=== PATIENT | female | born 1945 | race Caucasian/White ===

== ENCOUNTER 2020-08-05 09:48 | Inpatient (IN) | payer MEDICARE, MEDICAID, SELFPAY ==
[2020-08-05] VITALS (15 sets, daily range): BP systolic 92–158; BP diastolic 53–77; PULSE 77–98; RESP 14–22; TEMP 36.6–36.8; O2SAT 1–100; BMI 13.7
--- NOTE | 2020-08-05 09:51 | XRR_ITS ---
PROCEDURE INFORMATION: Exam: XR Right Knee Exam date and time: 08/05/2020 10:00 AM Age: 75 years old Clinical indication: Injury or trauma; Fall; Blunt trauma; Knee; Right; Prior surgery; Surgery type: Lower leg TECHNIQUE: Imaging protocol: XR Right knee. Views: 3 views. COMPARISON: No relevant prior studies available. FINDINGS: Bones/joints: Postsurgical hardware is seen with metallic plate and screws in the lateral aspect of the proximal tibia. No acute bony abnormalities are present. Soft tissues: Unremarkable XR/XR knee RT 3V* [id number] IMPRESSION: No acute findings. ORIF lateral tibia.
--- NOTE | 2020-08-05 09:51 | XRR_ITS ---
PROCEDURE INFORMATION: Exam: XR Right Shoulder Exam date and time: 08/05/2020 10:00 AM Age: 75 years old Clinical indication: Injury or trauma; Fall; Blunt trauma (contusions or hematomas); Arm, upper; Right TECHNIQUE: Imaging protocol: XR Right shoulder. Views: 2 or more views. COMPARISON: No relevant prior studies available. FINDINGS: Bones/joints: There is a comminuted displaced fracture of the proximal shaft of the right humerus. The glenohumeral joint is intact. Soft tissues: Soft tissue effusion is seen adjacent to the fracture. Incidentally noted is a large calcified lymph node in the subcarinal mediastinum. XR/XR shoulder RT min 2V* [id number] IMPRESSION: Comminuted displaced fracture proximal shaft of the humerus.
--- NOTE | 2020-08-05 09:51 | XRR_ITS ---
PROCEDURE INFORMATION: Exam: XR Right Humerus Exam date and time: 08/05/2020 10:00 AM Age: 75 years old Clinical indication: Injury or trauma; Fall; Blunt trauma (contusions or hematomas); Arm, upper; Right TECHNIQUE: Imaging protocol: XR Right humerus. Views: 2 or more views. COMPARISON: CR (CHEST, ) 08/05/2020 10:07 AM FINDINGS: Bones/joints: Comminuted displaced fracture proximal shaft of the humerus. The remainder of the humerus is negative for acute abnormality. Soft tissues: Normal. XR/[place] [id number] IMPRESSION: Comminuted displaced fracture proximal shaft of the humerus
--- NOTE | 2020-08-05 09:52 | XRR_ITS ---
PROCEDURE INFORMATION: Exam: XR Chest Exam date and time: 08/05/2020 10:00 AM Age: 75 years old Clinical indication: Injury or trauma; Fall; Blunt trauma (contusions or hematomas); Additional info: Cough TECHNIQUE: Imaging protocol: XR of the chest. Views: 1 view. COMPARISON: CR Chest 1 [place] [id number] 08/20/2013 10:04 AM FINDINGS: Lungs: Unremarkable. No consolidation. Pleural spaces: Unremarkable. No pleural effusion. No pneumothorax. Heart/Mediastinum: Unremarkable. No cardiomegaly. Bones/joints: Comminuted displaced fracture proximal shaft of the humerus. XR/XR chest 1V portable [id number] IMPRESSION: 1. No acute cardiac or pulmonary abnormality. 2. Comminuted displaced fracture proximal shaft of the humerus.
--- NOTE | 2020-08-05 09:53 | ECG_ITS ---
[facility] Test Date: 2020-08-05 Pat Name: Mónica Rodas Department: Room: Gender: Female [employer]: : 1945 Requested By: Vi Davidson Order Number: [id number] Ruma MD: Gabriela Dangelo M.D. Measurements Intervals [place] Rate: 77 P: 63 [place]: 145 QRS: 77 QRSD: 95 T: 71 QT: 377 QTc: 427 Interpretive Statements SINUS RHYTHM ST ELEVATION, PROBABLY EARLY REPOLARIZATION [ST ELEVATION WITH NORMALLY INFLECTED T WAVE] No previous ECG available for comparison Electronically Signed On 08-07-2020 9:35:58 CDT by Gabriela Dangelo M.D. [id number]
--- NOTE | 2020-08-05 09:54 | W.ED.GENADLT ---
HPI - General Adult General: Chief complaint: Extremity Injury, Upper Stated complaint: RIGHT SHOULDER PAIN S/P FALL Time Seen by Provider: 08/05/20 09:51 Source: patient and EMS Mode of arrival: EMS Limitations: no limitations History of Present Illness: HPI narrative: Mrs. Rodas is a very nice 75-year-old female who comes in via EMS after she lost her balance trying to step over something in the yard causing her to fall. She landed on her right shoulder and has pain in the right shoulder and right knee. Shoulder pain is much worse on the right knee. She denies hitting her head or neck or losing consciousness. She has no headache, no visual symptoms denies any neck pain or stiffness. The patient also has a cough and wheezing. She has a history of COPD but does not wear oxygen. EMS noted the patient's pulse ox was below 90% so they placed her on 2 L of nasal cannula oxygen. The patient admits to a cough productive of yellow sputum. She is wheezing can be heard when entering the room. The patient does not appear to be in distress. Patient denies injuries anywhere else except for to the left shoulder she has an abrasion. She otherwise denies any other complaints or concerns. Associated symptoms: Deny chest pain, dyspnea, headache(s), nausea, rash, palpitations, syncope or vomiting Review of Systems Const: Denies: fever(s) Eyes: Denies: change in vision or blurry vision ENMT: Denies: throat pain, hoarseness or swelling of lips/tongue Card: Denies: chest pain, palpitations, syncope, pre-syncope or dyspnea on exertion Resp: Reports: productive cough, wheezing and change in phlegm color; Denies: dyspnea, non-productive cough or hemoptysis GI: Denies: abdominal pain, nausea, vomiting or diarrhea : Denies: flank pain, dysuria, urinary frequency or urinary urgency Musc: Reports: joint pain; Denies: neck pain, back pain or extremity pain Skin/Breast: Denies: rash or pruritus Neuro: Denies: headache(s), numbness in extremities, weakness in extremities or dizziness Michael/Lymph: Denies: easy bruising, easy bleeding, petechiae or purpura All/Imm: Denies: urticaria or throat swelling PFSH ED PFSH: Medical History (Updated 08/05/20 @ 13:27 by Vi Moss) Arrhythmia COPD (chronic obstructive pulmonary disease) GERD (gastroesophageal reflux disease) Hypertension Physical Exam Const: COMMON NORMALS: no acute distress, patient oriented x3, no limitations and alert GENERAL APPEARANCE: cooperative HENMT: COMMON NORMALS: normocephalic, atraumatic, external ears normal, EAC's normal and Normal external nose present HEAD & SCALP: normal to inspection, normocephalic and atraumatic FACE & SINUS: normal facial exam and face symmetric NOSE: Normal external nose present and Normal nares present EXTERNAL EAR: Yes external ears normal EXTERNAL AUDITORY CANAL: EAC's normal MOUTH: Normal oral and palatal mucosa present, lip normal and tongue normal Eye: COMMON NORMALS: Equal, round and reactive pupils present and conjunctivae normal GENERAL EYE: appearance normal, both eyes and all related structures ALIGNMENT: Yes alignment normal PERIORBITAL: periorbital findings normal EYELID: eyelids normal CONJUNCTIVA: Yes conjunctivae normal SCLERA: sclerae normal PUPIL: Yes Equal, round and reactive pupils present Neck/C-Spine: COMMON NORMALS: full ROM, no lymphadenopathy, supple, no meningeal signs and no JVD GENERAL: Yes normal visual inspection and Yes trachea midline Chest: COMMONS NORMALS: normal inspection of the chest and normal palpation of entire chest wall Resp: COMMON NORMALS: normal respiratory effort, No retractions, No use of accessory muscles and clear to auscultation bilaterally EFFORT & INSPECTION: Yes able to speak in complete sentences and Yes symmetric chest movement AUSCULTATION: clear to auscultation bilaterally, no crackles, no rales, no rhonchi and no wheezes Cardio: COMMON NORMALS: no JVD, regular rate, regular rhythm, S1 normal heart sound present and S2 normal heart sound present RATE: regular rate RHYTHM: regular rhythm HEART SOUNDS: S1 normal heart sound present, S2 normal heart sound present, no click, no gallops, no murmurs and no rubs GI: COMMON NORMALS: Soft to palpation and No hepatosplenomegaly present PALPATION: Yes Soft to palpation, No Tenderness to palpation present (GI), No Guarding due to palpation present (GI), No Rigid due to palpation, Yes No hepatosplenomegaly present, No Hernia present, No Palpable mass present and No Pulsatile mass present : COMMON NORMALS: Yes no CVA tenderness BLADDER/KIDNEY EXAM: Yes no CVA tenderness EXTERNAL FEMALE EXAM: No Hernia present Back/Pelvis: COMMON NORMALS: no CVA tenderness, thoracic and lumbar spine normal to inspection, no thoracic nor lumbar tenderness and thoraco-lumbar ROM normal Extremity: COMMON NORMALS: capillary refill normal, no clubbing, cyanosis or edema and no calf tenderness NARRATIVE EXTREMITY EXAM: Right shoulder with hematoma noted to the anterior aspect. Range of motion limited secondary to pain. Right knee without swelling or abrasion. Area without contusion noted. Both extremities are neurovascular intact distal to the injuries. Neuro: COMMON NORMALS: patient oriented x3, CN's II-XII intact bilaterally, moves all extremities, no focal motor deficits and no sensory deficits noted SENSORIUM/ORIENTATION: Yes alert MENINGEAL SIGNS: Yes no meningeal signs SPEECH: speech normal Psych: COMMON NORMALS: mental status grossly normal, Normal thought process present, cooperative, normal affect, speech normal and activity/motor behavior normal SPEECH: Yes normal speech THOUGHT PROCESS: Normal thought process present Skin: COMMON NORMALS: no rashes or lesions noted, turgor normal, no jaundice, no petechiae and no mottling GENERAL SKIN EXAM: no rashes or lesions noted and turgor normal Course Vital Signs: Vital signs: Vital Signs Temperature 98.3 F 08/05/20 09:49 Pulse Rate 77 08/05/20 13:08 Respiratory Rate 22 H 08/05/20 13:08 Blood Pressure 92/53 08/05/20 13:08 Pulse Oximetry 99 08/05/20 13:08 MDM - General Adult MDM Narrative: Medical decision making narrative: The case was reviewed with Drs. Judge and Dr. Cade, they will admit and consult respectively. Patient be admitted for COPD exacerbation that is mild not requiring BiPAP and will be managed by Dr. Cade for her orthopedic injuries. Lab Data: Attestation: I reviewed the patient's lab results. Labs: Lab Results 08/05/20 08/05/20 08/05/20 Range/Units 09:57 10:25 10:25 WBC 12.2 H (4.0-10.0) 10^3/ uL RBC 3.65 L (4.1-5.3) 10^6/u L Hgb 11.5 (11.5-15.3) g/dL Hct 36.6 L (37.0-47.0) % MCV 100.3 H (81-99) fL MCH 31.5 (28.0-34.0) pg MCHC 31.4 (30.0-36.0) g/dL RDW 14.2 (12.1-15.1) % Plt Count 336 (130-400) 10^3/c mm MPV 10.1 (7.4-10.4) fL Neut % (Auto) 64.5 % Lymph % (Auto) 28.8 % [place] % (Auto) 5.1 % Eos % (Auto) 0.7 % Baso % (Auto) 0.6 % Neut # (Auto) 7.90 H (1.8-7.7) 10^3/u L Lymph # (Auto) 3.5 (0.8-4.8) 10^3/u L [place] # (Auto) 0.6 (0.2-0.9) 10^3/u L Eos # (Auto) 0.1 (0.0-0.8) 10^3/u L Baso # (Auto) 0.1 (0.0-0.1) 10^3/u L Nucleated RBC % (a uto) 0 % Nucleated RBCs # 0.0 /100WBC Specimen Type Arterial Sample Site Brachial, left ABG pH 7.35 (7.35-7.45) ABG pCO2 54.1 H (35-45) mmHg ABG pO2 72.7 L (80.0-100.0) mmH g ABG HCO3 30.0 H (22-26) mmol/L ABG O2 Saturation 96.5 ABG Base Excess 3.3 H (-2.0-2.0) mmol/ L Leonel Test Pos A-a O2 Gradient 7.7 (5-10) mmHg Hematocrit 36.1 L (37-47) % Hgb O2 Saturation 91.9 L (95-100) % Carboxyhemoglobin 3.8 (0.4-20.1) %THgb Methemoglobin 1.0 (0.4-1.5) % Total Hemoglobin 11.8 L (12-16) g/dL Sodium 137.0 135 L (131-143) mmol/L Potassium 4.4 4.8 (3.5-5.0) mmol/L Glucose 128.0 H 121 H (70-115) mg/dL Ionized Calcium 1.3 (1.1-1.4) mmol/L O2 Delivery Device Nc O2 Liters/Min 2.0 % FiO2 28.0 % Sand Caster Apprentice ID Cak Chloride 98 (98-107) mmol/L Carbon Dioxide 30 H (22-29) mmol/L Anion Gap 11.8 (5-19) BUN 10 (8-23) mg/dL Creatinine 0.3 L (0.5-0.9) mg/dL GFR Calculation Not Reportable Calculated Osmolal ity 280 L (285-295) mOsm/k g Calcium 8.9 (8.5-10.5) mg/dL Magnesium 2.1 (1.7-2.3) mg/dL Total Bilirubin 0.2 (0.15-1.2) mg/dL AST 24 (0-32) U/L ALT 20 (0-33) U/L Alkaline Phosphata se 66 (35-105) IU/L Troponin T Baselin e (0-10) ng/L Troponin T 120 Min [place] (0-10) ng/L Delta Troponin T (0-10) ABS# Total Protein 6.6 (6.6-8.7) g/dL Albumin 4.2 (3.5-5.2) g/dL Globulin 2.4 (1.3-4.6) g/dL Urine Color (Yellow) Urine Appearance (CLEAR) Urine pH (5-7) Ur Specific Gravit y (1.005-1.030) Urine Protein (Negative) Urine Glucose (UA) (Normal) Urine Ketones (Negative) Urine Blood (Negative) Urine Nitrate (Negative) Urine Bilirubin (Negative) Urine Urobilinogen (Negative) mg/dL Ur Leukocyte Mckenzie ase (Negative) 08/05/20 08/05/20 08/05/20 Range/Units 10:25 11:41 12:16 WBC (4.0-10.0) 10^3/ uL RBC (4.1-5.3) 10^6/u L Hgb (11.5-15.3) g/dL Hct (37.0-47.0) % MCV (81-99) fL MCH (28.0-34.0) pg MCHC (30.0-36.0) g/dL RDW (12.1-15.1) % Plt Count (130-400) 10^3/c mm MPV (7.4-10.4) fL Neut % (Auto) % Lymph % (Auto) % [place] % (Auto) % Eos % (Auto) % Baso % (Auto) % Neut # (Auto) (1.8-7.7) 10^3/u L Lymph # (Auto) (0.8-4.8) 10^3/u L [place] # (Auto) (0.2-0.9) 10^3/u L Eos # (Auto) (0.0-0.8) 10^3/u L Baso # (Auto) (0.0-0.1) 10^3/u L Nucleated RBC % (a uto) % Nucleated RBCs # /100WBC Specimen Type Sample Site ABG pH (7.35-7.45) ABG pCO2 (35-45) mmHg ABG pO2 (80.0-100.0) mmH g ABG HCO3 (22-26) mmol/L ABG O2 Saturation ABG Base Excess (-2.0-2.0) mmol/ L Leonel Test A-a O2 Gradient (5-10) mmHg Hematocrit (37-47) % Hgb O2 Saturation (95-100) % Carboxyhemoglobin (0.4-20.1) %THgb Methemoglobin (0.4-1.5) % Total Hemoglobin (12-16) g/dL Sodium (131-143) mmol/L Potassium (3.5-5.0) mmol/L Glucose (70-115) mg/dL Ionized Calcium (1.1-1.4) mmol/L O2 Delivery Device O2 Liters/Min % FiO2 % Sand Caster Apprentice ID Chloride (98-107) mmol/L Carbon Dioxide (22-29) mmol/L Anion Gap (5-19) BUN (8-23) mg/dL Creatinine (0.5-0.9) mg/dL GFR Calculation Calculated Osmolal ity (285-295) mOsm/k g Calcium (8.5-10.5) mg/dL Magnesium (1.7-2.3) mg/dL Total Bilirubin (0.15-1.2) mg/dL AST (0-32) U/L ALT (0-33) U/L Alkaline Phosphata se (35-105) IU/L Troponin T Baselin e 12 H (0-10) ng/L Troponin T 120 Min [place] 11.76 H (0-10) ng/L Delta Troponin T -0.24 L (0-10) ABS# Total Protein (6.6-8.7) g/dL Albumin (3.5-5.2) g/dL Globulin (1.3-4.6) g/dL Urine Color Straw (Yellow) Urine Appearance Clear (CLEAR) Urine pH 5 (5-7) Ur Specific Gravit y 1.015 (1.005-1.030) Urine Protein Neg (Negative) Urine Glucose (UA) Norm (Normal) Urine Ketones Negative (Negative) Urine Blood Neg (Negative) Urine Nitrate Negative (Negative) Urine Bilirubin Neg (Negative) Urine Urobilinogen Norm (Negative) mg/dL Ur Leukocyte Mckenzie ase Negative (Negative) Imaging Data^: CXR: My impression: No acute cardiopulmonary findings. Findings consistent with COPD. XR Right Shoulder: My impression: Comminuted proximal humerus fracture XR Right Humerus: My impression: Comminuted proximal humerus fracture XR Right Femur: My impression: Probable nondisplaced distal femur fracture XR Right Knee: My impression: Probable nondisplaced distal femur fracture EKG Data^: EKG 1: Attestation: I personally reviewed and interpreted this EKG as follows: Interpretation: Normal sinus rhythm at 77 beats a minute, significant artifact present in the precordial leads, nonspecific ST-T wave changes, consistent with previous EKGs. Computer generated interpretation: Humerus X-Ray 08/05/20 09:51 IMPRESSION: Comminuted displaced fracture proximal shaft of the humerus Knee X-Ray 08/05/20 09:51 IMPRESSION: No acute findings. ORIF lateral tibia. Shoulder X-Ray 08/05/20 09:51 IMPRESSION: Comminuted displaced fracture proximal shaft of the humerus. Chest X-Ray 08/05/20 09:52 IMPRESSION: 1. No acute cardiac or pulmonary abnormality. 2. Comminuted displaced fracture proximal shaft of the humerus. Femur X-Ray 08/05/20 10:18 IMPRESSION: No acute findings. General osteopenia. Head CT 08/05/20 10:20 IMPRESSION: 1. No acute intracranial abnormality. 2. Generalized chronic atrophy. 3. 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 Radiation Dose CTDIVOL = (mGy): DLP = 734.38 (mGy-cm) Shoulder CT 08/05/20 10:40 IMPRESSION: 1. Severe centrilobular emphysema. 2. Comminuted impacted angulated displaced right humeral neck fracture. 3. Nondisplaced fracture in the region of the greater tuberosity. Radiation Dose CTDIVOL = (mGy): DLP = 517.21 (mGy-cm) Femur CT 08/05/20 11:30 IMPRESSION: 1. Spiral hairline nondisplaced fracture in femoral cortex beginning posteriorly in the mid femoral shaft and extending laterally and inferiorly with termination over anterolateral portion of the right femoral epicondyle. 2. Minimal joint effusion with no obvious lipohemarthrosis. 3. This does not appear to be intra-articular fracture since there is no obvious lipohemarthrosis. 4. Mild lateral patellar subluxation and patellar tilt. 5. Metallic artifact from metallic fixation over the lateral portion of the proximal tibia. Radiation Dose CTDIVOL = (mGy): DLP = 1036.24 (mGy-cm) Discharge Plan Discharge Patient Disposition: Admitted As Inpatient Clinical Impression: COPD (chronic obstructive pulmonary disease), Fracture of head of humerus, Femur fracture, right Condition: Stable Prescriptions: No Action Zyrtec 10 mg Tablet 10 mg PO BEDTIME RF: 0 simvastatin 10 mg tablet 10 mg PO QPM RF: 0 amlodipine 5 mg tablet 5 mg PO QAM RF: 0 montelukast 10 mg tablet 10 mg PO QAM RF: 0 Ventolin HFA 90 mcg/actuation HFA aerosol inhaler 2 puff INHALATION Q4H PRN (Reason: Shortness Of Breath) RF: 0 lisinopril 40 mg tablet 40 mg PO BID RF: 0 fluticasone propionate 50 mcg/actuation spray,suspension 2 spray INTRANASAL DAILY RF: 0 atenolol 50 mg tablet 50 mg PO BID RF: 0 Vitamin D3 50 mcg (2,000 unit) Capsule 50 mcg PO QPM RF: 0 Spiriva Respimat 2.5 mcg/actuation mist 2 puff INHALATION DAILY RF: 0 Referrals: Sugey Sosa DO [Primary Care Provider] - Coding Level of Care Code ED Inspecting Engineer for Chg Fwd Exam Comprehensive
[2020-08-05 10:08] LABS: ABG PCO2 54.1 mmHg (35-45); ABG PH Result 7.35 (7.35-7.45); Alveolar-Arterial Oxygen Gradi 7.7 mmHg (5-10); Arterial Blood Gas Hematocrit 36.1 % (37-47); Base Excess ABG 3.3 mmol/L (-2.0-2.0); Blood Gas Allen Test Pos; Blood Gas Operator Identificat CAK; Blood Gas Sample Site Brachial, left; Blood Gas Sample Type Arterial; Carboxyhemoglobin 3.8 %THgb (0.4-20.1); HGB O2 Sat 91.9 % (95-100); Ionized Calcium Level - ABG 1.3 mmol/L (1.1-1.4); Oxygen Device NC; Oxygen Saturation ABG 96.5; PO2 ABG 72.7 mmHg (80.0-100.0); Potassium Level - ABG 4.4 mmol/L (3.5-5.0); Total Hemoglobin 11.8 g/dL (12-16)
--- NOTE | 2020-08-05 10:18 | XRR_ITS ---
PROCEDURE INFORMATION: Exam: XR Right Femur Exam date and time: 08/05/2020 10:27 AM Age: 75 years old Clinical indication: Injury or trauma; Fall; Blunt trauma; Thigh or upper leg; Right; Additional info: Pain/injury TECHNIQUE: Imaging protocol: XR Right femur. Views: 2 views. COMPARISON: CR (LOW EXM, ) 08/05/2020 10:02 AM FINDINGS: Bones/joints: There is general osteopenia. No acute fracture. Soft tissues: Unremarkable. XR/XR femur RT min 2V* [id number] IMPRESSION: No acute findings. General osteopenia.
--- NOTE | 2020-08-05 10:20 | CTR_ITS ---
PROCEDURE INFORMATION: Exam: CT Head Without Contrast Exam date and time: 08/05/2020 10:53 AM Age: 75 years old Clinical indication: Injury or trauma; Fall; Blunt trauma (contusions or hematomas); Additional info: Fall/injury TECHNIQUE: Imaging protocol: Computed tomography of the head without contrast. Radiation optimization: All CT scans at this facility use at least one of these dose optimization techniques: automated exposure control; mA and/or kV adjustment per patient size (includes targeted exams where dose is matched to clinical indication); or iterative reconstruction. COMPARISON: No relevant prior studies available. RADIATION DOSE METRICS: Total DLP (mGy-cm): 734.38 FINDINGS: Brain: No intracranial hemorrhage, edema or other acute abnormalities are seen in the brain. There is generalized chronic atrophy with prominence of the ventricles and sulci. There is focal encephalomalacia in the left parietal lobe from old infarct. Cerebral ventricles: There is ventricular prominence from chronic atrophy. Bones/joints: Unremarkable. No acute fracture. Paranasal sinuses: Visualized sinuses are unremarkable. No fluid levels. Mastoid air cells: Visualized mastoid air cells are well aerated. Soft tissues: Unremarkable. CT/CT head wo con* [id number] IMPRESSION: 1. No acute intracranial abnormality. 2. Generalized chronic atrophy. 3. 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 Radiation Dose CTDIVOL = (mGy): DLP = 734.38 (mGy-cm)
[2020-08-05] MEDS: ondansetron 2 mg/ML SDV 2 mL 4 MG IVP ×2 (10:32→18:26)
[2020-08-05] MEDS: morphine 4 mg/mL SDV 1 mL IVP (10:33)
[2020-08-05] MEDS: acetaminophen 1,000 MG/100 ML PIGGYBACK 400 MG IV (10:36)
[2020-08-05] MEDS: sodium chloride 0.9% 1,000 ML 100 ML IV (10:37)
--- NOTE | 2020-08-05 10:40 | CTR_ITS ---
PROCEDURE INFORMATION: Exam: CT Right Upper Extremity Without Contrast, Shoulder Exam date and time: 08/05/2020 10:53 AM Age: 75 years old Clinical indication: Injury or trauma; Fall; Blunt trauma (contusions or hematomas); Shoulder; Right TECHNIQUE: Imaging protocol: CT of the Right upper extremity without contrast was performed. Exam focused on the shoulder. Radiation optimization: All CT scans at this facility use at least one of these dose optimization techniques: automated exposure control; mA and/or kV adjustment per patient size (includes targeted exams where dose is matched to clinical indication); or iterative reconstruction. COMPARISON: CR (CHEST, ) 08/05/2020 10:07 AM RADIATION DOSE METRICS: Total DLP (mGy-cm): 517.21 FINDINGS: Bones/joints: Comminuted impacted angulated displaced right humeral neck fracture. Nondisplaced fracture in the region of the greater tuberosity. Soft tissues: Normal. Lymph nodes: Calcified right hilar nodes and/or mediastinal nodes and/or lung granulomas consistent with old granulomatous disease. Lungs: Severe centrilobular emphysema. CT/CT shoulder RT wo con* [id number] IMPRESSION: 1. Severe centrilobular emphysema. 2. Comminuted impacted angulated displaced right humeral neck fracture. 3. Nondisplaced fracture in the region of the greater tuberosity. Radiation Dose CTDIVOL = (mGy): DLP = 517.21 (mGy-cm)
[2020-08-05 10:46] LABS: Basophils # 0.1 10^3/uL (0.0-0.1); Basophils % 0.6 %; Eosinophils # 0.1 10^3/uL (0.0-0.8); Eosinophils % 0.7 %; Hematocrit 36.6 % (37.0-47.0); Hemoglobin 11.5 g/dL (11.5-15.3); Lymphocytes # 3.5 10^3/uL (0.8-4.8); Lymphocytes % 28.8 %; Mean Corpuscular HGB Conc 31.4 g/dL (30.0-36.0); Mean Corpuscular Hemoglobin 31.5 pg (28.0-34.0); Mean Corpuscular Volume 100.3 fL (81-99); Mean Platelet Volume 10.1 fL (7.4-10.4); Monocytes # 0.6 10^3/uL (0.2-0.9); Monocytes % 5.1 %; Neutrophils % 64.5 %; Nucleated Red Blood Cells % 0 %; Platelet Count 336 10^3/cmm (130-400); Red Blood Count 3.65 10^6/uL (4.1-5.3); Red Cell Distribution Width 14.2 % (12.1-15.1); White Blood Count 12.2 10^3/uL (4.0-10.0)
[2020-08-05 11:05] LABS: Alanine Aminotransferase 20 U/L (0-33); Albumin Level 4.2 g/dL (3.5-5.2); Alkaline Phosphatase 66 IU/L (35-105); Blood Urea Nitrogen 10 mg/dL (8-23); Calcium 8.9 mg/dL (8.5-10.5); Carbon Dioxide 30 mmol/L (22-29); Chloride 98 mmol/L (98-107); Creatinine Clr Calc Pharmacy 32.6311; Globulin 2.4 g/dL (1.3-4.6); Glucose 121 mg/dL (65-115); Magnesium 2.1 mg/dL (1.7-2.3); Osmolality Calculated 280 mOsm/kg (285-295); Sodium 135 mmol/L (136-145); Total Bilirubin 0.2 mg/dL (0.15-1.2); Total Protein 6.6 g/dL (6.6-8.7)
[2020-08-05 11:06] LABS: Troponin(5th) Baseline 12 ng/L (0-10)
[2020-08-05 11:09] LABS: Anion Gap 11.8 (5-19)
[2020-08-05 11:10] LABS: Aspartate Amino Transferase 24 U/L (0-32); Potassium 4.8 mmol/L (3.5-5.1)
--- NOTE | 2020-08-05 11:30 | CTR_ITS ---
PROCEDURE INFORMATION: Exam: CT Right Lower Extremity Without Contrast; Thigh Exam date and time: 08/05/2020 12:12 PM Age: 75 years old Clinical indication: Injury or trauma; Fall; Blunt trauma; Thigh or upper leg; Right; Additional info: Injury/pain TECHNIQUE: Imaging protocol: CT of the Right lower extremity without contrast was performed. Exam focused on the thigh. Radiation optimization: All CT scans at this facility use at least one of these dose optimization techniques: automated exposure control; mA and/or kV adjustment per patient size (includes targeted exams where dose is matched to clinical indication); or iterative reconstruction. COMPARISON: CR (LOW EXM, ) 08/05/2020 10:14 AM RADIATION DOSE METRICS: Total DLP (mGy-cm): 1036.24 FINDINGS: Tubes, catheters and devices: Allen balloon catheter in the urinary bladder. Bones/joints: Spiral hairline nondisplaced fracture in femoral cortex beginning posteriorly in the mid femoral shaft and extending laterally and inferiorly with termination over anterolateral portion of the right femoral epicondyle. Minimal joint effusion with no obvious lipohemarthrosis. This does not appear to be intra-articular fracture since there is no obvious lipohemarthrosis. Mild lateral patellar subluxation and patellar tilt. Metallic artifact from metallic fixation over the lateral portion of the proximal tibia. Soft tissues: Normal. Vasculature: Moderate calcified peripheral vascular disease. CT/CT femur RT wo con* [id number] IMPRESSION: 1. Spiral hairline nondisplaced fracture in femoral cortex beginning posteriorly in the mid femoral shaft and extending laterally and inferiorly with termination over anterolateral portion of the right femoral epicondyle. 2. Minimal joint effusion with no obvious lipohemarthrosis. 3. This does not appear to be intra-articular fracture since there is no obvious lipohemarthrosis. 4. Mild lateral patellar subluxation and patellar tilt. 5. Metallic artifact from metallic fixation over the lateral portion of the proximal tibia. Radiation Dose CTDIVOL = (mGy): DLP = 1036.24 (mGy-cm)
[2020-08-05 11:46] LABS: Add Urine Microscopic? NO; Charge for UA Resulting for Rev
--- NOTE | 2020-08-05 11:53 | ECG_ITS ---
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 Measurements Intervals [place] Rate: 76 P: 65 NE: 128 QRS: 69 QRSD: 103 T: 66 QT: 395 QTc: 445 Interpretive Statements SINUS RHYTHM SEPTAL MYOCARDIAL INFARCTION [40+ ms Q WAVE IN V1/V2], PROBABLY OLD Compared to ECG 08/05/2020 10:58:41 Myocardial infarct finding now present ST (T wave) deviation no longer present Early repolarization no longer present Electronically Signed On 08-07-2020 17:43:06 CDT by Gabriela Dangelo M.D. [id number]
[2020-08-05 11:56] LABS: Bilirubin Urine Neg (Negative); Blood Urine Neg (Negative); Glucose Urine UA Norm (Normal); Ketones Urine Negative (Negative); Leukocyte Esterase Urine Negative (Negative); Nitrate Urine Negative (Negative); Protein Urine Neg (Negative); Specific Gravity, Urine 1.015 (1.005-1.030); Urine Appearance Clear (CLEAR); Urine Color Straw (Yellow); Urobilinogen Urine Norm (Negative); pH Urine 5 (5-7)
[2020-08-05 13:04] LABS: Troponin 5 2HR 11.76 ng/L (0-10)
[2020-08-05 13:12] LABS: Troponin 5 2HR Delta -0.24 ABS# (0-10)
[2020-08-05] MEDS: morphine 4 mg/mL SDV 1 mL 2 MG IVP (14:40)
--- NOTE | 2020-08-05 16:43 | P.HP_ITS ---
Providers/Chief Complaint Admitting Physician: Krys Judge MD Primary Care Provider: Sugey Sosa DO Chief Complaint: RIGHT SHOULDER PAIN S/P FALL History of Present Illness Mónica Rodas is a 75 year old female with PMH as outlined below who presented to the ER today after a mechanical fall and landed on her right shoulder and knee. Incidentally was noted to have pulse ox of 90% by EMS and noted hweezing on exam in the ER, for which she was placed on supplemental 02. X ray of the humerus showed Comminuted displaced fracture proximal shaft of the humerus, Spiral hairline nondisplaced fracture in femoral cortex on right side and patellar subluxation. Ct head without acute injuries. CXR showed centilobular emphysema. Review of Systems General: Reports: 10 or more systems reviewed and unremarkable except in HPI and below Const: Denies: fever(s), chills or body aches Eyes: Denies: change in vision, blurry vision or photophobia ENMT: Reports: hoarseness; Denies: throat pain, enlarged tonsils, odynophagia or nasal congestion Card: Denies: chest pain, palpitations, irregular heart rhythm, edema, swelling of feet/ankles, lightheadedness, pre-syncope, dyspnea on exertion or orthopnea Resp: Denies: dyspnea, productive cough, non-productive cough, wheezing, str idor, pain on inspiration, change in phlegm color, hemoptysis or chest congestion GI: Denies: abdominal pain, nausea, vomiting, hematemesis, coffee ground emesis, dysphagia, heartburn, diarrhea, constipation, GI cramping, change in stool character, hematochezia or melena : Denies: flank pain, difficulty voiding, dysuria, urinary frequency, urinary urgency, urinary hesitancy or hematuria Musc: Denies: neck pain, back pain, extremity pain, joint swelling, joint warmth or deformity Neuro: Denies: headache(s), numbness in extremities, weakness in extremities, sensory changes, difficulty walking, frequent falls, dizziness, vertigo, behavioral changes, Slurred speech present or seizure-like activity Psych: Denies: anxiety, depression, suicidal ideation or homicidal ideation Endo: Denies: polyuria, polydipsia, tired all the time, cold intolerance or hot flashes Michael/Lymph: Denies: easy bruising or easy bleeding Medications/Allergies Home Medications Medication Instructions Recorded Confirmed Last Taken Type albuterol sulfate [Ventolin HFA] 2 puff INHALATION Q4H PRN 08/05/20 08/05/20 Unknown History amlodipine 5 mg PO QAM 08/05/20 08/05/20 08/05/20 07:30 History atenolol 50 mg PO BID 08/05/20 08/05/20 08/05/20 07:30 History cetirizine [Zyrtec] 10 mg PO BEDTIME 08/05/20 08/05/20 08/04/20 History cholecalciferol (vitamin D3) 50 mcg PO QPM 08/05/20 08/05/20 08/04/20 History [Vitamin D3] fluticasone propionate 2 spray INTRANASAL DAILY 08/05/20 08/05/20 Unknown History lisinopril 40 mg PO BID 08/05/20 08/05/20 08/05/20 07:30 History montelukast 10 mg PO QAM 08/05/20 08/05/20 08/05/20 07:30 History simvastatin 10 mg PO QPM 08/05/20 08/05/20 08/04/20 History tiotropium bromide [Spiriva 2 puff INHALATION DAILY 08/05/20 08/05/20 Unknown History Respimat] Allergies Allergy/AdvReac Type Severity Reaction Status Date / Time aspirin Allergy ADR-Gastrointestinal Verified 08/05/20 10:41 Upset Penicillins Allergy ADR-Gastrointestinal Verified 08/05/20 10:41 Upset tetracycline Allergy ADR-Gastrointestinal Verified 08/05/20 10:41 Upset PFSH Acute PFSH: Medical History Arrhythmia COPD (chronic obstructive pulmonary disease) GERD (gastroesophageal reflux disease) Hypertension Vitals/I&O/Wt Last Vital Signs Temp 98.3 F 08/05/20 09:49 Pulse 79 08/05/20 15:35 Resp 14 08/05/20 15:35 BP 116/58 08/05/20 15:35 Pulse Ox 99 08/05/20 15:35 08/05/20 08/05/20 08/05/20 06:59 14:59 22:59 Intake Total 100 / 100 Balance 100 / 100 Weight last 48 hrs Weight 34.019 kg Physical Exam Narrative: EXAM NARRATIVE: General: No acute distress, AO x3 HEENT: PERRLA, pupils bilaterally equal and reactive, pallors not present Chest: scattered wheezing to auscultation B/L CVS: S1-S2 regular, no murmurs, no tachycardia, no gallops, no rubs Abdomen: Soft, nontender, no organomegaly, bowel sounds present Neuro: No focal deficits, no facial deformity, AO x3, power 5/5 in all limbs Urinary Catheter Management^: Allen: Cath Placed During This Visit: yes Urinary Catheter Date of Insertion: 08/05/20 Urinary Catheter Time of Insertion: 11:30 Data : 08/05/20 10:25 08/05/20 10:25 A&P Assessment and plan (1) Fracture of head of humerus: Status: Acute Qualifiers: Encounter type: initial encounter Fracture type: closed Laterality: right Qualified Code(s): S42.291A - Other displaced fracture of upper end of right humerus, initial encounter for closed fracture (2) Femur fracture, right: Status: Acute Qualifiers: Encounter type: initial encounter Femur location: distal, unspecified portion Fracture morphology: unspecified fracture morphology Fracture type: closed Qualified Code(s): S72.401A - Unspecified fracture of lower end of right femur, initial encounter for closed fracture (3) Hypertension: Status: Acute Qualifiers: Hypertension type: essential hypertension Qualified Code(s): I10 - E ssential (primary) hypertension (4) COPD (chronic obstructive pulmonary disease): Status: Acute Qualifiers: COPD type: COPD with acute exacerbation Qualified Code(s): J44.1 - Chronic obstructive pulmonary disease with (acute) exacerbation Additional A&P Information Mechanical fall with resulting fractures as above Fracture management per orthopedics pain control with morphine/toradol # HTN: continue home medications incl atenolol, lisinopril # COPD with mild exacerbation, currently saturating 99% on 2lpm NC CXR without consolidation Duoneb inhalation q4h , budesonide 0.5mg BID Prednisone 40mg daily full code Dvt ppx: lovenox Attestations Medical Necessity Statement*: anticipate >2midnight for management of fractures as above, orthopedic assessment, COPD exacerbation Coding Level of Care Code Acute Beverage Inspection Machine Tender for Patricia Saeed Diagnoses Fracture of head of humerus S42.291A Encounter type: initial encounter Fracture type: closed Laterality: right Femur fracture, right S72.401A Encounter type: initial encounter Femur location: distal, unspecified portion Fracture morphology: unspecified fracture morphology Fracture type: closed Hypertension I10 Hypertension type: essential hypertension COPD (chronic obstructive pulmonary disease) J44.1 COPD type: COPD with acute exacerbation
[2020-08-05] MEDS: enoxaparin 40 mg/0.4 mL Syringe SUBCUT (18:25)
[2020-08-05 18:32] LABS: Troponin 5 6HR 13.09 ng/L (0-10); Troponin 5 6HR Delta 1.09 ng/L (0-12)
[2020-08-05] MEDS: ipratropium-albuterol 3 mL Neb INHALATION (20:03)
[2020-08-05] MEDS: budesonide 0.5 mg/2 mL Neb INHALATION (20:03)
[2020-08-05] MEDS: HYDROcodone-acetaminophen 5-325 mg Tablet 1 TAB PO (21:38)
[2020-08-06] VITALS (33 sets, daily range): BP systolic 89–141; BP diastolic 53–87; PULSE 83–119; RESP 12–27; TEMP 36.6–37.3; O2SAT 60–100
--- NOTE | 2020-08-06 | XR_ITS ---
WS: [id number] C-ARM RADIOGRAPHS RIGHT FEMUR; 7 IMAGES HISTORY: femoral nail COMPARISON: 08/05/2020 Lung intramedullary femoral oscar placement through a nondisplaced femur fracture. XR/XR femur RT min 2V* [id number] IMPRESSION: Intraoperative placement of a long intramedullary oscar RIGHT femur.
--- NOTE | 2020-08-06 | SCC_ITS ---
Procedure Done: 1.Right IM nail femur 2. Closed treatment of right proximal humerus fracture 72.6 seconds of fluoroscopic guidance, for a cumulative dose of 3.07 mGy, was provided to Dr. Cade by the radiology department. C-arm images of the RIGHT femur were saved for the patient's permanent record. [facility]
[2020-08-06] MEDS: ipratropium-albuterol 3 mL Neb INHALATION ×3 (02:24→22:27)
[2020-08-06 05:05] LABS: Basophils % 0.4 %; Eosinophils % 0.1 %; Hematocrit 32.3 % (37.0-47.0); Hemoglobin 9.9 g/dL (11.5-15.3); Lymphocytes # 3.5 10^3/uL (0.8-4.8); Mean Corpuscular HGB Conc 30.7 g/dL (30.0-36.0); Mean Corpuscular Hemoglobin 31.3 pg (28.0-34.0); Mean Corpuscular Volume 102.2 fL (81-99); Mean Platelet Volume 10.4 fL (7.4-10.4); Monocytes # 1.1 10^3/uL (0.2-0.9); Monocytes % 10.4 %; Neutrophils # 6.25 10^3/uL (1.8-7.7); Neutrophils % 56.9 %; Nucleated Red Blood Cells % 0 %; Platelet Count 268 10^3/cmm (130-400); Red Blood Count 3.16 10^6/uL (4.1-5.3); Red Cell Distribution Width 14.2 % (12.1-15.1)
[2020-08-06 05:28] LABS: Anion Gap 12.7 (5-19); Blood Urea Nitrogen 15 mg/dL (8-23); Calcium 8.7 mg/dL (8.5-10.5); Carbon Dioxide 29 mmol/L (22-29); Chloride 94 mmol/L (98-107); Creatinine Clr Calc Pharmacy 32.6311; Glucose 115 mg/dL (65-115); Osmolality Calculated 274 mOsm/kg (285-295); Potassium 4.7 mmol/L (3.5-5.1); Sodium 131 mmol/L (136-145)
--- NOTE | 2020-08-06 07:06 | P.CONIM_ITS ---
Providers/Reason For Consult Consulting Physican/Specialty*: hospitalist Reason for Consult*: femur fracture and proximal humerus fracture Attending Physician: Krys Judge MD Primary Care Provider: Sugey Sosa DO History of Present Illness History of Present Illness Mónica Rodas is a 75 year old female presented to the ER today after a mechanical fall and landed on her right shoulder and knee. Incidentally was noted to have pulse ox of 90% by EMS and noted hweezing on exam in the ER, for which she was placed on supplemental 02. X ray of the humerus showed Comminuted displaced fracture proximal shaft of the humerus, Spiral hairline nondisplaced fracture in femoral cortex on right side and patellar subluxation. Ct head without acute injuries. CXR showed centilobular emphysema. Review of Systems General: Reports: 10 or more systems reviewed and unremarkable except in HPI and below Const: Denies: fever(s), chills or body aches Eyes: Denies: change in vision, blurry vision or photophobia ENMT: Reports: hoarseness; Denies: throat pain, enlarged tonsils, odynophagia, swelling of lips/tongue or nasal congestion Card: Denies: chest pain, palpitations, irregular heart rhythm, edema, swelling of feet/ankles, lightheadedness, syncope, pre-syncope, dyspnea on exertion or orthopnea Resp: Denies: dyspnea, productive cough, non-productive cough, wheezing, stridor, pain on inspiration, change in phlegm color, hemoptysis or chest congestion GI: Denies: abdominal pain, nausea, vomiting, hematemesis, coffee ground emesis, dysphagia, heartburn, diarrhea, constipation, GI cramping, change in stool character, hematochezia or melena : Denies: flank pain, difficulty voiding, dysuria, urinary frequency, urinary urgency, urinary hesitancy or hematuria Musc: Reports: joint pain; Denies: neck pain, back pain, extremity pain, joint swelling, joint warmth or deformity Skin/Breast: Denies: rash or pruritus Neuro: Denies: headache(s), numbness in extremities, weakness in extremities, sensory changes, difficulty walking, frequent falls, dizziness, vertigo, behavioral changes, Slurred speech present or seizure-like activity Psych: Denies: anxiety, depression, suicidal ideation or homicidal ideation Endo: Denies: polyuria, polydipsia, tired all the time, cold intolerance or hot flashes Michael/Lymph: Denies: easy bruising, easy bleeding, petechiae or purpura All/Imm: Denies: urticaria or throat swelling Meds/Allergies Home Medications and Allergies Home Medications Medication Instructions Recorded Confirmed Last Taken Type albuterol sulfate [Ventolin HFA] 2 puff INHALATION Q4H PRN 08/05/20 08/05/20 Unknown History amlodipine 5 mg PO QAM 08/05/20 08/05/20 08/05/20 07:30 History atenolol 50 mg PO BID 08/05/20 08/05/20 08/05/20 07:30 History cetirizine [Zyrtec] 10 mg PO BEDTIME 08/05/20 08/05/20 08/04/20 History cholecalciferol (vitamin D3) 50 mcg PO QPM 08/05/20 08/05/20 08/04/20 History [Vitamin D3] fluticasone propionate 2 spray INTRANASAL DAILY 08/05/20 08/05/20 Unknown History lisinopril 40 mg PO BID 08/05/20 08/05/20 08/05/20 07:30 History montelukast 10 mg PO QAM 08/05/20 08/05/20 08/05/20 07:30 History simvastatin 10 mg PO QPM 08/05/20 08/05/20 08/04/20 History tiotropium bromide [Spiriva 2 puff INHALATION DAILY 08/05/20 08/05/20 Unknown History Respimat] Allergies Allergy/AdvReac Type Severity Reaction Status Date / Time aspirin Allergy ADR-Gastrointestinal Verified 08/05/20 10:41 Upset Penicillins Allergy ADR-Gastrointestinal Verified 08/05/20 10:41 Upset tetracycline Allergy ADR-Gastrointestinal Verified 08/05/20 10:41 Upset Current Medications Current Medications Generic Name Dose Route Start Last Admin Trade Name Freq PRN Reason Stop Dose Admin Hydrocodone Bitart/Acetaminophen 1 tab 08/05/20 17:04 08/05/20 21:38 Hydrocodone-Acetaminophen 5-325 Mg Tablet PO 1 tab Q4H PRN Administration MODERATE TO SEVERE PAIN Albuterol Sulfate 2.5 mg 08/05/20 17:06 08/06/20 04:17 Albuterol 2.5 Mg/0.5 Ml Neb INHALATION 2.5 mg Q4H.RESPIRATORY PRN Administration SHORTNESS OF BREATH Albuterol/Ipratropium 3 ml 08/05/20 21:00 08/06/20 02:24 Ipratropium-Albuterol 3 Ml Neb INHALATION 3 ml Q6H.RESPIRATORY NABEEL Administration Budesonide 0.5 mg 08/05/20 20:00 08/05/20 20:03 Budesonide 0.5 Mg/2 Ml Neb INHALATION 0.5 mg BID.RESPIRATORY NABEEL Administration Enoxaparin Sodium 40 mg 08/05/20 17:15 08/05/20 18:25 Enoxaparin 40 Mg/0.4 Ml Syringe SUBCUT 40 mg Q24H NABEEL Administration Ondansetron HCl 4 mg 08/05/20 16:08 08/05/20 18:26 Ondansetron 2 Mg/Ml Sdv 2 Ml IVP 4 mg Q6H PRN Administration NAUSEA AND VOMITING PFSH Acute PFSH: Medical History Arrhythmia COPD (chronic obstructive pulmonary disease) GERD (gastroesophageal reflux disease) Hypertension Vitals/I&O/Wt Last Vital Signs Temp 98.9 F 08/06/20 04:00 Pulse 98 08/06/20 06:00 Resp 21 H 08/06/20 04:17 BP 137/80 08/06/20 04:00 Pulse Ox 92 08/06/20 04:17 08/05/20 08/06/20 08/06/20 22:59 06:59 14:59 Intake Total 1220 / 1320 200 / 1520 Output Total 550 / 550 Balance 1220 / 1320 -350 / 970 Weight last 48 hrs Weight 75 lb Physical Exam Narrative: EXAM NARRATIVE: CONSTITUTIONAL: The patient is a normal appearing [] in no apparent distress. GENERAL: Patient in no acute distress. CARDIAC: Regular rate and rhythm. CHEST: Normal inspiratory effort, normal respiratory rate. ABDOMEN: Soft and nontender. SKIN: Clear, warm and intact. NEURO?PSYCH: The patient is alert and oriented to person, place and time. Sensorv /SILT Motor StrengthShoulder abduction C5 5/5Wrist extension C6 5/5Elbow extension C7 5/5Hand Senior Environmental Technician C8 5/5Finger abduction T15/5 Radial/ Ulnar/ Median n intact LowerSensory (SILT)Motor StrengthHin flexion L2/3Ant/inner thigh 5/5Hip adduction L2/3 5/5Knee extension L4 Lat thigh, 5/5Toe dorsiflexion L5 5/5Ankle dorsiflexion L5/ L44Msemlwk flexion S1 5/5 DTRBleeps 2+Triceps 2+Brachioradialis 2+Patellar 2+Achilles 2+ MUSCULOSKELETAL: [] UPPEREXTREMITIES: The patient had full active ROM in fingers, wrist, elbow, and shoulder. The patient demonstrated ability to fully flex/exte nd/abduct/adduct fingers, make ok sign, cross 2nd/3rd digits, extend 1st digit fully.. Radial pulse 2+, CR<2 seconds. LOWER EXTREMITIES: Pt has full, active ROM of toes, ankle, knee, and hip. Dorsalis pedis/posterior tibialis pulses 2+, CR<2 seconds. SPINE: Skin warm, dry, intact. Urinary Catheter Management^: Allen: Cath Placed During This Visit: yes Reason for Continuing Indwelling Catheter: Other Urinary Catheter Date of Insertion: 08/05/20 Urinary Catheter Time of Insertion: 11:30 A&P Assessment and plan (1) Fracture of head of humerus: try to tx non op NWB Status: Acute Qualifiers: Encounter type: initial encounter Fracture type: closed Laterality: right Qualified Code(s): S42.291A - Other displaced fracture of upper end of right humerus, initial encounter for closed fracture (2) Femur fracture, right: Will do IM nail today so she can WBAT Status: Acute Qualifiers: Encounter type: initial encounter Femur location: distal, unspecified portion Fracture morphology: unspecified fracture morphology Fracture type: closed Qualified Code(s): S72.401A - Unspecified fracture of lower end of right femur, initial encounter for closed fracture Consult Attestations Medical Necessity Statement: need to fix femur Coding Level of Care Code Acute Home Health Travel Pt for [facility] Fwd Diagnoses Fracture of head of humerus S42.291A Encounter type: initial encounter Fracture type: closed Laterality: right Femur fracture, right S72.401A Encounter type: initial encounter Femur location: distal, unspecified portion Fracture morphology: unspecified fracture morphology Fracture type: closed
--- NOTE | 2020-08-06 08:45 | PC.NURSE ---
Patient to Surgery at this time.
--- NOTE | 2020-08-06 08:56 | P.ANESASSM_ITS ---
Pre-Anesthetic Assessment Pre-Anesthetic Assessment: Height/Weight: Height 1.57 m Weight 34.019 kg Temp Pulse Resp BP Pulse Ox 98.9 F 101 H 17 100/53 98 08/06/20 07:42 08/06/20 07:42 08/06/20 07:42 08/06/20 07:42 08/06/20 07:42 Preop Diagnosis: Femur Fracture Proposed Procedure: Operation Date: 08/06/20 13:50 Proposed Procedures p Retrograde IM Nail Femur(Not Applicable) - Timoteo Cade DO Familial anesthetic complications: I quit breathing during one surgery, but they got me back breathing. Did not go to ICU or require intermediate intubation postop Was Beta Nathalia taken within 24 hours: Yes Was Clonidine taken within 24 hours: Yes Last intake: nPO > 8 hrs, water >< 2 hrs ago Social: Social History: Tobacco and No alcohol Exam: Pre-Anes Outpt Exam: alert, oriented x 3 and regular rate & rhythm Additional Exam Findings (including area of procedure): coarse breath sounds diminished Airway: Cervical ROM: WNL MP: 2 Dentition: Other (few remaining teeth) Pulmonary: Pulmonary: COPD Comments: Does not wear O2 at home, requiring 3- 4 L NC, has chronic productive cough CV/HEM: CV/HEM: HTN Comments: negative stress test 2014 GI: GI: GERD Musc/skel: Comments: R shoulder fracture present - will be careful with introp positioning - may not be able to place in extension Anesthetic Plan: ASA status: 4 Anesthesia: General Other: patient educuated on increased risk of post op intubation/ventilator use due to COPD and increased O2 requirements Risk of > 500 ml blood loss (7ml/kg in children): No Meds/Allergies Current Medications: Current Medications Generic Name Dose Route Start Last Admin Trade Name Freq PRN Reason Stop Dose Admin Hydrocodone Bitart /Acetaminophen 1 tab 08/05/20 17:04 08/05/20 21:38 Hydrocodone-Acet aminophen 5-325 Mg Tablet PO 1 tab Q4H PRN Administration MODERATE TO SEVER E PAIN Albuterol Sulfate 2.5 mg 08/05/20 17:06 08/06/20 04:17 Albuterol 2.5 Mg /0.5 Ml Neb INHALATION 2.5 mg Q4H.RESPIRATORY P RN Administration SHORTNESS OF CANDIDO TH Albuterol/Ipratrop ium 3 ml 08/05/20 21:00 08/06/20 08:43 Ipratropium-Albu terol 3 Ml Neb INHALATION Not Given Q6H.RESPIRATORY S CH Budesonide 0.5 mg 08/05/20 20:00 08/06/20 08:42 Budesonide 0.5 M g/2 Ml Neb INHALATION Not Given BID.RESPIRATORY S CH Enoxaparin Sodium 40 mg 08/05/20 17:15 08/05/20 18:25 Enoxaparin 40 Mg /0.4 Ml Syringe SUBCUT 40 mg Q24H NABEEL Administration Ondansetron HCl 4 mg 08/05/20 16:08 08/05/20 18:26 Ondansetron 2 Mg /Ml Sdv 2 Ml IVP 4 mg Q6H PRN Administration NAUSEA AND VOMITI NG PFSH Anesthesia PFSH: Medical History Arrhythmia COPD (chronic obstructive pulmonary disease) GERD (gastroesophageal reflux disease) Hypertension Data Anesthesia CBC & Chem 7: 08/06/20 04:33 08/06/20 04:33 Other Labs: Laboratory Results - last 48 hr 08/05/20 08/05/20 08/05/20 09:57 10:25 10:25 WBC 12.2 H RBC 3.65 L Hgb 11.5 Hct 36.6 L MCV 100.3 H MCH 31.5 MCHC 31.4 RDW 14.2 Plt Count 336 MPV 10.1 Neut % (Auto) 64.5 Lymph % (Auto) 28.8 [place] % (Auto) 5.1 Eos % (Auto) 0.7 Baso % (Auto) 0.6 Neut # (Auto) 7.90 H Lymph # (Auto) 3.5 [place] # (Auto) 0.6 Eos # (Auto) 0.1 Baso # (Auto) 0.1 Nucleated RBC % (auto) 0 Nucleated RBCs # 0.0 Specimen Type Arterial Sample Site Brachial, left ABG pH 7.35 ABG pCO2 54.1 H ABG pO2 72.7 L ABG HCO3 30.0 H ABG O2 Saturation 96.5 ABG Base Excess 3.3 H Leonel Test Pos A-a O2 Gradient 7.7 Hematocrit 36.1 L Hgb O2 Saturation 91.9 L Carboxyhemoglobin 3.8 Methemoglobin 1.0 Total Hemoglobin 11.8 L Sodium 137.0 135 L Potassium 4.4 4.8 Glucose 128.0 H 121 H Ionized Calcium 1.3 O2 Delivery Device Nc O2 Liters/Min 2.0 FiO2 28.0 Sales Representative Supervisor ID Cak Chloride 98 Carbon Dioxide 30 H Anion Gap 11.8 BUN 10 Creatinine 0.3 L GFR Calculation Not Reportable Calculated Osmolality 280 L Calcium 8.9 Magnesium 2.1 Total Bilirubin 0.2 AST 24 ALT 20 Alkaline Phosphatase 66 Troponin T Baseline Troponin T 120 Minute Delta Troponin T Troponin T Hi Sens 6Hr Troponin T Hi Sens 6Hr Delta Total Protein 6.6 Albumin 4.2 Globulin 2.4 Urine Color Urine Appearance Urine pH Ur Specific [place] Urine Protein Urine Glucose (UA) Urine Ketones Urine Blood Urine Nitrate Urine Bilirubin Urine Urobilinogen Ur Leukocyte Esterase 08/05/20 08/05/20 08/05/20 10:25 11:41 12:16 WBC RBC Hgb Hct MCV MCH MCHC RDW Plt Count MPV Neut % (Auto) Lymph % (Auto) [place] % (Auto) Eos % (Auto) Baso % (Auto) Neut # (Auto) Lymph # (Auto) [place] # (Auto) Eos # (Auto) Baso # (Auto) Nucleated RBC % (auto) Nucleated RBCs # Specimen Type Sample Site ABG pH ABG pCO2 ABG pO2 ABG HCO3 ABG O2 Saturation ABG Base Excess Leonel Test A-a O2 Gradient Hematocrit Hgb O2 Saturation Carboxyhemoglobin Methemoglobin Total Hemoglobin Sodium Potassium Glucose Ionized Calcium O2 Delivery Device O2 Liters/Min FiO2 Sales Representative Supervisor ID Chloride Carbon Dioxide Anion Gap BUN Creatinine GFR Calculation Calculated Osmolality Calcium Magnesium Total Bilirubin AST ALT Alkaline Phosphatase Troponin T Baseline 12 H Troponin T 120 Minute 11.76 H Delta Troponin T -0.24 L Troponin T Hi Sens 6Hr Troponin T Hi Sens 6Hr Delta Total Protein Albumin Globulin Urine Color Straw Urine Appearance Clear Urine pH 5 Ur Specific [place] 1.015 Urine Protein Neg Urine Glucose (UA) Norm Urine Ketones Negative Urine Blood Neg Urine Nitrate Negative Urine Bilirubin Neg Urine Urobilinogen Norm Ur Leukocyte Esterase Negative 08/05/20 08/06/20 08/06/20 18:00 04:33 04:33 WBC 11.0 H RBC 3.16 L Hgb 9.9 L Hct 32.3 L MCV 102.2 H MCH 31.3 MCHC 30.7 RDW 14.2 Plt Count 268 MPV 10.4 Neut % (Auto) 56.9 Lymph % (Auto) 32.0 [place] % (Auto) 10.4 Eos % (Auto) 0.1 Baso % (Auto) 0.4 Neut # (Auto) 6.25 Lymph # (Auto) 3.5 [place] # (Auto) 1.1 H Eos # (Auto) 0.0 Baso # (Auto) 0.0 Nucleated RBC % (auto) 0 Nucleated RBCs # 0.0 Specimen Type Sample Site ABG pH ABG pCO2 ABG pO2 ABG HCO3 ABG O2 Saturation ABG Base Excess [place] Test A-a O2 Gradient Hematocrit Hgb O2 Saturation Carboxyhemoglobin Methemoglobin Total Hemoglobin Sodium 131 L Potassium 4.7 Glucose 115 Ionized Calcium O2 Delivery Device O2 Liters/Min FiO2 Sales Representative Supervisor ID Chloride 94 L Carbon Dioxide 29 Anion Gap 12.7 BUN 15 Creatinine 0.4 L GFR Calculation Not Reportable Calculated Osmolality 274 L Calcium 8.7 Magnesium Total Bilirubin AST ALT Alkaline Phosphatase Troponin T Baseline Troponin T 120 Minute Delta Troponin T Troponin T Hi Sens 6Hr 13.09 H Troponin T Hi Sens 6Hr Delta 1.09 Total Protein Albumin Globulin Urine Color Urine Appearance Urine pH Ur Specific [place] Urine Protein Urine Glucose (UA) Urine Ketones Urine Blood Urine Nitrate Urine Bilirubin Urine Urobilinogen Ur Leukocyte Esterase Cardiac Studies: No Data to Display
--- NOTE | 2020-08-06 09:10 | W.PM.OPSUD ---
Surgery/Procedure H&P Update DATE OF PROCEDURE: August 06, 2020 DATE H&P PERFORMED: 08/06/20 PREOP DIAGNOSIS: Femur Fracture PLANNED PROCEDURE: Operation Date: 08/06/20 13:50 Proposed Procedures p Retrograde IM Nail Femur(Not Applicable) - Timoteo Cade DO
[2020-08-06] MEDS: ceFAZolin 1,000 MG in sodium chloride 0.9% (plus) 50 ML 100 MG IV (09:36)
--- NOTE | 2020-08-06 10:00 | PC.RESP ---
PULMONARY REHAB INFORMATION SENT TO PATIENT.
--- NOTE | 2020-08-06 10:30 | PM.OP ---
Operative Report Date of procedure: August 06, 2020 Pre-op Diagnosis: 1. right Femur shaft Fracture 2. Right Proximal humerus fracture Post-op diagnosis: same Procedure Done: 1.Right IM nail femur 2. Closed treatment of right proximal humerus fracture Surgeon: Timoteo Cade Anesthesia: General Estimated blood loss (mL): 20 Condition: stable Disposition: PACU Procedure: 1.Right IM nail femur 2. Closed treatment of right proximal humerus fracture Patient was brought to the operative suite after undergoing anesthesia was placed in the supine position all areas impingement were well-padded. Patient was then prepped and draped in a sterile fashion. The right leg was placed under a triangle. Skin service made over the patella tendon. Patella tendon was split Gelpi was placed starting pin was inserted into the center center position of the femoral condyles. And then lateral view of the pin was placed at the level of the bone stats line. Opening reamer was used to open up the femur. Ball guidewire was passed in order to ensure the fracture was reduced and the reamers to go through the canal. Canal is reamed to 13. A size 13 nail was inserted 2 screws were placed proximally 3 screws were placed distally. Nail was locked in position AP lateral fluoroscopy showed that the nail and fracture improved positions. Wounds were irrigated and closed with Vicryl and joseph. Proximal humerus will be attempted to be treated nonoperatively. She will be treated in a sling.
[2020-08-06] MEDS: fentaNYL 50 mcg/mL INJ 2mL IVP ×2 (10:55→11:00)
--- NOTE | 2020-08-06 11:35 | PC.NURSE ---
Report received from Jeancarlos TAVAREZ at this time. Patient returned from surgery at this time.
--- NOTE | 2020-08-06 12:31 | P.PN_ITS ---
Subjective Subjective: Interval history: No acute event overnight. Vitals/I&O/Wt Last Vital Signs Temp 98.1 F 08/06/20 12:00 Pulse 96 08/06/20 12:00 Resp 18 08/06/20 12:00 BP 122/75 08/06/20 12:00 Pulse Ox 100 08/06/20 12:00 08/05/20 08/06/20 08/06/20 22:59 06:59 14:59 Intake Total 1220 / 1320 200 / 1520 50 / 50 Output Total 550 / 550 Balance 1220 / 1320 -350 / 970 40 / 40 Weight last 48 hrs Weight 34.019 kg Physical Exam Urinary Catheter Management^: Allen: Cath Placed During This Visit: yes Reason for Continuing Indwelling Catheter: Other Urinary Catheter Date of Insertion: 08/05/20 Urinary Catheter Time of Insertion: 11:30 Data : 08/06/20 04:33 08/06/20 04:33 A&P Assessment and plan (1) Fracture of head of humerus: S/P Closed treatment of right proximal humerus fracture Status: Acute Qualifiers: Encounter type: initial encounter Fracture type: closed Laterality: right Qualified Code(s): S42.291A - Other displaced fracture of upper end of right humerus, initial encounter for closed fracture (2) Femur fracture, right: S/P Right IM nail femur Status: Acute Qualifiers: Encounter type: initial encounter Femur location: distal, unspecified portion Fracture morphology: unspecified fracture morphology Fracture type: closed Qualified Code(s): S72.401A - Unspecified fracture of lower end of right femur, initial encounter for closed fracture (3) Hypertension: Status: Acute Qualifiers: Hypertension type: essential hypertension Qualified Code(s): I10 - Essential (primary) hypertension (4) COPD (chronic obstructive pulmonary disease): Status: Acute Qualifiers: COPD type: COPD with acute exacerbation Qualified Code(s): J44.1 - Chronic obstructive pulmonary disease with (acute) exacerbation Additional A&P Information Mechanical fall with resulting fractures as above Fracture management per orthopedics pain control with morphine/toradol # HTN: continue home medications incl atenolol, lisinopril # COPD with mild exacerbation, currently saturating 99% on 2lpm NC CXR without consolidation Duoneb inhalation q4h , budesonide 0.5mg BID Prednisone 40mg daily full code Dvt ppx: lovenox Attestations Medical Necessity Statement*: Patient needs to be in hospital for the management of fracture of femur and humerus. Coding Level of Care Code Acute Training Developer for [facility] Fwd Diagnoses Fracture of head of humerus S42.291A Encounter type: initial encounter Fracture type: closed Laterality: right Femur fracture, right S72.401A Encounter type: initial encounter Femur location: distal, unspecified portion Fracture morphology: unspecified fracture morphology Fracture type: closed Hypertension I10 Hypertension type: essential hypertension COPD (chronic obstructive pulmonary disease) J44.1 COPD type: COPD with acute exacerbation
[2020-08-06] MEDS: HYDROcodone-acetaminophen 5-325 mg Tablet 1 TAB PO ×2 (13:59→20:57)
--- NOTE | 2020-08-06 15:46 | ANE.PACU2 ---
Inpatient post-anesthesia follow up: Airway intact: Yes Vital signs: Temperature 98.1 F Pulse Rate [Monito r] 83 Pulse Rate 101 Respiratory Rate 18 Blood Pressure [Le ft Arm] 158/77 Blood Pressure 122/75 Pulse Oximetry 97 Oxygen Delivery Me thod Nasal Cannula Oxygen Flow Rate 4 Fraction of Inspir ed Oxygen Hydration adequate: Yes Nausea and vomiting: No Pain level: 3 Mental status: Baseline
[2020-08-06] MEDS: cholecalciferol (vitamin D3) 1,000 unit Tablet 2000 UNIT PO (18:24)
[2020-08-06] MEDS: atorvastatin 40 mg Tablet 20 MG PO (18:24)
--- NOTE | 2020-08-06 18:58 | XRR_ITS ---
PROCEDURE INFORMATION: Exam: XR Chest Exam date and time: 08/06/2020 7:18 PM Age: 75 years old Clinical indication: Shortness of breath; Additional info: SOB TECHNIQUE: Imaging protocol: XR of the chest. Views: 1 view. COMPARISON: CR (CHEST, ) 08/05/2020 10:05 AM FINDINGS: Lungs: The lungs are somewhat hyperinflated with increased interstitial markings, likely representing COPD. No evidence of focal consolidation to suggest pneumonia. Scattered tiny calcified granulomas are seen throughout both lungs. Pleural spaces: Unremarkable. No pleural effusion. No pneumothorax. Heart/Mediastinum: Stable cardiomediastinal silhouette. Calcified mediastinal lymph nodes noted. Bones/joints: Unchanged mildly displaced fracture of the right proximal humerus. Degenerative changes of the spine seen. XR/XR chest 1V portable [id number] IMPRESSION: 1. No evidence of focal consolidation. COPD changes. 2. Unchanged mildly displaced fracture of the right proximal humerus.
[2020-08-06] MEDS: FUROsemide 10 mg/mL SDV 2mL 20 MG IVP (19:24)
[2020-08-06] MEDS: guaiFENesin 600 mg Tablet PO (19:30)
--- NOTE | 2020-08-06 19:41 | PC.NURSE ---
Report to Doris Hanna LPN at this time.
--- NOTE | 2020-08-06 19:47 | ECG_ITS ---
[facility] ED Test Date: 2020-08-06 Pat Name: Mónica Rodas Department: Room: 271 Gender: Female Injection Specialist: : 1945 Requested By: Carlos Ashley Order Number: [id number] Hendrix MD: Gabriela Dangelo M.D. Measurements Intervals [place] Rate: 95 P: 77 [place]: 151 QRS: 80 QRSD: 98 T: 75 QT: 345 QTc: 434 Interpretive Statements SINUS RHYTHM MODERATE ST DEPRESSION [0.05+ mV ST DEPRESSION] Compared to ECG 08/05/2020 13:28:36 ST (T wave) deviation now present Myocardial infarct finding no longer present Electronically Signed On 08-08-2020 18:26:10 CDT by Gabriela Dangelo M.D. [id number]
[2020-08-06 20:35] LABS: ABG PCO2 58.3 mmHg (35-45); ABG PH Result 7.32 (7.35-7.45); Arterial Blood Gas Hematocrit 27.1 % (37-47); Base Excess ABG 3.5 mmol/L (-2.0-2.0); Blood Gas Sample Site Brachial, left; Blood Gas Sample Type Arterial; Carboxyhemoglobin 1.2 %THgb (0.4-20.1); HCO3 ABG 30.3 mmol/L (22-26); HGB O2 Sat 94.9 % (95-100); Ionized Calcium Level - ABG 1.3 mmol/L (1.1-1.4); Methemoglobin 1.1 % (0.4-1.5); Oxygen Device OXY MASK; Oxygen Saturation ABG 97.2; PO2 ABG 89.1 mmHg (80.0-100.0); Potassium Level - ABG 4.6 mmol/L (3.5-5.0); Total Hemoglobin 8.8 g/dL (12-16)
[2020-08-06] MEDS: cetirizine 10 mg Tablet PO (20:58)
[2020-08-06] MEDS: enoxaparin 40 mg/0.4 mL Syringe SUBCUT (21:50)
[2020-08-06] MEDS: budesonide 0.5 mg/2 mL Neb INHALATION (22:27)
[2020-08-07] VITALS (22 sets, daily range): BP systolic 92–134; BP diastolic 45–82; PULSE 72–112; RESP 16–20; TEMP 36.6–37.7; O2SAT 92–100
[2020-08-07] MEDS: ipratropium-albuterol 3 mL Neb INHALATION ×4 (02:04→20:49)
[2020-08-07] MEDS: montelukast sodium 10 mg Tablet PO (05:39)
[2020-08-07] MEDS: amlodipine 5 mg Tablet PO (05:39)
[2020-08-07 05:41] LABS: Basophils % 0.2 %; Hematocrit 25.8 % (37.0-47.0); Hemoglobin 8.2 g/dL (11.5-15.3); Lymphocytes # 2.3 10^3/uL (0.8-4.8); Mean Corpuscular HGB Conc 31.8 g/dL (30.0-36.0); Mean Corpuscular Volume 100.8 fL (81-99); Mean Platelet Volume 10.3 fL (7.4-10.4); Monocytes # 0.5 10^3/uL (0.2-0.9); Monocytes % 4.5 %; Neutrophils # 7.97 10^3/uL (1.8-7.7); Neutrophils % 73.9 %; Nucleated Red Blood Cells % 0 %; Platelet Count 210 10^3/cmm (130-400); Red Blood Count 2.56 10^6/uL (4.1-5.3); Red Cell Distribution Width 13.9 % (12.1-15.1); White Blood Count 10.8 10^3/uL (4.0-10.0)
[2020-08-07 06:03] LABS: Anion Gap 11.6 (5-19); Blood Urea Nitrogen 24 mg/dL (8-23); Calcium 8.8 mg/dL (8.5-10.5); Carbon Dioxide 30 mmol/L (22-29); Chloride 94 mmol/L (98-107); Creatinine Clr Calc Pharmacy 32.6311; Glucose 143 mg/dL (65-115); NT Pro B Type Natriuretic Pept 1341 pg/mL (0-450); Osmolality Calculated 279 mOsm/kg (285-295); Potassium 4.6 mmol/L (3.5-5.1); Sodium 131 mmol/L (136-145)
--- NOTE | 2020-08-07 06:10 | PC.NURSE ---
Doing neuovas checks on pt right foot after fx femur repair showed pt pulse diminished and to-touch foot was cool, color was pale/normal and cap refill wnl. No numbness/tingling per pt. Pt A/Ox4 stated that she has broke her ankle and knee in the past and from that point that foot has always been cool to touch. Neurovas checks done frequently with no worsening.
[2020-08-07 06:37] LABS: ABG PH Result 7.34 (7.35-7.45); Arterial Blood Gas Hematocrit 25.7 % (37-47); Base Excess ABG 3.8 mmol/L (-2.0-2.0); Blood Gas Sample Site Brachial, left; Blood Gas Sample Type Arterial; HCO3 ABG 30.3 mmol/L (22-26); Oxygen Device OXY MASK
--- NOTE | 2020-08-07 06:52 | P.PN_ITS ---
Subjective Subjective: Interval history: pain controlled Vitals/I&O/Wt Last Vital Signs Temp 97.8 F 08/07/20 02:17 Pulse 98 08/07/20 06:00 Resp 17 08/07/20 02:17 BP 117/67 08/07/20 02:17 Pulse Ox 95 08/07/20 02:17 08/06/20 08/06/20 08/07/20 14:59 22:59 06:59 Intake Total 150 / 150 200 / 350 200 / 550 Output Total 250 / 260 500 / 760 Balance 140 / 140 -50 / 90 -300 / -210 Weight last 48 hrs Weight 75 lb Physical Exam Narrative: EXAM NARRATIVE: in bed on Oxygen Urinary Catheter Management^: Allen: Cath Placed During This Visit: yes Reason for Continuing Indwelling Catheter: Other Urinary Catheter Date of Insertion: 08/05/20 Urinary Catheter Time of Insertion: 11:30 Data : 08/07/20 05:23 08/07/20 05:23 A&P Assessment and plan (1) Fracture of head of humerus: Status: Acute Qualifiers: Encounter type: initial encounter Fracture type: closed Laterality: right Qualified Code(s): S42.291A - Other displaced fracture of upper end of right humerus, initial encounter for closed fracture (2) Femur fracture, right: POD # 1 Right femur nail WBAT Right Proxima humerus fracture sling for comfort Status: Acute Qualifiers: Encounter type: initial encounter Femur location: distal, unspecified portion Fracture morphology: unspecified fracture morphology Fracture type: closed Qualified Code(s): S72.401A - Unspecified fracture of lower end of right femur, initial encounter for closed fracture Attestations Medical Necessity Statement*: O2 issues Coding Level of Care Code Acute 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
[2020-08-07] MEDS: budesonide 0.5 mg/2 mL Neb INHALATION ×2 (08:42→20:49)
[2020-08-07] MEDS: pantoprazole DR 40 mg Tablet PO (08:57)
[2020-08-07] MEDS: atenolol 50 mg Tablet PO ×2 (08:57→17:12)
[2020-08-07] MEDS: guaiFENesin 600 mg Tablet PO ×2 (08:57→17:12)
[2020-08-07] MEDS: lisinopril 20 mg Tablet 40 MG PO ×2 (08:58→17:12)
--- NOTE | 2020-08-07 09:24 | USCV_ITS ---
Mónica Rodas Age: 75 Gender: F : 1945 Exam Date: 08/07/2020 14:15 Ordering Phys: Carlos Ashley MD Technologist: Exam Location: [facility] [place] Indication: SOB BP: 101 / 68 HR: 100 Rhythm: Sinus Technical Quality: Good MEASUREMENTS (Male / Female) Normal Values 2D ECHO LV Diastolic Diameter PLAX 3.4 cm 4.2 - 5.9 / 3.9 - 5.3 cm LV Systolic Diameter PLAX 1.7 cm IVS Diastolic Thickness 0.8 cm 0.6 - 1.0 / 0.6 - 0.9 cm IVS Systolic Thickness 1.0 cm LVPW Diastolic Thickness 0.7 cm 0.6 - 1.0 / 0.6 - 0.9 cm LVPW Systolic Thickness 1.1 cm LVOT Diameter 2.0 cm LV Ejection Fraction 2D Teich 83.0 % LV Ejection Fraction MOD 2C 78.9 % LV Ejection Fraction 2C AL 77.7 % LA Diameter 2.9 cm LA Width 3.2 cm LA Height 4.1 cm RA Width 3.3 cm RA Height 3.9 cm M-MODE Aortic Annulus Diameter 3.0 cm LA Ao Ratio MM 1.0 DOPPLER AV Peak Velocity 210.0 cm/s LVOT Peak Velocity 224.0 cm/s AV Area Cont Eq vti 4.2 cm squared AV Area Cont Eq pk 3.4 cm squared MV Area PHT 5.0 cm squared Mitral E to A Ratio 0.8 MV E' Velocity 63.5 cm/s Mitral E to MV E' Ratio 12.6 Mitral E to LV E' Lateral Ratio 11.8 Mitral E to LV E' Septal Ratio 13.4 TR Peak Velocity 320.3 cm/s TR Peak Gradient 41.0 mmHg TV Peak E Velocity 62.0 cm/s Right Atrial Pressure 3.0 mmHg Pulmonary Artery Systolic Pressu 44.0 mmHg PV Peak Velocity 94.0 cm/s FINDINGS Left Ventricle Small left ventricular cavity size and normal wall thickness, with no regional wall motion abnormalities. Hyperdynamic left ventricular systolic function. Left ventricular ejection fraction is estimated at 75-80 %. Normal diastolic function. Right Ventricle Normal right ventricular size and systolic function, RVSP 47 mmHg. Right Atrium Normal right atrial size. Left Atrium Normal left atrial size. Mitral Valve Mildly thickened mitral valve. No mitral valve stenosis. No significant mitral valve regurgitation. Aortic Valve Structurally normal trileaflet aortic valve. No aortic valve stenosis. No aortic valve regurgitation. Tricuspid Valve Structurally normal tricuspid valve. No tricuspid valve stenosis. Mild to moderarte tricuspid valve regurgitation. Pulmonic Valve Structurally normal pulmonic valve. No pulmonary valve stenosis. Trace pulmonary valve regurgitation. Pericardium No pericardial effusion. Aorta Normal-sized aortic root. CONCLUSIONS 1. Small left ventricle cavity size, normal left ventricular wall thickness with no regional wall motion abnormalities. Hyperdynamic left ventricular systolic function. Left ventricular ejection fraction is estimated at 75-80 %. Normal diastolic function. 2. Mild to moderarte tricuspid valve regurgitation. 3. Moderate pulmonary hypertension with pulmonary artery pressure estimated at 47 mmHg. 4. No pericardial effusion. 5. No prior similar studies to compare. Gabriela Dangelo MD (Electronically Signed) Final Date: 07 Aug 2020 18:48 S
[2020-08-07] MEDS: FUROsemide 10 mg/mL SDV 4mL 40 MG IVP (09:30)
[2020-08-07] MEDS: HYDROcodone-acetaminophen 5-325 mg Tablet 1 TAB PO (09:30)
[2020-08-07 09:46] LABS: C Reactive Protein 108.6 mg/L (0.0-4.9)
[2020-08-07 10:21] LABS: Erythrocyte Sedimentation Rate 60 mm/hr (0-15)
--- NOTE | 2020-08-07 10:58 | PC.NURSE ---
AM NOTE THIS NURSE, RT AND PT AT SIDE - PT ASST PT TO CHAIR - SUSANA FAIR - RT AT SIDE TO GIVE NEB TREATMENT - 02 SAT AT 92% ON 8L OXYMASK - WILL MONITOR
--- NOTE | 2020-08-07 11:33 | PC.NURSE ---
RIGHT SHOULDER RIGHT SHOULDER IMMOBILZER PLACED PER OT - SUSANA FAIR
[2020-08-07 11:39] LABS: Glucose Point of Care 181 mg/dL (70-110)
--- NOTE | 2020-08-07 12:12 | P.PN_ITS ---
Subjective Subjective: Interval history: Patient has been complaining of worsening SOB her suplemental oxygen requirement has gone up. Vitals/I&O/Wt Last Vital Signs Temp 98.7 F 08/07/20 11:06 Pulse 82 08/07/20 11:06 Resp 18 08/07/20 11:06 BP 115/70 08/07/20 11:06 Pulse Ox 94 08/07/20 11:06 08/06/20 08/07/20 08/07/20 22:59 06:59 14:59 Intake Total 200 / 350 200 / 550 120 / 120 Output Total 250 / 260 500 / 760 Balance -50 / 90 -300 / -210 120 / 120 Physical Exam Narrative: EXAM NARRATIVE: General: No acute distress, AO x3 HEENT: PERRLA, pupils bilaterally equal and reactive, pallors not present Chest: scattered wheezing to auscultation B/L as well as b/l Basal fine crackles CVS: S1-S2 regular, no murmurs, no tachycardia, no gallops, no rubs Abdomen: Soft, nontender, no organomegaly, bowel sounds present Neuro: No focal deficits, no facial deformity, AO x3, power 5/5 in all limbs Urinary Catheter Management^: Allen: Cath Placed During This Visit: yes Reason for Continuing Indwelling Catheter: Other Urinary Catheter Date of Insertion: 08/05/20 Urinary Catheter Time of Insertion: 11:30 Data : 08/07/20 05:23 08/07/20 05:23 A&P Assessment and plan (1) Respiratory failure with hypoxia and hypercapnia: Acute on chronic hypoxic hypercapnic respiratory failure: Likely multifactorial: COPD exacerbation, decompensated heart failure, kyphoscoliosis Status: Acute (2) Decompensated heart failure: 2D echo: EKG: Has nonspecific ST-T wave changes: ESR:60, CRP: 119, Low suspicion for pericarditis,as she deny clinical presentation consistent with pericarditis. Lasix 40 mg I.V Daily I/O Charting Daily Weight Status: Acute (3) Fracture of head of humerus: S/P Closed treatment of right proximal humerus fracture Status: Acute Qualifiers: Encounter type: initial encounter Fracture type: closed Laterality: right Qualified Code(s): S42.291A - Other displaced fracture of upper end of right humerus, initial encounter for closed fracture (4) Femur fracture, right: S/P Right IM nail femur Status: Acute Qualifiers: Encounter type: initial encounter Femur location: distal, unspecified portion Fracture morphology: unspecified fracture morphology Fracture type: closed Qualified Code(s): S72.401A - Unspecified fracture of lower end of right femur, initial encounter for closed fracture (5) Hypertension: Status: Acute Qualifiers: Hypertension type: essential hypertension Qualified Code(s): I10 - Essential (primary) hypertension (6) COPD (chronic obstructive pulmonary disease): Status: Acute Qualifiers: COPD type: COPD with acute exacerbation Qualified Code(s): J44.1 - Chronic obstructive pulmonary disease with (acute) exacerbation (7) Anemia: Macrocytic Anemia Anemia Panel Status: Acute (8) Hyponatremia: Status: Acute Additional A&P Information Mechanical fall with resulting fractures as above Fracture management per orthopedics pain control with morphine/toradol # HTN: continue home medications incl atenolol, lisinopril # COPD with mild exacerbation CXR without consolidation Duoneb inhalation q4h , budesonide 0.5mg BID full code Dvt ppx: lovenox Attestations Medical Necessity Statement*: Patient needs to be in hospital for the management of R/F. 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 [facility] Fwd Diagnoses Respiratory failure with hypoxia and hypercapnia J96.91; J96.92 Decompensated heart failure I50.9 Fracture of head of humerus S42.291A Encounter type: initial encounter Fracture type: closed Laterality: right Femur fracture, right S72.401A Encounter type: initial encounter Femur location: distal, unspecified portion Fracture morphology: unspecified fracture morphology Fracture type: closed Hypertension I10 Hypertension type: essential hypertension COPD (chronic obstructive pulmonary disease) J44.1 COPD type: COPD with acute exacerbation Anemia D64.9 Hyponatremia E87.1
--- NOTE | 2020-08-07 12:40 | PC.NURSE ---
DR HI DO IN ROOM TO ASSESS PT - OT AT SIDE AND NOTED PT TO BE COMPLAINING OF CHOKING - DR AWARE AND ORDERS REC'D
--- NOTE | 2020-08-07 13:06 | PC.NURSE ---
RT ON FLOOR RT ON FLOOR TO CHANGE PT FROM OXYMASK TO HIGH FLOW NC AT 6L - SUSANA FAIR AT PRESENT TIME
--- NOTE | 2020-08-07 15:28 | PC.NURSE ---
OXYGEN 02 SAT AT 82% ON HIGH FLOW 6L NC - OUMOU, RT CALLED TO ROOM - INCREASED HIGH FLOW TO 8LNC -SATS UP TO 92% - CONTINUES PULSE OX ORDER OBTAINED PER RT FROM DR DO - WILL PLACE ON
[2020-08-07] MEDS: azithromycin 500 MG in sodium chloride 0.9% 250 ML 250 MG IV (17:11)
[2020-08-07] MEDS: cholecalciferol (vitamin D3) 1,000 unit Tablet 2000 UNIT PO (17:12)
[2020-08-07] MEDS: atorvastatin 40 mg Tablet 20 MG PO (17:12)
--- NOTE | 2020-08-07 18:14 | PC.NURSE ---
DR HI DO PREVIOUSLY IN ROOM TO ASSESS PT
[2020-08-07] MEDS: enoxaparin 40 mg/0.4 mL Syringe SUBCUT (21:36)
[2020-08-07] MEDS: cetirizine 10 mg Tablet PO (21:37)
[2020-08-07] MEDS: ketorolac 30 mg/mL INJ 15 MG IVP (21:53)
[2020-08-08] VITALS (16 sets, daily range): BP systolic 115–121; BP diastolic 60–67; PULSE 87–104; RESP 17–20; TEMP 36.4–36.8; O2SAT 96–100
[2020-08-08 02:48] LABS: Basophils % 0.1 %; Hematocrit 24.2 % (37.0-47.0); Hemoglobin 7.5 g/dL (11.5-15.3); Lymphocytes # 2.2 10^3/uL (0.8-4.8); Lymphocytes % 17.5 %; Mean Corpuscular Hemoglobin 31.6 pg (28.0-34.0); Mean Corpuscular Volume 102.1 fL (81-99); Mean Platelet Volume 10.4 fL (7.4-10.4); Monocytes # 0.6 10^3/uL (0.2-0.9); Monocytes % 4.7 %; Neutrophils # 9.82 10^3/uL (1.8-7.7); Neutrophils % 77.2 %; Nucleated Red Blood Cells % 0 %; Platelet Count 211 10^3/cmm (130-400); Red Blood Count 2.37 10^6/uL (4.1-5.3); Red Cell Distribution Width 13.9 % (12.1-15.1); White Blood Count 12.7 10^3/uL (4.0-10.0)
[2020-08-08 03:07] LABS: Anion Gap 9.7 (5-19); Blood Urea Nitrogen 28 mg/dL (8-23); Calcium 8.9 mg/dL (8.5-10.5); Carbon Dioxide 31 mmol/L (22-29); Chloride 96 mmol/L (98-107); Glucose 152 mg/dL (65-115); Osmolality Calculated 282 mOsm/kg (285-295); Potassium 4.7 mmol/L (3.5-5.1); Sodium 132 mmol/L (136-145)
[2020-08-08 03:09] LABS: Creatinine Clr Calc Pharmacy 32.6311; Ferritin 207 ng/mL (15-150); Iron 36 ug/dL (37-145); Percent Saturation 16.9 % (20-50); Total Iron Binding Capacity 213 mcg/dl; Unsaturated Iron Binding 177 ug/dL (112-347)
[2020-08-08 03:22] LABS: Vitamin B12 447 pg/mL (232-1245)
[2020-08-08 03:23] LABS: Folate Level 7.2 ng/mL (4.8-37.3)
[2020-08-08] MEDS: ipratropium-albuterol 3 mL Neb INHALATION ×4 (03:42→20:26)
--- NOTE | 2020-08-08 04:49 | XR_ITS ---
WS: [id number] Right arm and humerus, 2 views, 08/08/2020 Clinical Data: swelling and bruising Comparison: Right arm and humerus, 08/05/2020. Findings: There is a comminuted fracture at the junction of the right humeral head and right terminal neck unch anged. No displacement of the humeral head from the glenoid is seen. The distal shaft of the humerus is unremarkable. XR/[place] [id number] Impression: No change in fracture of the right humeral neck and head.
[2020-08-08] MEDS: montelukast sodium 10 mg Tablet PO (06:10)
[2020-08-08] MEDS: amlodipine 5 mg Tablet PO (06:10)
[2020-08-08] MEDS: lisinopril 20 mg Tablet 40 MG PO ×2 (09:04→17:11)
[2020-08-08] MEDS: guaiFENesin 600 mg Tablet PO ×2 (09:04→17:11)
[2020-08-08] MEDS: FUROsemide 10 mg/mL SDV 4mL 40 MG IVP (09:04)
[2020-08-08] MEDS: atenolol 50 mg Tablet PO ×2 (09:05→17:11)
[2020-08-08] MEDS: pantoprazole DR 40 mg Tablet PO (09:05)
[2020-08-08] MEDS: budesonide 0.5 mg/2 mL Neb INHALATION ×2 (09:51→20:25)
--- NOTE | 2020-08-08 10:11 | PC.SOCIAL ---
Pg 2 IMM Explained to pt Pg 2 IMM. No questions voiced. Provided pt a copy. Signed, dated, & timed a copy & placed in chart.
--- NOTE | 2020-08-08 13:17 | P.PN_ITS ---
Vitals/I&O/Wt Last Vital Signs Temp 97.5 F L 08/08/20 08:00 Pulse 95 08/08/20 10:06 Resp 20 H 08/08/20 09:58 BP 115/66 08/08/20 08:00 Pulse Ox 99 08/08/20 09:58 08/07/20 08/08/20 08/08/20 22:59 06:59 14:59 Intake Total 940 / 1300 360 / 360 Output Total 1175 / 1175 250 / 1425 Balance -235 / 125 -250 / -125 360 / 360 Physical Exam Narrative: EXAM NARRATIVE: General: No acute distress, AO x3 HEENT: PERRLA, pupils bilaterally equal and reactive, pallors not present Chest: scattered wheezing to auscultation B/L as well as b/l Basal fine crackles CVS: S1-S2 regular, no murmurs, no tachycardia, no gallops, no rubs Abdomen: Soft, nontender, no organomegaly, bowel sounds present Neuro: No focal deficits, no facial deformity, AO x3, power 5/5 in all limbs Urinary Catheter Management^: Allen: Cath Placed During This Visit: yes Reason for Continuing Indwelling Catheter: Required Immobilization for Trauma or Surgery or Anesthesia Urinary Catheter Date of Insertion: 08/05/20 Urinary Catheter Time of Insertion: 11:30 Data : 08/08/20 02:06 08/08/20 02:06 A&P Assessment and plan (1) Decompensated heart failure: Decompensated heart failure with preserved EF . 2D echo: Normal LVEF, no RWMA,Mild to moderarte tricuspid valve regurgitation,Moderate pulmonary hypertension with pulmonary artery, pressure estimated at 47 mmHg. EKG: Has nonspecific ST-T wave changes: ESR:60, CRP: 119, Low suspicion for pericarditis,as she deny clinical presentation consistent with pericarditis. Lasix 40 mg I.V Daily I/O Charting Daily Weight Status: Acute (2) Respiratory failure with hypoxia and hypercapnia: Acute on chronic hypoxic hypercapnic respiratory failure: Likely multifactorial: COPD exacerbation, decompensated heart failure, kyphoscoliosis. DuoNeb Budesonide 0.5 mg inhalation every 12 hours Singular 10 MG PO QAM Azithromycin 500 IV daily Solu-Medrol 60 IV TID Mucomyst inhalation BID Mucinex Chest PT Incentive spirometer Status: Acute (3) Fracture of head of humerus: S/P Closed treatment of right proximal humerus fracture Status: Acute Qualifiers: Encounter type: initial encounter Fracture type: closed Laterality: right Qualified Code(s): S42.291A - Other displaced fracture of upper end of right humerus, initial encounter for closed fracture (4) Femur fracture, right: S/P Right IM nail femur Status: Acute Qualifiers: Encounter type: initial encounter Femur location: distal, unspecified portion Fracture morphology: unspecified fracture morphology Fracture type: closed Qualified Code(s): S72.401A - Unspecified fracture of lower end of right femur, initial encounter for closed fracture (5) Hypertension: Status: Acute Qualifiers: Hypertension type: essential hypertension Qualified Code(s): I10 - Essential (primary) hypertension (6) COPD (chronic obstructive pulmonary disease): Status: Acute Qualifiers: COPD type: COPD with acute exacerbation Qualified Code(s): J44.1 - Chronic obstructive pulmonary disease with (acute) exacerbation (7) Anemia: Macrocytic Anemia Anemia Panel: Serum iron:36, TIBC: 213, percent saturation: 16.9, serum ferritin:207 Vitamin B12: 447, folate:7.2 Status: Acute (8) Hyponatremia: Improving Status: Acute Additional A&P Information Mechanical fall with resulting fractures as above Fracture management per orthopedics pain control with morphine/toradol # HTN: continue home medications incl atenolol, lisinopril # COPD with mild exacerbation CXR without consolidation Duoneb inhalation q4h , budesonide 0.5mg BID full code Dvt ppx: lovenox Attestations Medical Necessity Statement*: Patient needs to be in hospital for management of heart failure, COPD exacerbation. Coding Level of Care Code Acute Switchboard Operator Receptionist for g Fwd Diagnoses Decompensated heart failure I50.9 Respiratory failure with hypoxia and hypercapnia J96.91; J96.92 Fracture of head of humerus S42.291A Encounter type: initial encounter Fracture type: closed Laterality: right Femur fracture, right S72.401A Encounter type: initial encounter Femur location: distal, unspecified portion Fracture morphology: unspecified fracture morphology Fracture type: closed Hypertension I10 Hypertension type: essential hypertension COPD (chronic obstructive pulmonary disease) J44.1 COPD type: COPD with acute exacerbation Anemia D64.9 Hyponatremia E87.1
[2020-08-08] MEDS: azithromycin 500 MG in sodium chloride 0.9% 250 ML 250 MG IV (17:10)
[2020-08-08] MEDS: cholecalciferol (vitamin D3) 1,000 unit Tablet 2000 UNIT PO (17:11)
[2020-08-08] MEDS: atorvastatin 40 mg Tablet 20 MG PO (17:11)
[2020-08-08] MEDS: cetirizine 10 mg Tablet PO (21:02)
[2020-08-08] MEDS: HYDROcodone-acetaminophen 5-325 mg Tablet 1 TAB PO (21:08)
[2020-08-08] MEDS: enoxaparin 40 mg/0.4 mL Syringe SUBCUT (22:11)
[2020-08-09] VITALS (20 sets, daily range): BP systolic 107–1112; BP diastolic 60–69; PULSE 85–111; RESP 16–24; TEMP 36.4–37.7; O2SAT 92–100
[2020-08-09] MEDS: ipratropium-albuterol 3 mL Neb INHALATION ×3 (02:36→14:55)
[2020-08-09 02:40] LABS: Lymphocytes # 1.5 10^3/uL (0.8-4.8); Lymphocytes % 18.2 %; Mean Corpuscular HGB Conc 31.1 g/dL (30.0-36.0); Mean Corpuscular Hemoglobin 31.7 pg (28.0-34.0); Mean Platelet Volume 10.4 fL (7.4-10.4); Monocytes # 0.3 10^3/uL (0.2-0.9); Monocytes % 3.6 %; Neutrophils # 6.42 10^3/uL (1.8-7.7); Neutrophils % 77.7 %; Nucleated Red Blood Cells % 0 %; Platelet Count 195 10^3/cmm (130-400); Red Blood Count 2.02 10^6/uL (4.1-5.3); Red Cell Distribution Width 13.8 % (12.1-15.1); White Blood Count 8.3 10^3/uL (4.0-10.0)
[2020-08-09 02:46] LABS: Hematocrit 20.6 % (37.0-47.0); Hemoglobin 6.4 g/dL (11.5-15.3)
[2020-08-09 02:58] LABS: Anion Gap 7.5 (5-19); Blood Urea Nitrogen 27 mg/dL (8-23); Calcium 8.8 mg/dL (8.5-10.5); Carbon Dioxide 34 mmol/L (22-29); Chloride 99 mmol/L (98-107); Glucose 138 mg/dL (65-115); Magnesium 2.2 mg/dL (1.7-2.3); Osmolality Calculated 289 mOsm/kg (285-295); Potassium 4.5 mmol/L (3.5-5.1); Sodium 136 mmol/L (136-145)
[2020-08-09 03:07] LABS: Creatinine Clr Calc Pharmacy 32.6311
[2020-08-09] MEDS: amlodipine 5 mg Tablet PO (05:17)
[2020-08-09] MEDS: montelukast sodium 10 mg Tablet PO (05:17)
[2020-08-09] MEDS: HYDROcodone-acetaminophen 5-325 mg Tablet 1 TAB PO ×3 (05:23→17:00)
--- NOTE | 2020-08-09 05:34 | PC.NURSE ---
SHIFT SUMMARY Has done well tonight. Given po Hydrocodone X2 for pain in right leg. Dressings to knee and lat right hip thigh remain intact. Ice pack in place. Right arm in sling. Bruising & swelling to right shoulder. Has multiple bruises. Cont O2 monitor remains in place and sat has remained in upper 90's to 100% tonight with O2 at 3.5l. Occ moist sounding cough. Lungs sound better this morning and denies SOB. Has been repositioned. Allen intact and draining. Had critical H/H this am and was called with order to give 1 unit of PRBC's. Awaiting lab to get unit ready. Pt signed consent to receive
--- NOTE | 2020-08-09 08:15 | P.PN_ITS ---
Subjective Subjective: Interval history: Patient resting comfortably in bed. Pain is controlled at this point sitting in bed. Patient stated that she was out of bed yesterday to chair but not walking. Vitals/I&O/Wt Last Vital Signs Temp 98.1 F 08/09/20 07:54 Pulse 103 H 08/09/20 07:54 Resp 19 H 08/09/20 07:54 BP 129/60 08/09/20 07:54 Pulse Ox 99 08/09/20 07:54 08/08/20 08/09/20 08/09/20 22:59 06:59 14:59 Intake Total 250 / 610 240 / 850 Output Total 500 / 500 450 / 950 Balance -250 / 110 -210 / -100 Physical Exam Narrative: EXAM NARRATIVE: Resting comfortably in bed. Patient stated that she has no pain in the shoulder when she is sitting in bed. Urinary Catheter Management^: Allen: Cath Placed During This Visit: yes Reason for Continuing Indwelling Catheter: Required Immobilization for Trauma or Surgery or Anesthesia Urinary Catheter Date of Insertion: 08/05/20 Urinary Catheter Time of Insertion: 11:30 Data : 08/09/20 02:07 08/09/20 02:07 A&P Assessment and plan (1) Fracture of head of humerus: Status: Acute Qualifiers: Encounter type: initial encounter Fracture type: closed Laterality: right Qualified Code(s): S42.291A - Other displaced fracture of upper end of right humerus, initial encounter for closed fracture (2) Femur fracture, right: Status post IM nail of right femur. Nonop treatment of proximal humerus. Status: Acute Qualifiers: Encounter type: initial encounter Femur location: distal, unspecified portion Fracture morphology: unspecified fracture morphology Fracture type: closed Qualified Code(s): S72.401A - Unspecified fracture of lower end of right femur, initial encounter for closed fracture Attestations Medical Necessity Statement*: OK to d/c from orthopedic standpoint Coding Level of Care Code Acute Second Steward for [facility] Fwd Diagnoses Fracture of head of humerus S42.291A Encounter type: initial encounter Fracture type: closed Laterality: right Femur fracture, right S72.401A Encounter type: initial encounter Femur location: distal, unspecified portion Fracture morphology: unspecified fracture morphology Fracture type: closed
[2020-08-09] MEDS: pantoprazole DR 40 mg Tablet PO (08:31)
[2020-08-09] MEDS: atenolol 50 mg Tablet PO ×2 (08:31→17:01)
[2020-08-09] MEDS: predniSONE 20 mg Tablet 40 MG PO (08:31)
[2020-08-09] MEDS: guaiFENesin 600 mg Tablet PO ×2 (08:31→17:01)
[2020-08-09] MEDS: lisinopril 20 mg Tablet 40 MG PO ×2 (08:31→17:01)
[2020-08-09] MEDS: sodium chloride 0.9% (100 ml) 100 ML 125 ML (08:31)
[2020-08-09] MEDS: budesonide 0.5 mg/2 mL Neb INHALATION (08:56)
--- NOTE | 2020-08-09 11:17 | PC.OT ---
OT TREATMENT ATTEMPTED. PATIENT IS RECEIVING BATH BY CNAs. WILL ATTEMPT TREATMENT AGAIN AT A LATER TIME.
[2020-08-09] MEDS: FUROsemide 10 mg/mL SDV 4mL 40 MG IVP (11:49)
[2020-08-09 11:58] LABS: Glucose Point of Care 186 mg/dL (70-110)
[2020-08-09 13:20] LABS: Hematocrit 30.6 % (37.0-47.0); Hemoglobin 9.7 g/dL (11.5-15.3)
--- NOTE | 2020-08-09 13:49 | P.DS_ITS ---
Discharge Providers Date of Admission: 08/05/20 13:42 Date of Discharge: August 09, 2020 Attending Provider at Admission: Krys Judge MD Attending Provider at Discharge: Carlos Ashley MD Primary Care Provider: Sugey Sosa DO Diagnoses at Discharge Discharge Diagnosis (1) Fracture of head of humerus: Status: Acute Qualifiers: Encounter type: initial encounter Fracture type: closed Laterality: right Qualified Code(s): S42.291A - Other displaced fracture of upper end of right humerus, initial encounter for closed fracture (2) Femur fracture, right: Status: Acute Qualifiers: Encounter type: initial encounter Femur location: distal, unspecified portion Fracture morphology: unspecified fracture morphology Fracture type: closed Qualified Code(s): S72.401A - Unspecified fracture of lower end of right femur, initial encounter for closed fracture Reason for Visit Reason for Visit: RIGHT SHOULDER PAIN S/P FALL Hospital Course Hospital Course 75 year old female with PMH COPD Gold class D, not on home oxygen, hypertension , GERD , was admitted with chief complaint of mechanical fall at home she landed on her right shoulder and knee, upon arrival in the ER she was worked up for above-mentioned complaint , X ray of the humerus showed Comminuted displaced fracture proximal shaft of the humerus, Spiral hairline nondisplaced fracture in femoral cortex on right side and patellar subluxation. Ct head without acute injuries. CXR showed centilobular emphysema. S/p IM nail of right femur. Nonop treatment of proximal humerus, she was prescribed sling for the right humerus fracture.Hospital course was complicated by development of Acute on chronic hyp oxic hypercapnic respiratory failure: Likely multifactorial: COPD exacerbation, decompensated heart failure, kyphoscoliosis. She was kept on IV Lasix, DuoNeb, steriods, azithromycin, ABG x-ray chest were done.At one point she needed close to 8 L oxygen through nasal cannula, but at the time of discharge she required 3 Ls. 2D echo was done during the hospital stay:Normal LVEF, no RWMA,Mild to moderarte tricuspid valve regurgitation,Moderate pulmonary hypertension with pulmonary artery, pressure estimated at 47 mmHg. EKG: Has nonspecific ST-T wave changes: Troponins were normal. Hospital course was also complicated by development of macrocytic anemia, hemoglobin dropped to 6.5, required 1 unit PRBC transfusion, posttransfusion CBC was 9.7. Anemia panel revealed: Serum iron:36, TIBC: 213, percent saturation: 16.9, serum ferritin:207 Vitamin B12: 447, folate:7.2. Patient responded well to the above medical management and is currently being discharged to [facility] facility. SHe will follow Dr. Hunt as an outpatient for further work-up of severe COPD. Physical Exam Narrative: EXAM NARRATIVE: General: No acute distress, AO x3 HEENT: PERRLA, pupils bilaterally equal and reactive, pallors not present Chest: scattered wheezing to auscultation B/L as well as b/l Basal fine crackles CVS: S1-S2 regular, no murmurs, no tachycardia, no gallops, no rubs Abdomen: Soft, nontender, no organomegaly, bowel sounds present Neuro: No focal deficits, no facial deformity, AO x3, power 5/5 in all limbs Urinary Catheter Management^: Allen: Cath Placed During This Visit: yes Reason for Continuing Indwelling Catheter: Required Immobilization for Trauma or Surgery or Anesthesia Urinary Catheter Date of Insertion: 08/05/20 Urinary Catheter Time of Insertion: 11:30 Discharge Data Data Completed and Pending: Completed Studies During Hospitalization Category Date Time Status CT femur RT wo co n* [id number] Stat Cat Scan 08/05/20 11:[address] head wo con* 7 0450 Stat Cat Scan 08/05/20 10:[address] shoulder RT wo con* 24082 Stat Cat Scan 08/05/20 10:40 Completed XR chest 1V [place]ott ble [id number] Routine Exams 08/06/20 18:58 Completed XR chest 1V elliott ble 36024 Stat Exams 08/05/20 09:52 Completed XR femur RT min 2 V* [id number] Routine Exams 08/06/20 Completed XR femur RT min 2 V* [id number] Stat Exams 08/05/20 10:18 Completed XR humerus RT 730 60 Stat Exams 08/05/20 09:51 Completed XR humerus RT 730 60 Stat Exams 08/08/20 04:49 Completed XR knee RT 3V* 73 562 Stat Exams 08/05/20 09:51 Completed XR shoulder RT mi n 2V* 46450 Stat Exams 08/05/20 09:51 Completed CV echo complete* 54488 Routine Ultrasound 08/07/20 09:24 Completed Pending at discharge Category Date Time Status Immunochemical Fe melody OCB Routine Lab 08/09/20 08:36 Uncollected Labs from last 24 hours 08/09/20 08/09/20 08/09/20 13:00 11:20 04:42 WBC RBC Hgb 9.7 L D Hct 30.6 L D MCV MCH MCHC RDW Plt Count MPV Neut % (Auto) Lymph % (Auto) [place] % (Auto) Eos % (Auto) Baso % (Auto) Neut # (Auto) Lymph # (Auto) [place] # (Auto) Eos # (Auto) Baso # (Auto) Nucleated RBC % (a uto) Nucleated RBCs # Sodium Potassium Chloride Carbon Dioxide Anion Gap BUN Creatinine GFR Calculation Glucose POC Glucose 186 H Calculated Osmolal ity Calcium Magnesium Blood Type A Positive Rho(D) Type Positive / 4+ Antibody Screen Negative Crossmatch See Detail 08/09/20 08/09/20 02:07 02:07 WBC 8.3 RBC 2.02 L Hgb 6.4 L* Hct 20.6 L* MCV 102.0 H MCH 31.7 MCHC 31.1 RDW 13.8 Plt Count 195 MPV 10.4 Neut % (Auto) 77.7 Lymph % (Auto) 18.2 [place] % (Auto) 3.6 Eos % (Auto) 0.0 Baso % (Auto) 0.0 Neut # (Auto) 6.42 Lymph # (Auto) 1.5 [place] # (Auto) 0.3 Eos # (Auto) 0.0 Baso # (Auto) 0.0 Nucleated RBC % (a uto) 0 Nucleated RBCs # 0.0 Sodium 136 Potassium 4.5 Chloride 99 Carbon Dioxide 34 H Anion Gap 7.5 BUN 27 H Creatinine 0.3 L GFR Calculation Not Reportable Glucose 138 H POC Glucose Calculated Osmolal ity 289 Calcium 8.8 Magnesium 2.2 Blood Type Rho(D) Type Antibody Screen Crossmatch Vitals: Last Vital Signs Temp 98.3 F 08/09/20 12:00 Pulse 88 08/09/20 12:00 Resp 20 H 08/09/20 12:00 BP 119/69 08/09/20 12:00 Pulse Ox 100 08/09/20 12:00 Discharge Plan Discharge Patient Disposition: Xfer SNF Condition: Stable Prescriptions: New furosemide [Lasix] 40 mg tablet 40 mg PO DAILY Qty: 30 RF: 3 azithromycin 500 mg tablet 500 mg PO DAILY 5 Days RF: 0 pantoprazole [Protonix] 40 mg tablet,delayed release (DR/EC) 40 mg PO DAILY Qty: 30 RF: 0 prednisone 20 mg tablet 20 mg PO DAILY 5 Days Qty: 5 RF: 0 potassium chloride [Klor-Con 10] 10 mEq tablet extended release 20 meq PO DAILY Qty: 30 RF: 0 Continued Zyrtec 10 mg Tablet 10 mg PO BEDTIME RF: 0 simvastatin 10 mg tablet 10 mg PO QPM RF: 0 amlodipine 5 mg tablet 5 mg PO QAM RF: 0 montelukast 10 mg tablet 10 mg PO QAM RF: 0 Ventolin HFA 90 mcg/actuation HFA aerosol inhaler 2 puff INHALATION Q4H PRN (Reason: Shortness Of Breath) RF: 0 lisinopril 40 mg tablet 40 mg PO BID RF: 0 fluticasone propionate 50 mcg/actuation spray,suspension 2 spray INTRANASAL DAILY RF: 0 atenolol 50 mg tablet 50 mg PO BID RF: 0 Vitamin D3 50 mcg (2,000 unit) Capsule 50 mcg PO QPM RF: 0 Spiriva Respimat 2.5 mcg/actuation mist 2 puff INHALATION DAILY RF: 0 Discharge Orders: Discharge Order (Routine); Ordered 08/09/20 Ordered By: Carlos Ashley Referrals: Timoteo Cade DO [Physician] - 2 weeks ([facility] will be calling you with an appointment.) Walker Hunt MD [Physician] - 08/16/20 8:30 am Sugey Sosa DO [Primary Care Provider] - Discharge Diet: Low Salt Discharge Activity: Resume usual activity Activity Restrictions/Additional Instructions: You are being discharged from the hospital today during which time you have been under the care of Dr. Cade. You had a right proximal humerus and right hip fracture fracture. You were treated for this injury with right hip nail and nonoperative treatment of right hip. You may resume you normal diet (including any special diets as directed by your primary doctor) as well as your home medications. You should follow up with you primary doctor if you have any questions regarding medication you took prior to your stay in the hospital. You may take your pain medication as prescribed. After the first few days, take your pain medication as needed. Do not drive or drink alcohol while taking your pain medication. Your injury may increase your risk of developing a blood clot,or DVT, in your arm or leg. This could potentially dislodge and travel to your lungs and become a life threatening condition called apulmonary embolus,or PE. You have been prescribed Lovenox to be taken to prevent this. Frequent movement of the legs will also help prevent this from occurring. If you develop any new or worsening cough, chestpain, bloody sputum or shortness of breath, call 911 or go to the EmergencyRoom. Always keep your surgical incision/dressing clean and dry. If you experience increasing pain at your incision site, redness, swelling, increasing discharge, foul odors, or fevers (greater than 100.4), night sweats or chills you should call the office at the above number. If you feel this is an emergency you should be evaluated in the Emergency Department of a nearby hospital. Orthopedic Patient Instructions Summary: Weight Bearing: Weight-bear as tolerating right lower extremity. Nonweightbearing right upper extremity Activity: As tolerated. Diet: Regular. Splint Care: Keep splint clean and dry. Cover with a plastic bag for bathing. Wound Care: Keep dressing clean and dry. Anticoagulation: Lovenox Pain Medication: Take only as needed. Ice, rest and elevation will be of great benefit. Please plan to follow-up [facility] Dr Cade in 2 weeks. You will need to call the clinic [phone] to schedule this visit. Thank you far allowing me to participate in your care. Do not hesitate to call the office with any questions or concerns. Discharge Attestations Time Spent in Discharge Care*: less than 30 min Specific Discharge Activities: educating patient, educating and/or supporting family/caregiver, discussing with pcp/other providers, discussing with classification case manager/social workers/dc planners, documenting/other paperwork and evaluating patient/reviewing data Status at Discharge: Cognitive status at discharge: cognitively intact , Behavioral status at discharge: cooperative , Functional status at discharge: other assisted ambulation Overall status at discharge: patient is back to baseline Quality Metrics Clinical Quality Measures During this hospital stay, did patient experience: None Coding Level of Care Code Acute [facility] DC note Diagnoses Fracture of head of humerus S42.291A Encounter type: initial encounter Fracture type: closed Laterality: right Femur fracture, right S72.401A Encounter type: initial encounter Femur location: distal, unspecified portion Fracture morphology: unspecified fracture morphology Fracture type: closed
[2020-08-09] MEDS: atorvastatin 40 mg Tablet 20 MG PO (17:01)
[2020-08-09] MEDS: cholecalciferol (vitamin D3) 1,000 unit Tablet 2000 UNIT PO (17:01)
== END 2020-08-09 18:40 | disposition skilled nursing facility (03) | DRG 480 ==
LOC: ER 13:27 → MEDSURG 15:19
PROVIDERS: Internal Medicine; Orthopaedic Surgery; Admitting Provider Student in an Organized Health Care Education/Training Program; Emergency Provider Emergency Medicine; PCP Family Medicine; Visit Provider Internal Medicine
PROC: 0QH806Z Insertion of Intramedullary Internal Fixation Device into Right Femoral Shaft, Open Approach (ICD-10-PCS; principal; 2020-08-06 13:30)
DX: S72.344A Nondisplaced spiral fracture of shaft of right femur, initial encounter for closed fracture (principal); J96.22 Acute and chronic respiratory failure with hypercapnia; J96.21 Acute and chronic respiratory failure with hypoxia; I50.33 Acute on chronic diastolic (congestive) heart failure; S42.211A Unspecified displaced fracture of surgical neck of right humerus, initial encounter for closed fracture; E87.1 Hypo-osmolality and hyponatremia; W18.30XA Fall on same level, unspecified, initial encounter; J43.2 Centrilobular emphysema; K21.9 Gastro-esophageal reflux disease without esophagitis; I11.0 Hypertensive heart disease with heart failure; D53.9 Nutritional anemia, unspecified; I07.1 Rheumatic tricuspid insufficiency; I27.20 Pulmonary hypertension, unspecified; Z79.51 Long term (current) use of inhaled steroids
CPT/HCPCS: 36415; 36416; 36430; 36600; 51702; 70450; 71045; 73030; 73060; 73200; 73552; 73562; 73700; 76000; 80048; 80051; 80053; 81003; 82330; 82607; 82728; 82746; 82803; 82805; 82962; 83540; 83550; 83735; 83880; 84484; 85014; 85018; 85025; 85651; 86140; 86850; 86900; 86920; 93005; 93306; 94640; 94664; 94762; 96361; 96365; 96372; 96375; 96376; 97110; 97162; 97167; 97530; 99285; C1713; J0456; J0690; J1100; J1650; J1885; J1940; J2250; J2270; J2370; J2405; J2704; J2930; J3010; J7030; J7050; J7512; J7611; J7626; P9016

== ENCOUNTER 2020-09-11 13:15 | Outpatient (CLI) | payer MEDICARE, MEDICAID, SELFPAY | END 2020-09-11 13:16 | disposition home or self-care (01) | LOC: SLEEP 13:16 | PROVIDERS: PCP Family Medicine; Visit Provider Internal Medicine Critical Care Medicine | DX: J44.1 Chronic obstructive pulmonary disease with (acute) exacerbation (principal) | CPT/HCPCS: 94762 ==

== ENCOUNTER → 2020-09-18 08:18 | Outpatient (BNVA) | payer MEDICARE, SELFPAY | PROVIDERS: PCP Family Medicine; Visit Provider Orthopaedic Surgery | DX: Z48.89 Encounter for other specified surgical aftercare (principal); S42.291D Other displaced fracture of upper end of right humerus, subsequent encounter for fracture with routine healing; S79.101D Unspecified physeal fracture of lower end of right femur, subsequent encounter for fracture with routine healing; W19.XXXD Unspecified fall, subsequent encounter | CPT/HCPCS: 73030; 73552 ==

== ENCOUNTER 2020-10-16 12:08 | Outpatient (CLI) | payer MEDICARE, MEDICAID, SELFPAY ==
[2020-10-16 12:31] LABS: Basophils % 0.4 %; Eosinophils % 0.3 %; Hematocrit 38.5 % (37.0-47.0); Hemoglobin 11.4 g/dL (11.5-15.3); Lymphocytes # 2.3 10^3/uL (0.8-4.8); Lymphocytes % 33.1 %; Mean Corpuscular HGB Conc 29.6 g/dL (30.0-36.0); Mean Corpuscular Hemoglobin 29.5 pg (28.0-34.0); Mean Corpuscular Volume 99.5 fL (81-99); Mean Platelet Volume 10.8 fL (7.4-10.4); Monocytes # 0.5 10^3/uL (0.2-0.9); Monocytes % 6.7 %; Neutrophils # 4.05 10^3/uL (1.8-7.7); Neutrophils % 59.4 %; Nucleated Red Blood Cells % 0 %; Platelet Count 326 10^3/cmm (130-400); Red Blood Count 3.87 10^6/uL (4.1-5.3); Red Cell Distribution Width 13.6 % (12.1-15.1); White Blood Count 6.8 10^3/uL (4.0-10.0)
[2020-10-16 12:57] LABS: Alanine Aminotransferase 10 U/L (0-33); Albumin Level 3.8 g/dL (3.5-5.2); Alkaline Phosphatase 91 IU/L (35-105); Anion Gap 11.9 (5-19); Aspartate Amino Transferase 14 U/L (0-32); Blood Urea Nitrogen 9 mg/dL (8-23); Calcium 9.2 mg/dL (8.5-10.5); Carbon Dioxide 40 mmol/L (22-29); Chloride 95 mmol/L (98-107); Globulin 3.9 g/dL (1.3-4.6); Glucose 115 mg/dL (65-115); Osmolality Calculated 296 mOsm/kg (285-295); Potassium 3.9 mmol/L (3.5-5.1); Sodium 143 mmol/L (136-145); Thyroid Stimulating Hormone 1.71 uIU/mL (0.27-4.20); Total Bilirubin 0.2 mg/dL (0.15-1.2); Total Protein 7.7 g/dL (6.6-8.7)
== END 2020-10-16 12:09 | disposition home or self-care (01) ==
LOC: LAB 12:09
PROVIDERS: PCP Family Medicine; Visit Provider Family Medicine
DX: J44.1 Chronic obstructive pulmonary disease with (acute) exacerbation (principal)
CPT/HCPCS: 80053; 84443; 85025

== ENCOUNTER 2020-11-08 11:10 | Outpatient (CLI) | payer MEDICARE, MEDICAID, SELFPAY ==
--- NOTE | 2020-11-08 11:30 | CT_ITS ---
WS: [id number] LDCT LUNG CANCER SCREENING TECHNIQUE: Noncontrast CT of the chest with coronal and sagittal reformatted images. CLINICAL INFORMATION: History of Nicotine Dependence COMPARISON: None. DLP: 52.21 mGy.cm DIvol: 1.[address] scans at [facility] use at least one of these dose optimization techniques: automat ed exposure control; mA and/or kV adjustment per patient size (includes targeted exams where dose is matched to clinical indication); or iterative reconstruction. FINDINGS:Masslike spiculated opacity involving the right hilum measuring approximately 1.4 x 1.7 cm w ith narrowing of the right upper lobe bronchus. In addition, numerous masslike spiculated opacities i n the lung bases with the largest measuring approximately 1.5 to 2 cm. Approximately 5-6 masslike op acities in the left lower lobe and one in the right lower lobe measuring 1.7 x 0.9 CM. Smaller additi onal opacities in right lower lobe medially with pleural thickening measuring 10 mm. Small spiculate d nodule in the inferior segment left upper lobe along the fissure measuring 9 mm. Additional noncalc ified opacity right lower lobe along the diaphragm measuring 13 mm.Advanced chronic emphysematous jose g nges.Traction bronchiectasis in both lungs Aortic calcification. Calcified hilar nodes. Thoracic scoliosis. Thoracic kyphosis. Chronic anterior wedging in the mid and upper thoracic spine with chronic compression deformities. CT/CT lung screening 58776 IMPRESSION: FINDINGS SUSPICIOUS FOR MALIGNANCY. RECOMMEND FURTHER EVALUATION WI TH CONTRAST-ENHANCED CT AND BRONCHOSCOPY OF THE RIGHT HILAR LESION. LUNG-RADS: 4X-Suspicious FOLLOW UP: See Report Message left for Walker Hunt MD at 11/08/2020 1:25 PM.
== END 2020-11-08 11:11 | disposition home or self-care (01) ==
PROVIDERS: PCP Family Medicine; Visit Provider Internal Medicine Critical Care Medicine
DX: Z12.2 Encounter for screening for malignant neoplasm of respiratory organs (principal); Z87.891 Personal history of nicotine dependence; R91.1 Solitary pulmonary nodule
CPT/HCPCS: 71271

== ENCOUNTER → 2020-12-06 08:55 | Outpatient (BNVA) | payer MEDICARE, MEDICAID, SELFPAY | PROVIDERS: PCP Family Medicine; Visit Provider Internal Medicine Critical Care Medicine | DX: Z20.822 Contact with and (suspected) exposure to COVID-19 (principal); R91.1 Solitary pulmonary nodule | CPT/HCPCS: 87635 ==

== ENCOUNTER 2020-12-11 06:06 | Day surgery (SDC) | payer MEDICARE, MEDICAID, SELFPAY ==
[2020-12-07 06:16] VITALS: BMI 14.4
[2020-12-07 09:25] VITALS: BMI 14.4
[2020-12-11] VITALS (16 sets, daily range): BP systolic 139–192; BP diastolic 61–84; PULSE 82–124; RESP 18–25; TEMP 36.3–37.6; O2SAT 92–100
--- NOTE | 2020-12-11 06:32 | ECG_ITS ---
[facility] Test Date: 2020-12-11 Pat Name: Mónica Rodas Department: Room: Gender: Female Rn Nursery: : 1945 Requested By: Bernard Mcdaniels Order Number: [id number] Ruma MD: Shellie Yates M.D. Measurements Intervals [place] Rate: 77 P: 71 ND: 158 QRS: 68 QRSD: 97 T: 53 QT: 377 QTc: 428 Interpretive Statements SINUS RHYTHM EARLY REPOLARIZATION [ST ELEVATION WITH NORMALLY INFLECTED T-WAVE] Compared to ECG 08/06/2020 23:15:05 Early repolarization now present ST (T wave) deviation no longer present Electronically Signed On 12-11-2020 23:48:05 CDT by Shellie Yates M.D. [id number]
[2020-12-11] MEDS: sodium chloride 0.9% 1,000 ML 30 ML IV ×2 (06:42→07:31)
--- NOTE | 2020-12-11 06:55 | W.PM.OPSFHP ---
Same Day Surgery H&P Indication for Procedure/HPI DATE OF PROCEDURE: December 11, 2020 CHIEF COMPLAINT/INDICATIONFOR SURGICAL PROCEDURE: PET positive right hilar lung mass PREOP DIAGNOSIS: Suspected lung cancer PLANNED PROCEDRUE: Bronchoscopy with inspection of the airway, possible endobronchial biopsy, Cytobrush, bronchoalveolar lavage, endobronchial sound guided transbronchial aspiration of lymph nodes and control of bleeding Operation Date: 12/11/20 07:00 Proposed Procedures p Ebus 77413 10748 R91.1(Not Applicable) - Walker Hunt MD This is a 75-year-old lady coming in for bronchoscopic evaluation after low-dose CT scan for lung cancer screening identified lung nodules. The patient underwent a PET CT scan which revealed solitary right upper lobe nodule that was FDG positive. The patient has advanced emphysema and COPD. Medications/Allergies* Home Medications Medication Instructions Recorded Confirmed Type albuterol sulfate [Ventolin HFA] 2 puff INHALATION Q4H PRN 08/05/20 12/11/20 History amlodipine 5 mg PO QAM 08/05/20 12/11/20 History atenolol 50 mg PO BID 08/05/20 12/11/20 History cetirizine [Zyrtec] 10 mg PO BEDTIME 08/05/20 12/11/20 History cholecalciferol (vitamin D3) 50 mcg PO QPM 08/05/20 12/07/20 History [Vitamin D3] fluticasone propionate 2 spray INTRANASAL DAILY 08/05/20 12/11/20 History lisinopril 40 mg PO BID 08/05/20 12/11/20 History simvastatin 10 mg PO QPM 08/05/20 12/11/20 History albuterol sulfate 2.5 mg INHALATION Q4H PRN 08/20/20 12/11/20 History bisacodyl 10 mg rectal suppository 10 mg DE DAILY PRN 08/20/20 12/07/20 History morphine concentrate 20 mg/mL oral 5 mg SUBLINGUAL .qh PRN 08/20/20 12/11/20 History syringe (FOR ORAL USE ONLY) Allergies/Adverse Reactions Allergy/AdvReac Type Severity Reaction Status Date / Time hydrochlorothiazide Allergy Unknown Diarrhea Verified 12/11/20 06:20 tramadol Allergy Unknown nausea and Verified 12/11/20 06:20 vomiting aspirin Allergy ADR-Gastrointestinal Verified 12/11/20 06:20 Upset Penicillins Allergy ADR-Gastrointestinal Verified 12/11/20 06:20 Upset tetracycline Allergy ADR-Gastrointestinal Verified 12/11/20 06:20 Upset oxycodone-acetominophen Allergy Unknown nausea and Uncoded 12/11/20 06:20 vomiting Current Medications: Generic Name Dose Route Start Last Admin Trade Name Jose Antonioq PRN Reason Stop Dose Admin Sodium Chloride 1,000 mls @ 30 mls/hr 12/11/20 06:15 12/11/20 06:42 Sodium Chloride 0.9% IV 12/12/20 06:14 30 mls/hr .Q24H NABEEL Administration Pertinent History/Comorbid Conditions* Medical History (Updated 08/20/20 @ 15:20 by Walker Hunt MD) Anemia Arrhythmia COPD (chronic obstructive pulmonary disease) Decompensated heart failure Femur fracture, right Fracture of head of humerus GERD (gastroesophageal reflux disease) Hypertension Hyponatremia Respiratory failure with hypoxia and hypercapnia Family History (Updated 08/20/20 @ 14:50 by Lenka Arriola LPN) CAD (coronary artery disease) Cancer Family/Other Lung Hypertension Social History Smoking and tobacco status: former smoker Quit status (tobacco): has quit using tobacco Year quit tobacco: 2020 Former quit date comment: Hx of 1 PPD x 60 Years Second hand smoke exposure: Yes Smoking risk assessment/counseling performed?: No Alcohol intake: never Counseling given: No Counseling given: No Caregiver/support person: Yes Lives independently: No Household members: caregiver Housing: Care Home Marital status: Current occupational status: disabled History of recent travel: No Current gender identity: Female Pertinent Exam Findings alert and oriented x 3 Respiratory: Inspection: Barrel-shaped chest Palpation: Trachea is mildly deviated to the right, bilateral symmetric but reduced expansion Percussion: Bilateral tympanic percussion note both anterior and posteriorly Auscultation: Reduced breath sound bilaterally, no crackles or wheezing was diffuse rhonchi Recommendations Surgery/Procedure today Coding Level of Care Code Acute [employer] Architect for Patricia Saeed
--- NOTE | 2020-12-11 07:15 | P.ANESASSM_ITS ---
Pre-Anesthetic Assessment Pre-Anesthetic Assessment: Height/Weight: Height 1.57 m Weight 35.834 kg Temp Pulse Resp BP Pulse Ox 99.6 F 124 H 18 149/68 93 12/11/20 06:33 12/11/20 06:33 12/11/20 06:33 12/11/20 06:33 12/11/20 06:33 Preop Diagnosis: Suspected lung cancer Proposed Procedure: Operation Date: 12/11/20 07:00 Proposed Procedures p Ebus 28136 [id number] R91.1(Not Applicable) - Walker Hunt MD Was Beta Nathalia taken within 24 hours: Yes Was Clonidine taken within 24 hours: N/A Last intake: Intake Last Liquid Date 12/11/20 Last Liquid Time 00:00 Last Solid Date 12/10/20 Last Solid Time 21:00 Social: Social History: Tobacco and No alcohol Exam: Pre-Anes Outpt Exam: alert, oriented x 3 and regular rate & rhythm Additional Exam Findings (including area of procedure): rhonchi Airway: Submandibular: WNL Cervical ROM: WNL MP: 2 Dentition: Chipped Additional comments: Missing most Pulmonary: Pulmonary: COPD Comments: Home O2 CV/HEM: CV/HEM: Arrythmia and HTN Comments: Ekg NSR GI: GI: GERD Anesthetic Plan: ASA status: 3 Anesthesia: General Risk of > 500 ml blood loss (7ml/kg in children): No Meds/Allergies Current Medications: Current Medications Generic Name Dose Route Start Last Admin Trade Name Freq PRN Reason Stop Dose Admin Sodium Chloride 1,000 mls @ 30 ml s/hr 12/11/20 06:15 12/11/20 06:42 Sodium Chloride 0.9% IV 12/12/20 06:14 30 mls/hr .Q24H NABEEL Administration PFSH Anesthesia PFSH: Medical History Anemia Arrhythmia COPD (chronic obstructive pulmonary disease) Decompensated heart failure Femur fracture, right Fracture of head of humerus GERD (gastroesophageal reflux disease) Hypertension Hyponatremia Respiratory failure with hypoxia and hypercapnia Family History Family/Other Cancer Lung Other CAD (coronary artery disease) Hypertension Social History Smoking and tobacco status: former smoker Quit status (tobacco): has quit using tobacco Year quit tobacco: 2020 Former quit date comment: Hx of 1 PPD x 60 Years Second hand smoke exposure: Yes Smoking risk assessment/counseling performed?: No Alcohol intake: never Counseling given: No Counseling given: No Caregiver/support person: Yes Lives independently: No Household members: caregiver Housing: Shelter Marital status: Current occupational status: disabled History of recent travel: No Current gender identity: Female Data Anesthesia Cardiac Studies: No Data to Display
[2020-12-11] MEDS: lidocaine 1% INJ 20 mL XX (07:27)
--- NOTE | 2020-12-11 08:20 | PM.OP ---
Operative Report Date of procedure: December 11, 2020 Pre-op Diagnosis: Suspected lung cancer Post-op diagnosis: same Brief History: This is a 75-year-old lady coming in for bronchoscopic evaluation for PET positive lung nodule Procedure: Name of the procedure: Bronchoscopy with inspection of the airway, bronchoalveolar lavage, endobronchial ultrasound-guided transbronchial needle aspiration of lymph nodes and control of bleeding. Indication: Suspected lung cancer Anesthesia: General anesthesia. Local anesthesia: The vocal cords, brina in the right and left mainstem bronchi were anesthetized with 1% lidocaine, 6 mL. Description of the procedure: The procedure was explained to the patient and the consent was obtained. The patient was brought to the OR. The patient underwent laryngeal mask airway placement for general anesthesia. Following induction of general anesthesia, the bronchoscope was advanced through the LMA. Vocal cords are normal. The vocal cords are in stages 1% lidocaine, 3 mL of lidocaine was used. The bronchoscope was introduced through the vocal cords into the upper trachea. The upper and the lower trachea appeared to be mildly erythematous. Mucous was also noted. The brina was sharp. The brina, the right and left mainstem bronchi are anesthetized with 1% lidocaine. In a systematic manner bilateral bronchial tree was then examined. The bronchoscope was advanced into the left mainstem bronchus. The left upper lobe, lingula and left lower lobe bronchi were examined up to the third subsegmental level and no abnormalities were identified. The bronchoscope was then introduced into the right mainstem bronchus. The right upper lobe, right middle lobe and right lower lobe bronchi were examined up to the third subsegmental level and no abnormalities were identified. All 3 segments of the right upper lobe was examined extensively but no endobronchial lesions were identified. Bronchoalveolar lavage was performed from the anterior segment of right upper lobe. 60 cc of fluid was instilled, fluid return was 20 cc. The endobronchial ultrasound was introduced through the LMA. No mediastinal lymphadenopathy was identified. Mild lymphadenopathy in the right hilar lymph node was identified. Transbronchial needle aspiration was performed from 11 R lymph node station. Samples: 1. Bronchoalveolar lavage specimen was sent for cytology. 2. The transbronchial needle aspiration of the aforementioned lymph node groups were sent for cytology and histopathology. Complications: There was no immediate complications.
[2020-12-11] MEDS: ipratropium 0.5 mg/2.5 mL Neb INHALATION (08:38)
--- NOTE | 2020-12-11 09:03 | PC.NURSE ---
pt put into phase 1 at 08 pt was placed on bipap by respiratory and breathing treatment given pt bipap at 3L oxygen 904 pt coughed up small amount of bloody mucus
[2020-12-11] MEDS: ondansetron 2 mg/ML SDV 2 mL 4 MG IVP ×2 (10:06→10:21)
--- NOTE | 2020-12-11 11:55 | ANE.PACU2 ---
Inpatient post-anesthesia follow up: Airway intact: Yes Vital signs: Temperature 97.9 F Pulse Rate 84 Respiratory Rate 18 Blood Pressure 145/66 Pulse Oximetry 99 Oxygen Delivery Me thod Nasal Cannula Oxygen Flow Rate 3 Fraction of Inspir ed Oxygen 32 Hydration adequate: Yes Nausea and vomiting: No Pain level: 1 Mental status: Baseline
== END 2020-12-11 10:52 | disposition home or self-care (01) ==
PROVIDERS: PCP Family Medicine; Visit Provider Internal Medicine Critical Care Medicine
PROC: BB4BZZZ Ultrasonography of Pleura (ICD-10-PCS; principal; 2020-12-11 07:00)
PROC: 0BJ08ZZ Inspection of Tracheobronchial Tree, Via Natural or Artificial Opening Endoscopic (ICD-10-PCS; CPT 31622; 2020-12-11 07:00)
DX: C34.90 Malignant neoplasm of unspecified part of unspecified bronchus or lung (principal); J44.9 Chronic obstructive pulmonary disease, unspecified; K21.9 Gastro-esophageal reflux disease without esophagitis; I10 Essential (primary) hypertension; Z87.891 Personal history of nicotine dependence; Z99.81 Dependence on supplemental oxygen
CPT/HCPCS: 31622; 31624; 31652; 80500; 87070; 87205; 88305; 93005; 94640; 94660; 96374; 96375; J1100; J2405; J2704; J3010; J7030; J7611; J7644

== ENCOUNTER 2021-01-14 12:26 | Outpatient (CLI) | payer MEDICARE, MEDICAID, SELFPAY ==
--- NOTE | 2021-01-14 14:08 | N.ONRAD NP_ITS ---
Radiation Oncology Consultation Patient Name: Mónica Rodas Date of : 1945 Date of Service: 01/14/2021 Attending Physician: Warren Shabazz M.D. Mónica Rodas was seen in consultation this afternoon at the request of J Luis Hunt M.D. for consideration of stereotactic ablative body radiotherapy in the management of recently diagnosed non-small cell lung cancer. A low-dose CT lung cancer screening was ordered on November 08, 2020. Imaging identified a 1.4 cm x 1.7 cm right hilar mass and multiple bilateral pulmonary nodules. A PET CT obtained on November 17, 2020 demonstrated a hypermetabolic right upper lobe nodule (SUV 7.2) without FDG activity in remaining pulmonary nodules. A bronchoscopy with endobronchial ultrasound guided transbronchial needle aspiration was performed on December 11, 2020. Biopsies did not diagnose a malignancy. CT-guided biopsy was not recommended on account of the patient's pulmonary function. The patient was evaluated for SABR. I discussed with Ms. Rodas the AJCC clinical stage IA2 (T1bN0) lung cancer corresponding to her disease. She is aware that the National Comprehensive Cancer Network Guidelines recommend surgical resection in operable patients. However, for patients deemed medically inoperable without lymphadenopathy, stereotactic radiotherapy is preferable. I reviewed the RTOG 0813 phase II trial that enrolled non-small cell lung cancer patients with centrally-located T1 and T2 tumors with medical conditions precluding surgical treatment to SABR. I also discussed the SPACE trial that randomized stage I non-small cell lung cancer patients to SABR or conventional fractionated radiotherapy. Progression free survival was improved and a significant decrement in adverse events were documented in the SABR treatment arm. I would endorse an ultra-hypofractionated course of stereotactic radiotherapy. I will order pulmonary function testing prior to treatment. A 4-dimensional computed tomographic with contrast will be acquired for radiotherapy planning to delineate the gross tumor volume. The potential toxicities of stereotactic body radiotherapy to the lung were reviewed. The patient has verbalized understanding and would like to proceed as recommended. The patient's medical treatment plan was discussed with J Luis Hunt M.D. Signed by: Dr. Warren Shabazz 01/14/2021 2:07:42 PM
[2021-01-14 15:38] LABS: Basophils % 0.3 %; Eosinophils # 0.2 10^3/uL (0.0-0.8); Eosinophils % 1.5 %; Hematocrit 37.6 % (37.0-47.0); Hemoglobin 11.4 g/dL (11.5-15.3); Lymphocytes # 3.1 10^3/uL (0.8-4.8); Lymphocytes % 28.6 %; Mean Corpuscular HGB Conc 30.3 g/dL (30.0-36.0); Mean Corpuscular Hemoglobin 30.6 pg (28.0-34.0); Mean Corpuscular Volume 100.8 fl (81-99); Mean Platelet Volume 10.4 fL (7.4-10.4); Monocytes # 0.8 10^3/uL (0.2-0.9); Monocytes % 7.3 %; Neutrophils % 61.9 %; Nucleated Red Blood Cells % 0 %; Platelet Count 301 10^3/cmm (130-400); Red Blood Count 3.73 10^6/uL (4.1-5.3)
[2021-01-14 16:18] LABS: Alanine Aminotransferase 11 U/L (0-33); Albumin Level 3.8 g/dL (3.5-5.2); Alkaline Phosphatase 75 IU/L (35-105); Anion Gap 10.8 (5-19); Aspartate Amino Transferase 14 U/L (0-32); Blood Urea Nitrogen 10 mg/dL (8-23); Calcium 9.2 mg/dL (8.5-10.5); Carbon Dioxide 35 mmol/L (22-29); Chloride 96 mmol/L (98-107); Globulin 3.2 g/dL (1.3-4.6); Glucose 92 mg/dL (65-115); Osmolality Calculated 285 mOsm/kg (285-295); Potassium 3.8 mmol/L (3.5-5.1); Sodium 138 mmol/L (136-145); Total Bilirubin 0.3 mg/dL (0.15-1.2)
== END 2021-01-14 12:27 | disposition home or self-care (01) ==
LOC: ONCMED 12:31
PROVIDERS: PCP Family Medicine; Visit Provider Radiology Radiation Oncology
DX: C34.01 Malignant neoplasm of right main bronchus (principal); C78.02 Secondary malignant neoplasm of left lung; R59.0 Localized enlarged lymph nodes; Z79.899 Other long term (current) drug therapy
CPT/HCPCS: 36415; 80053; 85025; 99205

== ENCOUNTER → 2021-01-23 13:32 | Outpatient (BNVA) | payer MEDICARE, MEDICAID, SELFPAY | PROVIDERS: PCP Family Medicine; Visit Provider Specialist | DX: Z20.822 Contact with and (suspected) exposure to COVID-19 (principal); J44.1 Chronic obstructive pulmonary disease with (acute) exacerbation | CPT/HCPCS: 87635 ==

== ENCOUNTER 2021-01-29 07:17 | Outpatient (CLI) | payer MEDICARE, MEDICAID, SELFPAY ==
--- NOTE | 2021-01-29 12:58 | PFTS_ITS ---
Date of Study:01/29/21 Date of Dictation: MECHANICS: Forced vital capacity (FVC) is reduced. Forced expiratory volume in one second (FEV1) is reduced. FEV1/FVC is reduced. FLOW VOLUME LOOP: Reduced flow at all lung volumes with significant scooping. LUNG VOLUMES: Not measured DIFFUSING CAPACITY FOR CARBON MONOXIDE: Severely reduced. INTERPRETATION: The postbronchodilator spirometry is consistent with very severe airflow obstruction. A component of restriction cannot be ruled out in the absence of lung volume measurement. There is no significant postbronchodilator response. Lung volumes were not measured. Gas exchange (DLCO) is severely reduced. MTDD
== END 2021-01-29 07:18 | disposition home or self-care (01) ==
PROVIDERS: PCP Family Medicine; Visit Provider Internal Medicine Critical Care Medicine
DX: J44.1 Chronic obstructive pulmonary disease with (acute) exacerbation (principal)
CPT/HCPCS: 94060; 94729; J7611

== ENCOUNTER 2021-02-06 12:47 | Outpatient (RCR) | payer MEDICARE, MEDICAID, SELFPAY ==
--- NOTE | 2021-02-06 13:43 | ONCRAD EPV_ITS ---
Radiation Oncology Follow-Up Note Patient Name: Mónica Rodas Date of : 1945 Date of Service: 02/06/2021 Attending Physician: Warren Shabazz M.D. Mónica Rodas returned to discuss the management of a diagnosed non-small cell lung cancer. Briefly, a low-dose CT lung cancer screening was ordered on November 08, 2020. Imaging identified a 1.4 cm x 1.7 cm right hilar mass and multiple bilateral pulmonary nodules. A PET CT obtained on November 17, 2020 demonstrated a hypermetabolic right upper lobe nodule (SUV 7.2) without FDG activity in remaining pulmonary nodules. A bronchoscopy with endobronchial ultrasound guided transbronchial needle aspiration was performed on December 11, 2020. Biopsies did not diagnose a malignancy. CT-guided biopsy was not recommended on account of the patient's pulmonary function. She reported a three week history of nausea with vomiting. I will order labs and have prescribed Zofran ODT during her office appointment. She will also need an anxiolytic for the PET scan and I will prescribe an anti-emetic. I also discussed with Ms. Rodas the need for repeat staging (PET-CT). Signed by: Dr. Warren Shabazz 02/06/2021 1:41:29 PM
[2021-02-06] MEDS: ondansetron 4 MG Tablet PO (13:45)
[2021-02-06 14:45] LABS: Basophils # 0.1 10^3/uL (0.0-0.1); Basophils % 0.4 %; Eosinophils # 0.2 10^3/uL (0.0-0.8); Eosinophils % 1.4 %; Hematocrit 39.1 % (37.0-47.0); Lymphocytes # 2.9 10^3/uL (0.8-4.8); Lymphocytes % 25.2 %; Mean Corpuscular HGB Conc 30.7 g/dL (30.0-36.0); Mean Corpuscular Hemoglobin 30.8 pg (28.0-34.0); Mean Corpuscular Volume 100.5 fl (81-99); Monocytes # 1.2 10^3/uL (0.2-0.9); Monocytes % 10.1 %; Neutrophils % 62.3 %; Nucleated Red Blood Cells % 0 %; Platelet Count 346 10^3/cmm (130-400); Red Blood Count 3.89 10^6/uL (4.1-5.3); Red Cell Distribution Width 13.8 % (12.1-15.1); White Blood Count 11.4 10^3/uL (4.0-10.0)
[2021-02-06 15:08] LABS: Alanine Aminotransferase 13 U/L (0-33); Alkaline Phosphatase 70 IU/L (35-105); Anion Gap 9.3 (5-19); Aspartate Amino Transferase 13 U/L (0-32); Blood Urea Nitrogen 11 mg/dL (8-23); Calcium 9.4 mg/dL (8.5-10.5); Carbon Dioxide 38 mmol/L (22-29); Chloride 93 mmol/L (98-107); Globulin 3.4 g/dL (1.3-4.6); Glucose 109 mg/dL (65-115); Magnesium 2.1 mg/dL (1.7-2.3); Osmolality Calculated 282 mOsm/kg (285-295); Potassium 4.3 mmol/L (3.5-5.1); Sodium 136 mmol/L (136-145); Total Bilirubin 0.3 mg/dL (0.15-1.2); Total Protein 7.4 g/dL (6.6-8.7)
== END 2021-02-11 10:00 | disposition home or self-care (01) ==
LOC: ONCMED 12:47
PROVIDERS: PCP Family Medicine; Visit Provider Radiology Radiation Oncology
DX: C34.11 Malignant neoplasm of upper lobe, right bronchus or lung (principal); Z79.899 Other long term (current) drug therapy
CPT/HCPCS: 36415; 80053; 83735; 85025; Q0162

== ENCOUNTER 2021-02-11 10:08 | Outpatient (CLI) | payer MEDICARE, MEDICAID, SELFPAY ==
--- NOTE | 2021-02-11 11:54 | CT_ITS ---
WS: [id number] Exam: CT chest abdomen w con* Date/Time of Exam: 02/11/2021 11:56 AM Reason For Exam: LUNG CANCER DLP: 824.[address] scans at [facility] use at least one of these dose optimization techniques: automated e xposure control; mA and/or kV adjustment per patient size (includes targeted exams where dose is matc hed to clinical indication); or iterative reconstruction. The chest and abdomen are evaluated in the axial plane with sagittal and coronal reformatted images. Intravenous contrast was administered. CT scan of the chest. A 1.5 x 1.7 cm spiculated anterior right hilar mass is noted and is suspicious for malignancy. No other pulmonary masses or nodules are identified. The lungs are hyperinflated with emphysematous changes. The thoracic aorta is normal in caliber. The airway is patent. No hilar or me diastinal lymphadenopathy. Normal thyroid tissue. Coronary artery calcifications noted. No pleural or pericardial effusion. No destructive bone lesions seen. Several mild insufficiency compression defor mities of the thoracic spine noted. Markedly exaggerated thoracic kyphosis. The chest wall is intact. CT/CT chest abdomen w con* IMPRESSION: 1. 1.5 x 1.7 cm spiculated mass along the anterior aspect of the right pulmonar y hilum suspicious for malignancy. No other pulmonary lesions were noted. No si gnificant lymphadenopathy in the chest. 2. Pulmonary hyperinflation with moderately advanced emphysematous changes. Oth er nonemergent findings as above. CT scan of the abdomen. CT scan of the abdomen with IV and oral contrast. The liver, gallbladder, pancreas and stomach are unremarkable. The spleen is no t enlarged. The abdominal aorta is normal in caliber. The portal vein and IVC a re patent. The kidneys function and drain normally. 14 mm cyst in the left kidn ey. 1.2 cm nodule in the left adrenal gland that may represent an adrenal adeno ma. Normal right adrenal gland. Small bowel loops are not dilated. No obvious l arge bowel abnormality noted. No lymphadenopathy or ascites. No destructive bon e lesions are seen. Mild compression deformities of the L2 and L5 which appear to be old. These are nondisplaced. IMPRESSION: 1. No sign of mass, lymphadenopathy or ascites. No acute process noted. 2. 1.2 cm nodule in the left adrenal gland probably an adrenal adenoma. Small l eft renal cyst.
[2021-02-11] MEDS: iohexol 300 mg/mL 50 mL Btl PO (12:27)
[2021-02-11] MEDS: iohexol 300 mg/mL 100 mL Btl IV (12:27)
== END 2021-02-11 10:09 | disposition home or self-care (01) ==
PROVIDERS: PCP Family Medicine; Visit Provider Radiology Radiation Oncology
DX: C34.11 Malignant neoplasm of upper lobe, right bronchus or lung (principal); N28.1 Cyst of kidney, acquired
CPT/HCPCS: 71260; 74160; Q9967

== ENCOUNTER 2021-02-13 10:27 | Observation (INO) | payer MEDICARE, MEDICAID, SELFPAY ==
[2021-02-13] VITALS (15 sets, daily range): BP systolic 96–155; BP diastolic 61–97; PULSE 76–126; RESP 12–26; TEMP 36.6; O2SAT 89–100; BMI 17.6
--- NOTE | 2021-02-13 10:30 | XR_ITS ---
WS: [id number] Exam: XR chest 1V portable [id number] Date/Time of Exam: 02/13/2021 10:30 AM Reason For Exam: dyspnea/cough Comparison 08/06/2020. The lungs are clear and hyperinflated. Heart size is normal for technique. The mediastinum is not wid ened. There are chronic interstitial changes noted and scattered calcified granulomas in both lungs. No pleural effusions. Healing fracture of the proximal right humerus. Several old left rib fractures noted. XR/XR chest 1V portable [id number] IMPRESSION: 1. Pulmonary hyperinflation suggesting COPD. No acute cardiopulmonary process i dentified.
--- NOTE | 2021-02-13 10:31 | ECG_ITS ---
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 Measurements Intervals [place] Rate: 79 P: 45 ME: 120 QRS: 64 QRSD: 98 T: 68 QT: 380 QTc: 437 Interpretive Statements SINUS RHYTHM WITH OCCASIONAL SUPRAVENTRICULAR PREMATURE COMPLEXES EARLY REPOLARIZATION [ST ELEVATION WITH NORMALLY INFLECTED T-WAVE] Compared to ECG 12/11/2020 06:55:59 No significant changes Electronically Signed On 02-13-2021 22:43:16 ALCOHOLISM WORKER by Shellie Yates M.D. [email or web address] [email or web address]/store/[id number]
[2021-02-13 10:49] LABS: Basophils % 0.3 %; Eosinophils # 0.1 10^3/uL (0.0-0.8); Eosinophils % 0.6 %; Hematocrit 36.7 % (37.0-47.0); Hemoglobin 11.3 g/dL (11.5-15.3); Lymphocytes # 3.3 10^3/uL (0.8-4.8); Lymphocytes % 33.3 %; Mean Corpuscular HGB Conc 30.8 g/dL (30.0-36.0); Mean Corpuscular Hemoglobin 30.6 pg (28.0-34.0); Mean Corpuscular Volume 99.5 fl (81-99); Mean Platelet Volume 10.3 fL (7.4-10.4); Monocytes # 0.7 10^3/uL (0.2-0.9); Monocytes % 6.6 %; Neutrophils # 5.82 10^3/uL (1.8-7.7); Neutrophils % 58.8 %; Nucleated Red Blood Cells % 0 %; Platelet Count 260 10^3/cmm (130-400); Red Blood Count 3.69 10^6/uL (4.1-5.3); Red Cell Distribution Width 12.5 % (12.1-15.1); White Blood Count 9.9 10^3/uL (4.0-10.0)
--- NOTE | 2021-02-13 10:57 | PC.PHAR ---
pt states she takes care of her own medications
[2021-02-13 11:11] LABS: Alanine Aminotransferase 12 U/L (0-33); Albumin Level 3.8 g/dL (3.5-5.2); Alkaline Phosphatase 63 IU/L (35-105); Anion Gap 15.2 (5-19); Aspartate Amino Transferase 16 U/L (0-32); Blood Urea Nitrogen 19 mg/dL (8-23); Calcium 8.4 mg/dL (8.5-10.5); Carbon Dioxide 32 mmol/L (22-29); Chloride 93 mmol/L (98-107); Creatine Phosphokinase 36 U/L (26-192); Globulin 2.9 g/dL (1.3-4.6); Glucose 96 mg/dL (65-115); Osmolality Calculated 284 mOsm/kg (285-295); Potassium 4.2 mmol/L (3.5-5.1); Sodium 136 mmol/L (136-145); Total Bilirubin 0.4 mg/dL (0.15-1.2); Total Protein 6.7 g/dL (6.6-8.7); Troponin(5th) Baseline 19 ng/L (0-10)
[2021-02-13] MEDS: nitroglycerin 1 gm/inch oint Pkt 1 INCH TOPICAL (11:15)
--- NOTE | 2021-02-13 12:14 | ED_ITS ---
HPI - SOB/Dyspnea General: Chief Complaint: Shortness of Breath/Dyspnea Stated Complaint: STEMI Time Seen by Provider: 02/13/21 10:30 History of Present Illness: HPI Narrative: 76-year-old female brought in by by EMS as a STEMI alert. She had increasing shortness of breath last couple of days. She is having some difficulty breathing she was given nebulizer and steroids in route. EKG showed some ST elevation in 2 3 and aVF on arrival here STEMI alert had been called cardiology was at the bedside seen and evaluated the patient is not having any chest pain old EKG showed similar changes from several months ago. She continues to be pain-free. She is not had a productive cough but has had increasing difficulty breathing shortness of breath she is normally on oxygen and she has a history of COPD. MD elicited complaint: shortness of breath and cough Pertinent past history: COPD Onset (ago): hour(s) Timing: constant Severity: moderate Exacerbating factors: exertion and coughing Relieving factors: oxygen, rest and bronchodilators Known history of: COPD Associated symptoms: Reports chest congestion, cough and orthopnea; Deny abdominal pain, chest pain, diaphoresis, dizziness, extremity pain, fever(s), hemoptysis, lightheadedness, myalgias, nausea, palpitations, paresthesias, polydipsia, polyuria, rash, sense of impending doom, syncope or vomiting Treatment prior to arrival: oxygen Review of Systems Const: Denies: fever(s) or diaphoresis ENMT: Denies: throat pain, ear or mastoid pain, nasal discharge or nasal congestion Card: Reports: orthopnea; Denies: chest pain, palpitations, lightheadedness or syncope Resp: Reports: chest congestion; Denies: hemoptysis GI: Denies: abdominal pain, nausea or vomiting : Denies: flank pain, difficulty voiding, dysuria, urinary frequency or urinary urgency Musc: Denies: extremity pain Skin/Breast: Denies: rash or pruritus Neuro: Denies: dizziness Endo: Denies: polyuria or polydipsia PFSH ED PFSH: Medical History (Updated 02/18/21 @ 07:01 by Porfirio Keith DO) Anemia Arrhythmia COPD (chronic obstructive pulmonary disease) Decompensated heart failure Femur fracture, right Fracture of head of humerus GERD (gastroesophageal reflux disease) Hypertension Hyponatremia Respiratory failure with hypoxia and hypercapnia Surgical History (Updated 02/13/21 @ 16:37 by Kasey Tran MD) S/P bronchoscopy Family History Family/Other Cancer Lung Other CAD (coronary artery disease) Hypertension Social History Smoking and tobacco status: current some day smoker cigarettes Second hand smoke exposure: Yes Smoking risk assessment/counseling performed?: No Alcohol intake: never Counseling given: No Counseling given: No Caregiver/support person: Yes Lives independently: No Household members: caregiver Housing: Skilled Nursing Marital status: Current occupational status: disabled History of recent travel: No Current gender identity: Female Physical Exam Const: COMMON NORMALS: no acute distress GENERAL APPEARANCE: cooperative and comfortable ORIENTATION/CONSCIOUSNESS: Yes awake, Yes oriented to person, Yes oriented to place and Yes oriented to time HENMT: COMMON NORMALS: normocephalic, atraumatic and hearing grossly normal bilaterally HEAD & SCALP: normocephalic and atraumatic Neck/C-Spine: COMMON NORMALS: no JVD Resp: AUSCULTATION: rhonchi and wheezes Cardio: COMMON NORMALS: no JVD, regular rate, regular rhythm and No murmurs present (Cardio) RATE: regular rate RHYTHM: regular rhythm GI: COMMON NORMALS: Soft to palpation and No hepatosplenomegaly present AUSCULTATION: Yes normoactive bowel sounds PALPATION: Yes Soft to palpation, No Tenderness to palpation present (GI), No Guarding due to palpation present (GI) and Yes No hepatosplenomegaly present Extremity: COMMON NORMALS: normal to inspection, capillary refill normal, no clubbing, cyanosis or edema, no calf tenderness and no pedal edema Neuro: SENSORIUM/ORIENTATION: Yes oriented to person, Yes oriented to place and Yes oriented to time Skin: COMMON NORMALS: no rashes or lesions noted GENERAL SKIN EXAM: no rashes or lesions noted Course Vital Signs: Vital signs: Vital Signs Temperature 98.6 F 02/14/21 13:25 Pulse Rate 74 02/14/21 13:25 Respiratory Rate 20 H 02/14/21 13:25 Blood Pressure 109/65 02/14/21 13:25 Pulse Oximetry 98 02/14/21 13:25 MDM - SOB/Dyspnea MDM Narrative: Medical decision making narrative: Initially a STEMI was called in the field. On arrival here was noted a significant difference from previous EKG. Cardiology both Dr. Cai and Cholo at the bedside and do not feel that represents a STEMI at this point. Recommend admission for further rule out. Patient did develop some chest discomfort later during the course of the stay she was given topical nitro labs imaging and EKG reviewed discussed with Dr. Tran will admit see his notes. Lab Data: Labs: Lab Results 02/13/21 02/13/21 02/13/21 10:40 10:40 10:40 WBC 9.9 10^3/uL 10^3/ uL (4.0-10.0) RBC 3.69 10^6/uL L 10 ^6/uL (4.1-5.3) Hgb 11.3 g/dL L g/dL (11.5-15.3) Hct 36.7 % L % (37.0-47.0) MCV 99.5 fl H fl (81-99) MCH 30.6 pg pg (28.0-34.0) MCHC 30.8 g/dL g/dL (30.0-36.0) RDW 12.5 % % (12.1-15.1) Plt Count 260 10^3/cmm 10^3 /cmm (130-400) MPV 10.3 fL fL (7.4-10.4) Neut % (Auto) 58.8 % % Lymph % (Auto) 33.3 % % [place] % (Auto) 6.6 % % Eos % (Auto) 0.6 % % Baso % (Auto) 0.3 % % Neut # (Auto) 5.82 10^3/uL 10^3 /uL (1.8-7.7) Lymph # (Auto) 3.3 10^3/uL 10^3/ uL (0.8-4.8) [place] # (Auto) 0.7 10^3/uL 10^3/ uL (0.2-0.9) Eos # (Auto) 0.1 10^3/uL 10^3/ uL (0.0-0.8) Baso # (Auto) 0.0 10^3/uL 10^3/ uL (0.0-0.1) Nucleated RBC % (a uto) 0 % % Nucleated RBCs # 0.0 /100WBC /100W BC Sodium 136 mmol/L mmol/L (136-145) Potassium 4.2 mmol/L mmol/L (3.5-5.1) Chloride 93 mmol/L L mmol/ L (98-107) Carbon Dioxide 32 mmol/L H mmol/ L (22-29) Anion Gap 15.2 (5-19) BUN 19 mg/dL mg/dL (8-23) Creatinine 0.4 mg/dL L mg/dL (0.5-0.9) GFR Calculation Not Reportable Glucose 96 mg/dL mg/dL (65-115) Calculated Osmolal ity 284 mOsm/kg L mOs m/kg (285-295) Calcium 8.4 mg/dL L mg/dL (8.5-10.5) Total Bilirubin 0.4 mg/dL mg/dL (0.15-1.2) AST 16 U/L U/L (0-32) ALT 12 U/L U/L (0-33) Alkaline Phosphata se 63 IU/L IU/L (35-105) Creatine Kinase 36 U/L U/L (26-192) Troponin T Baselin e 19 ng/L H ng/L (0-10) Troponin T 120 Min [place] Delta Troponin T Total Protein 6.7 g/dL g/dL (6.6-8.7) Albumin 3.8 g/dL g/dL (3.5-5.2) Globulin 2.9 g/dL g/dL (1.3-4.6) Procalcitonin Urine Color Urine Appearance Urine pH Ur Specific Gravit y Urine Protein Urine Glucose (UA) Urine Ketones Urine Blood Urine Nitrate Urine Bilirubin Urine Urobilinogen Ur Leukocyte Mckenzie ase Urine RBC Urine WBC Ur Squamous Epith Cells Amorphous Sediment Urine Bacteria Urine Mucus 02/13/21 02/13/21 02/13/21 10:40 12:56 14:30 WBC RBC Hgb Hct MCV MCH MCHC RDW Plt Count MPV Neut % (Auto) Lymph % (Auto) [place] % (Auto) Eos % (Auto) Baso % (Auto) Neut # (Auto) Lymph # (Auto) [place] # (Auto) Eos # (Auto) Baso # (Auto) Nucleated RBC % (a uto) Nucleated RBCs # Sodium Potassium Chloride Carbon Dioxide Anion Gap BUN Creatinine GFR Calculation Glucose Calculated Osmolal ity Calcium Total Bilirubin AST ALT Alkaline Phosphata se Creatine Kinase Troponin T Baselin e Troponin T 120 Min [place] 16.76 ng/L H ng/L (0-10) Delta Troponin T -2.24 ABS# L ABS# (0-10) Total Protein Albumin Globulin Procalcitonin 0.07 ng/mL ng/mL (0-0.5) Urine Color Yellow (Yellow) Urine Appearance Hazy A (CLEAR) Urine pH 5 (5-7) Ur Specific Gravit y 1.020 (1.005-1.030) Urine Protein Neg (Negative) Urine Glucose (UA) Norm (Normal) Urine Ketones 2+ H (Negative) Urine Blood Neg (Negative) Urine Nitrate Negative (Negative) Urine Bilirubin 1+ H (Negative) Urine Urobilinogen 1 mg/dL H mg/dL (Negative) Ur Leukocyte Mckenzie ase Trace H (Negative) Urine RBC 0-4 /hpf H /hpf (0-2) Urine WBC 5-10 /hpf H /hpf (0-5) Ur Squamous Epith Cells 5-10 /hpf H /hpf (0-5) Amorphous Sediment Not Reportable Urine Bacteria 1+ /hpf H /hpf (NONE) Urine Mucus 1+ /hpf /hpf Discharge Plan Discharge Patient Disposition: Admitted As Inpatient Admit Provider: Kasey Tran Clinical Impression: COPD (chronic obstructive pulmonary disease), Chronic respiratory failure with hypoxia and hypercapnia, GERD (gastroesophageal reflux disease), Acute exacerbation of chronic obstructive airways disease, Atypical chest pain Condition: Fair Discharge Orders: Discharge Order (Routine); Ordered 02/14/21 Ordered By: Kasey Tran Discharge Diet: Cardiac Discharge Activity: Increase activity as tolerated Coding Level of Care Code ED [place] Trap for Britg Darlin
--- NOTE | 2021-02-13 12:31 | ECG_ITS ---
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 Measurements Intervals [place] Rate: 84 P: 63 FL: 121 QRS: 62 QRSD: 92 T: 69 QT: 364 QTc: 431 Interpretive Statements SINUS RHYTHM Diffuse ST changes, suggestive of early repolarization compared to ECG 02/13/2021 11:16:11 Early repolarization is still present Electronically Signed On 02-13-2021 22:51:39 GENERAL DENTIST by Shellie Yates M.D. [id number]
[2021-02-13 13:48] LABS: Troponin 5 2HR 16.76 ng/L (0-10)
[2021-02-13 14:00] LABS: Troponin 5 2HR Delta -2.24 ABS# (0-10)
--- NOTE | 2021-02-13 14:47 | P.HP_ITS ---
Providers/Chief Complaint Primary Care Provider: Sugey Sosa DO Chief Complaint: STEMI History of Present Illness Mónica Rodas is a 76 year old female who carries history of severe COPD, uses 4 L of oxygen at baseline, has had PET scan for suspicion of lung nodules in the past, however biopsy did not show any cancerous lesions, patient is stating that she was discharged from the alf to home in September, presented today with chief complaint of worsening shortness of breath and hypertension. Patient is stating that for last few weeks she has been noticing more shortness of breath, at baseline she is not leading a very active lifestyle, she gets easily short of breath, she does smoke on and off, her last cigarette was on Thursday, recently she has not noticed any fever but endorsing night sweats and weight loss. Today she woke up around 6:30 AM, when she took her blood pressure it was 169/90 mmHg, throughout the day she was getting more short of breath, she called EMS with worsening of her symptoms. EMS called for STEMI alert after reviewing her EKG, on arrival both cardiologists evaluated her and compared her previous EKG with the current 1, she does have hyperacute T wave changes especially in inferior leads with T wave inversions in precordial leads, her second troponin trended down patient did not endorse any chest pain, patient is stating that she is vaccinated for COVID-19, in the ER she was complaining of shortness of breath however she was saturating 90 to 92% on 4-5 L, she does have conversational dyspnea. For her hypertension, Nitropaste was put on her chest No leukocytosis she is afebrile blood pressure 155/86 mmHg I requested ER physician to start using BiPAP to decrease work of breathing, she already had a fan running in the room Medications/Allergies Home Medications Medication Instructions Recorded Confirmed Last Taken Type albuterol sulfate [Ventolin HFA] 2 puff INHALATION Q4H PRN 08/05/20 02/13/21 12/11/20 History amlodipine 5 mg PO QAM 08/05/20 02/13/21 02/13/21 06:30 History atenolol 50 mg PO BID 08/05/20 02/13/21 02/13/21 06:30 History cetirizine [Zyrtec] 10 mg PO QAM 05/12/1802/13/21 12/10/20 History cholecalciferol (vitamin D3) 50 mcg PO QPM 08/05/20 02/13/21 08/04/20 History [Vitamin D3] fluticasone propionate 2 spray INTRANASAL DAILY 08/05/20 02/13/21 12/10/20 History lisinopril 40 mg PO BID 08/05/20 02/13/21 02/13/21 06:30 History simvastatin 10 mg PO QPM 08/05/20 02/13/21 02/11/21 History albuterol sulfate 2.5 mg INHALATION Q4H PRN 08/20/20 02/13/21 12/10/20 History budesonide 160 mcg-glycopyr 9 2 inh INHALATION BID #10.7 g 01/18/21 02/13/21 Unknown Rx mcg-formot 4.8 mcg/actuation HFA inhaler vitamin B complex 1 tab PO DAILY 01/21/21 02/13/21 Unknown History Protonix 40 mg PO DAILY 02/13/21 02/13/21 Unknown History alprazolam 0.25 mg PO BID PRN 02/13/21 02/13/21 Unknown History cyanocobalamin (vitamin B-12) 1,000 mcg PO DAILY 02/13/21 02/13/21 Unknown History [Vitamin B-12] mirtazapine 15 mg PO BEDTIME PRN 02/13/21 02/13/21 Unknown History morphine concentrate See Rx Instructions .ROUTE .COMPLEX 02/13/21 02/13/21 Unknown History ondansetron 4 mg PO TID PRN 02/13/21 02/13/21 Unknown History prednisone 10 mg PO DAILY 02/13/21 02/13/21 02/12/21 History Allergies Allergy/AdvReac Type Severity Reaction Status Date / Time hydrochlorothiazide Allergy Unknown Diarrhea Verified 02/13/21 10:56 tramadol Allergy Unknown nausea and Verified 02/13/21 10:56 vomiting aspirin Allergy ADR-Gastrointestinal Verified 02/13/21 10:56 Upset Penicillins Allergy ADR-Gastrointestinal Verified 02/13/21 10:56 Upset tetracycline Allergy ADR-Gastrointestinal Verified 02/13/21 10:56 Upset oxycodone-acetominophen Allergy Unknown nausea and Uncoded 12/11/20 06:20 vomiting PFSH Acute PFSH: Medical History (Updated 02/13/21 @ 16:36 by Kasey Tran MD) Anemia Arrhythmia COPD (chronic obstructive pulmonary disease) Decompensated heart failure Femur fracture, right Fracture of head of humerus GERD (gastroesophageal reflux disease) Hypertension Hyponatremia Respiratory failure with hypoxia and hypercapnia Surgical History (Updated 02/13/21 @ 16:37 by Kasey Tran MD) S/P bronchoscopy Family History Family/Other Cancer Lung Other CAD (coronary artery disease) Hypertension Social History Smoking and tobacco status: current some day smoker cigarettes Second hand smoke exposure: Yes Smoking risk assessment/counseling performed?: No Alcohol intake: never Counseling given: No Counseling given: No Caregiver/support person: Yes Lives independently: No Household members: caregiver Housing: [facility] Marital status: Current occupational status: disabled History of recent travel: No Current gender identity: Female Vitals/I&O/Wt Last Vital Signs Pulse 91 02/13/21 13:15 Resp 16 02/13/21 13:15 BP 133/71 02/13/21 13:15 Pulse Ox 96 02/13/21 13:15 Weight last 48 hrs Weight 45.359 kg Data : 02/13/21 10:40 02/13/21 10:40 Micro: Microbiology 02/13/21 12:56 Blood Culture - Preliminary Blood SPECIMEN COLLECTED 02/13/21 10:40 Blood Culture - Preliminary Blood SPECIMEN COLLECTED Other data: CT scan of her chest in October 2020 revealed several lung lesions one of them in the right upper lobe measuring 1.4 x 1.7 cm. A PET scan obtained in October 2020 revealed FDG avidity in the right upper lobe lung nodule with an SUV of 7.2. From the CT scan the lesion appeared to be endobronchial. However on bronchoscopic evaluation no endobronchial lesion was found. The patient is now following up with radiation oncology for radiation therapy. Laboratory data: The patient has evidence of chronic hypercapnic respiratory failure. She is using BiPAP intermittently. A&P Assessment and plan (1) Lung nodule seen on imaging study: Status: Acute (2) Chronic respiratory failure with hypoxia and hypercapnia: Status: Acute (3) COPD (chronic obstructive pulmonary disease): Status: Acute Qualifiers: COPD type: COPD with acute exacerbation Qualified Code(s): J44.1 - Chronic obstructive pulmonary disease with (acute) exacerbation (4) GERD (gastroesophageal reflux disease): Status: Acute (5) Weight loss: Status: Acute (6) Hypertensive urgency: Status: Acute Additional A&P Information Acute exacerbation of COPD This seems gradual worsening of underlying severe COPD due to smoking Patient does use 3 to 4 L of oxygen She still smoking cigarettes Occasionally Endorsing weight loss, night sweats No chest pain No fever, endorsing productive cough She is afebrile no leukocytosis I will keep the azithromycin for anti-inflammatory effect Counseled on smoking cessation Would use BiPAP overnight STEMI alert was called by the EMS however exploration manager evaluated her in the ER compared previous EKG, she does have hyperacute T wave changes on inferior leads this changes are not new and she is chest pain-free negative delta troponin, no plan for coronary angiogram patient is hemodynamically stable Multiple lung nodules status post bronchoscopy and PET scan, biopsy did not show any signs of malignancy, she has been evaluated by radiation oncologist GERD: Continue Protonix Hypertensive urgency: Resume her home medications, I have decreased the dose of lisinopril 40 mg twice a day to once a day she does have room to optimize her other antihypertensive regimen Full code Cardiac diet DVT prophylaxis: Lovenox Patient is vaccinated for COVID-19. Attestations Medical Necessity Statement*: Anticipating discharge within 48 hours Time Spent in Patient Care: Greater than 35 minutes Coding Level of Care Code Acute [employer] Lead for [facility] Fwd Diagnoses Lung nodule seen on imaging study R91.1 Chronic respiratory failure with hypoxia and hypercapnia J96.11; J96.12 COPD (chronic obstructive pulmonary disease) J44.1 COPD type: COPD with acute exacerbation GERD (gastroesophageal reflux disease) K21.9 Weight loss R63.4 Hypertensive urgency I16.0
[2021-02-13 15:25] LABS: Procalcitonin 0.07 ng/mL (0-0.5)
[2021-02-13 15:56] LABS: Bilirubin Urine 1+ (Negative); Blood Urine Neg (Negative); Glucose Urine UA Norm (Normal); Ketones Urine 2+ (Negative); Nitrate Urine Negative (Negative); Protein Urine Neg (Negative); Urine Appearance Hazy (CLEAR); Urine Color Yellow (Yellow); Urobilinogen Urine 1 mg/dL (Negative); pH Urine 5 (5-7)
[2021-02-13 15:57] LABS: Add Urine Culture? Yes; Add Urine Microscopic? YES; Bacteria Urine 1+ /hpf; Leukocyte Esterase Urine Trace (Negative); Mucus Urine 1+ /hpf; RBC Urine 0-4 /hpf (0-2)
[2021-02-13 17:46] LABS: Troponin 5 6HR 14.17 ng/L (0-10); Troponin 5 6HR Delta -4.83 ng/L (0-12)
[2021-02-13] MEDS: atenolol 50 mg Tablet 100 MG PO (20:18)
[2021-02-14 00:41] VITALS: BP 100/68; PULSE 81; RESP 16; TEMP 36.6; O2SAT 90
[2021-02-14 04:41] VITALS: BP 102/70; PULSE 83; RESP 16; TEMP 36.7; O2SAT 92
[2021-02-14] MEDS: amlodipine 10 mg Tablet PO (06:04)
[2021-02-14] MEDS: cetirizine 10 mg Tablet PO (06:04)
[2021-02-14 06:23] LABS: Hematocrit 34.8 % (37.0-47.0); Hemoglobin 10.8 g/dL (11.5-15.3); Lymphocytes # 1.6 10^3/uL (0.8-4.8); Lymphocytes % 26.7 %; Mean Corpuscular Hemoglobin 30.9 pg (28.0-34.0); Mean Corpuscular Volume 99.7 fl (81-99); Mean Platelet Volume 10.4 fL (7.4-10.4); Monocytes # 0.1 10^3/uL (0.2-0.9); Monocytes % 1.5 %; Neutrophils # 4.19 10^3/uL (1.8-7.7); Neutrophils % 71.5 %; Nucleated Red Blood Cells % 0 %; Platelet Count 242 10^3/cmm (130-400); Red Blood Count 3.49 10^6/uL (4.1-5.3); Red Cell Distribution Width 12.6 % (12.1-15.1); White Blood Count 5.9 10^3/uL (4.0-10.0)
[2021-02-14 06:49] LABS: Alanine Aminotransferase 11 U/L (0-33); Albumin Level 3.6 g/dL (3.5-5.2); Alkaline Phosphatase 54 IU/L (35-105); Anion Gap 12.4 (5-19); Aspartate Amino Transferase 13 U/L (0-32); Blood Urea Nitrogen 19 mg/dL (8-23); Calcium 8.7 mg/dL (8.5-10.5); Carbon Dioxide 34 mmol/L (22-29); Chloride 97 mmol/L (98-107); Globulin 3.5 g/dL (1.3-4.6); Glucose 133 mg/dL (65-115); Osmolality Calculated 292 mOsm/kg (285-295); Potassium 4.4 mmol/L (3.5-5.1); Sodium 139 mmol/L (136-145); Total Bilirubin 0.2 mg/dL (0.15-1.2); Total Protein 7.1 g/dL (6.6-8.7)
[2021-02-14 06:53] VITALS: PULSE 75
[2021-02-14 08:00] VITALS: BP 131/77; PULSE 95; RESP 18; TEMP 36.7; O2SAT 93
[2021-02-14] MEDS: lisinopril 20 mg Tablet 40 MG PO (08:39)
[2021-02-14] MEDS: atenolol 50 mg Tablet 100 MG PO (08:39)
[2021-02-14] MEDS: pantoprazole DR 40 mg Tablet PO (08:39)
[2021-02-14] MEDS: predniSONE 10 mg Tablet PO (08:39)
[2021-02-14] MEDS: azithromycin 250 mg Tablet 500 MG PO (08:46)
--- NOTE | 2021-02-14 11:32 | P.DS_ITS ---
Discharge Providers Date of Admission: 02/13/21 14:53 Date of Discharge: February 14, 2021 Attending Provider at Admission: Kasey Tran MD Attending Provider at Discharge: Kasey Tran MD Primary Care Provider: Sugey Sosa DO Diagnoses at Discharge Discharge Diagnosis (1) Lung nodule seen on imaging study: Status: Acute (2) Chronic respiratory failure with hypoxia and hypercapnia: Status: Acute (3) COPD (chronic obstructive pulmonary disease): Status: Acute Qualifiers: COPD type: COPD with acute exacerbation Qualified Code(s): J44.1 - Chronic obstructive pulmonary disease with (acute) exacerbation (4) GERD (gastroesophageal reflux disease): Status: Acute (5) Weight loss: Status: Acute (6) Hypertensive urgency: Status: Acute Reason for Visit Reason for Visit: STEMI Hospital Course Hospital Course History of Present Illness Mónica Rodas is a 76 year old female who carries history of severe COPD, uses 4 L of oxygen at baseline, has had PET scan for suspicion of lung nodules in the past, however EBUS biopsy did not show any cancerous lesions, patient is stating that she was discharged from the intermediate to home in September, presented today with chief complaint of worsening shortness of breath and hypertension. Patient is stating that for last few weeks she has been noticing more shortness of breath, at baseline she is not leading a very active lifestyle, she gets easily short of breath, she does smoke on and off, her last cigarette was on Thursday, recently she has not noticed any fever but endorsing night sweats and weight loss. Today she woke up around 6:30 AM, when she took her blood pressure it was 169/90 mmHg, throughout the day she was getting more short of breath, she called EMS with worsening of her symptoms. EMS called for STEMI alert after reviewing her EKG, on arrival both cardiologists evaluated her and compared her previous EKG with the current 1, she does have hyperacute T wave changes especially in inferior leads with T wave inversions in precordial leads, her second troponin trended down patient did not endorse any chest pain, patient is stating that she is vaccinated for COVID-19, in the ER she was complaining of shortness of breath however she was saturating 90 to 92% on 4-5 L, she does have conversational dyspnea. For her hypertension, Nitropaste was put on her chest No leukocytosis she is afebrile blood pressure 155/86 mmHg I requested ER physician to start using BiPAP to decrease work of breathing, she already had a fan running in the room Hospital course Patient was admitted for evaluation of worsening shortness of breath. Patient did well overnight with the use of BiPAP, next morning patient was saturating well on 4 to 5 L of nasal cannula, no source of infection identified, recent CT scan done on 02/11 showed 1.5 x 1.7 cm spiculated mass along the anterior aspect of right pulmonary hilum suspicion for malignancy, Previously histopathological diagnosis was unremarkable. Patient wants to go home today, she was counseled to quit smoking, stay compliant with her BiPAP I will discharge her on Medrol pack and few days of antibiotic for anti-inflammatory effect. Patient wants to follow-up with Dr. Shabazz. Daughter was at the bedside who is in agreement. I have we discussed goals of care in front of her daughter, this time patient is stating that she does not want any chest compressions, shocks or intubation in case of respiratory or cardiac arrest. She will be considered DNR/DNI. She is high risk for readmission.Frail cachectic female Physical Exam Narrative: EXAM NARRATIVE: Frail cachectic female Saturating well on 4 to 5 L nasal cannula Her conversational dyspnea has slightly improved however she does have chronic obstructive pulmonary disease compensatory of pursed lip breathing Bilateral diminished breath sounds, no active wheezing or crackles noted Muscle mass loss S1, S2 Abdomen flat and soft Nonfocal neuro exam EOMI, PERRLA GCS 15 Discharge Data Data Completed and Pending: Completed Studies During Hospitalization Category Date Time Status XR chest 1V [place] ble [id number] Stat Exams 02/13/21 10:30 Completed Pending at discharge Category Date Time Status Blood Culture Sta t Lab 02/13/21 12:56 Results Sputum Culture an d Gram Stain Stat Lab 02/13/21 16:45 Results Labs from last 24 hours 02/14/21 02/14/21 02/13/21 05:57 05:57 16:43 WBC 5.9 RBC 3.49 L Hgb 10.8 L Hct 34.8 L MCV 99.7 H MCH 30.9 MCHC 31.0 RDW 12.6 Plt Count 242 MPV 10.4 Neut % (Auto) 71.5 Lymph % (Auto) 26.7 Mcdonald % (Auto) 1.5 Eos % (Auto) 0.0 Baso % (Auto) 0.0 Neut # (Auto) 4.19 Lymph # (Auto) 1.6 Mcdonald # (Auto) 0.1 L Eos # (Auto) 0.0 Baso # (Auto) 0.0 Nucleated RBC % (a uto) 0 Nucleated RBCs # 0.0 Sodium 139 Potassium 4.4 Chloride 97 L Carbon Dioxide 34 H Anion Gap 12.4 BUN 19 Creatinine 0.3 L GFR Calculation Not Reportable Glucose 133 H Calculated Osmolal ity 292 Calcium 8.7 Magnesium 2.0 Total Bilirubin 0.2 AST 13 ALT 11 Alkaline Phosphata se 54 Troponin T 120 Min [place] Troponin T Troponin T Hi Sens 6Hr 14.17 H Troponin T Hi Sens 6Hr Delta -4.83 L Total Protein 7.1 Albumin 3.6 Globulin 3.5 Procalcitonin Urine Color Urine Appearance Urine pH Ur Specific Gravit y Urine Protein Urine Glucose (UA) Urine Ketones Urine Blood Urine Nitrate Urine Bilirubin Urine Urobilinogen Ur Leukocyte Mckenzie ase Urine RBC Urine WBC Ur Squamous Epith Cells Amorphous Sediment Urine Bacteria Urine Mucus 02/13/21 02/13/21 02/13/21 14:30 12:56 10:40 WBC RBC Hgb Hct MCV MCH MCHC RDW Plt Count MPV Neut % (Auto) Lymph % (Auto) Mcdonald % (Auto) Eos % (Auto) Baso % (Auto) Neut # (Auto) Lymph # (Auto) Mcdonald # (Auto) Eos # (Auto) Baso # (Auto) Nucleated RBC % (a uto) Nucleated RBCs # Sodium Potassium Chloride Carbon Dioxide Anion Gap BUN Creatinine GFR Calculation Glucose Calculated Osmolal ity Calcium Magnesium Total Bilirubin AST ALT Alkaline Phosphata se Troponin T 120 Min [place] 16.76 H Delta Troponin T -2.24 L Troponin T Hi Sens 6Hr Troponin T Hi Sens 6Hr Delta Total Protein Albumin Globulin Procalcitonin 0.07 Urine Color Yellow Urine Appearance Hazy A Urine pH 5 Ur Specific Gravit y 1.020 Urine Protein Neg Urine Glucose (UA) Norm Urine Ketones 2+ H Urine Blood Neg Urine Nitrate Negative Urine Bilirubin 1+ H Urine Urobilinogen 1 H Ur Leukocyte Mckenzie ase Trace H Urine RBC 0-4 H Urine WBC 5-10 H Ur Squamous Epith Cells 5-10 H Amorphous Sediment Not Reportable Urine Bacteria 1+ H Urine Mucus 1+ Vitals: Last Vital Signs Temp 98.1 F 02/14/21 08:00 Pulse 95 02/14/21 08:00 Resp 18 02/14/21 08:00 BP 131/77 02/14/21 08:00 Pulse Ox 93 02/14/21 08:00 Discharge Plan Discharge Patient Disposition: Home Condition: Fair Prescriptions: New Medrol (Rios) 4 mg tablets,dose pack See Rx Instructions .ROUTE .COMPLEX Qty: 21 RF: 0 azithromycin 500 mg tablet 500 mg PO DAILY 7 Days Qty: 7 RF: 0 Zofran 4 mg tablet 4 mg PO DAILY PRN (Reason: nausea and vomiting) Qty: 30 RF: 0 Continued albuterol sulfate 2.5 mg /3 mL (0.083 %) solution for nebulization 2.5 mg inhalation Q4H PRN (Reason: Shortness Of Breath) RF: 0 vitamin B complex [B Complex-Vitamin B12] Tablet 1 tab PO DAILY RF: 0 Breztri Aerosphere 160-9-4.8 mcg/actuation HFA aerosol inhaler 2 inh inhalation BID Qty: 10.7 RF: 3 prednisone 10 mg tablet 10 mg PO DAILY RF: 0 morphine concentrate 100 mg/5 mL (20 mg/mL) solution See Rx Instructions .ROUTE .COMPLEX RF: 0 Vitamin B-12 1,000 mcg Tablet 1,000 mcg PO DAILY RF: 0 alprazolam 0.25 mg tablet 0.25 mg PO BID PRN (Reason: Anxiety) RF: 0 mirtazapine 15 mg tablet 15 mg PO BEDTIME PRN (Reason: Sleep) RF: 0 ondansetron 4 mg tablet,disintegrating 4 mg PO TID PRN (Reason: Nausea And Vomiting) RF: 0 Protonix 40 mg tablet,delayed release (DR/EC) 40 mg PO DAILY RF: 0 cetirizine [Zyrtec] 10 mg Tablet 10 mg PO QAM RF: 0 simvastatin 10 mg tablet 10 mg PO QPM RF: 0 amlodipine 5 mg tablet 5 mg PO QAM RF: 0 albuterol sulfate [Ventolin HFA] 90 mcg/actuation HFA aerosol inhaler 2 puff INHALATION Q4H PRN (Reason: Shortness Of Breath) RF: 0 lisinopril 40 mg tablet 40 mg PO BID RF: 0 fluticasone propionate 50 mcg/actuation spray,suspension 2 spray INTRANASAL DAILY RF: 0 atenolol 50 mg tablet 50 mg PO BID RF: 0 cholecalciferol (vitamin D3) [Vitamin D3] 50 mcg (2,000 unit) Capsule 50 mcg PO QPM RF: 0 Discharge Orders: Discharge Order (Routine); Ordered 02/14/21 Ordered By: Kasey Tran Referrals: Sugey Sosa DO [Primary Care Provider] - 03/01/21 10:40 am Discharge Diet: Cardiac Discharge Activity: Increase activity as tolerated Patient Instructions: Azithromycin (By mouth) (Zithromax, Zithromax Tri-Rios, Zithromax..., Methylprednisolone (By mouth) (Medrol, Medrol Dosepak), COPD (Chronic Obstructive Pulmonary Disease) (DC), COPD Stoplight, Opioid Safety Discharge Attestations Time Spent in Discharge Care*: less than 30 min Status at Discharge: Cognitive status at discharge: cognitively intact , Behavioral status at discharge: cooperative , Quality Metrics Clinical Quality Measures During this hospital stay, did patient experience: None Coding Level of Care Code Acute Chg FW DC note Diagnoses Lung nodule seen on imaging study R91.1 Chronic respiratory failure with hypoxia and hypercapnia J96.11; J96.12 COPD (chronic obstructive pulmonary disease) J44.1 COPD type: COPD with acute exacerbation GERD (gastroesophageal reflux disease) K21.9 Weight loss R63.4 Hypertensive urgency I16.0
[2021-02-14 12:00] VITALS: BP 109/65; PULSE 74; RESP 20; TEMP 37; O2SAT 98
[2021-02-14] MEDS: ondansetron 2 mg/ML SDV 2 mL 4 MG IVP (12:53)
[2021-02-14 13:25] VITALS: BP 109/65; PULSE 74; RESP 20; TEMP 37; O2SAT 98
--- NOTE | 2021-02-14 14:21 | PC.CHAP ---
Pastoral Care Encounter/Spiritual Assessment Type of Contact [] Declined independent film maker visit [] Patient/Family/Request visit [] Outpatient visit [] Follow-up visit [] Physician referral [] Code/Alert [x] Routine visit [] Staff referral [] Actively dying [] Patient sleeping [] Family support [] [] Out of room [] Palliative care [] [x] Receiving care in room [] Pre-surgical visit [] Trauma [] Long length of stay [] ICU visit [x] Other: under staff care Relational/Emotional Strength [] Patient feels connected with others/family/visitors/staff [] Distress [] Loneliness/isolation [] Abandonment Spirituality of Patient [] Person of Shani [] Attends Evangelical of their Shani [] Believes in Prayer [] Reads Bible or Confucianist materials [] There are Spiritual issues to be addressed Occupational Health Nurse Manager Interventions [] Prayer [] Active listening [] Non-anxious presence [] Spiritual/emotional support [] Crisis/trauma care [] Spiritual counseling [] Bereavement support [] Provided bereavement packet [] Provided Bible/devotional materials [] Provided toy/stuffed animal, coloring book to patient or family member [] Provided Communion [] Anointing/[place] [] Salvation [] Completed spiritual assessment [] Other: Impact on Illness or Injury [] Angry [] Fearful [] Anxious [] Often cries [] Exhaustion [] Unable to work [] Unable to attend congregation [] Unable to walk/stand [] Unable to read [] Unable to drive [] Unable to eat/drink [] Unable to sleep [] Unable to be with family [] Patient intubated [] Other: Summary Other: under staff care Time spent with patient 5 mins
== END 2021-02-14 13:25 | disposition home or self-care (01) ==
LOC: ER 11:25 → MEDSURG 17:30
PROVIDERS: Admitting Provider Internal Medicine; Emergency Provider Family Medicine; PCP Family Medicine; Visit Provider Internal Medicine
DX: J96.11 Chronic respiratory failure with hypoxia (principal); J96.12 Chronic respiratory failure with hypercapnia; J44.1 Chronic obstructive pulmonary disease with (acute) exacerbation; K21.9 Gastro-esophageal reflux disease without esophagitis; R91.1 Solitary pulmonary nodule; R63.4 Abnormal weight loss; I16.0 Hypertensive urgency; F17.210 Nicotine dependence, cigarettes, uncomplicated; Z79.891 Long term (current) use of opiate analgesic; Z79.899 Other long term (current) drug therapy; Z99.81 Dependence on supplemental oxygen
CPT/HCPCS: 36415; 71045; 80053; 81001; 82550; 83735; 84145; 84484; 85025; 86403; 87040; 87070; 87086; 87205; 87449; 93005; 94660; 96374; 99285; 99291; G0378; J2405; J2920; J7512; Q0144

== ENCOUNTER 2021-02-25 07:08 | Outpatient (RCR) | payer MEDICARE, MEDICAID, SELFPAY ==
--- NOTE | 2021-02-25 | CT_ITS ---
Radiation Therapy Planning CT images; total exam DLP: 1280.48 mGy-cm MTDD
== END 2021-02-26 23:59 | disposition home or self-care (01) ==
LOC: ONCMED 07:08
PROVIDERS: PCP Family Medicine; Visit Provider Radiology Radiation Oncology
DX: Z51.0 Encounter for antineoplastic radiation therapy (principal); C34.11 Malignant neoplasm of upper lobe, right bronchus or lung
CPT/HCPCS: 77334; 77470; Q9967

== ENCOUNTER 2021-03-18 06:24 | Outpatient (RCR) | payer MEDICARE, MEDICAID, SELFPAY ==
--- NOTE | 2021-03-18 10:35 | N.ONRD TS_ITS ---
Stereotactic Radiotherapy Treatment Summary Patient Name: Mónica Rodas Date of : 1945 Date of Service: 03/18/2021 Attending Physician: Warren Shabazz M.D. Mónica Rodas has completed stereotactic ablative body radiotherapy for the management of a clinical stage IA2 (T1bN0) right upper-lobe lung cancer. A low-dose CT lung cancer screening was ordered on November 08, 2020. Imaging identified a 1.4 cm x 1.7 cm right hilar mass and multiple bilateral pulmonary nodules. A PET CT obtained on November 17, 2020 demonstrated a hypermetabolic right upper lobe nodule (SUV 7.2) without FDG activity in remaining pulmonary nodules. A bronchoscopy with endobronchial ultrasound guided transbronchial needle aspiration was performed on December 11, 2020. Biopsies did not diagnose a malignancy. CT-guided biopsy was not recommended on account of the patient's pulmonary function. SABR was delivered between the dates of March 04, 2021 through March 18, 2021. A prescribed dose of 50 Gy was delivered in five fractions encompassing 15 elapsed days. The right upper lobe lesion was treated utilizing an intensity modulated radiotherapy plan with a step and shoot treatment technique. The plan required five co-planar mcclendon and two non-coplanar ports. The coplanar mcclendon were designed using gantry angles of 10???, 30???, 220???, 310???, and 340??? and were associated with a collimator rotation of 0???. The minimum field size was 5.8 cm x 6 cm to a maximum of 7 cm x 4.5 cm. The planned SSD measured between a minimum of 87.1 cm to a maximum of 92.1 cm. The delivered monitor units for the referenced gantry angles were 576 MU, 574 MU, 618 MU, 706 MU, and 700 MU. An additional two non-coplanar ports were arranged with gantry angles of 25??? and 335??? and a collimator rotation of 0???. The couch angle was 85???. The non-coplanar portal mcclendon measured 7 cm x 4.5 cm and 6.8 cm x 4.5 cm with SSD measurements of 91 cm and 92.1 cm. The non-coplanar ports administered 632 MU and 636 MU. Low energy photons were prescribed. All treatments were performed with the [employer] linear accelerator and an isocentric technique. The dose was calculated by Anisotropic Analytic Algorithm with the plan normalized to deliver 100% of the prescription dose to 95% of the planning target volume. Signed by: Dr. Warren Shabazz 03/18/2021 10:33:19 AM
--- NOTE | 2021-03-18 10:46 | ONCRAD TMN_ITS ---
Stereotactic Ablative Radiotherapy Treatment Management Note Patient Name: Mónica Rodas Date of : 1945 Date of Service: 03/18/2021 Attending Physician: Warren Shabazz M.D. Mónica Rodas is a 76 year old white female diagnosed with a clinical stage IA2 (T1bN0) lung cancer. A low-dose CT lung cancer screening was ordered on November 08, 2020. Imaging identified a 1.4 cm x 1.7 cm right hilar mass and multiple bilateral pulmonary nodules. A PET CT obtained on November 17, 2020 demonstrated a hypermetabolic right upper lobe nodule (SUV 7.2) without FDG activity in remaining pulmonary nodules. A bronchoscopy with endobronchial ultrasound guided transbronchial needle aspiration was performed on December 11, 2020. Biopsies did not diagnose a malignancy. CT-guided biopsy was not recommended on account of the patient's pulmonary function. The patient has received 50 Gy of a prescribed 50 Palmer (SABR) delivered with an intensity modulated radiotherapy plan utilizing a step and shoot treatment technique. Upon review of systems, she denied any new pulmonary symptoms. On physical examination, the patient weighed 102 lbs. Her temperature was 97.7 ???F and the blood pressure was 166/79 mmHg. The pulse was 99 bpm and her respiratory rate was 20. Oxygen saturation while breathing 4L via nasal cannula was 100%. Stereotactic ablative body radiotherapy was completed today. She will return as scheduled. Signed by: Dr. Warren Shabazz 03/18/2021 10:45:12 AM
== END 2021-03-29 23:59 | disposition home or self-care (01) ==
LOC: ONCMED 06:24
PROVIDERS: PCP Family Medicine; Visit Provider Radiology Radiation Oncology
DX: Z51.0 Encounter for antineoplastic radiation therapy (principal); C34.11 Malignant neoplasm of upper lobe, right bronchus or lung; R91.1 Solitary pulmonary nodule
CPT/HCPCS: 77293; 77300; 77301; 77336; 77338; 77373

== ENCOUNTER 2021-04-19 09:55 | Outpatient (RCR) | payer MEDICARE, MEDICAID, SELFPAY ==
--- NOTE | 2021-04-19 10:25 | ONCRAD EPV_ITS ---
Radiation Oncology Follow-Up Note Patient Name: Mónica Rodas Date of : 1945 Date of Service: 04/19/2021 Attending Physician: Warren Shabazz M.D. Mónica Rodas returned to my office this morning for a routinely scheduled follow-up appointment. 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 A low-dose CT lung cancer screening was ordered on November 08, 2020. Imaging identified a 1.4 cm x 1.7 cm right hilar mass and multiple bilateral pulmonary nodules. A PET CT obtained on November 17, 2020 demonstrated a hypermetabolic right upper lobe nodule (SUV 7.2) without FDG activity in remaining pulmonary nodules. A bronchoscopy with endobronchial ultrasound guided transbronchial needle aspiration was performed on December 11, 2020. Biopsies did not diagnose a malignancy. CT-guided biopsy was not recommended on account of the patient's pulmonary function. SABR was delivered between the dates of March 04, 2021 through March 18, 2021. A prescribed dose of 50 Gy was delivered in five fractions encompassing 15 elapsed days. On review of systems, the patient denied new pulmonary complaints. On physical examination, she weighed 101 lbs. Her temperature was 98.4 ???F and the blood pressure was 149/74 mmHg. Her pulse was 100 bpm and the respiratory rate was 20. Oxygen saturation while breathing 4L via nasal cannula was 99%. In summary, Ms. Rodas returned for a routine post-radiotherapy follow-up. She will be scheduled for CT imaging for treatment response in 2 months. Signed by: Dr. Warren Shabazz 04/19/2021 10:23:59 AM
== END 2021-04-29 23:59 | disposition home or self-care (01) ==
LOC: ONCMED 09:55
PROVIDERS: PCP Family Medicine; Visit Provider Radiology Radiation Oncology
DX: C34.11 Malignant neoplasm of upper lobe, right bronchus or lung (principal); Z92.3 Personal history of irradiation
CPT/HCPCS: 99024

== ENCOUNTER 2021-04-30 18:42 | Inpatient (IN) | payer MEDICARE, MEDICAID, SELFPAY ==
[2021-04-30] VITALS (10 sets, daily range): BP systolic 90–130; BP diastolic 51–74; PULSE 60–85; RESP 18–24; TEMP 36.8; O2SAT 96–100; BMI 19.5
[2021-04-30] MEDS: ipratropium-albuterol 3 mL Neb INHALATION (19:00)
--- NOTE | 2021-04-30 19:00 | XRR_ITS ---
PROCEDURE INFORMATION: Exam: XR Chest Exam date and time: 04/30/2021 7:00 PM Age: 76 years old Clinical indication: Shortness of breath; Additional info: SOB TECHNIQUE: Imaging protocol: XR of the chest. Views: 1 view. COMPARISON: CR XR chest 1V portable [id number] 02/13/2021 10:41 AM FINDINGS: Lungs: Emphysematous, hyperinflated lungs with extensive coarsening of the lung parenchyma and biapical scarring. No consolidation. Pleural spaces: Unremarkable. No pleural effusion. No pneumothorax. Heart/Mediastinum: Unremarkable. No cardiomegaly. Bones/joints: Visualized osseous structures are intact. XR/XR chest 1V portable [id number] IMPRESSION: Sequela of COPD. No acute findings.
[2021-04-30 19:09] LABS: Arterial Blood Gas Hematocrit 33.1 % (37-47); Base Excess ABG 6.5 mmol/L (-2.0-2.0); Blood Gas Allen Test Pos; Blood Gas Sample Type Arterial; Carboxyhemoglobin 0.9 %THgb (0.4-20.1); HCO3 ABG 38.5 mmol/L (22-26); HGB O2 Sat 98.1 % (95-100); Methemoglobin 0.3 % (0.4-1.5); Total Hemoglobin 10.8 g/dL (12-16)
[2021-04-30 19:11] LABS: ABG PH Result 7.14 (7.35-7.45); Blood Gas Operator Identificat ED; Blood Gas Sample Site Radial, right; Oxygen Device BIPAP
--- NOTE | 2021-04-30 19:17 | W.ED.AMS ---
HPI - Altered Mental Status General: Chief Complaint: Altered Mental Status Stated Complaint: AMS, DYSPNEA Time Seen by Provider: 04/30/21 18:53 Source: patient and EMS Mode of arrival: EMS Limitations: altered mental status History of Present Illness: 76-year-old female history of lung cancer was previously on chemotherapy also a longtime smoker with history of COPD patient was found altered at home here is unresponsive likely hypercapnic she has tachypnea with extreme respiratory distress not moving much air at all. I did speak to the daughter will do everything but intubate or chest compressions but they would like further treatment but not to be intubated or CPR. She has had no sick contacts no cough no fever per family. Review of Systems General: Reports: ROS unobtainable due to mental status PFSH ED PFSH: Medical History Anemia Arrhythmia COPD (chronic obstructive pulmonary disease) Decompensated heart failure Femur fracture, right Fracture of head of humerus GERD (gastroesophageal reflux disease) Hypertension Hyponatremia Respiratory failure with hypoxia and hypercapnia Surgical History S/P bronchoscopy Family History Family/Other Cancer Lung Other CAD (coronary artery disease) Hypertension Social History Smoking and tobacco status: current some day smoker cigarettes Second hand smoke exposure: Yes Smoking risk assessment/counseling performed?: No Alcohol intake: never Counseling given: No Counseling given: No Caregiver/support person: Yes Lives independently: No Household members: caregiver Housing: Halfway Marital status: Current occupational status: disabled History of recent travel: No Current gender identity: Female Physical Exam Const: COMMON NORMALS: negative for patient oriented x3 EXAM LIMITATIONS: altered mental status GENERAL APPEARANCE: in distress, ill appearing and frail appearing HENMT: COMMON NORMALS: normocephalic HEAD & SCALP: normocephalic THROAT: posterior oropharynx normal Eye: COMMON NORMALS: Equal, round and reactive pupils present and EOMs intact bilaterally PUPIL: Yes Equal, round and reactive pupils present Neck/C-Spine: COMMON NORMALS: full ROM and supple Lymph: LYMPHATIC: no lymphadenopathy noted Chest: COMMONS NORMALS: normal inspection of the chest and normal palpation of entire chest wall Resp: EFFORT & INSPECTION: Yes tachypneic, Yes respiratory distress, Yes pursed lip breathing, Yes labored and Yes grunting AUSCULTATION: diminished lung sounds Cardio: RATE: tachycardic GI: COMMON NORMALS: Normal to inspection, nondistended, normoactive bowel sounds present Extremity: COMMON NORMALS: normal to inspection Neuro: COMMON NORMALS: negative for patient oriented x3 Psych: COMMON NORMALS: negative for mental status grossly normal and negative for Normal thought process present THOUGHT PROCESS: abnormal Course Vital Signs: Vital signs: Vital Signs Temperature 98.2 F 04/30/21 18:56 Pulse Rate 61 04/30/21 22:00 Respiratory Rate 23 H 04/30/21 22:00 Blood Pressure 101/53 04/30/21 22:00 Pulse Oximetry 98 04/30/21 22:00 MDM - Altered Mental Status Medical Decision Making Patient presents with hypercapnia respiratory failure from COPD her CO2 is improving slightly on BiPAP I spoke at length with her family and she is a DNR/DNI we will continue BiPAP I spoke to hospitalist will admit at this time no signs of pneumonia. Lab Data : 04/30/21 19:10 04/30/21 19:10 Radiology Impressions Chest X-Ray 04/30/21 19:00 IMPRESSION: Sequela of COPD. No acute findings. Laboratory Results WBC 12.9 10^3/uL (4.0-10.0) H 04/30/21 19:10 RBC 3.49 10^6/uL (4.1-5.3) L 04/30/21 19:10 Hgb 10.5 g/dL (11.5-15.3) L 04/30/21 19:10 Hct 35.0 % (37.0-47.0) L 04/30/21 19:10 MCV 100.3 fl (81-99) H 04/30/21 19:10 MCH 30.1 pg (28.0-34.0) 04/30/21 19:10 MCHC 30.0 g/dL (30.0-36.0) 04/30/21 19:10 RDW 13.1 % (12.1-15.1) 04/30/21 19:10 Plt Count 412 10^3/cmm (130-400) H 04/30/21 19:10 MPV 9.5 fL (7.4-10.4) 04/30/21 19:10 Neut % (Auto) 88.8 % 04/30/21 19:10 Lymph % (Auto) 6.5 % 04/30/21 19:10 Alexander % (Auto) 3.7 % 04/30/21 19:10 Eos % (Auto) 0.0 % 04/30/21 19:10 Baso % (Auto) 0.2 % 04/30/21 19:10 Neut # (Auto) 11.43 10^3/uL (1.8-7.7) H 04/30/21 19:10 Lymph # (Auto) 0.8 10^3/uL (0.8-4.8) 04/30/21 19:10 Alexander # (Auto) 0.5 10^3/uL (0.2-0.9) 04/30/21 19:10 Eos # (Auto) 0.0 10^3/uL (0.0-0.8) 04/30/21 19:10 Baso # (Auto) 0.0 10^3/uL (0.0-0.1) 04/30/21 19:10 Nucleated RBC % (auto) 0 % 04/30/21 19:10 Nucleated RBCs # 0.0 /100WBC 04/30/21 19:10 PT 12.70 SECONDS (12.1-14.9) 04/30/21 19:10 INR 0.92 (0.8-1.2) 04/30/21 19:10 Specimen Type Arterial 04/30/21 20:22 Sample Site Radial, right 04/30/21 20:22 ABG pH 7.15 (7.35-7.45) L* 04/30/21 20: ABG pCO2 102.0 mmHg (35-45) H* 04/30/21 20: ABG pO2 143.0 mmHg (80.0-100.0) H 04/30/21 20:22 ABG HCO3 35.2 mmol/L (22-26) H 04/30/21 20:22 ABG Base Excess 4.4 mmol/L (-2.0-2.0) H 04/30/21 20:22 Leonel Test Pos 04/30/21 20:22 Hematocrit 28.5 % (37-47) L 04/30/21 20:22 Hgb O2 Saturation 98.1 % (95-100) 04/30/21 19:00 Carboxyhemoglobin 0.9 %THgb (0.4-20.1) 04/30/21 19:00 Methemoglobin 0.3 % (0.4-1.5) L 04/30/21 19:00 Total Hemoglobin 10.8 g/dL (12-16) L 04/30/21 19:00 O2 Delivery Device Bipap 04/30/21 20:22 FiO2 50.0 % 04/30/21 20:22 Tidal Volume 0.40 04/30/21 20:22 PEEP 8.0 cmH20 04/30/21 20:22 CPAP 8.0 cmH20 04/30/21 19:00 Organizational Development Specialist ID Buttr 04/30/21 20:22 Sodium 131 mmol/L (136-145) L 04/30/21 19:10 Potassium 5.3 mmol/L (3.5-5.1) H 04/30/21 19:10 Chloride 89 mmol/L (98-107) L 04/30/21 19:10 Carbon Dioxide 33 mmol/L (22-29) H 04/30/21 19:10 Anion Gap 14.3 (5-19) 04/30/21 19:10 BUN 16 mg/dL (8-23) 04/30/21 19:10 Creatinine 0.4 mg/dL (0.5-0.9) L 04/30/21 19:10 GFR Calculation Not Reportable 04/30/21 19:10 Glucose 164 mg/dL (65-115) H 04/30/21 19:10 POC Glucose 155 mg/dL (70-110) H 04/30/21 19:34 Calculated Osmolality 277 mOsm/kg (285-295) L 04/30/21 19:10 Lactic Acid 0.6 mmol/L (0.5-2.2) 04/30/21 19:10 Calcium 10.6 mg/dL (8.5-10.5) H 04/30/21 19:10 Total Bilirubin 0.3 mg/dL (0.15-1.2) 04/30/21 19:10 AST 28 U/L (0-32) 04/30/21 19:10 ALT 16 U/L (0-33) 04/30/21 19:10 Alkaline Phosphatase 140 IU/L (35-105) H 04/30/21 19:10 NT-Pro-B Natriuret Pep 1284 pg/mL (0-450) H 04/30/21 19:10 Total Protein 8.1 g/dL (6.6-8.7) 04/30/21 19:10 Albumin 3.6 g/dL (3.5-5.2) 04/30/21 19:10 Globulin 4.5 g/dL (1.3-4.6) 04/30/21 19:10 Coronavirus 229E (PCR) Not detected (NOT DETECT) 04/30/21 19:20 SARS-CoV-2 (PCR) Not detected (NOT DETECT) 04/30/21 19:20 Critical Care Time Critical Care Time: Critical Care Time: Yes Total Critical Care Time: 35 Attestation: The high probability of a clinically significant, sudden or life threatening deterioration of the patient's Resp system(s) required my full and direct attention, intervention and personal management. The critical care time is as shown. 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
[2021-04-30 19:20] LABS: Basophils % 0.2 %; Hemoglobin 10.5 g/dL (11.5-15.3); Lymphocytes # 0.8 10^3/uL (0.8-4.8); Lymphocytes % 6.5 %; Mean Corpuscular Hemoglobin 30.1 pg (28.0-34.0); Mean Corpuscular Volume 100.3 fl (81-99); Mean Platelet Volume 9.5 fL (7.4-10.4); Monocytes # 0.5 10^3/uL (0.2-0.9); Monocytes % 3.7 %; Neutrophils # 11.43 10^3/uL (1.8-7.7); Neutrophils % 88.8 %; Nucleated Red Blood Cells % 0 %; Platelet Count 412 10^3/cmm (130-400); Red Blood Count 3.49 10^6/uL (4.1-5.3); Red Cell Distribution Width 13.1 % (12.1-15.1); White Blood Count 12.9 10^3/uL (4.0-10.0)
[2021-04-30] MEDS: sodium chloride 0.9% 1,000 ML 999 ML IV (19:21)
[2021-04-30 19:33] LABS: INR 0.92 (0.8-1.2)
[2021-04-30 19:36] LABS: Glucose Point of Care 155 mg/dL (70-110)
[2021-04-30 19:42] LABS: Lactic Sepsis W/Reflex 0.6 mmol/L (0.5-2.2)
[2021-04-30 19:52] LABS: Alanine Aminotransferase 16 U/L (0-33); Albumin Level 3.6 g/dL (3.5-5.2); Alkaline Phosphatase 140 IU/L (35-105); Anion Gap 14.3 (5-19); Aspartate Amino Transferase 28 U/L (0-32); Blood Urea Nitrogen 16 mg/dL (8-23); Calcium 10.6 mg/dL (8.5-10.5); Carbon Dioxide 33 mmol/L (22-29); Chloride 89 mmol/L (98-107); Globulin 4.5 g/dL (1.3-4.6); Glucose 164 mg/dL (65-115); NT Pro B Type Natriuretic Pept 1284 pg/mL (0-450); Osmolality Calculated 277 mOsm/kg (285-295); Potassium 5.3 mmol/L (3.5-5.1); Sodium 131 mmol/L (136-145); Total Bilirubin 0.3 mg/dL (0.15-1.2); Total Protein 8.1 g/dL (6.6-8.7)
[2021-04-30 20:36] LABS: Arterial Blood Gas Hematocrit 28.5 % (37-47); Base Excess ABG 4.4 mmol/L (-2.0-2.0); Blood Gas Allen Test Pos; Blood Gas Sample Site Radial, right; Blood Gas Sample Type Arterial; HCO3 ABG 35.2 mmol/L (22-26); Oxygen Device BIPAP
[2021-04-30 20:37] LABS: ABG PH Result 7.15 (7.35-7.45)
[2021-04-30 21:49] LABS: Adenovirus Not Detected (NOT DETECT); Chlamydia Pneumoniae Not Detected (NOT DETECT); Coronavirus 229E,HKU1,NL63,OC4 Not Detected (NOT DETECT); Human Metapneumovirus Not Detected (NOT DETECT); Human Rhinovirus/Enterovirus Not Detected (NOT DETECT); Influenza A Not Detected (NOT DETECT); Influenza A H1 Not Detected (NOT DETECT); Influenza A H1-2009 Not Detected (NOT DETECT); Influenza A H3 Not Detected (NOT DETECT); Influenza B Not Detected (NOT DETECT); Mycoplasma Pneumoniae Not Detected (NOT DETECT); Parainfluenza Virus Type 1 Not Detected (NOT DETECT); Parainfluenza Virus Type 2 Not Detected (NOT DETECT); Parainfluenza Virus Type 3 Not Detected (NOT DETECT); Parainfluenza Virus Type 4 Not Detected (NOT DETECT); Respiratory Syncytial Virus A Not Detected (NOT DETECT); Respiratory Syncytial Virus B Not Detected (NOT DETECT); SARS-COV-2 Not Detected (NOT DETECT)
--- NOTE | 2021-04-30 23:45 | P.HP_ITS ---
Providers/Chief Complaint Primary Care Provider: Sugey Sosa DO Chief Complaint: AMS, DYSPNEA History of Present Illness Mónica Rodas is a 76 year old female with past medical history of COPD on 4 L home oxygen, hypertension, CA rt lung status post radiation therapy completed last fifth cycle in February of 2021, was brought in from home after she was found to be SPO2 saturation was in 80s at home, she was also somnolent and less responsive, at baseline she is AO*3. History taking was done from daughter, as the patient was on BiPAP and extremely drowsy. According to her daughter for the last couple of days she has not been frequently using her BiPAP at home because she was complaining of back pain and difficulty using BiPAP because of that. Upon arrival in the ER she was found to be in hypercapnic respiratory failure, and altered mental status secondary to hypercapnia. She was placed on BiPAP (on AVAPS settings ) she was worked up for above-mentioned complaint: Pertinent imaging studies: X-ray chest: No infiltrates, Emphysematous, hyperinflated lungs with extensive coarsening of the lung parenchyma and biapical scarring. No consolidation. Pleural spaces: Unremarkable. No pleural effusion. No pneumothorax. Pertinent labs: WBC 12.9 H&H 10.5/ 35 , PLT : 412 , serum sodium 131 serum potassium 5.3, BUN / serum creatinine: 16/0.4 , proBNP 1284. Covid PCR negative ABG: pH 7.14 PCO2 113, PO2 155, on FiO2 of 30% Review of Systems General: Reports: ROS unobtainable due to mental status Medications/Allergies Home Medications Medication Instructions Recorded Confirmed Last Taken Type albuterol sulfate 90 mcg/actuation 2 puff INHALATION Q4H PRN 08/05/20 02/13/21 12/11/20 History aerosol inhaler (Ventolin HFA) amlodipine 5 mg tablet 5 mg PO QAM 08/05/20 02/13/21 02/13/21 06:30 History atenolol 50 mg tablet 50 mg PO BID 08/05/20 02/13/21 02/13/21 06:30 History cetirizine 10 mg tablet (Zyrtec) 10 mg PO QAM 08/05/20 02/13/21 12/10/20 History cholecalciferol (vitamin D3) 50 50 mcg PO QPM 08/05/20 02/13/21 08/04/20 History mcg (2,000 unit) capsule (Vitamin D3) fluticasone propionate 50 2 spray INTRANASAL DAILY 08/05/20 02/13/21 12/10/20 History mcg/actuation nasal spray,suspension lisinopril 40 mg tablet 40 mg PO BID 08/05/20 02/13/21 02/13/21 06:30 History simvastatin 10 mg tablet 10 mg PO QPM 08/05/20 02/13/21 02/11/21 History albuterol sulfate 2.5 mg INHALATION Q4H PRN 08/20/20 02/13/21 12/10/20 History budesonide 160 mcg-glycopyr 9 2 inh INHALATION BID #10.7 g 01/18/21 02/13/21 Unknown Rx mcg-formot 4.8 mcg/actuation HFA inhaler (Breztri Aerosphere) vitamin B complex (B 1 tab PO DAILY 01/21/21 02/13/21 Unknown History Complex-Vitamin B12) alprazolam 0.25 mg tablet 0.25 mg PO BID PRN 02/13/21 02/13/21 Unknown History cyanocobalamin (vitamin B-12) 1,000 mcg PO DAILY 02/13/21 02/13/21 Unknown History 1,000 mcg tablet (Vitamin B-12) mirtazapine 15 mg tablet 15 mg PO BEDTIME PRN 02/13/21 02/13/21 Unknown History morphine concentrate 100 mg/5 mL See Rx Instructions .ROUTE .COMPLEX 02/13/21 02/13/21 Unknown History (20 mg/mL) oral solution ondansetron 4 mg disintegrating 4 mg PO TID PRN 02/13/21 02/13/21 Unknown History tablet pantoprazole 40 mg tablet,delayed 40 mg PO DAILY 02/13/21 02/13/21 Unknown History release (Protonix) prednisone 10 mg tablet 10 mg PO DAILY 02/13/21 02/13/21 02/12/21 History methylprednisolone 4 mg tablets in See Rx Instructions .ROUTE 02/14/21 Unknown Rx a dose pack (Medrol (Rios)) .COMPLEX #21 ea ondansetron HCl 4 mg tablet 4 mg PO DAILY PRN #30 tab 02/14/21 Unknown Rx (Zofran) Allergies Allergy/AdvReac Type Severity Reaction Status Date / Time hydrochlorothiazide Allergy Unknown Diarrhea Verified 02/13/21 10:56 tramadol Allergy Unknown nausea and Verified 02/13/21 10:56 vomiting aspirin Allergy ADR-Gastrointestinal Verified 02/13/21 10:56 Upset Penicillins Allergy ADR-Gastrointestinal Verified 02/13/21 10:56 Upset tetracycline Allergy ADR-Gastrointestinal Verified 02/13/21 10:56 Upset oxycodone-acetominophen Allergy Unknown nausea and Uncoded 12/11/20 06:20 vomiting PFSH Acute PFSH: Medical History (Updated 04/30/21 @ 23:53 by Carlos Ashley MD) Anemia Arrhythmia COPD (chronic obstructive pulmonary disease) Decompensated heart failure Femur fracture, right Fracture of head of humerus GERD (gastroesophageal reflux disease) Hypertension Hyponatremia Respiratory failure with hypoxia and hypercapnia Surgical History S/P bronchoscopy Family History Family/Other Cancer Lung Other CAD (coronary artery disease) Hypertension Social History Smoking and tobacco status: current some day smoker cigarettes Second hand smoke exposure: Yes Smoking risk assessment/counseling performed?: No Alcohol intake: never Counseling given: No Counseling given: No Caregiver/support person: Yes Lives independently: No Household members: caregiver Housing: Shelter Marital status: Current occupational status: disabled History of recent travel: No Current gender identity: Female Vitals/I&O/Wt Last Vital Signs Temp 98.2 F 04/30/21 18:56 Pulse 65 04/30/21 23:23 Resp 19 H 04/30/21 23:01 BP 122/61 04/30/21 23:01 Pulse Ox 99 04/30/21 23:23 Weight last 48 hrs Weight 49.895 kg Physical Exam HENMT: COMMON NORMALS: normocephalic and atraumatic HEAD & SCALP: normocephalic and atraumatic EXTERNAL EAR: Yes external ears normal Eye: GENERAL EYE: appearance normal, both eyes and all related structures Chest: CHEST: Yes Symmetrical chest wall rise Resp: EFFORT & INSPECTION: Yes symmetric chest movement AUSCULTATION: clear to auscultation bilaterally OTHER: Diminished Air entry bilaterally, tachypneic, use of accessory respiratory muscles. Cardio: COMMON NORMALS: regular rate, regular rhythm, S1 normal heart sound present, S2 normal heart sound present, No gallops present (Cardio), No murmurs present (Cardio), No rub (Cardio) and Peripheral pulses 2+ throughout RATE: regular rate RHYTHM: regular rhythm HEART SOUNDS: S1 normal heart sound present and S2 normal heart sound present PERIPHERAL PULSES: Peripheral pulses 2+ throughout GI: COMMON NORMALS: Normal to inspection, nondistended, normoactive bowel sounds present, Soft to palpation, non-tender, No hepatosplenomegaly present and no masses AUSCULTATION: Yes normoactive bowel sounds PALPATION: Yes Soft to palpation and Yes No hepatosplenomegaly present RECTAL EXAM: deferred Extremity: COMMON NORMALS: no clubbing, cyanosis or edema and no pedal edema Data : 04/30/21 19:10 04/30/21 19:10 A&P Assessment and plan (1) Acute exacerbation of chronic obstructive airways disease: Status: Acute (2) Hypertension: Status: Acute Qualifiers: Hypertension type: essential hypertension Qualified Code(s): I10 - Essential (primary) hypertension (3) Cancer of right lung: Status: Acute (4) Acute encephalopathy: Status: Acute (5) Respiratory failure with hypoxia and hypercapnia: Status: Acute (6) Hyperkalemia: Status: Acute (7) Hyponatremia: Status: Acute Plan Assessment: Acute on chronic hypoxic hypercapnic respiratory failure likely secondary to noncompliance with BiPAP. Acute encephalopathy secondary to hypercapnia Hypovolemic hyponatremia COPD Hyperkalemia Anemia CA right lung status post 5 cycles of radiation therapy Plan: Continue patient on BiPAP Solu-Medrol 60 IV every 6 daily DuoNebs Azithromycin 500 mg IV daily Gentle IV hydration with normal saline 50 cc an hour Monitor BMP Monitor ABG On Lovenox for DVT prophylaxis CODE STATUS: AND Attestations Medical Necessity Statement*: Patient needs to be in hospital for management of hypercapnic respiratory failure.Anticipated length of stay greater than 2 midnights. Time Spent in Patient Care: Greater than 35 minutes Critical Care Time: The high probability of a clinically significant, sudden or life threatening deterioration of the patient's [] system(s) required my full and direct attention, intervention and personal management. The critical care time is as shown. This time is in addition to time spent performing any reported procedures but includes the following: [x] Data and vital sign review and interpretation [x] Patient assessment, examination and intervention [x] Documentation [x] Medication orders and management Critical Care Time (min): 45 Coding Level of Care Code Acute Environmental Research Project Manager for [facility] Fwd Exam Detailed Diagnoses Acute exacerbation of chronic obstructive airways disease J44.1 Hypertension I10 Hypertension type: essential hypertension Cancer of right lung C34.91 Acute encephalopathy G93.40 Respiratory failure with hypoxia and hypercapnia J96.91; J96.92 Hyperkalemia E87.5 Hyponatremia E87.1
[2021-05-01] VITALS (21 sets, daily range): BP systolic 118–152; BP diastolic 62–95; PULSE 64–106; RESP 15–24; TEMP 36.6–36.8; O2SAT 90–99
[2021-05-01] MEDS: azithromycin 500 MG in sodium chloride 0.9% 250 ML 250 MG IV (00:29)
[2021-05-01] MEDS: sodium chloride 0.9% 1,000 ML 50 ML IV (00:30)
[2021-05-01] MEDS: enoxaparin 40 mg/0.4 mL Syringe SUBCUT (00:33)
[2021-05-01] MEDS: ipratropium-albuterol 3 mL Neb INHALATION ×3 (02:31→14:25)
[2021-05-01 04:21] LABS: ABG PH Result 7.29 (7.35-7.45); Alveolar-Arterial Oxygen Gradi 9.3 mmHg (5-10); Arterial Blood Gas Hematocrit 30.3 % (37-47); Base Excess ABG 6.5 mmol/L (-2.0-2.0); Blood Gas Allen Test Pos; Blood Gas Sample Site Radial, right; Blood Gas Sample Type Arterial; Carboxyhemoglobin 1.3 %THgb (0.4-20.1); HCO3 ABG 34.6 mmol/L (22-26); HGB O2 Sat 87.6 % (95-100); Ionized Calcium Level - ABG 1.3 mmol/L (1.1-1.4); Methemoglobin 0.1 % (0.4-1.5); Oxygen Device BIPAP; Oxygen Saturation ABG 88.8; PO2 ABG 55.8 mmHg (80.0-100.0); Potassium Level - ABG 4.7 mmol/L (3.5-5.0); Total Hemoglobin 9.9 g/dL (12-16)
[2021-05-01 04:22] LABS: ABG PCO2 71.6 mmHg (35-45)
[2021-05-01 05:22] LABS: Anion Gap 14.9 (5-19); Blood Urea Nitrogen 19 mg/dL (8-23); Calcium 9.2 mg/dL (8.5-10.5); Carbon Dioxide 31 mmol/L (22-29); Chloride 95 mmol/L (98-107); Glucose 111 mg/dL (65-115); Osmolality Calculated 285 mOsm/kg (285-295); Potassium 4.9 mmol/L (3.5-5.1); Sodium 136 mmol/L (136-145)
[2021-05-01] MEDS: amlodipine 5 mg Tablet PO (06:27)
[2021-05-01 06:50] LABS: Basophils % 0.2 %; Hematocrit 33.9 % (37.0-47.0); Hemoglobin 9.8 g/dL (11.5-15.3); Lymphocytes # 0.5 10^3/uL (0.8-4.8); Lymphocytes % 8.9 %; Mean Corpuscular HGB Conc 28.9 g/dL (30.0-36.0); Mean Corpuscular Hemoglobin 29.8 pg (28.0-34.0); Monocytes # 0.2 10^3/uL (0.2-0.9); Monocytes % 2.6 %; Neutrophils # 5.31 10^3/uL (1.8-7.7); Nucleated Red Blood Cells % 0 %; Platelet Count 260 10^3/cmm (130-400); Red Blood Count 3.29 10^6/uL (4.1-5.3); Red Cell Distribution Width 12.9 % (12.1-15.1)
[2021-05-01] MEDS: pantoprazole DR 40 mg Tablet PO (08:55)
[2021-05-01] MEDS: FUROsemide 10 mg/mL SDV 4mL 40 MG IVP (08:55)
[2021-05-01] MEDS: cefTRIAXone 1,000 MG in sodium chloride 0.9% (plus) 50 ML 100 MG IV (08:55)
[2021-05-01 09:18] LABS: D Dimer 2.07 ug/mIFEU (0-0.59)
[2021-05-01 09:27] LABS: Troponin(5th) Baseline 22 ng/L (0-10)
--- NOTE | 2021-05-01 10:30 | ECG_ITS ---
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 Measurements Intervals [place] Rate: 98 P: 74 TN: 134 QRS: 60 QRSD: 94 T: 61 QT: 356 QTc: 456 Interpretive Statements SINUS RHYTHM POSSIBLE INFERIOR MYOCARDIAL INFARCTION , OF INDETERMINATE AGE [30 ms Q WAVE IN II/aVF] Compared to ECG 02/13/2021 13:09:38 Myocardial infarct finding now present ST (T wave) deviation no longer present Early repolarization no longer present Electronically Signed On 05-01-2021 18:34:49 ASSEMBLY OPERATOR by Vasile Cortes M.D. [email or web address]
--- NOTE | 2021-05-01 10:39 | PC.PHAR ---
pt is unable to verify due to bipap mask. pt fills at [facility] pharmacy. verified medications by pharmacy. Recently filled Lasix 20mg every other day. pt unable to verify if she is taking
[2021-05-01 11:16] LABS: Troponin 5 2HR 21.29 ng/L (0-10)
[2021-05-01 11:22] LABS: Troponin 5 2HR Delta -0.71 ABS# (0-10)
--- NOTE | 2021-05-01 13:22 | PC.NURSE ---
Patient arrived from ER via stretcher. Patient is alert to self and place, not situation, date, or time. Patient VS are stable. Pt has been oriented to room and call smith use. Nurse will continue to monitor.
[2021-05-01] MEDS: acetaminophen 325 mg Tablet 650 MG PO (15:53)
[2021-05-01] MEDS: ALPRAZolam 0.5 mg Tablet 0.25 MG PO (15:53)
--- NOTE | 2021-05-01 17:12 | P.PN_ITS ---
Subjective Subjective: Interval history: Patient was seen this morning, she is alert to person, to place, not to time, she follows all commands, she tells me that she has at times not use her home CPAP, no fevers, no cough, does report increasing shortness of breath Vitals/I&O/Wt Last Vital Signs Temp 98.2 F 05/01/21 13:22 Pulse 105 H 05/01/21 14:46 Resp 16 05/01/21 14:46 BP 139/79 05/01/21 13:22 Pulse Ox 90 05/01/21 15:50 05/01/21 05/01/21 05/01/21 06:59 14:59 22:59 Intake Total 250 / 1250 50 / 50 Balance 250 / 1250 50 / 50 Weight last 48 hrs Weight 49.895 kg Physical Exam Const: COMMON NORMALS: no acute distress Resp: COMMON NORMALS: normal respiratory effort, No retractions, No use of accessory muscles and clear to auscultation bilaterally AUSCULTATION: clear to auscultation bilaterally Cardio: COMMON NORMALS: regular rate, regular rhythm, S1 normal heart sound present and S2 normal heart sound present RATE: regular rate RHYTHM: regular rhythm HEART SOUNDS: S1 normal heart sound present and S2 normal heart sound present GI: COMMON NORMALS: Normal to inspection, nondistended, normoactive bowel deanne nds present, Soft to palpation and non-tender PALPATION: Yes Soft to palp ation Extremity: COMMON NORMALS: capillary refill normal, no clubbing, cyanosis or edema and no pedal edema Neuro: OTHER: Alert to person, to place, not to time Data : 05/01/21 06:35 05/01/21 04:35 Micro: Microbiology 05/01/21 08:44 Blood Culture - Preliminary Blood SPECIMEN COLLECTED 05/01/21 08:44 Blood Culture - Preliminary Blood SPECIMEN COLLECTED A&P Assessment and plan (1) Acute exacerbation of chronic obstructive airways disease: Status: Acute (2) Hypertension: Status: Acute Qualifiers: Hypertension type: essential hypertension Qualified Code(s): I10 - Essential (primary) hypertension (3) Cancer of right lung: Status: Acute (4) Acute encephalopathy: Status: Acute (5) Respiratory failure with hypoxia and hypercapnia: Status: Acute (6) Hyperkalemia: Status: Acute (7) Hyponatremia: Status: Acute Plan Assessment: Acute on chronic hypoxic hypercapnic respiratory failure likely secondary to noncompliance with BiPAP. Acute encephalopathy secondary to hypercapnia Hypovolemic hyponatremia COPD Hyperkalemia Anemia CA right lung status post 5 cycles of radiation therapy NSTEMI, likely supply demand ischemia from acute respiratory failure Plan: Continue patient on BiPAP Solu-Medrol 60 IV every 6 hours DuoNebs, budesonide Azithromycin 500 mg IV daily, Rocephin 1 g every 24 hours Will stop IV hydration Monitor mentation Monitor ABG D-dimer elevated 2, will do CT angiogram to evaluate for pulmonary emboli given history of malignancy Will give 1 dose of Lasix given elevated BNP Renew home Xanax Once mentation is more improved, PCO2 decreases, resume home morphine On Lovenox for DVT prophylaxis CODE STATUS: AND Attestations Medical Necessity Statement*: Patient requires hospitalization for hypercarbic respiratory failure Coding Level of Care Code Acute Surgical Brace Maker for [facility] Fwd Diagnoses Acute exacerbation of chronic obstructive airways disease J44.1 Hypertension I10 Hypertension type: essential hypertension Cancer of right lung C34.91 Acute encephalopathy G93.40 Respiratory failure with hypoxia and hypercapnia J96.91; J96.92 Hyperkalemia E87.5 Hyponatremia E87.1
--- NOTE | 2021-05-01 17:16 | CTR_ITS ---
PROCEDURE INFORMATION: Exam: CTA Chest With Contrast Exam date and time: 05/01/2021 5:16 PM Age: 76 years old Clinical indication: Abnormal findings; Abnormal diagnostic tests; Elevated d-dimer; Shortness of breath; Prior surgery; Surgery type: Bronchoscopy; Patient HX: SOB with elevated d dimer. History of lung cancer. Best positioning due to kyphosis. TECHNIQUE: Imaging protocol: Computed tomographic angiography of the chest with contrast. 3D rendering (Not supervised by radiologist): MIP and/or 3D reconstructed images were created by the technologist. Radiation optimization: All CT scans at this facility use at least one of these dose optimization techniques: automated exposure control; mA and/or kV adjustment per patient size (includes targeted exams where dose is matched to clinical indication); or iterative reconstruction. Contrast material: OMNI 350; Contrast volume: 59 ml; Contrast route: INTRAVENOUS (IV); COMPARISON: CT chest abdomen w con* 02/11/2021 12:16 PM RADIATION DOSE METRICS: Total DLP (mGy-cm): 496.17 FINDINGS: Pulmonary arteries: Normal. No pulmonary emboli. Aorta: Unremarkable. No aortic aneurysm. No aortic dissection. Lungs: Patchy largely right lung field airspace opacities suggestive of bronchopneumonia, metastatic disease is also consideration.. Emphysematous changes. Pleural spaces: Unremarkable. No pneumothorax. No pleural effusion. Heart: Unremarkable. No cardiomegaly. No pericardial effusion. Lymph nodes: Unremarkable. No enlarged lymph nodes. Bones/joints: T11 vertebral body compression fracture with a possible underlying sclerotic bony lesion concerning for metastatic disease, negative for retropulsion of bony fragments or spinal canal narrowing. Right humeral head sclerotic bony lesion partially visualized may reflect metastatic disease. Soft tissues: Unremarkable. CT/CT angio chest PE protcl [id number] IMPRESSION: 1. Patchy largely right lung field airspace opacities suggestive of bronchopneumonia, metastatic disease is also consideration.. 2. T11 vertebral body compression fracture with a possible underlying sclerotic bony lesion concerning for metastatic disease, negative for retropulsion of bony fragments or spinal canal narrowing. 3. Emphysematous changes. 4. Right humeral head sclerotic bony lesion partially visualized may reflect metastatic disease.
[2021-05-01 21:19] LABS: Glucose Point of Care 239 mg/dL (70-110)
[2021-05-01] MEDS: iohexol 350 mg/mL 100 mL Btl IV (22:20)
[2021-05-02] VITALS (15 sets, daily range): BP systolic 140–195; BP diastolic 78–96; PULSE 79–122; RESP 16–27; TEMP 36.6–36.9; O2SAT 91–100
[2021-05-02] MEDS: azithromycin 500 MG in sodium chloride 0.9% 250 ML 250 MG IV (00:10)
[2021-05-02] MEDS: enoxaparin 40 mg/0.4 mL Syringe SUBCUT (00:11)
[2021-05-02] MEDS: ipratropium-albuterol 3 mL Neb INHALATION ×4 (03:02→20:00)
[2021-05-02 03:43] LABS: Basophils % 0.1 %; Hematocrit 28.2 % (37.0-47.0); Hemoglobin 8.8 g/dL (11.5-15.3); Lymphocytes # 0.7 10^3/uL (0.8-4.8); Lymphocytes % 6.7 %; Mean Corpuscular HGB Conc 31.2 g/dL (30.0-36.0); Mean Corpuscular Hemoglobin 30.3 pg (28.0-34.0); Mean Corpuscular Volume 97.2 fl (81-99); Mean Platelet Volume 9.9 fL (7.4-10.4); Monocytes # 0.4 10^3/uL (0.2-0.9); Monocytes % 3.7 %; Neutrophils # 8.93 10^3/uL (1.8-7.7); Nucleated Red Blood Cells % 0 %; Platelet Count 357 10^3/cmm (130-400); Red Cell Distribution Width 13.1 % (12.1-15.1)
[2021-05-02 04:01] LABS: ABG PH Result 7.38 (7.35-7.45); Arterial Blood Gas Hematocrit 31.2 % (37-47); Base Excess ABG 12.1 mmol/L (-2.0-2.0); Blood Gas Allen Test Pos; Blood Gas Sample Type Arterial; Carboxyhemoglobin 0.9 %THgb (0.4-20.1); HCO3 ABG 39.3 mmol/L (22-26); HGB O2 Sat 92.1 % (95-100); Ionized Calcium Level - ABG 1.3 mmol/L (1.1-1.4); Methemoglobin 0.8 % (0.4-1.5); Oxygen Saturation ABG 93.7; PO2 ABG 69.3 mmHg (80.0-100.0); Potassium Level - ABG 3.7 mmol/L (3.5-5.0); Total Hemoglobin 10.2 g/dL (12-16)
[2021-05-02] MEDS: amlodipine 5 mg Tablet PO (04:01)
[2021-05-02 04:02] LABS: Blood Gas Sample Site Radial, left; Oxygen Device NC
[2021-05-02 04:03] LABS: Alveolar-Arterial Oxygen Gradi 14.2 mmHg (5-10)
[2021-05-02 04:29] LABS: Anion Gap 10.9 (5-19); Blood Urea Nitrogen 21 mg/dL (8-23); Carbon Dioxide 34 mmol/L (22-29); Chloride 98 mmol/L (98-107); Glucose 143 mg/dL (65-115); Osmolality Calculated 293 mOsm/kg (285-295); Potassium 3.9 mmol/L (3.5-5.1); Sodium 139 mmol/L (136-145)
[2021-05-02 05:20] LABS: ABG PCO2 66.3 mmHg (35-45)
[2021-05-02 06:36] LABS: Glucose Point of Care 137 mg/dL (70-110)
[2021-05-02] MEDS: budesonide 0.5 mg/2 mL Neb INHALATION ×2 (08:41→19:44)
--- NOTE | 2021-05-02 09:36 | PC.CHAP ---
Pastoral Care Encounter/Spiritual Assessment Type of Contact [] Declined manager of application development visit [] Patient/Family/Request visit [] Outpatient visit [] Follow-up visit [] Physician referral [] Code/Alert [x] Routine visit [] Staff referral [] Actively dying [] Patient sleeping [] Family support [] [] Out of room [] Palliative care [] [] Receiving care in room [] Pre-surgical visit [] Trauma [] Long length of stay [] ICU visit [] Other: Relational/Emotional Strength [] Patient feels connected with others/family/visitors/staff [] Distress [] Loneliness/isolation [] Abandonment Spirituality of Patient [] Person of Shani [] Attends Temple of their Shani [] Believes in Prayer [] Reads Bible or Sabianist materials [] There are Spiritual issues to be addressed Environmental Advisor Interventions [x] Prayer [x] Active listening [x] Non-anxious presence [x] Spiritual/emotional support [] Crisis/trauma care [] Spiritual counseling [] Bereavement support [] Provided bereavement packet [] Provided Bible/devotional materials [] Provided toy/stuffed animal, coloring book to patient or family member [] Provided Communion [] Anointing/[place] [] Salvation [x] Completed spiritual assessment [] Other: Impact on Illness or Injury [] Angry [] Fearful [] Anxious [] Often cries [] Exhaustion [] Unable to work [] Unable to attend orthodoxy [] Unable to walk/stand [] Unable to read [] Unable to drive [] Unable to eat/drink [] Unable to sleep [] Unable to be with family [] Patient intubated [] Other: Summary Time spent with patient 5 min
[2021-05-02] MEDS: atenolol 50 mg Tablet PO ×2 (10:03→17:48)
[2021-05-02] MEDS: lisinopril 20 mg Tablet 40 MG PO (10:03)
[2021-05-02] MEDS: pantoprazole DR 40 mg Tablet PO (10:03)
[2021-05-02] MEDS: FUROsemide 20 mg Tablet PO (10:03)
[2021-05-02] MEDS: cefTRIAXone 1,000 MG in sodium chloride 0.9% (plus) 50 ML 100 MG IV (10:04)
--- NOTE | 2021-05-02 13:54 | PM.PN ---
Subjective Subjective: Interval history: Patient was seen this morning, she is alert to person, to place, to time, she follows all commands, denies chest pain, no lightheadedness, use BiPAP throughout the night, currently on nasal cannula Vitals/I&O/Wt Last Vital Signs Temp 98.4 F 05/02/21 07:49 Pulse 94 05/02/21 11:43 Resp 17 05/02/21 11:43 BP 179/96 05/02/21 11:43 Pulse Ox 96 05/02/21 11:43 05/01/21 05/02/21 05/02/21 22:59 06:59 14:59 Intake Total 250 / 300 125 / 125 Balance 250 / 300 125 / 125 Weight last 48 hrs Weight 49.895 kg Physical Exam Const: COMMON NORMALS: no acute distress and patient oriented x3 Resp: COMMON NORMALS: normal respiratory effort, No retractions, No use of accessory muscles and clear to auscultation bilaterally AUSCULTATION: clear to auscultation bilaterally Cardio: COMMON NORMALS: regular rate, regular rhythm, S1 normal heart sound present and S2 normal heart sound present RATE: regular rate RHYTHM: regular rhythm HEART SOUNDS: S1 normal heart sound present and S2 normal heart sound present GI: COMMON NORMALS: Normal to inspection, nondistended, normoactive bowel sounds present, Soft to palpation, non-tender and No hepatosplenomegaly present PALPATION: Yes Soft to palpation and Yes No hepatosplenomegaly present Extremity: COMMON NORMALS: no pedal edema Neuro: COMMON NORMALS: patient oriented x3 Urinary Catheter Management: Allen Latex: Cath Placed During This Visit: yes Reason for Continuing Indwelling Catheter: Accurate Measurement of Urinary Output in Critically Ill Patients Urinary Catheter Date of Insertion: 05/01/21 Urinary Catheter Time of Insertion: 23:19 Data : 05/02/21 03:29 05/02/21 03:29 Micro: Microbiology 05/01/21 23:20 Bacterial Antigens - Final Urine,Clean Catch 05/01/21 08:44 Blood Culture - Preliminary Blood NEGATIVE TO DATE 05/01/21 08:44 Blood Culture - Preliminary Blood NEGATIVE TO DATE A&P Assessment and plan (1) Acute exacerbation of chronic obstructive airways disease: Status: Acute (2) Hypertension: Status: Acute Qualifiers: Hypertension type: essential hypertension Qualified Code(s): I10 - Essential (primary) hypertension (3) Cancer of right lung: Status: Acute (4) Acute encephalopathy: Status: Acute (5) Respiratory failure with hypoxia and hypercapnia: Status: Acute (6) Hyperkalemia: Status: Acute (7) Hyponatremia: Status: Acute (8) Pneumonia: Status: Acute Plan Assessment: Acute on chronic hypoxic hypercapnic respiratory failure likely secondary to noncompliance with BiPAP. Acute encephalopathy secondary to hypercapnia Hypovolemic hyponatremia COPD Hyperkalemia Anemia CA right lung status post 5 cycles of radiation therapy NSTEMI, likely supply demand ischemia from acute respiratory failure CT angiogram shows 1. Patchy largely right lung field airspace opacities suggestive of bronchopneumonia, metastatic disease is also consideration.. 2. T11 vertebral body compression fracture with a possible underlying sclerotic bony lesion concerning for metastatic disease, negative for retropulsion of bony fragments or spinal canal narrowing. 3. Emphysematous changes. 4. Right humeral head sclerotic bony lesion partially visualized may reflect metastatic disease.? Plan: Mentation significantly improved, still having some wheezing on exam Continue patient on BiPAP schedule during the night, as needed during the day Solu-Medrol 60 IV every 6 hours DuoNebs, budesonide Azithromycin 500 mg IV daily, Rocephin 1 g every 24 hours Monitor mentation Monitor ABG D-dimer elevated 2, will do CT angiogram to evaluate for pulmonary emboli given history of malignancy Will give 1 dose of Lasix given elevated BNP Renew home Xanax Once mentation is more improved, PCO2 decreases, resume home morphine On Lovenox for DVT prophylaxis T11 vertebral compression fracture, needs to follow-up with oncology Right humeral head sclerotic bony lesion, needs to follow-up with oncology CODE STATUS: AND Attestations Medical Necessity Statement*: Patient requires hospitalization for acute respiratory failure Coding Level of Care Code Acute [employer] Travel Counselor for [facility] Fwd Diagnoses Acute exacerbation of chronic obstructive airways disease J44.1 Hypertension I10 Hypertension type: essential hypertension Cancer of right lung C34.91 Acute encephalopathy G93.40 Respiratory failure with hypoxia and hypercapnia J96.91; J96.92 Hyperkalemia E87.5 Hyponatremia E87.1 Pneumonia J18.9
[2021-05-02] MEDS: atorvastatin 40 mg Tablet 20 MG PO (17:48)
[2021-05-02] MEDS: ALPRAZolam 0.5 mg Tablet 0.25 MG PO (20:36)
[2021-05-02] MEDS: mirtazapine 15 mg Tablet PO (20:36)
[2021-05-02] MEDS: acetaminophen 325 mg Tablet 650 MG PO (20:38)
[2021-05-03] VITALS (16 sets, daily range): BP systolic 128–183; BP diastolic 66–91; PULSE 68–95; RESP 16–23; TEMP 36.7–37; O2SAT 90–100
[2021-05-03] MEDS: enoxaparin 40 mg/0.4 mL Syringe SUBCUT ×2 (00:06→21:57)
[2021-05-03] MEDS: azithromycin 500 MG in sodium chloride 0.9% 250 ML 250 MG IV ×2 (00:06→21:57)
[2021-05-03 03:38] LABS: Hematocrit 30.2 % (37.0-47.0); Hemoglobin 9.3 g/dL (11.5-15.3); Lymphocytes # 0.6 10^3/uL (0.8-4.8); Lymphocytes % 10.6 %; Mean Corpuscular HGB Conc 30.8 g/dL (30.0-36.0); Mean Corpuscular Volume 97.4 fl (81-99); Monocytes # 0.2 10^3/uL (0.2-0.9); Neutrophils # 4.56 10^3/uL (1.8-7.7); Neutrophils % 86.2 %; Nucleated Red Blood Cells % 0 %; Platelet Count 379 10^3/cmm (130-400); White Blood Count 5.3 10^3/uL (4.0-10.0)
[2021-05-03 04:03] LABS: Anion Gap 16.9 (5-19); Blood Urea Nitrogen 19 mg/dL (8-23); Calcium 10.3 mg/dL (8.5-10.5); Carbon Dioxide 35 mmol/L (22-29); Chloride 94 mmol/L (98-107); Glucose 133 mg/dL (65-115); Osmolality Calculated 298 mOsm/kg (285-295); Potassium 3.9 mmol/L (3.5-5.1); Sodium 142 mmol/L (136-145)
[2021-05-03] MEDS: amlodipine 5 mg Tablet PO (04:06)
[2021-05-03] MEDS: ipratropium-albuterol 3 mL Neb INHALATION ×3 (08:28→21:57)
[2021-05-03] MEDS: budesonide 0.5 mg/2 mL Neb INHALATION ×2 (08:28→21:57)
[2021-05-03] MEDS: cefTRIAXone 1,000 MG in sodium chloride 0.9% (plus) 50 ML 100 MG IV (09:12)
[2021-05-03] MEDS: pantoprazole DR 40 mg Tablet PO (09:19)
[2021-05-03] MEDS: atenolol 50 mg Tablet PO ×2 (09:19→18:15)
[2021-05-03] MEDS: lisinopril 20 mg Tablet 40 MG PO (09:19)
--- NOTE | 2021-05-03 12:17 | P.DS_ITS ---
Discharge Providers Date of Admission: 05/01/21 02:56 Date of Discharge: May 03, 2021 Attending Provider at Admission: Carlos Ashley MD Attending Provider at Discharge: Devan Choi MD Primary Care Provider: Sugey Sosa DO Diagnoses at Discharge Discharge Diagnosis (1) Acute exacerbation of chronic obstructive airways disease: Status: Acute (2) Hypertension: Status: Acute Qualifiers: Hypertension type: essential hypertension Qualified Code(s): I10 - Essential (primary) hypertension (3) Cancer of right lung: Status: Acute (4) Acute encephalopathy: Status: Acute (5) Respiratory failure with hypoxia and hypercapnia: Status: Acute (6) Hyperkalemia: Status: Acute (7) Hyponatremia: Status: Acute (8) Pneumonia: Status: Acute Reason for Visit Reason for Visit: AMS, DYSPNEA Hospital Course Hospital Course This is a 76-year-old female with a past medical history of COPD on 4 L, on home trilogy, hypertension, history of lung carcinoma right upper lung, status post radiation therapy February 2021, who was brought to [facility] due to somnolence according to patient's family, she is not frequently using her BiPAP, complaining of back pain Patient was admitted to [facility] for acute on chronic hypercapnic respiratory failure secondary to noncompliance with home avaps, was placed on BiPAP, treated for possible right upper lobe pneumonia seen on CT scan but likely radiation related changes, clinically improved, to 3 L. Discharged home on Levaquin, prednisone taper, with 3 L, and compliance with home AVAPS Patient was found to have T11 vertebral body compression fracture with a possible underlying sclerotic bony lesion concerning for metastatic disease, negative for retropulsion of bony fragments or spinal canal narrowing. Likely explaining her back pain, will be discharged with a TL CO brace, follow-up with Dr. Cade as outpatient for consideration of kyphoplasty continue home morphine for pain. He was also found to have a right humeral head sclerotic bony lesion concerning for possible metastatic disease, she has no complaints in the right shoulder, follow-up with Dr. Tam as outpatient follow-up with Dr. Shabazz as outpatient I have gone over these findings with patient she voiced understanding, all questions answered Physical Exam Const: COMMON NORMALS: no acute distress and patient oriented x3 Resp: COMMON NORMALS: normal respiratory effort, No retractions, No use of accessory muscles and clear to auscultation bilaterally AUSCULTATION: clear to auscultation bilaterally Cardio: COMMON NORMALS: regular rate, regular rhythm, S1 normal heart sound present and S2 normal heart sound present RATE: regular rate RHYTHM: regular rhythm HEART SOUNDS: S1 normal heart sound present and S2 normal heart sound present GI: COMMON NORMALS: Normal to inspection, nondistended, normoactive bowel sounds present, Soft to palpation, non-tender and No hepatosplenomegaly present PALPATION: Yes Soft to palpation and Yes No hepatosplenomegaly present Extremity: COMMON NORMALS: no pedal edema Neuro: COMMON NORMALS: patient oriented x3 Psych: COMMON NORMALS: mental status grossly normal Urinary Catheter Management: Allen Latex: Cath Placed During This Visit: yes Reason for Continuing Indwelling Catheter: Accurate Measurement of Urinary Output in Critically Ill Patients Urinary Catheter Date of Insertion: 05/01/21 Urinary Catheter Time of Insertion: 23:19 Discharge Data Studies Completed and Pending Completed Studies During Hospitalization Category Date Time Status CT angio chest PE protcl [id number] Routine Cat Scan 05/01/21 17:16 Completed XR chest 1V portable [id number] Urgent Exams 04/30/21 19:00 Completed Pending at discharge Category Date Time Status ABG ONLY [Arterial Blood Gas W/O Coox] Stat Lab 04/30/21 22:03 Ordered Blood Culture Stat Lab 05/01/21 08:44 Results Sputum Culture and Gram Stain Stat Lab 05/01/21 08:30 Uncollected Radiology Impressions Chest X-Ray 04/30/21 19:00 IMPRESSION: Sequela of COPD. No acute findings. Chest CTA 05/01/21 17:16 IMPRESSION: 1. Patchy largely right lung field airspace opacities suggestive of bronchopneumonia, metastatic disease is also consideration.. 2. T11 vertebral body compression fracture with a possible underlying sclerotic bony lesion concerning for metastatic disease, negative for retropulsion of bony fragments or spinal canal narrowing. 3. Emphysematous changes. 4. Right humeral head sclerotic bony lesion partially visualized may reflect metastatic disease. Laboratory Results WBC 5.3 10^3/uL (4.0-10.0) 05/03/21 02:52 Corrected WBC Cancelled 05/01/21 04:35 RBC 3.10 10^6/uL (4.1-5.3) L 05/03/21 02:52 Hgb 9.3 g/dL (11.5-15.3) L 05/03/21 02:52 Hct 30.2 % (37.0-47.0) L 05/03/21 02:52 MCV 97.4 fl (81-99) 05/03/21 02:52 MCH 30.0 pg (28.0-34.0) 05/03/21 02:52 MCHC 30.8 g/dL (30.0-36.0) 05/03/21 02:52 RDW 13.0 % (12.1-15.1) 05/03/21 02:52 Plt Count 379 10^3/cmm (130-400) 05/03/21 02:52 MPV 10.0 fL (7.4-10.4) 05/03/21 02:52 Gran % Cancelled 05/01/21 04:35 Neut % (Auto) 86.2 % 05/03/21 02:52 Lymph % (Auto) 10.6 % 05/03/21 02:52 [place] % (Auto) 3.0 % 05/03/21 02:52 Eos % (Auto) 0.0 % 05/03/21 02:52 Baso % (Auto) 0.0 % 05/03/21 02:52 Neut # (Auto) 4.56 10^3/uL (1.8-7.7) 05/03/21 02:52 Lymph # (Auto) 0.6 10^3/uL (0.8-4.8) L 05/03/21 02:52 [place] # (Auto) 0.2 10^3/uL (0.2-0.9) 05/03/21 02:52 Eos # (Auto) 0.0 10^3/uL (0.0-0.8) 05/03/21 02:52 Baso # (Auto) 0.0 10^3/uL (0.0-0.1) 05/03/21 02:52 Absolute Gran (auto) Cancelled 05/01/21 04:35 Nucleated RBC % (auto) 0 % 05/03/21 02:52 Nucleated RBCs # 0.0 /100WBC 05/03/21 02:52 PT 12.70 SECONDS (12.1-14.9) 04/30/21 19:10 INR 0.92 (0.8-1.2) 04/30/21 19:10 D-Dimer 2.07 ug/mIFEU (0-0.59) H 05/01/21 08:44 Specimen Type Arterial 05/02/21 03:50 Sample Site Radial, left 05/02/21 03:50 ABG pH 7.38 (7.35-7.45) 05/02/21 03:50 ABG pCO2 66.3 mmHg (35-45) H* 05/02/21 03:50 ABG pO2 69.3 mmHg (80.0-100.0) L 05/02/21 03:50 ABG HCO3 39.3 mmol/L (22-26) H 05/02/21 03:50 ABG O2 Saturation 93.7 05/02/21 03:50 ABG Base Excess 12.1 mmol/L (-2.0-2.0) H 05/02/21 03:50 Leonel Test Pos 05/02/21 03:50 A-a O2 Gradient 14.2 mmHg (5-10) H 05/02/21 03:50 Hematocrit 31.2 % (37-47) L 05/02/21 03:50 Hgb O2 Saturation 92.1 % (95-100) L 05/02/21 03:50 Carboxyhemoglobin 0.9 %THgb (0.4-20.1) 05/02/21 03:50 Methemoglobin 0.8 % (0.4-1.5) 05/02/21 03:50 Total Hemoglobin 10.2 g/dL (12-16) L 05/02/21 03:50 Sodium 141.0 mmol/L (131-143) 05/02/21 03:50 Potassium 3.7 mmol/L (3.5-5.0) 05/02/21 03:50 Glucose 146.0 mg/dL (70-115) H 05/02/21 03:50 Ionized Calcium 1.3 mmol/L (1.1-1.4) 05/02/21 03:50 O2 Delivery Device Nc 05/02/21 03:50 O2 Liters/Min 4.0 % 05/02/21 03:50 FiO2 36.0 % 05/02/21 03:50 Tidal Volume 0.40 05/01/21 04:08 PEEP 8.0 cmH20 05/01/21 04:08 CPAP 8.0 cmH20 04/30/21 19:00 Musical Instrument Supervisor ID Kaci 05/02/21 03:50 Sodium 142 mmol/L (136-145) 05/03/21 02:52 Potassium 3.9 mmol/L (3.5-5.1) 05/03/21 02:52 Chloride 94 mmol/L (98-107) L 05/03/21 02:52 Carbon Dioxide 35 mmol/L (22-29) H 05/03/21 02:52 Anion Gap 16.9 (5-19) 05/03/21 02:52 BUN 19 mg/dL (8-23) 05/03/21 02:52 Creatinine 0.3 mg/dL (0.5-0.9) L 05/03/21 02:52 GFR Calculation Not Reportable 05/03/21 02:52 Glucose 133 mg/dL (65-115) H 05/03/21 02:52 POC Glucose 137 mg/dL (70-110) H 05/02/21 06:30 Calculated Osmolality 298 mOsm/kg (285-295) H 05/03/21 02:52 Lactic Acid 0.6 mmol/L (0.5-2.2) 04/30/21 19:10 Calcium 10.3 mg/dL (8.5-10.5) 05/03/21 02:52 Total Bilirubin 0.3 mg/dL (0.15-1.2) 04/30/21 19:10 AST 28 U/L (0-32) 04/30/21 19:10 ALT 16 U/L (0-33) 04/30/21 19:10 Alkaline Phosphatase 140 IU/L (35-105) H 04/30/21 19:10 Troponin T Baseline 22 ng/L (0-10) H 05/01/21 08:44 Troponin T 120 Minute 21.29 ng/L (0-10) H 05/01/21 10:43 Delta Troponin T -0.71 ABS# (0-10) L 05/01/21 10:43 Troponin T Hi Sens 6Hr 23.70 ng/L (0-10) H 05/01/21 14:52 Troponin T Hi Sens 6Hr Delta 1.70 ng/L (0-12) 05/01/21 14:52 NT-Pro-B Natriuret Pep 1284 pg/mL (0-450) H 04/30/21 19:10 Total Protein 8.1 g/dL (6.6-8.7) 04/30/21 19:10 Albumin 3.6 g/dL (3.5-5.2) 04/30/21 19:10 Globulin 4.5 g/dL (1.3-4.6) 04/30/21 19:10 Coronavirus 229E (PCR) Not detected (NOT DETECT) 04/30/21 19:20 SARS-CoV-2 (PCR) Not detected (NOT DETECT) 04/30/21 19:20 Vitals Last Vital Signs Temp 98.0 F 05/03/21 04:00 Pulse 95 05/03/21 08:35 Resp 18 05/03/21 08:30 BP 163/79 05/03/21 04:00 Pulse Ox 98 05/03/21 08:30 Discharge Plan Discharge Patient Disposition: Home Condition: Stable Prescriptions: New levofloxacin 750 mg tablet 750 mg PO DAILY 5 Days Qty: 5 0RF prednisone 10 mg tablet See Rx Instructions .ROUTE .COMPLEX Qty: 53 0RF Rx Instructions: 4 tabs a day for 5 days, 3 tabs for 5, 2 tabs for 5, 1 tab for 5, 1/2 tab a day for 5 days Continued albuterol sulfate 2.5 mg /3 mL (0.083 %) solution for nebulization 2.5 mg inhalation Q4H PRN (Reason: Shortness Of Breath) 0RF vitamin B complex [B Complex-Vitamin B12] Tablet 1 tab PO DAILY 0RF Breztri Aerosphere 160-9-4.8 mcg/actuation HFA aerosol inhaler 2 inh inhalation BID Qty: 10.7 3RF morphine concentrate 100 mg/5 mL (20 mg/mL) solution See Rx Instructions .ROUTE .COMPLEX 0RF Rx Instructions: 0.25 ml to 0.5 ml po every 2 hours prn pain *max of 120mg per day* cyanocobalamin (vitamin B-12) [Vitamin B-12] 1,000 mcg Tablet 1,000 mcg PO DAILY 0RF alprazolam 0.25 mg tablet 0.25 mg PO BID PRN (Reason: Anxiety) 0RF mirtazapine 15 mg tablet 15 mg PO BEDTIME PRN (Reason: Sleep) 0RF ondansetron 4 mg tablet,disintegrating 4 mg PO TID PRN (Reason: Nausea And Vomiting) 0RF pantoprazole [Protonix] 40 mg tablet,delayed release (DR/EC) 40 mg PO DAILY 0RF Lasix 20 mg Tablet 20 mg PO EVERY OTHER DAY 0RF cetirizine [Zyrtec] 10 mg Tablet 10 mg PO QAM 0RF simvastatin 10 mg tablet 10 mg PO QPM 0RF amlodipine 5 mg tablet 5 mg PO QAM 0RF albuterol sulfate [Ventolin HFA] 90 mcg/actuation HFA aerosol inhaler 2 puff INHALATION Q4H PRN (Reason: Shortness Of Breath) 0RF fluticasone propionate 50 mcg/actuation spray,suspension 2 spray INTRANASAL DAILY 0RF atenolol 50 mg tablet 50 mg PO BID 0RF cholecalciferol (vitamin D3) [Vitamin D3] 50 mcg (2,000 unit) Capsule 50 mcg PO QPM 0RF prednisone 10 mg tablet 10 mg PO DAILY Qty: 0 0RF Rx Instructions: Hold until prednisone taper completes Changed lisinopril 40 mg tablet 40 mg PO DAILY Qty: 0 0RF Discharge Orders: Discharge Order (Routine); Ordered 05/03/21 Ordered By: Devan Choi Referrals: Veto Tam MD [Hospitalist] - 2 weeks Sugey Sosa DO [Primary Care Provider] - Discharge Diet: Cardiac Discharge Activity: Resume usual activity Patient Instructions: Opioid Safety Activity Restrictions/Additional Instructions: -Take prednisone and antibiotics as prescribed -Hold daily prednisone until prednisone taper completed -Follow-up with primary care provider in 1 week -Follow-up with Dr. Tam in 1 to 2 weeks Discharge Attestations Time Spent in Discharge Care*: less than 30 min Status at Discharge: Cognitive status at discharge: cognitively intact , Behavioral status at discharge: cooperative , Quality Metrics Clinical Quality Measures [ No reported AMI, CVA or VTE this stay] Coding Level of Care Code Acute Chg FW DC note Diagnoses Acute exacerbation of chronic obstructive airways disease J44.1 Hypertension I10 Hypertension type: essential hypertension Cancer of right lung C34.91 Acute encephalopathy G93.40 Respiratory failure with hypoxia and hypercapnia J96.91; J96.92 Hyperkalemia E87.5 Hyponatremia E87.1 Pneumonia J18.9
[2021-05-03] MEDS: acetaminophen 325 mg Tablet 650 MG PO ×2 (14:58→21:23)
[2021-05-03] MEDS: atorvastatin 40 mg Tablet 20 MG PO (18:14)
[2021-05-03] MEDS: mirtazapine 15 mg Tablet PO (21:22)
[2021-05-03] MEDS: ALPRAZolam 0.5 mg Tablet 0.25 MG PO (21:23)
[2021-05-04] VITALS (9 sets, daily range): BP systolic 145–171; BP diastolic 70–83; PULSE 68–86; RESP 16–20; TEMP 36.6; O2SAT 92–99
[2021-05-04] MEDS: ipratropium-albuterol 3 mL Neb INHALATION ×2 (03:40→08:41)
[2021-05-04] MEDS: lisinopril 20 mg Tablet 40 MG PO (08:06)
[2021-05-04] MEDS: atenolol 50 mg Tablet PO (08:06)
[2021-05-04] MEDS: amlodipine 5 mg Tablet PO (08:07)
[2021-05-04] MEDS: pantoprazole DR 40 mg Tablet PO (08:07)
[2021-05-04] MEDS: FUROsemide 20 mg Tablet PO (08:07)
[2021-05-04] MEDS: cefTRIAXone 1,000 MG in sodium chloride 0.9% (plus) 50 ML 100 MG IV (08:07)
[2021-05-04] MEDS: budesonide 0.5 mg/2 mL Neb INHALATION (08:41)
--- NOTE | 2021-05-04 10:07 | PC.SOCIAL ---
Pg 2 IMM Explained to pt Pg 2 IMM. No questions voiced. Provided pt a copy. Initialed, dated, & timed a copy & placed in chart.
--- NOTE | 2021-05-04 11:10 | PC.NURSE ---
Discharge Note Patient discharged to Home via private vehicle accompanied by daughter. Discharge instructions reviewed with patient and/or patient service representative. Mobile pharmacy medications and/or prescriptions provided. Belongings/home medications returned.
== END 2021-05-04 11:19 | disposition home or self-care (01) | DRG 189 ==
LOC: ER 05-01 00:18 → ER IP 05-01 03:11 → CSU 05-01 12:13
PROVIDERS: Admitting Provider Internal Medicine; Emergency Provider Emergency Medicine; PCP Family Medicine; Visit Provider Family Medicine
DX: J96.22 Acute and chronic respiratory failure with hypercapnia (principal); J18.9 Pneumonia, unspecified organism; J44.1 Chronic obstructive pulmonary disease with (acute) exacerbation; S22.088A Other fracture of T11-T12 vertebra, initial encounter for closed fracture; G93.40 Encephalopathy, unspecified; E87.1 Hypo-osmolality and hyponatremia; C34.91 Malignant neoplasm of unspecified part of right bronchus or lung; E87.5 Hyperkalemia; J96.21 Acute and chronic respiratory failure with hypoxia; Z99.81 Dependence on supplemental oxygen; Z92.3 Personal history of irradiation; M89.9 Disorder of bone, unspecified; X58.XXXA Exposure to other specified factors, initial encounter; I10 Essential (primary) hypertension; F17.210 Nicotine dependence, cigarettes, uncomplicated; Z66 Do not resuscitate; Z91.19 Patient's noncompliance with other medical treatment and regimen; Z79.52 Long term (current) use of systemic steroids; D64.9 Anemia, unspecified
CPT/HCPCS: 36415; 36416; 36600; 51702; 71045; 71275; 80048; 80051; 80053; 82330; 82803; 82805; 82962; 83605; 83880; 84484; 85025; 85378; 85610; 86403; 87040; 87635; 93005; 94640; 94660; 96365; 96367; 96372; 96375; 97162; 97760; 99291; J0456; J0696; J1650; J1940; J2930; J7030; J7050; J7626; L0456; Q9967

== ENCOUNTER → 2021-05-09 13:17 | Outpatient (BNVA) | payer MEDICARE, MEDICAID, SELFPAY | PROVIDERS: PCP Family Medicine; Referring Provider Family Medicine; Visit Provider Orthopaedic Surgery | DX: M54.6 Pain in thoracic spine (principal); S22.000A Wedge compression fracture of unspecified thoracic vertebra, initial encounter for closed fracture; X58.XXXA Exposure to other specified factors, initial encounter | CPT/HCPCS: 72070 ==

== ENCOUNTER 2021-05-10 09:43 | Outpatient (RCR) | payer MEDICARE, MEDICAID, SELFPAY ==
--- NOTE | 2021-05-10 10:25 | ONCRAD EPV_ITS ---
Radiation Oncology Follow-Up Note Patient Name: Mónica Rodas Date of : 1945 Date of Service: 05/10/2021 Attending Physician: Warren Shabazz M.D. Mónica Rodas returned to my office this morning for a follow-up appointment. 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 A low-dose CT lung cancer screening was ordered on November 08, 2020. Imaging identified a 1.4 cm x 1.7 cm right hilar mass and multiple bilateral pulmonary nodules. A PET CT obtained on November 17, 2020 demonstrated a hypermetabolic right upper lobe nodule (SUV 7.2) without FDG activity in remaining pulmonary nodules. A bronchoscopy with endobronchial ultrasound guided transbronchial needle aspiration was performed on December 11, 2020. Biopsies did not diagnose a malignancy. CT-guided biopsy was not recommended on account of the patient's pulmonary function. SABR was delivered between the dates of March 04, 2021 through March 18, 2021. A prescribed dose of 50 Gy was delivered in five fractions encompassing 15 elapsed days. She was admitted to the [facility] on April 30, 2021 for management of an acute COPD exacerbation. A CT angiogram ordered on account of an elevated D-dimer did not identify a pulmonary embolism, however, sclerotic lesions were described in the T11 vertebral body and right humeral head concerning for metastatic disease. A compression fracture was also noted within the T11 vertebral body. The patient was evaluated for management of the recent imaging findings. On review of systems, she denied new pulmonary complaints. She has chronic right shoulder pain which was associated with a previous injury. In summary, Ms. Rodas returned for evaluation of a recent CTA that demonstrated potential skeletal metastatic disease. Considering the patient???s traumatic history and early stage lung cancer, I will defer a metastatic work-up. She has been scheduled for surveillance CT imaging next month. Signed by: Dr. Warern Shabazz 05/10/2021 10:22:43 AM
== END 2021-05-27 23:59 | disposition home or self-care (01) ==
LOC: ONCMED 09:43
PROVIDERS: PCP Family Medicine; Visit Provider Radiology Radiation Oncology
DX: Z08 Encounter for follow-up examination after completed treatment for malignant neoplasm (principal); Z85.118 Personal history of other malignant neoplasm of bronchus and lung; R91.1 Solitary pulmonary nodule; J44.1 Chronic obstructive pulmonary disease with (acute) exacerbation; M25.511 Pain in right shoulder; Z92.3 Personal history of irradiation
CPT/HCPCS: 99024

== ENCOUNTER 2021-05-22 14:41 | Inpatient (IN) | payer MEDICARE, MEDICAID, SELFPAY ==
[2021-05-22] VITALS (12 sets, daily range): BP systolic 104–143; BP diastolic 65–75; PULSE 71–84; RESP 18–32; TEMP 36.5–36.7; O2SAT 74–99; BMI 20.4
--- NOTE | 2021-05-22 14:54 | XR_ITS ---
WS: [id number] Exam: XR chest 1V portable [id number] Date/Time of Exam: 05/22/2021 3:05 PM Reason For Exam: dyspnea Comparison 04/30/2021. Right perihilar infiltrate noted suspicious for pneumonia. Superimposed chronic interstitial changes in both lungs. The heart is not enlarged. The mediastinum does not appear to be widened. There is ang ular dextroscoliosis of the T-spine. No pneumothorax. Probable small left pleural effusion. Scattered calcified granulomas in the bilateral lungs and mediastinum. Bony structures are intact. There may b e at least one old rib fracture on the left. XR/XR chest 1V portable [id number] IMPRESSION: 1. Right perihilar infiltrate suspicious for pneumonia. 2. Probable small left pleural effusion. 3. Superimposed chronic pulmonary parenchymal changes and healed granulomatous disease.
--- NOTE | 2021-05-22 14:55 | ECG_ITS ---
[facility] Test Date: 2021-05-22 Pat Name: Mónica Rodas Department: Room: Gender: Female Linotyper: : 1945 Requested By: Porfirio Bell Order Number: [id number] Ruma MD: Shellie Yates M.D. Measurements Intervals [place] Rate: 65 P: 64 IA: 125 QRS: 49 QRSD: 88 T: 70 QT: 420 QTc: 437 Interpretive Statements SINUS RHYTHM EARLY REPOLARIZATION [ST ELEVATION WITH NORMALLY INFLECTED T-WAVE] TALL T-WAVES, SUGGESTS HYPERKALEMIA Compared to ECG 05/22/2021 15:06:54 No significant changes Electronically Signed On 05-22-2021 20:06:00 VORTEX OPERATOR by Shellie Yates M.D. [id number]
[2021-05-22 15:05] LABS: Basophils % 0.1 %; Hematocrit 30.2 % (37.0-47.0); Hemoglobin 9.3 g/dL (11.5-15.3); Lymphocytes # 0.8 10^3/uL (0.8-4.8); Lymphocytes % 6.2 %; Mean Corpuscular HGB Conc 30.8 g/dL (30.0-36.0); Mean Corpuscular Hemoglobin 30.2 pg (28.0-34.0); Mean Corpuscular Volume 98.1 fl (81-99); Mean Platelet Volume 10.1 fL (7.4-10.4); Monocytes # 0.2 10^3/uL (0.2-0.9); Monocytes % 1.8 %; Neutrophils # 11.77 10^3/uL (1.8-7.7); Neutrophils % 91.7 %; Nucleated Red Blood Cells % 0 %; Platelet Count 312 10^3/cmm (130-400); Red Blood Count 3.08 10^6/uL (4.1-5.3); Red Cell Distribution Width 14.6 % (12.1-15.1); White Blood Count 12.8 10^3/uL (4.0-10.0)
--- NOTE | 2021-05-22 15:14 | ED_ITS ---
HPI - SOB/Dyspnea General: Chief Complaint: Shortness of Breath/Dyspnea Stated Complaint: SOB Time Seen by Provider: 05/22/21 14:43 Source: patient and EMS Mode of arrival: EMS History of Present Illness: HPI Narrative: Mónica Rodas is a 76 year old female who presents to the ER with chief complaint of shortness of breath. PMH is significant for lung cancer, COPD, and HTN. Patient arrived to ER via EMS on 5L of oxygen. EMS had given her albuterol, duoneb, and 125 solumedrol on route. Patient denies chest pain, abdominal pain, blood in stool, or dysuria. She states she has been coughing some. Per patient, she normally uses 4-5L at home. MD elicited complaint: shortness of breath Pertinent past history: COPD Known history of: COPD Associated symptoms: Reports cough; Deny abdominal pain, chest pain, diaphoresis, dizziness, extremity pain, fever(s), hemoptysis, myalgias, nausea, palpitations, paresthesias, polyuria, rash, sense of impending doom or vomiting Treatment prior to arrival: oxygen and bronchodilator Related Data: Home oxygen amount: 4 liters Review of Systems Const: Denies: fever(s) or diaphoresis Eyes: Denies: change in vision ENMT: Denies: throat pain Card: Denies: chest pain or palpitations Resp: Denies: hemoptysis GI: Denies: abdominal pain, nausea or vomiting : Denies: dysuria Musc: Denies: extremity pain Neuro: Denies: dizziness Psych: Denies: anxiety Endo: Denies: polyuria Michael/Lymph: Denies: easy bruising All/Imm: Denies: urticaria PFSH ED PFSH: Medical History Anemia Arrhythmia Chronic respiratory failure with hypoxia and hypercapnia COPD (chronic obstructive pulmonary disease) Decompensated heart failure Femur fracture, right Fracture of head of humerus GERD (gastroesophageal reflux disease) Hyperkalemia Hypertension Hyponatremia Lung nodule seen on imaging study Respiratory failure with hypoxia and hypercapnia Weight loss Surgical History S/P bronchoscopy Family History Family/Other Cancer Lung Other CAD (coronary artery disease) Hypertension Social History Smoking and tobacco status: current some day smoker cigarettes Second hand smoke exposure: Yes Smoking risk assessment/counseling performed?: No Alcohol intake: never Counseling given: No Counseling given: No Caregiver/support person: Yes Lives independently: No Household members: caregiver Housing: Snf Marital status: Current occupational status: disabled History of recent travel: No Current gender identity: Female Physical Exam Const: GENERAL APPEARANCE: frail appearing ORIENTATION/CONSCIOUSNESS: Yes awake HENMT: COMMON NORMALS: normocephalic and atraumatic HEAD & SCALP: normocephalic and atraumatic Eye: COMMON NORMALS: Equal, round and reactive pupils present and EOMs intact bilaterally PUPIL: Yes Equal, round and reactive pupils present Resp: COMMON NORMALS: clear to auscultation bilaterally AUSCULTATION: clear to auscultation bilaterally, rhonchi, wheezes and diminished lung sounds Cardio: COMMON NORMALS: regular rate and regular rhythm RATE: regular rate RHYTHM: regular rhythm HEART SOUNDS: no murmurs GI: COMMON NORMALS: Normal to inspection, nondistended, normoactive bowel sounds present, Soft to palpation and No hepatosplenomegaly present PAL PATION: Yes Soft to palpation and Yes No hepatosplenomegaly present Extremity: COMMON NORMALS: no clubbing, cyanosis or edema and no calf tenderness NARRATIVE EXTREMITY EXAM: 2+ pitting edema on right LE, 3+ pitting edema on left LE Course 2 Vital Signs: Vital signs: Vital Signs Temperature 97.8 F 05/24/21 04:00 Pulse Rate 70 05/24/21 04:00 Respiratory Rate 16 05/24/21 04:00 Blood Pressure 130/64 05/24/21 04:00 Pulse Oximetry 97 05/24/21 04:00 MDM - SOB/Dyspnea Medical Decision Making Respiratory failure with encephalopathy. Patient has known history of lung CA with mets. Chelle with hospitalist orders written Medical Records I reviewed the patient's medical records. Lab Data I reviewed the patient's lab results. : 05/24/21 02:04 05/24/21 02:04 Labs/Radiology: Radiology Impressions Chest X-Ray 05/22/21 14:54 IMPRESSION: 1. Right perihilar infiltrate suspicious for pneumonia. 2. Probable small left pleural effusion. 3. Superimposed chronic pulmonary parenchymal changes and healed granulomatous disease. Chest CT 05/22/21 16:18 IMPRESSION: 1. The spiculated mass in the perihilar right upper lobe has increased significantly in size measuring at least 6.4 cm and has a new cavitation in the anterior right upper lobe. This is consistent with patient's history of primary lung cancer. 2. Patchy airspace opacities in the right upper lobe surrounding the mass could represent lymphangitic spread of cancer and/or postobstructive pneumonia. 3. Consolidation and collapse of the left lower lobe most likely represents atelectasis with bronchial collapse. Superimposed pneumonia cannot be excluded. 4. Severe emphysema and old granulomatous disease Laboratory Results WBC 12.8 10^3/uL (4.0-10.0) H 05/22/21 15:00 RBC 3.08 10^6/uL (4.1-5.3) L 05/22/21 15:00 Hgb 9.3 g/dL (11.5-15.3) L 05/22/21 15:00 Hct 30.2 % (37.0-47.0) L 05/22/21 15:00 MCV 98.1 fl (81-99) 05/22/21 15:00 MCH 30.2 pg (28.0-34.0) 05/22/21 15:00 MCHC 30.8 g/dL (30.0-36.0) 05/22/21 15:00 RDW 14.6 % (12.1-15.1) 05/22/21 15:00 Plt Count 312 10^3/cmm (130-400) 05/22/21 15:00 MPV 10.1 fL (7.4-10.4) 05/22/21 15:00 Neut % (Auto) 91.7 % 05/22/21 15:00 Lymph % (Auto) 6.2 % 05/22/21 15:00 Dent % (Auto) 1.8 % 05/22/21 15:00 Eos % (Auto) 0.0 % 05/22/21 15:00 Baso % (Auto) 0.1 % 05/22/21 15:00 Neut # (Auto) 11.77 10^3/uL (1.8-7.7) H 05/22/21 15:00 Lymph # (Auto) 0.8 10^3/uL (0.8-4.8) 05/22/21 15:00 Dent # (Auto) 0.2 10^3/uL (0.2-0.9) 05/22/21 15:00 Eos # (Auto) 0.0 10^3/uL (0.0-0.8) 05/22/21 15:00 Baso # (Auto) 0.0 10^3/uL (0.0-0.1) 05/22/21 15:00 Nucleated RBC % (auto) 0 % 05/22/21 15:00 Nucleated RBCs # 0.0 /100WBC 05/22/21 15:00 Specimen Type Arterial 05/22/21: Sample Site Radial, right 05/22/21: ABG pH 7.30 (7.35-7.45) L 05/22/21: ABG pCO2 81.3 mmHg (35-45) H* 05/22/21: ABG pO2 96.5 mmHg (80.0-100.0) 05/22/21: ABG HCO3 39.9 mmol/L (22-26) H 05/22/21: ABG O2 Saturation 97.0 05/22/21: ABG Base Excess 10.1 mmol/L (-2.0-2.0) H 05/22/21: Leonel Test Pos 05/22/21: A-a O2 Gradient 8.6 mmHg (5-10) 05/22/21: Hematocrit 40.9 % (37-47) 05/22/21: Hgb O2 Saturation 95.3 % (95-100) 05/22/21: Carboxyhemoglobin 1.0 %THgb (0.4-20.1) 05/22/21: Methemoglobin 0.8 % (0.4-1.5) 05/22/21: Total Hemoglobin 13.3 g/dL (12-16) 05/22/21 15: Sodium 140.0 mmol/L (131-143) 05/22/21: Potassium 4.1 mmol/L (3.5-5.0) 05/22/21 15: Glucose 117.0 mg/dL (70-115) H 05/22/21 15:23 Ionized Calcium 1.2 mmol/L (1.1-1.4) 05/22/21 15: O2 Delivery Device Nc 05/22/21: O2 Liters/Min 4.0 % 05/22/21: FiO2 36.0 % 05/22/21: Gas Station Service Attendant ID glc 05/22/21 15: Sodium 139 mmol/L (136-145) 05/22/21 15:00 Potassium 4.7 mmol/L (3.5-5.1) 05/22/21 15:00 Chloride 94 mmol/L (98-107) L 05/22/21 15:00 Carbon Dioxide 36 mmol/L (22-29) H 05/22/21 15:00 Anion Gap 13.7 (5-19) 05/22/21 15:00 BUN 25 mg/dL (8-23) H 05/22/21 15:00 Creatinine 0.3 mg/dL (0.5-0.9) L 05/22/21 15:00 GFR Calculation Not Reportable 05/22/21 15:00 Glucose 117 mg/dL (65-115) H 05/22/21 15:00 Calculated Osmolality 293 mOsm/kg (285-295) 05/22/21 15:00 Calcium 9.1 mg/dL (8.5-10.5) 05/22/21 15:00 Iron 29 ug/dL (37-145) L 05/22/21 15:00 TIBC 199 mcg/dl 05/22/21 15:00 % Saturation 14.5 % (20-50) L 05/22/21 15:00 Unsat Iron Binding 170 ug/dL (112-347) 05/22/21 15:00 Total Bilirubin 0.2 mg/dL (0.15-1.2) 05/22/21 15:00 AST 38 U/L (0-32) H 05/22/21 15:00 ALT 91 U/L (0-33) H 05/22/21 15:00 Alkaline Phosphatase 360 IU/L (35-105) H 05/22/21 15:00 Troponin T Baseline 22 ng/L (0-10) H 05/22/21 15:00 NT-Pro-B Natriuret Pep 828 pg/mL (0-450) H 05/22/21 15:00 Total Protein 6.2 g/dL (6.6-8.7) L 05/22/21 15:00 Albumin 3.5 g/dL (3.5-5.2) 05/22/21 15:00 Globulin 2.7 g/dL (1.3-4.6) 05/22/21 15:00 Vitamin B12 > 2000 pg/mL (232-1245) H 05/22/21 15:00 Procalcitonin 0.37 ng/mL (0-0.5) 05/22/21 15:00 TSH 0.36 uIU/mL (0.27-4.20) 05/22/21 15:00 Discharge Plan Discharge Patient Disposition: Admitted As Inpatient Admit Provider: Cesar Roach Clinical Impression: Acute and chronic respiratory failure with hypercapnia, Acute exacerbation of chronic obstructive airways disease, Cancer of right lung, Compression fracture of body of thoracic vertebra, Hypertension Condition: Stable Coding Level of Care Code ED Product Development Worker for Chg Fwd Exam Detailed
[2021-05-22 15:23] LABS: Alanine Aminotransferase 91 U/L (0-33); Albumin Level 3.5 g/dL (3.5-5.2); Alkaline Phosphatase 360 IU/L (35-105); Blood Urea Nitrogen 25 mg/dL (8-23); Calcium 9.1 mg/dL (8.5-10.5); Carbon Dioxide 36 mmol/L (22-29); Chloride 94 mmol/L (98-107); Globulin 2.7 g/dL (1.3-4.6); Glucose 117 mg/dL (65-115); Osmolality Calculated 293 mOsm/kg (285-295); Sodium 139 mmol/L (136-145); Total Bilirubin 0.2 mg/dL (0.15-1.2); Total Protein 6.2 g/dL (6.6-8.7)
[2021-05-22 15:24] LABS: Anion Gap 13.7 (5-19); Aspartate Amino Transferase 38 U/L (0-32); Potassium 4.7 mmol/L (3.5-5.1)
[2021-05-22 15:31] LABS: Troponin(5th) Baseline 22 ng/L (0-10)
[2021-05-22 15:35] LABS: Alveolar-Arterial Oxygen Gradi 8.6 mmHg (5-10); Arterial Blood Gas Hematocrit 40.9 % (37-47); Base Excess ABG 10.1 mmol/L (-2.0-2.0); Blood Gas Allen Test Pos; Blood Gas Operator Identificat glc; Blood Gas Sample Site Radial, right; Blood Gas Sample Type Arterial; HCO3 ABG 39.9 mmol/L (22-26); HGB O2 Sat 95.3 % (95-100); Ionized Calcium Level - ABG 1.2 mmol/L (1.1-1.4); Methemoglobin 0.8 % (0.4-1.5); Oxygen Device NC; PO2 ABG 96.5 mmHg (80.0-100.0); Potassium Level - ABG 4.1 mmol/L (3.5-5.0); Total Hemoglobin 13.3 g/dL (12-16)
[2021-05-22 15:37] LABS: ABG PCO2 81.3 mmHg (35-45)
[2021-05-22 16:08] LABS: NT Pro B Type Natriuretic Pept 828 pg/mL (0-450)
--- NOTE | 2021-05-22 16:10 | P.HP_ITS ---
Providers/Chief Complaint Primary Care Provider: Sugey Sosa DO Chief Complaint: SOB History of Present Illness Mónica Rodas is a 76 year old female with a past medical history of COPD on 4 L, on home trilogy, home AVAPS to which she has not compliant to, hypertension, history of lung carcinoma right upper lung, status post radiation therapy February 2021,?metastatic disease to right humeral head, T11 vertebral compression fracture currently on surveillance treatment for cancer with plan for CT imaging next month who was recently in hospital and discharged on 05/03 when she was treated for acute on chronic hypercapnic respiratory failure secondary to COPD exacerbation and possible pneumonia and was discharged on steroid taper and oral Levaquin. She presents today via EMS with complaint of shortness of breath increasing for last few days. In the ER she was found to be hypercapnic so placed on BiPAP. She was given 125 of Solu-Medrol, DuoNebs and albuterol. Blood work in the ER showed a white count 12.8, hemoglobin of 9.3, chemistry showing a sodium 139, creatinine of 0.3, chloride of 94, AST/ALT 38/91, proBNP of 828, ABG showing a pH of 7.3, PCO2 of 81, PO2 of 96 on 4 L nasal cannula after which she was placed on BiPAP. Review of Systems General: Reports: ROS unobtainable due to mental status Medications/Allergies Home Medications Medication Instructions Recorded Confirmed Last Taken Type albuterol sulfate 90 mcg/actuation 2 puff INHALATION Q4H PRN 08/05/20 05/09/21 12/11/20 History aerosol inhaler (Ventolin HFA) amlodipine 5 mg tablet 5 mg PO QAM 08/05/20 05/09/21 02/13/21 06:30 History atenolol 50 mg tablet 50 mg PO BID 08/05/20 05/09/21 02/13/21 06:30 History cetirizine 10 mg tablet (Zyrtec) 10 mg PO QAM 08/05/20 05/09/21 12/10/20 History cholecalciferol (vitamin D3) 50 50 mcg PO QPM 08/05/20 05/09/21 08/04/20 History mcg (2,000 unit) capsule (Vitamin D3) fluticasone propionate 50 2 spray INTRANASAL DAILY 08/05/20 05/09/21 12/10/20 History mcg/actuation nasal spray,suspension simvastatin 10 mg tablet 10 mg PO QPM 08/05/20 05/09/21 02/11/21 History albuterol sulfate 2.5 mg INHALATION Q4H PRN 08/20/20 05/09/21 12/10/20 History budesonide 160 mcg-glycopyr 9 2 inh INHALATION BID #10.7 g 01/18/21 05/09/21 Unknown Rx mcg-formot 4.8 mcg/actuation HFA inhaler (Breztri Aerosphere) vitamin B complex (B 1 tab PO DAILY 01/21/21 05/09/21 Unknown History Complex-Vitamin B12) alprazolam 0.25 mg tablet 0.25 mg PO BID PRN 02/13/21 05/09/21 Unknown History cyanocobalamin (vitamin B-12) 1,000 mcg PO DAILY 02/13/21 05/09/21 Unknown History 1,000 mcg tablet (Vitamin B-12) mirtazapine 15 mg tablet 15 mg PO BEDTIME PRN 02/13/21 05/09/21 Unknown History morphine concentrate 100 mg/5 mL See Rx Instructions .ROUTE .COMPLEX 02/13/21 05/09/21 Unknown History (20 mg/mL) oral solution ondansetron 4 mg disintegrating 4 mg PO TID PRN 02/13/21 05/09/21 Unknown History tablet pantoprazole 40 mg tablet,delayed 40 mg PO DAILY 02/13/21 05/09/21 Unknown History release (Protonix) furosemide 20 mg tablet (Lasix) 20 mg PO EVERY OTHER DAY 05/01/21 05/09/21 U nknown History lisinopril 40 mg tablet 40 mg PO DAILY #0 tab 05/03/21 05/09/21 02/13/21 06:30 Rx prednisone 10 mg tablet 10 mg PO DAILY #0 tab 05/03/21 05/09/21 02/12/21 Rx prednisone 10 mg tablet See Rx Instructions .ROUTE 05/03/21 05/09/21 Unknown Rx .COMPLEX #53 tab Allergies Allergy/AdvReac Type Severity Reaction Status Date / Time hydrochlorothiazide Allergy Unknown Diarrhea Verified 05/09/21 13:16 tramadol Allergy Unknown nausea and Verified 05/09/21 13:16 vomiting aspirin Allergy ADR-Gastrointestinal Verified 05/09/21 13:16 Upset Penicillins Allergy ADR-Gastrointestinal Verified 05/09/21 13:16 Upset tetracycline Allergy ADR-Gastrointestinal Verified 05/09/21 13:16 Upset oxycodone-acetominophen Allergy Unknown nausea and Uncoded 05/09/21 13:16 vomiting PFSH Acute PFSH: Medical History (Updated 05/22/21 @ 16:22 by Cesar Roach MD) Anemia Arrhythmia Chronic respiratory failure with hypoxia and hypercapnia COPD (chronic obstructive pulmonary disease) Decompensated heart failure Femur fracture, right Fracture of head of humerus GERD (gastroesophageal reflux disease) Hyperkalemia Hypertension Hyponatremia Lung nodule seen on imaging study Respiratory failure with hypoxia and hypercapnia Weight loss Surgical History S/P bronchoscopy Family History Family/Other Cancer Lung Other CAD (coronary artery disease) Hypertension Social History Smoking and tobacco status: current some day smoker cigarettes Second hand smoke exposure: Yes Smoking risk assessment/counseling performed?: No Alcohol intake: never Counseling given: No Counseling given: No Caregiver/support person: Yes Lives independently: No Household members: caregiver Housing: Halfway Marital status: Current occupational status: disabled History of recent travel: No Current gender identity: Female Vitals/I&O/Wt Last Vital Signs Temp 98.0 F 05/22/21 14:44 Pulse 77 05/22/21 15:45 Resp 19 H 05/22/21 15:27 BP 133/71 05/22/21 15:27 Pulse Ox 93 05/22/21 15:45 Physical Exam Narrative: General: No acute distress, on BiPAP, arousable to physical acute moving limbs not following commands currently, cachectic HEENT: PERRLA, pupils bilaterally equal and reactive Chest: Normal vesicular breath sounds, no added sounds, equal good air entry bilaterally CVS: S1-S2 regular, no murmurs, no tachycardia, no gallops, no rubs Abdomen: Soft, nontender, no organomegaly, bowel sounds present Neuro: Moving limbs by herself, no focal deficit seen though could not do complete examination because of mental status and on BiPAP. Data : 05/22/21 15:00 05/22/21 15:00 A&P Assessment and plan (1) Acute and chronic respiratory failure with hypercapnia: Status: Acute (2) Cancer of right lung: Status: Acute (3) Acute exacerbation of chronic obstructive airways disease: Status: Acute (4) Hypertension: Status: Acute Qualifiers: Hypertension type: essential hypertension Qualified Code(s): I10 - Essential (primary) hypertension (5) Compression fracture of body of thoracic vertebra: Status: Acute Plan 76-year-old with past medical history of COPD, lung cancer, recent admissions for pneumonia, noncompliant with AVAPS presents with shortness of breath found to be in hypercapnia. Acute on chronic hypercapnic respiratory failure: Most likely secondary to COPD exacerbation. Pneumonia unlikely. But given history of recent hospitalization 2 weeks ago with history of lung cancer post radiation therapy cannot rule out. DuoNebs every 6 hours on budesonide twice daily. Solu-Medrol 40 every 8 hourly. Oxygen supplementation keeping saturation over 88%. BiPAP ventilation. Repeat ABG in 1 hour. Once able we will switch over to nasal cannula. Check procalcitonin, MRSA swab, sputum culture, blood culture, urine Legionella, bacterial antigen. Check Covid swab. Aspiration precaution. Negative. For now start patient on vancomycin, imipenem, Levaquin. Will de-escalate antibiotics as per culture results. CT chest without contrast will be appropriate for patient. Patient did have D-dimer positive of admission but CTA was negative. Check lower limb Dopplers. proBNP mildly elevated. Last echocardiogram from July 2020 shows normal EF with moderate pulmonary hypertension. Repeat echocardiogram. IV Lasix 40 mg daily for now. Hypertension: Goal blood pressure less than 140/90 mmHg. Continue with home dose of atenolol. Hold off on lisinopril for now. Check iron panel, A1c, lipid panel, vitamin B12, folate level. Continue other chronic medications. CODE STATUS: DNR/DNI. N.p.o. for now. Protonix for PUD prophylaxis. Lovenox for DVT prophylaxis. Attestations Medical Necessity Statement*: Admission for more than 2 midnights for management of acute on chronic hypercapnic respiratory failure secondary to COPD exacerbation in a patient with lung cancer post radiation therapy with recent admission for pneumonia Time Spent in Patient Care: Greater than 35 minutes Coding Level of Care Code Acute Direct Support Professional Caregiver for Chg Fwd Diagnoses Acute and chronic respiratory failure with hypercapnia J96.22 Cancer of right lung C34.91 Acute exacerbation of chronic obstructive airways disease J44.1 Hypertension I10 Hypertension type: essential hypertension Compression fracture of body of thoracic vertebra S22.000A
--- NOTE | 2021-05-22 16:18 | CTR_ITS ---
PROCEDURE INFORMATION: Exam: CT Chest Without Contrast; Diagnostic Exam date and time: 05/22/2021 4:18 PM Age: 76 years old Clinical indication: Shortness of breath; Additional info: Lung cancer, pneumonia, congestive heart failure TECHNIQUE: Imaging protocol: Diagnostic computed tomography of the chest without contrast. Radiation optimization: All CT scans at this facility use at least one of these dose optimization techniques: automated exposure control; mA and/or kV adjustment per patient size (includes targeted exams where dose is matched to clinical indication); or iterative reconstruction. COMPARISON: CT chest abdomen w con* 02/11/2021 12:16 PM RADIATION DOSE METRICS: Total DLP (mGy-cm): 352.21 FINDINGS: Lungs: Numerous calcified granulomas in both lungs. Severe centrilobular emphysema. Consolidation and volume loss in the left lower lobe with narrowing or obstruction of some bronchograms. The spiculated nodule in the anterior perihilar right upper lobe has increased significantly in size measuring up to 6.4 cm. This mass extends to a 4.2 cm cavitation in the anterior right upper lobe with an irregular wall. Patchy airspace opacities surround the right upper lobe mass. Pleural spaces: Small left and trace right pleural effusions. Heart: Coronary artery calcifications. The heart size is normal. Aorta: 4.1 cm aneurysmal dilatation of the ascending thoracic aorta. Lymph nodes: Large calcified mediastinal and hilar lymph nodes. Spleen: Calcified granulomas in the spleen. Bones/joints: Severe kyphosis. Multiple chronic upper, mid, and lower thoracic compression fractures. No new fracture identified. Soft tissues: Unremarkable. CT/CT chest con [id number] IMPRESSION: 1. The spiculated mass in the perihilar right upper lobe has increased significantly in size measuring at least 6.4 cm and has a new cavitation in the anterior right upper lobe. This is consistent with patient's history of primary lung cancer. 2. Patchy airspace opacities in the right upper lobe surrounding the mass could represent lymphangitic spread of cancer and/or postobstructive pneumonia. 3. Consolidation and collapse of the left lower lobe most likely represents atelectasis with bronchial collapse. Superimposed pneumonia cannot be excluded. 4. Severe emphysema and old granulomatous disease
[2021-05-22] MEDS: vancomycin 1,000 MG in sodium chloride 0.9% 250 ML 250 MG IV (16:29)
[2021-05-22] MEDS: levofloxacin-dextrose 5 % 500 MG/100 ML PREMIX 100 MG IV (16:29)
--- NOTE | 2021-05-22 16:29 | USCV_ITS ---
Mónica Rodas Age: 76 Gender: F : 1945 Exam Date: 05/22/2021 19:47 Ordering Phys: Cesar Roach MD Technologist: DOMINGA Exam Location: [facility] [place] Indication: PULM HTN, POST RADIATION POSS CHF BP: 125 / 75 HR: 73 Rhythm: Sinus Technical Quality: Adequate MEASUREMENTS (Male / Female) Normal Values 2D ECHO LVOT Diameter 2.0 cm LV Ejection Fraction MOD 2C 70.7 % LV Ejection Fraction 2C AL 70.8 % LA Diameter 3.2 cm LA Width 3.6 cm LA Height 3.7 cm RA Width 2.9 cm RA Height 3.5 cm Aorta at Sinotubular Diameter 2.3 cm DOPPLER AV Peak Velocity 255.7 cm/s LVOT Peak Velocity 217.0 cm/s AV Area Cont Eq vti 2.8 cm squared AV Area Cont Eq pk 2.7 cm squared MV Peak Velocity 147.0 cm/s MV Area PHT 4.3 cm squared Mitral E to A Ratio 0.6 MV E' Velocity 52.5 cm/s Mitral E to MV E' Ratio 15.2 Mitral E to LV E' Lateral Ratio 12.4 Mitral E to LV E' Septal Ratio 19.8 TR Peak Velocity 158.1 cm/s TR Peak Gradient 10.0 mmHg TR Mean Velocity 156.4 cm/s TR Mean Gradient 11.0 mmHg TR Velocity Time Integral 47.6 cm Right Atrial Pressure 3.0 mmHg Pulmonary Artery Systolic Pressu 13.0 mmHg PV Peak Velocity 103.0 cm/s RV Acceleration Time 0.1 s RV Ejection Time 0.3 s RV AcT/ET 0.2 FINDINGS Left Ventricle Normal left ventricular size and systolic function, EF 71 %. No regional wall motion abnormalities.Grade I/IV diastolic dysfunction (abnormal relaxation filling pattern), normal to mildly elevated filling pressures. Right Ventricle The right ventricle is normal in size and function. Right Atrium The right atrium is normal in size. Left Atrium Mildly increased left atrial size. Mitral Valve Thickened mitral valve. Moderate mitral annular calcification. Aortic Valve Aortic valve sclerosis. Tricuspid Valve Trace tricuspid valve regurgitation. Pulmonic Valve Pulmonic valve not well visualized. Pericardium Normal pericardium without effusion. Aorta Normal ascending aorta dimension. CONCLUSIONS Normal left ventricular size and systolic function, EF 71 %. No regional wall motion abnormalities.Grade I/IV diastolic dysfunction (abnormal relaxation filling pattern), normal to mildly elevated filling pressures. Thickened mitral valve. Moderate mitral annular calcification. Mild biatrial enlargement. Features of aortic valve sclerosis. Trace tricuspid valve regurgitation. There is no pericardial effusion. There are no intracardiac masses. Compared to the study from of 08/07/2020, there may not be a significant change in the 2D findings. Because of the poor Doppler signals, difficult to compare the Doppler findings Dr Shellie Yates MD [facility] (Electronically Signed) Final Date: 23 May 2021 12:35 S
--- NOTE | 2021-05-22 16:29 | USCV_ITS ---
Mónica Rodas Age: 76 Gender: F : 1945 Exam Date: 05/22/2021 19:36 Ordering Phys: Cesar Roach MD Technologist: DOMINGA [place] [facility] [place]: SWELLING HISTORY: Lower extremity swelling. PROCEDURES: Venous duplex imaging was performed in bilateral lower extremities. The following venous structures were evaluated: common femoral vein, profunda vein, proximal portion of the greater saphenous vein, superficial femoral vein, and the popliteal vein. In addition, the posterior tibial and peroneal trunk were evaluated. Serial compression, augmentation maneuvers, and spectral Doppler flow evaluation were performed. FINDINGS: Normal 2-D Doppler and augmentation and compressibility throughout the lower extremity venous structures. Additional imaging through the proximal calf veins also reveals no thrombus. Limited evaluation of the greater saphenous vein is patent with no thrombus. CONCLUSIONS No DVT bilateral lower extremities. Dr. Mady Stoddard DO (Electronically Signed) Final Date: 23 May 2021 07:48 S
[2021-05-22] MEDS: SODIUM CHLORIDE 0.9% IV (16:38)
[2021-05-22] MEDS: FUROsemide 10 mg/mL SDV 4mL 40 MG IVP (16:38)
[2021-05-22] MEDS: AZTREONAM IV (16:38)
[2021-05-22 16:54] LABS: Iron 29 ug/dL (37-145); Percent Saturation 14.5 % (20-50); Total Iron Binding Capacity 199 mcg/dl; Unsaturated Iron Binding 170 ug/dL (112-347)
[2021-05-22 16:59] LABS: Thyroid Stimulating Hormone 0.36 uIU/mL (0.27-4.20)
[2021-05-22 17:09] LABS: Procalcitonin 0.37 ng/mL (0-0.5)
[2021-05-22 17:18] LABS: Add Urine Microscopic? NO; Charge for UA Resulting for Rev
[2021-05-22 17:24] LABS: Bilirubin Urine Neg (Negative); Blood Urine Neg (Negative); Glucose Urine UA Norm (Normal); Ketones Urine 1+ (Negative); Leukocyte Esterase Urine Negative (Negative); Nitrate Urine Negative (Negative); Protein Urine Neg (Negative); Urine Appearance Clear (CLEAR); Urine Color Yellow (Yellow); Urobilinogen Urine Norm (Negative); pH Urine 5 (5-7)
[2021-05-22 17:33] LABS: Vitamin B12 > 2000 pg/mL (232-1245)
[2021-05-22 17:43] LABS: Troponin 5 2HR 18.69 ng/L (0-10)
[2021-05-22 17:45] LABS: Troponin 5 2HR Delta -3.31 ABS# (0-10)
[2021-05-22 18:06] LABS: Folate Level 19.9 ng/mL (4.8-37.3)
[2021-05-22] MEDS: enoxaparin 40 mg/0.4 mL Syringe SUBCUT (18:44)
[2021-05-22] MEDS: ferrous gluconate 324 mg Tablet PO (18:44)
[2021-05-22] MEDS: ALPRAZolam 0.5 mg Tablet 0.25 MG PO (18:44)
[2021-05-22] MEDS: atenolol 50 mg Tablet PO (18:44)
[2021-05-22 19:25] LABS: Adenovirus Not Detected (NOT DETECT); Chlamydia Pneumoniae Not Detected (NOT DETECT); Coronavirus 229E,HKU1,NL63,OC4 Not Detected (NOT DETECT); Human Metapneumovirus Not Detected (NOT DETECT); Human Rhinovirus/Enterovirus Not Detected (NOT DETECT); Influenza A Not Detected (NOT DETECT); Influenza A H1 Not Detected (NOT DETECT); Influenza A H1-2009 Not Detected (NOT DETECT); Influenza A H3 Not Detected (NOT DETECT); Influenza B Not Detected (NOT DETECT); Mycoplasma Pneumoniae Not Detected (NOT DETECT); Parainfluenza Virus Type 1 Not Detected (NOT DETECT); Parainfluenza Virus Type 2 Not Detected (NOT DETECT); Parainfluenza Virus Type 3 Not Detected (NOT DETECT); Parainfluenza Virus Type 4 Not Detected (NOT DETECT); Respiratory Syncytial Virus A Not Detected (NOT DETECT); Respiratory Syncytial Virus B Not Detected (NOT DETECT); SARS-COV-2 Not Detected (NOT DETECT)
[2021-05-22 20:22] LABS: ABG PH Result 7.33 (7.35-7.45); Arterial Blood Gas Hematocrit 28.1 % (37-47); Base Excess ABG 13.9 mmol/L (-2.0-2.0); Blood Gas Allen Test Pos; Blood Gas Sample Site Radial, left; Blood Gas Sample Type Arterial; Carboxyhemoglobin 1.2 %THgb (0.4-20.1); HCO3 ABG 42.2 mmol/L (22-26); HGB O2 Sat 96.8 % (95-100); Ionized Calcium Level - ABG 1.2 mmol/L (1.1-1.4); Methemoglobin 0.8 % (0.4-1.5); Oxygen Device NC; Oxygen Saturation ABG 98.7; Potassium Level - ABG 3.4 mmol/L (3.5-5.0); Total Hemoglobin 9.2 g/dL (12-16)
[2021-05-22 20:23] LABS: ABG PCO2 80.1 mmHg (35-45)
[2021-05-22] MEDS: benzonatate 100 mg Capsule PO (20:30)
[2021-05-22] MEDS: atorvastatin 40 mg Tablet 20 MG PO (20:30)
[2021-05-22] MEDS: budesonide 0.5 mg/2 mL Neb INHALATION (20:52)
[2021-05-22] MEDS: ipratropium-albuterol 3 mL Neb INHALATION (20:52)
--- NOTE | 2021-05-22 20:55 | ECG_ITS ---
[facility] Test Date: 2021-05-22 Pat Name: Mónica Rodas Department: Room: Gender: Female Nurse Ldr: : 1945 Requested By: Porfirio Bell Order Number: [id number] Ruma MD: Shellie Yates M.D. Measurements Intervals [place] Rate: 71 P: 59 [place]: 127 QRS: 46 QRSD: 92 T: 67 QT: 407 QTc: 443 Interpretive Statements SINUS RHYTHM EARLY REPOLARIZATION [ST ELEVATION WITH NORMALLY INFLECTED T-WAVE] Compared to ECG 05/01/2021 11:02:33 Early repolarization now present Myocardial infarct finding no longer present Electronically Signed On 05-22-2021 20:12:59 PATTERN ILLUSTRATOR by Shellie Yates M.D. [id number]
[2021-05-23] VITALS (12 sets, daily range): BP systolic 117–166; BP diastolic 65–74; PULSE 57–102; RESP 16–24; TEMP 36.4–36.8; O2SAT 84–100; BMI 20.4
[2021-05-23 05:17] LABS: Basophils % 0.2 %; Hemoglobin 8.9 g/dL (11.5-15.3); Lymphocytes # 0.6 10^3/uL (0.8-4.8); Lymphocytes % 8.6 %; Mean Corpuscular HGB Conc 30.7 g/dL (30.0-36.0); Mean Corpuscular Hemoglobin 30.7 pg (28.0-34.0); Mean Platelet Volume 9.9 fL (7.4-10.4); Monocytes # 0.1 10^3/uL (0.2-0.9); Monocytes % 1.1 %; Neutrophils # 5.72 10^3/uL (1.8-7.7); Neutrophils % 89.6 %; Nucleated Red Blood Cells % 0 %; Platelet Count 321 10^3/cmm (130-400); Red Cell Distribution Width 14.6 % (12.1-15.1); White Blood Count 6.4 10^3/uL (4.0-10.0)
[2021-05-23 05:27] LABS: Estmated Average Glucose 91; Hemoglobin A1C 4.8 % (4.0-6.0)
[2021-05-23 05:34] LABS: Magnesium 2.3 mg/dL (1.7-2.3)
[2021-05-23 05:35] LABS: Alanine Aminotransferase 70 U/L (0-33); Albumin Level 3.4 g/dL (3.5-5.2); Alkaline Phosphatase 289 IU/L (35-105); Anion Gap 13.1 (5-19); Aspartate Amino Transferase 23 U/L (0-32); Blood Urea Nitrogen 26 mg/dL (8-23); Calcium 9.3 mg/dL (8.5-10.5); Carbon Dioxide 37 mmol/L (22-29); Chloride 91 mmol/L (98-107); Chol HDL Ratio 2.38 mg/dL (0.0-4.40); Cholesterol 188 mg/dL (0-200); Globulin 3.7 g/dL (1.3-4.6); Glucose 109 mg/dL (65-115); HDL Cholesterol 79 mg/dL (60-100); LDL Cholesterol Calculated 84 mg/dL (50-129); Osmolality Calculated 289 mOsm/kg (285-295); Potassium 4.1 mmol/L (3.5-5.1); Sodium 137 mmol/L (136-145); Total Bilirubin 0.2 mg/dL (0.15-1.2); Total Protein 7.1 g/dL (6.6-8.7); Triglycerides 123 mg/dL (0-150); VLDL Cholestrol Calculation 25 mg/dL (0-30)
[2021-05-23] MEDS: levoFLOXacin 500 mg Tablet PO (06:08)
[2021-05-23] MEDS: amlodipine 5 mg Tablet PO (06:08)
[2021-05-23] MEDS: budesonide 0.5 mg/2 mL Neb INHALATION ×2 (08:02→19:51)
[2021-05-23] MEDS: ipratropium-albuterol 3 mL Neb INHALATION ×3 (08:02→19:51)
[2021-05-23] MEDS: ferrous gluconate 324 mg Tablet PO ×2 (08:30→17:00)
[2021-05-23] MEDS: ALPRAZolam 0.5 mg Tablet 0.25 MG PO (08:30)
[2021-05-23] MEDS: atenolol 50 mg Tablet PO ×2 (08:31→17:00)
[2021-05-23] MEDS: benzonatate 100 mg Capsule PO ×3 (08:31→20:45)
[2021-05-23] MEDS: pantoprazole DR 40 mg Tablet PO (08:31)
[2021-05-23 08:50] LABS: ABG PH Result 7.41 (7.35-7.45); Arterial Blood Gas Hematocrit 26.3 % (37-47); Base Excess ABG 15.2 mmol/L (-2.0-2.0); Blood Gas Allen Test Pos; Blood Gas Sample Site Brachial, right; Blood Gas Sample Type Arterial; HGB O2 Sat 95.1 % (95-100); Ionized Calcium Level - ABG 1.2 mmol/L (1.1-1.4); Oxygen Device OXY MASK; Oxygen Saturation ABG 96.9; PO2 ABG 80.5 mmHg (80.0-100.0); Potassium Level - ABG 3.8 mmol/L (3.5-5.0); Total Hemoglobin 8.6 g/dL (12-16)
--- NOTE | 2021-05-23 10:02 | PC.PHAR ---
PT UNABLE TO VERIFY. MEDICATIONS VERIFIED WITH DAUGHTER KITA OVER THE PHONE ON 05/23/21.
--- NOTE | 2021-05-23 13:04 | PM.PN ---
Subjective Subjective: Overnight patient remained on BiPAP. Today morning patient was transitioned over to nasal cannula on which she was desaturating so she was placed on 6 of oxygen mask. On examination patient is lying comfortably in bed. Complaining of mild back pain. States she uses BiPAP on and off at home as well. Denies any nausea, vomiting, headache. Moving all 4 limbs. Vitals/I&O/Wt Last Vital Signs Temp 98.2 F 05/23/21 07:50 Pulse 85 05/23/21 07:54 Resp 18 05/23/21 07:54 BP 129/73 05/23/21 07:50 Pulse Ox 90 05/23/21 07:54 05/22/21 05/23/21 05/23/21 22:59 06:59 14:59 Intake Total 500 / 500 100 / 600 100 / 100 Output Total 850 / 850 Balance 500 / 500 -750 / -250 100 / 100 Weight last 48 hrs Weight 45.813 kg Weight 45.813 kg Physical Exam Narrative: General: No acute distress, AOx3, cachectic on 6 L oxygen mask able to have complete conversation HEENT: PERRLA, pupils bilaterally equal and reactive Chest: Bilateral bronchial breath sounds, decreased air entry right upper lobe, coarse crackles present left lower lobe equal good air entry bilaterally CVS: S1-S2 regular, no murmurs, no tachycardia, no gallops, no rubs Abdomen: Soft, nontender, no organomegaly, bowel sounds present Neuro: Moving all limbs, following commands, power 4 x 5 all over Urinary Catheter Management: Allen: Cath Placed During This Visit: yes Reason for Continuing Indwelling Catheter: Acute Urinary Retention or Obstruction Urinary Catheter Date of Insertion: 05/22/21 Urinary Catheter Time of Insertion: 17:00 Data : 05/23/21 04:55 05/23/21 04:55 Micro: Microbiology 05/22/21 16:50 Legionella Urinary Antigen - Final Urine,Voided 05/22/21 17:09 Blood Culture - Preliminary Blood SPECIMEN COLLECTED 05/22/21 17:09 Blood Culture - Preliminary Blood SPECIMEN COLLECTED 05/22/21 10:50 Bacterial Antigens - Final Urine Kidney A&P Assessment and plan (1) Acute and chronic respiratory failure with hypercapnia: Status: Acute (2) Cancer of right lung: Status: Acute (3) Acute exacerbation of chronic obstructive airways disease: Status: Acute (4) Hypertension: Status: Acute Qualifiers: Hypertension type: essential hypertension Qualified Code(s): I10 - Essential (primary) hypertension (5) Compression fracture of body of thoracic vertebra: Status: Acute Plan 76-year-old with past medical history of COPD, lung cancer, recent admissions for pneumonia, noncompliant with AVAPS presents with shortness of breath found to be in hypercapnia. Acute on chronic hypercapnic respiratory failure: Most likely secondary to COPD exacerbation. Pneumonia unlikely. But given history of recent hospitalization 2 weeks ago with history of lung cancer post radiation therapy cannot rule out. DuoNebs every 6 hours on budesonide twice daily. Solu-Medrol 40 every 6 hourly. Oxygen supplementation keeping saturation over 88%. BiPAP ventilation nightly. Pro-Kale negative, MRSA swab pending. Urine Legionella, bacterial antigen negative. COVID-19 swab negative. For now continue with vancomycin, imipenem, Levaquin. Will de-escalate antibiotics as per culture results. If MRSA negative can stop vancomycin. D-dimer elevated. Lower limb Doppler negative for DVT. CT chest appreciated. proBNP mildly elevated. Echocardiogram shows an EF of 71%, grade 1 diastolic dysfunction, mild biatrial enlargement. No significant change to last echocardiogram IV Lasix 40 mg daily for now. Hypertension: Goal blood pressure less than 140/90 mmHg. Continue with home dose of atenolol. Hold off on lisinopril for now. Continue other chronic medications. Continue with home oral pain meds. CODE STATUS: DNR/DNI. Mechanical soft. Speech evaluation. Protonix for PUD prophylaxis. Lovenox for DVT prophylaxis. Attestations Medical Necessity Statement*: Requires further hospitalization management of acute on chronic hypoxic and hypercapnic respiratory failure secondary COPD exacerbation viral pneumonia was ruled out. Time Spent in Patient Care: Greater than 35 minutes Coding Level of Care Code Acute Assistant Center Manager for [facility] Diagnoses Acute and chronic respiratory failure with hypercapnia J96.22 Cancer of right lung C34.91 Acute exacerbation of chronic obstructive airways disease J44.1 Hypertension I10 Hypertension type: essential hypertension Compression fracture of body of thoracic vertebra S22.000A
[2021-05-23] MEDS: morphine 10 mg/0.5 mL oral liq UD PO (14:01)
[2021-05-23] MEDS: vancomycin 750 MG in sodium chloride 0.9% 250 ML 250 MG IV (16:47)
[2021-05-23] MEDS: FUROsemide 10 mg/mL SDV 4mL 40 MG IVP (16:47)
--- NOTE | 2021-05-23 16:55 | PC.NURSE ---
Patient is at 6 L of oxygen on a simple face mask with saturations in the 90s. Patient had mild pain that was treated with PRN medications. Vital stable. Patient did not have bowel movement. Allen is intact and clean with adequate output. IV abx given as ordered. Diet advanced and is tolerating well. Will continue to monitor and give report to night nurse.
[2021-05-23] MEDS: enoxaparin 40 mg/0.4 mL Syringe SUBCUT (17:00)
[2021-05-23] MEDS: atorvastatin 40 mg Tablet 20 MG PO (20:45)
[2021-05-24] VITALS (15 sets, daily range): BP systolic 118–151; BP diastolic 64–75; PULSE 70–91; RESP 16–22; TEMP 35.8–36.8; O2SAT 88–99; BMI 20.4
[2021-05-24] MEDS: ipratropium-albuterol 3 mL Neb INHALATION ×4 (02:28→20:34)
[2021-05-24 03:07] LABS: Hematocrit 27.7 % (37.0-47.0); Hemoglobin 8.4 g/dL (11.5-15.3); Lymphocytes # 0.7 10^3/uL (0.8-4.8); Mean Corpuscular HGB Conc 30.3 g/dL (30.0-36.0); Mean Corpuscular Hemoglobin 30.3 pg (28.0-34.0); Mean Platelet Volume 10.1 fL (7.4-10.4); Monocytes # 0.3 10^3/uL (0.2-0.9); Monocytes % 3.4 %; Neutrophils # 6.58 10^3/uL (1.8-7.7); Neutrophils % 86.8 %; Nucleated Red Blood Cells % 0 %; Platelet Count 326 10^3/cmm (130-400); Red Blood Count 2.77 10^6/uL (4.1-5.3); Red Cell Distribution Width 14.2 % (12.1-15.1); White Blood Count 7.6 10^3/uL (4.0-10.0)
[2021-05-24 03:29] LABS: Alanine Aminotransferase 50 U/L (0-33); Albumin Level 3.1 g/dL (3.5-5.2); Alkaline Phosphatase 243 IU/L (35-105); Anion Gap 7.8 (5-19); Aspartate Amino Transferase 13 U/L (0-32); Blood Urea Nitrogen 24 mg/dL (8-23); Calcium 9.4 mg/dL (8.5-10.5); Chloride 90 mmol/L (98-107); Globulin 3.5 g/dL (1.3-4.6); Glucose 127 mg/dL (65-115); Osmolality Calculated 288 mOsm/kg (285-295); Potassium 3.8 mmol/L (3.5-5.1); Sodium 136 mmol/L (136-145); Total Bilirubin 0.2 mg/dL (0.15-1.2); Total Protein 6.6 g/dL (6.6-8.7)
[2021-05-24 03:31] LABS: Procalcitonin 0.25 ng/mL (0-0.5)
[2021-05-24 03:58] LABS: Carbon Dioxide 42 mmol/L (22-29)
[2021-05-24] MEDS: amlodipine 5 mg Tablet PO (05:38)
[2021-05-24] MEDS: levoFLOXacin 500 mg Tablet PO (05:38)
[2021-05-24] MEDS: budesonide 0.5 mg/2 mL Neb INHALATION ×2 (08:53→20:34)
[2021-05-24] MEDS: benzonatate 100 mg Capsule PO ×3 (09:07→20:58)
[2021-05-24] MEDS: ferrous gluconate 324 mg Tablet PO ×2 (09:07→17:02)
[2021-05-24] MEDS: pantoprazole DR 40 mg Tablet PO (09:08)
[2021-05-24] MEDS: atenolol 50 mg Tablet PO ×2 (09:08→17:02)
[2021-05-24] MEDS: ALPRAZolam 0.5 mg Tablet 0.25 MG PO ×2 (09:14→20:57)
[2021-05-24] MEDS: morphine 10 mg/0.5 mL oral liq UD PO ×2 (11:36→20:57)
[2021-05-24] MEDS: acetaZOLAMIDE 250 mg Tablet 500 MG PO (11:36)
--- NOTE | 2021-05-24 13:00 | PM.PN ---
Subjective Subjective: Patient was seen and examined this morning, currently she is saturating well on 6 to 10 L oxygen through oxy mask, says she feels okay. Serum bicarb this morning was 42, Lasix has been discontinued, Currently on acetazolamide 500 mg p.o. daily. Her other vitals and labs have been reviewed. Medications: Medication Review Details: Generic Name Dose Route Start Last Admin Trade Name Jose Antonioq PRN Reason Stop Dose Admin Acetazolamide 500 mg 05/24/21 10:30 05/24/21 11:36 Acetazolamide 25 0 Mg Tablet PO 500 mg DAILY NABEEL Administration Albuterol/Ipratrop ium 3 ml 05/22/21 21:00 05/24/21 14:19 Ipratropium-Albu terol 3 Ml Neb INHALATION 3 ml Q6H.RESPIRATORY S CH Administration Alprazolam 0.25 mg 05/22/21 17:01 05/24/21 09:14 Alprazolam 0.5 M g Tablet PO 0.25 mg BID PRN Administration Anxiety Amlodipine Besylat e 5 mg 05/23/21 06:00 05/24/21 05:38 Amlodipine 5 Mg Tablet PO 5 mg QAM NABEEL Administration Atenolol 50 mg 05/22/21 18:00 05/24/21 09:08 Atenolol 50 Mg T ablet PO 50 mg BID NABEEL Administration Atorvastatin Calci um 20 mg 05/22/21 21:00 05/23/21 20:45 Atorvastatin 40 Mg Tablet PO 20 mg BEDTIME NABEEL Administration Benzonatate 100 mg 05/22/21 21:00 05/24/21 14:43 Benzonatate 100 Mg Capsule PO 100 mg TID NABEEL Administration Budesonide 0.5 mg 05/22/21 20:00 05/24/21 08:53 Budesonide 0.5 M g/2 Ml Neb INHALATION 0.5 mg BID.RESPIRATORY S CH Administration Enoxaparin Sodium 40 mg 05/22/21 18:00 05/23/21 17:00 Enoxaparin 40 Mg /0.4 Ml Syringe SUBCUT 40 mg Q24H NABEEL Administration Ferrous Gluconate 324 mg 05/22/21 18:00 05/24/21 09:07 Ferrous Gluconat e 324 Mg Tablet PO 324 mg BIDWM NABEEL Administration Vancomycin HCl 750 mg/ Sodium 250 mls @ 250 mls /hr 05/23/21 16:00 05/24/21 15:30 Chloride IV 250 mls/hr Q24H NABEEL Administration Protocol Imipenem/Cilastati n Sodium 250 100 mls @ 200 mls /hr 05/22/21 20:00 05/24/21 15:22 mg/ Sodium Chlor albaro IV Infused Q6H NABEEL Infusion Protocol Levofloxacin 500 mg 05/23/21 06:00 05/24/21 05:38 Levofloxacin 500 Mg Tablet PO 05/27/21 05:59 500 mg DAILY@0600 NABEEL Administration Protocol Methylprednisolone Sodium Succinate 40 mg 05/22/21 16:30 05/24/21 15:30 Methylprednisolo ne Sod Succ 40 Mg/ Ml Inj IVP 40 mg Q8H NABEEL Administration Morphine Sulfate 0 mg 05/23/21 13:15 05/24/21 11:36 Morphine 10 Mg/0 .5 Ml Oral Liq Ud PO 10 mg Q2H PRN Administration PAIN Pantoprazole Sodiu m 40 mg 05/23/21 09:00 05/24/21 09:[address] 40 Mg Tablet PO 40 mg DAILY NABEEL Administration Vitals/I&O/Wt Last Vital Signs Temp 97.5 F L 05/24/21 11:56 Pulse 73 05/24/21 11:56 Resp 22 H 05/24/21 11:56 BP 135/75 05/24/21 11:56 Pulse Ox 93 05/24/21 11:56 05/23/21 05/24/21 05/24/21 22:59 06:59 14:59 Intake Total 550 / 750 200 / 950 460 / 460 Output Total 400 / 400 Balance 150 / 350 200 / 550 460 / 460 Weight last 48 hrs Weight 45.813 kg Weight 45.813 kg Weight 45.813 kg Physical Exam Const: COMMON NORMALS: patient oriented x3 HENMT: COMMON NORMALS: normocephalic, atraumatic, hearing grossly normal bilaterally and external ears normal HEAD & SCALP: normocephalic and atraumatic EXTERNAL EAR: Yes external ears normal Eye: COMMON NORMALS: no scleral icterus GENERAL EYE: appearance normal, both eyes and all related structures Chest: COMMONS NORMALS: normal inspection of the chest and normal palpation of entire chest wall CHEST: Yes Symmetrical chest wall rise OTHER: Diminished air entry B/L Resp: EFFORT & INSPECTION: Yes symmetric chest movement OTHER: Patient is tachypneic, tripod position, use of accessory muscles of respiration. Cardio: COMMON NORMALS: regular rate, regular rhythm, S1 normal heart sound present, S2 normal heart sound present, No gallops present (Cardio), No murmurs present (Cardio), No rub (Cardio) and Peripheral pulses 2+ throughout RATE: regular rate RHYTHM: regular rhythm HEART SOUNDS: S1 normal heart sound present and S2 normal heart sound present PERIPHERAL PULSES: Peripheral pulses 2+ throughout GI: COMMON NORMALS: Normal to inspection, nondistended, normoactive bowel sounds present, Soft to palpation, non-tender, No hepatosplenomegaly present and no masses AUSCULTATION: Yes normoactive bowel sounds PALPATION: Yes Soft to palpation and Yes No hepatosplenomegaly present RECTAL EXAM: deferred Extremity: COMMON NORMALS: no clubbing, cyanosis or edema and no pedal edema Neuro: COMMON NORMALS: patient oriented x3 Urinary Catheter Management: Allen: Cath Placed During This Visit: yes Reason for Continuing Indwelling Catheter: Acute Urinary Retention or Obstruction Urinary Catheter Date of Insertion: 05/22/21 Urinary Catheter Time of Insertion: 17:00 Data : 05/24/21 02:04 05/24/21 02:04 Micro: Microbiology 05/22/21 17:09 Blood Culture - Preliminary Blood NEGATIVE TO DATE 05/22/21 17:09 Blood Culture - Preliminary Blood NEGATIVE TO DATE 05/22/21 18:45 MRSA Culture - Final Nose 05/22/21 16:50 Legionella Urinary Antigen - Final Urine,Voided A&P Assessment and plan (1) Acute and chronic respiratory failure with hypercapnia: Status: Acute (2) Cancer of right lung: Status: Acute (3) Acute exacerbation of chronic obstructive airways disease: Status: Acute (4) Hypertension: Status: Acute (5) Compression fracture of body of thoracic vertebra: Status: Acute Plan 76-year-old with past medical history of COPD, lung cancer, recent admissions for pneumonia, noncompliant with AVAPS presents with shortness of breath found to be in hypercapnia. Acute on chronic hypercapnic hypoxic respiratory failure: Likely secondary to COPD exacerbation cannot conclusively rule out possible underlying healthcare associated pneumonia. Possible underlying postradiation pneumonitis. CT chest without contrast: ? Patchy airspace opacities in the right upper lobe surrounding the mass could represent lymphangitic spread of cancer and/or postobstructive pneumonia. Consolidation and collapse of the left lower lobe most likely represents atelectasis with bronchial collapse.? Superimposed pneumonia cannot be excluded. Severe emphysema and old granulomatous disease. Lower limb Doppler negative for DVT. Procalcitonin 0.25 MRSA culture negative Urine Legionella antigen negative Bacterial antigen panel negative Blood culture:NTD Sputum Gram stain and culture Continue imipenem and levofloxacin for now Discontinue vancomycin DuoNebs every 6 hours on budesonide twice daily. Solu-Medrol 60 I.V BID Oxygen supplementation keeping saturation over 88%. Continue BiPAP #HFpEF : Currently compensated Echocardiogram shows an EF of 71%, grade 1 diastolic dysfunction, mild biatrial enlargement. No significant change to last echocardiogram. Continue intake output monitoring Monitor Daily weight K>4, MG >2 Was on Lasix 40 mg IV daily, has been stopped. #Contraction alkalosis: Likely secondary to overdiuresis: Lasix has been stopped. Continue acetazolamide Hypertension: Continue amlodipine and atenolol Currently lisinopril on hold Continue other chronic medications. Continue with home oral pain meds. CODE STATUS: DNR/DNI. Mechanical soft. Speech evaluation. Protonix for PUD prophylaxis. Lovenox for DVT prophylaxis. Attestations Medical Necessity Statement*: Patient is to be in hospital for management of acute on chronic respiratory failure. Time Spent in Patient Care: Greater than 35 minutes (>than 50% of time spent in counselling and/or direct pt care on unit). Coding Level of Care Code Acute Inside Sales Account Executive for [facility] Fwd Exam Comprehensive Diagnoses Acute and chronic respiratory failure with hypercapnia J96.22 Cancer of right lung C34.91 Acute exacerbation of chronic obstructive airways disease J44.1 Hypertension I10 Compression fracture of body of thoracic vertebra S22.000A
[2021-05-24] MEDS: vancomycin 750 MG in sodium chloride 0.9% 250 ML 250 MG IV (15:30)
--- NOTE | 2021-05-24 15:37 | PC.PT ---
Patient sitting up in bed with daughter present, remembers me from attempted evaluation yesterday, states she does not wish to do that today, patient's daughter states 1 year history of assisting her mother with transfers to bedside commode, and into electric wheelchair, and using manual wheelchair for out of home, states they have a great neighbor who assists with patient care, such as bathing etc., patient daughter requesting new bedside commode stating they are one they have been using is about 30 years old and rusting through, and she is worried that it may break with patient on it due to so much rust, discussed gentle lower extremity exercises, patient demonstrate understanding of same, patient daughter will be had no other needs than bedside commode, so this will be ordered for them. No further attempts at PT evaluation to be made, per patient's wishes.
--- NOTE | 2021-05-24 16:30 | PC.NURSE ---
Patient vitals stable. Oxygen has been in the high 90s. Abx given as ordered. Patient has been refusing to work with PT. Allen intact and clean, having adequate output. Will continue to monitor and give report to night nurse.
[2021-05-24] MEDS: enoxaparin 40 mg/0.4 mL Syringe SUBCUT (17:01)
[2021-05-24] MEDS: atorvastatin 40 mg Tablet 20 MG PO (20:58)
[2021-05-25] VITALS (12 sets, daily range): BP systolic 109–128; BP diastolic 64–74; PULSE 65–88; RESP 16–21; TEMP 36.3–36.9; O2SAT 92–98
[2021-05-25] MEDS: ipratropium-albuterol 3 mL Neb INHALATION ×4 (03:18→20:15)
[2021-05-25 04:40] LABS: Basophils % 0.1 %; Hemoglobin 9.7 g/dL (11.5-15.3); Lymphocytes # 0.7 10^3/uL (0.8-4.8); Lymphocytes % 9.5 %; Mean Corpuscular HGB Conc 31.3 g/dL (30.0-36.0); Mean Corpuscular Hemoglobin 30.5 pg (28.0-34.0); Mean Corpuscular Volume 97.5 fl (81-99); Mean Platelet Volume 10.6 fL (7.4-10.4); Monocytes # 0.3 10^3/uL (0.2-0.9); Monocytes % 3.4 %; Neutrophils # 6.31 10^3/uL (1.8-7.7); Neutrophils % 86.5 %; Nucleated Red Blood Cells % 0 %; Platelet Count 257 10^3/cmm (130-400); Red Blood Count 3.18 10^6/uL (4.1-5.3); Red Cell Distribution Width 14.1 % (12.1-15.1); White Blood Count 7.3 10^3/uL (4.0-10.0)
[2021-05-25 04:59] LABS: Blood Urea Nitrogen 20 mg/dL (8-23); Calcium 9.4 mg/dL (8.5-10.5); Carbon Dioxide 35 mmol/L (22-29); Chloride 96 mmol/L (98-107); Glucose 127 mg/dL (65-115); Osmolality Calculated 288 mOsm/kg (285-295); Sodium 137 mmol/L (136-145)
[2021-05-25 05:22] LABS: Anion Gap 9.6 (5-19); Potassium 3.6 mmol/L (3.5-5.1)
[2021-05-25] MEDS: levoFLOXacin 500 mg Tablet PO (06:17)
[2021-05-25] MEDS: amlodipine 5 mg Tablet PO (06:17)
[2021-05-25] MEDS: acetaZOLAMIDE 250 mg Tablet 500 MG PO (08:30)
[2021-05-25] MEDS: pantoprazole DR 40 mg Tablet PO (08:31)
[2021-05-25] MEDS: benzonatate 100 mg Capsule PO ×3 (08:31→21:25)
[2021-05-25] MEDS: atenolol 50 mg Tablet PO ×2 (08:31→17:05)
[2021-05-25] MEDS: ferrous gluconate 324 mg Tablet PO ×2 (08:31→17:05)
[2021-05-25] MEDS: budesonide 0.5 mg/2 mL Neb INHALATION ×2 (08:47→19:34)
--- NOTE | 2021-05-25 09:57 | PC.SOCIAL ---
IMM Update Pg. 2 of IMM updated and reviewed with patient, who verbalized understanding. Copy provided.
--- NOTE | 2021-05-25 12:05 | P.PN_ITS ---
Subjective Subjective: Patient was seen and examined this morning, denies any worsening of shortness of breath, will transition her to. Nasal cannula, currently on OXYi mask. Medications: Medication Review Details: Generic Name Dose Route Start Last Admin Trade Name Freq PRN Reason Stop Dose Admin Acetazolamide 500 mg 05/24/21 10:30 05/24/21 11:36 Acetazolamide 25 0 Mg Tablet PO 500 mg DAILY NABEEL Administration Albuterol/Ipratrop ium 3 ml 05/22/21 21:00 05/24/21 14:19 Ipratropium-Albu terol 3 Ml Neb INHALATION 3 ml Q6H.RESPIRATORY S CH Administration Alprazolam 0.25 mg 05/22/21 17:01 05/24/21 09:14 Alprazolam 0.5 M g Tablet PO 0.25 mg BID PRN Administration Anxiety Amlodipine Besylat e 5 mg 05/23/21 06:00 05/24/21 05:38 Amlodipine 5 Mg Tablet PO 5 mg QAM NABEEL Administration Atenolol 50 mg 05/22/21 18:00 05/24/21 09:08 Atenolol 50 Mg T ablet PO 50 mg BID NABEEL Administration Atorvastatin Calci um 20 mg 05/22/21 21:00 05/23/21 20:45 Atorvastatin 40 Mg Tablet PO 20 mg BEDTIME NABEEL Administration Benzonatate 100 mg 05/22/21 21:00 05/24/21 14:43 Benzonatate 100 Mg Capsule PO 100 mg TID NABEEL Administration Budesonide 0.5 mg 05/22/21 20:00 05/24/21 08:53 Budesonide 0.5 M g/2 Ml Neb INHALATION 0.5 mg BID.RESPIRATORY S CH Administration Enoxaparin Sodium 40 mg 05/22/21 18:00 05/23/21 17:00 Enoxaparin 40 Mg /0.4 Ml Syringe SUBCUT 40 mg Q24H NABEEL Administration Ferrous Gluconate 324 mg 05/22/21 18:00 05/24/21 09:07 Ferrous Gluconat e 324 Mg Tablet PO 324 mg BIDWM NABEEL Administration Vancomycin HCl 750 mg/ Sodium 250 mls @ 250 mls /hr 05/23/21 16:00 05/24/21 15:30 Chloride IV 250 mls/hr Q24H NABEEL Administration Protocol Imipenem/Cilastati n Sodium 250 100 mls @ 200 mls /hr 05/22/21 20:00 05/24/21 15:22 mg/ Sodium Chlor albaro IV Infused Q6H NABEEL Infusion Protocol Levofloxacin 500 mg 05/23/21 06:00 05/24/21 05:38 Levofloxacin 500 Mg Tablet PO 05/27/21 05:59 500 mg DAILY@0600 NABEEL Administration Protocol Methylprednisolone Sodium Succinate 40 mg 05/22/21 16:30 05/24/21 15:30 Methylprednisolo ne Sod Succ 40 Mg/ Ml Inj IVP 40 mg Q8H NABEEL Administration Morphine Sulfate 0 mg 05/23/21 13:15 05/24/21 11:36 Morphine 10 Mg/0 .5 Ml Oral Liq Ud PO 10 mg Q2H PRN Administration PAIN Pantoprazole Sodiu m 40 mg 05/23/21 09:00 05/24/21 09:[address] 40 Mg Tablet PO 40 mg DAILY NABEEL Administration Vitals/I&O/Wt Last Vital Signs Temp 98.0 F 05/25/21 11:48 Pulse 79 05/25/21 11:48 Resp 19 H 05/25/21 11:48 BP 109/74 05/25/21 11:48 Pulse Ox 93 05/25/21 11:48 05/24/21 05/25/21 05/25/21 22:59 06:59 14:59 Intake Total 410 / 870 200 / 1070 340 / 340 Output Total 950 / 950 800 / 1750 Balance -540 / -80 -600 / -680 340 / 340 Weight last 48 hrs Weight 45.926 kg Weight 45.813 kg Physical Exam Const: COMMON NORMALS: patient oriented x3 HENMT: COMMON NORMALS: normocephalic, atraumatic, hearing grossly normal bilaterally and external ears normal HEAD & SCALP: normocephalic and atraumatic EXTERNAL EAR: Yes external ears normal Eye: COMMON NORMALS: no scleral icterus GENERAL EYE: appearance normal, both eyes and all related structures Chest: COMMONS NORMALS: normal inspection of the chest and normal palpation of entire chest wall CHEST: Yes Symmetrical chest wall rise Resp: COMMON NORMALS: normal respiratory effort, No retractions, No use of accessory muscles and clear to auscultation bilaterally EFFORT & INSPECTION: Yes symmetric chest movement AUSCULTATION: clear to auscultation bilaterally OTHER: Patient is tachypneic, tripod position, use of accessory muscles of respiration. Diminished air entry bilaterally Cardio: COMMON NORMALS: regular rate, regular rhythm, S1 normal heart sound present, S2 normal heart sound present, No gallops present (Cardio), No murmurs present (Cardio), No rub (Cardio) and Peripheral pulses 2+ throughout RATE: regular rate RHYTHM: regular rhythm HEART SOUNDS: S1 normal heart sound present and S2 normal heart sound present PERIPHERAL PULSES: Peripheral pulses 2+ throughout GI: COMMON NORMALS: Normal to inspection, nondistended, normoactive bowel soun ds present, Soft to palpation, non-tender, No hepatosplenomegaly present and no masses AUSCULTATION: Yes normoactive bowel sounds PALPATION: Yes Soft to palpation and Yes No hepatosplenomegaly present RECTAL EXAM: deferred Extremity: COMMON NORMALS: no clubbing, cyanosis or edema and no pedal edema Neuro: COMMON NORMALS: patient oriented x3 Urinary Catheter Management: Allen: Cath Placed During This Visit: yes Reason for Continuing Indwelling Catheter: Acute Urinary Retention or Obstruction Urinary Catheter Date of Insertion: 05/22/21 Urinary Catheter Time of Insertion: 17:00 Data : 05/25/21 03:57 05/25/21 03:57 A&P Assessment and plan (1) Acute and chronic respiratory failure with hypercapnia: Status: Acute (2) Cancer of right lung: Status: Acute (3) Acute exacerbation of chronic obstructive airways disease: Status: Acute (4) Hypertension: Status: Acute (5) Compression fracture of body of thoracic vertebra: Status: Acute Plan 76-year-old with past medical history of COPD, lung cancer, recent admissions for pneumonia, noncompliant with AVAPS presents with shortness of breath found to be in hypercapnia. Acute on chronic hypercapnic hypoxic respiratory failure: Likely secondary to COPD exacerbation cannot conclusively rule out possible underlying healthcare associated pneumonia. Possible underlying postradiation pneumonitis. CT chest without contrast: ? Patchy airspace opacities in the right upper lobe surrounding the mass could represent lymphangitic spread of cancer and/or postobstructive pneumonia. Consolidation and collapse of the left lower lobe most likely represents atelectasis with bronchial collapse.? Superimposed pneumonia cannot be excluded. Severe emphysema and old granulomatous disease. Lower limb Doppler negative for DVT. Procalcitonin 0.25 MRSA culture negative Urine Legionella antigen negative Bacterial antigen panel negative Blood culture:NTD Sputum Gram stain and culture: Continue imipenem and levofloxacin for now Discontinue vancomycin DuoNebs every 6 hours on budesonide twice daily. Solu-Medrol 60 I.V BID Oxygen supplementation keeping saturation over 88%. Continue BiPAP #HFpEF : Currently compensated Echocardiogram shows an EF of 71%, grade 1 diastolic dysfunction, mild biatrial enlargement. No significant change to last echocardiogram. Continue intake output monitoring Monitor Daily weight K>4, MG >2 Lasix 40 mg po daily Hypertension: Continue amlodipine and atenolol Currently lisinopril on hold Continue other chronic medications. Continue with home oral pain meds. CODE STATUS: DNR/DNI. Mechanical soft. Speech evaluation. Protonix for PUD prophylaxis. Lovenox for DVT prophylaxis. Attestations Medical Necessity Statement*: Patient is still in hospital for management of respiratory failure. Time Spent in Patient Care: Greater than 35 minutes (>than 50% of time spent in counselling and/or direct pt care on unit) . Coding Level of Care Code Acute Marketing Intern for [facility] Fwd Exam Comprehensive Diagnoses Acute and chronic respiratory failure with hypercapnia J96.22 Cancer of right lung C34.91 Acute exacerbation of chronic obstructive airways disease J44.1 Hypertension I10 Compression fracture of body of thoracic vertebra S22.000A
--- NOTE | 2021-05-25 12:10 | PC.CHAP ---
Pastoral Care Encounter/Spiritual Assessment Type of Contact [] Declined senior account clerk visit [] Patient/Family/Request visit [] Outpatient visit [] Follow-up visit [] Physician referral [] Code/Alert [X] Routine visit [] Staff referral [] Actively dying [] Patient sleeping [] Family support [] [] Out of room [] Palliative care [] [] Receiving care in room [] Pre-surgical visit [] Trauma [] Long length of stay [] ICU visit [X] Other: daughter present Relational/Emotional Strength [X] Patient feels connected with others/family/visitors/staff [] Distress [] Loneliness/isolation [] Abandonment Spirituality of Patient [] Person of Shani [] Attends Hoahaoism of their Shani [] Believes in Prayer [X] Reads Bible or Muslim materials [] There are Spiritual issues to be addressed Route Carrier Interventions [] Prayer [X] Active listening [X] Non-anxious presence [X] Spiritual/emotional support [] Crisis/trauma care [] Spiritual counseling [] Bereavement support [] Provided bereavement packet [X] Provided Bible/devotional materials [] Provided toy/stuffed animal, coloring book to patient or family member [] Provided Communion [] Anointing/Union [] Salvation [X] Completed spiritual assessment [] Other: Impact on Illness or Injury [] Angry [] Fearful [] Anxious [] Often cries [] Exhaustion [] Unable to work [] Unable to attend mandaen [] Unable to walk/stand [] Unable to read [] Unable to drive [] Unable to eat/drink [] Unable to sleep [] Unable to be with family [] Patient intubated [] Other: Summary: Visit was primarily with pt's daughter. Pt was on oxygen and it was difficult for her to talk, however she was alert, present, and participated in the conversation when she could do so. 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 Route Carrier and pt's daughter discussed self-care strategies and healthier coping strategies. Daily Bread provided. Prayer declined. Time spent with patient: 20 mins
[2021-05-25] MEDS: morphine 10 mg/0.5 mL oral liq UD PO ×2 (14:17→17:12)
[2021-05-25] MEDS: enoxaparin 40 mg/0.4 mL Syringe SUBCUT (17:05)
[2021-05-25] MEDS: FUROsemide 40 mg Tablet PO (17:05)
[2021-05-25] MEDS: atorvastatin 40 mg Tablet 20 MG PO (21:25)
[2021-05-26] VITALS (16 sets, daily range): BP systolic 97–140; BP diastolic 53–65; PULSE 69–89; RESP 16–24; TEMP 36.4–36.8; O2SAT 88–95
[2021-05-26] MEDS: ipratropium-albuterol 3 mL Neb INHALATION ×5 (02:30→23:26)
[2021-05-26 03:35] LABS: Hematocrit 29.8 % (37.0-47.0); Hemoglobin 9.1 g/dL (11.5-15.3); Lymphocytes # 0.8 10^3/uL (0.8-4.8); Lymphocytes % 10.2 %; Mean Corpuscular HGB Conc 30.5 g/dL (30.0-36.0); Mean Corpuscular Hemoglobin 29.9 pg (28.0-34.0); Monocytes # 0.2 10^3/uL (0.2-0.9); Monocytes % 2.6 %; Neutrophils # 6.39 10^3/uL (1.8-7.7); Neutrophils % 86.8 %; Nucleated Red Blood Cells % 0 %; Platelet Count 372 10^3/cmm (130-400); Red Blood Count 3.04 10^6/uL (4.1-5.3); Red Cell Distribution Width 13.9 % (12.1-15.1); White Blood Count 7.4 10^3/uL (4.0-10.0)
[2021-05-26 04:01] LABS: Anion Gap 11.8 (5-19); Blood Urea Nitrogen 18 mg/dL (8-23); Calcium 9.2 mg/dL (8.5-10.5); Carbon Dioxide 37 mmol/L (22-29); Chloride 96 mmol/L (98-107); Glucose 125 mg/dL (65-115); Osmolality Calculated 297 mOsm/kg (285-295); Sodium 142 mmol/L (136-145)
[2021-05-26 04:19] LABS: Potassium 2.8 mmol/L (3.5-5.1)
[2021-05-26] MEDS: lidocaine 1% 5 ML in potassium chloride premix 100 ML 25 ML IV ×2 (05:43→11:13)
[2021-05-26] MEDS: levoFLOXacin 500 mg Tablet PO (05:44)
[2021-05-26] MEDS: amlodipine 5 mg Tablet PO (05:44)
[2021-05-26] MEDS: morphine 10 mg/0.5 mL oral liq UD PO ×3 (06:11→20:41)
[2021-05-26] MEDS: acetaZOLAMIDE 250 mg Tablet 500 MG PO (08:22)
[2021-05-26] MEDS: ferrous gluconate 324 mg Tablet PO ×2 (08:22→17:13)
[2021-05-26] MEDS: pantoprazole DR 40 mg Tablet PO (08:22)
[2021-05-26] MEDS: FUROsemide 40 mg Tablet PO (08:22)
[2021-05-26] MEDS: benzonatate 100 mg Capsule PO (08:22)
[2021-05-26] MEDS: atenolol 50 mg Tablet PO ×2 (08:22→17:12)
[2021-05-26] MEDS: budesonide 0.5 mg/2 mL Neb INHALATION ×2 (09:00→20:10)
--- NOTE | 2021-05-26 10:43 | P.PN_ITS ---
Subjective Subjective: Patient was seen and examined this morning, continues to require close to 7 to 8 L of oxygen through nasal cannula, at home she usually uses around 3-4ls, still has significant shortness of breath. Continue to have good urine output. Medications: Medication Review Details: Generic Name Dose Route Start Last Admin Trade Name Freq PRN Reason Stop Dose Admin Acetazolamide 500 mg 05/24/21 10:30 05/24/21 11:36 Acetazolamide 25 0 Mg Tablet PO 500 mg DAILY NABEEL Administration Albuterol/Ipratrop ium 3 ml 05/22/21 21:00 05/24/21 14:19 Ipratropium-Albu terol 3 Ml Neb INHALATION 3 ml Q6H.RESPIRATORY S CH Administration Alprazolam 0.25 mg 05/22/21 17:01 05/24/21 09:14 Alprazolam 0.5 M g Tablet PO 0.25 mg BID PRN Administration Anxiety Amlodipine Besylat e 5 mg 05/23/21 06:00 05/24/21 05:38 Amlodipine 5 Mg Tablet PO 5 mg QAM NABEEL Administration Atenolol 50 mg 05/22/21 18:00 05/24/21 09:08 Atenolol 50 Mg T ablet PO 50 mg BID NABEEL Administration Atorvastatin Calci um 20 mg 05/22/21 21:00 05/23/21 20:45 Atorvastatin 40 Mg Tablet PO 20 mg BEDTIME NABEEL Administration Benzonatate 100 mg 05/22/21 21:00 05/24/21 14:43 Benzonatate 100 Mg Capsule PO 100 mg TID NABEEL Administration Budesonide 0.5 mg 05/22/21 20:00 05/24/21 08:53 Budesonide 0.5 M g/2 Ml Neb INHALATION 0.5 mg BID.RESPIRATORY S CH Administration Enoxaparin Sodium 40 mg 05/22/21 18:00 05/23/21 17:00 Enoxaparin 40 Mg /0.4 Ml Syringe SUBCUT 40 mg Q24H NABEEL Administration Ferrous Gluconate 324 mg 05/22/21 18:00 05/24/21 09:07 Ferrous Gluconat e 324 Mg Tablet PO 324 mg BIDWM NABEEL Administration Vancomycin HCl 750 mg/ Sodium 250 mls @ 250 mls /hr 05/23/21 16:00 05/24/21 15:30 Chloride IV 250 mls/hr Q24H NABEEL Administration Protocol Imipenem/Cilastati n Sodium 250 100 mls @ 200 mls /hr 05/22/21 20:00 05/24/21 15:22 mg/ Sodium Chlor albaro IV Infused Q6H NABEEL Infusion Protocol Levofloxacin 500 mg 05/23/21 06:00 05/24/21 05:38 Levofloxacin 500 Mg Tablet PO 05/27/21 05:59 500 mg DAILY@0600 NABEEL Administration Protocol Methylprednisolone Sodium Succinate 40 mg 05/22/21 16:30 05/24/21 15:30 Methylprednisolo ne Sod Succ 40 Mg/ Ml Inj IVP 40 mg Q8H NABEEL Administration Morphine Sulfate 0 mg 05/23/21 13:15 05/24/21 11:36 Morphine 10 Mg/0 .5 Ml Oral Liq Ud PO 10 mg Q2H PRN Administration PAIN Pantoprazole Sodiu m 40 mg 05/23/21 09:00 05/24/21 09:[address] 40 Mg Tablet PO 40 mg DAILY NABEEL Administration Vitals/I&O/Wt Last Vital Signs Temp 97.6 F 05/26/21 08:00 Pulse 82 05/26/21 09:08 Resp 19 H 05/26/21 09:08 BP 125/63 05/26/21 08:00 Pulse Ox 90 05/26/21 09:08 05/25/21 05/26/21 05/26/21 22:59 06:59 14:59 Intake Total 340 / 1020 545 / 545 Output Total 1300 / 1300 1650 / 2950 Balance -960 / -280 -1650 / -1930 545 / 545 Weight last 48 hrs Weight 43.953 kg Weight 45.926 kg Physical Exam Const: COMMON NORMALS: patient oriented x3 HENMT: COMMON NORMALS: normocephalic, atraumatic, hearing grossly normal bi laterally and external ears normal HEAD & SCALP: normocephalic and atraumatic EXTERNAL EAR: Yes external ears normal Eye: COMMON NORMALS: no scleral icterus GENERAL EYE: appearance normal, both eyes and all related structures Chest: COMMONS NORMALS: normal inspection of the chest and normal palpation of entire chest wall CHEST: Yes Symmetrical chest wall rise OTHER: Diminished air entry B/L Resp: COMMON NORMALS: normal respiratory effort, No retractions, No use of accessory muscles and clear to auscultation bilaterally EFFORT & INSPECTION: Yes symmetric chest movement AUSCULTATION: clear to auscultation bilaterally OTHER: Patient is tachypneic, tripod position, use of accessory muscles of respiration. Diminished air entry bilaterally Cardio: COMMON NORMALS: regular rate, regular rhythm, S1 normal heart sound present, S2 normal heart sound present, No gallops present (Cardio), No murmurs present (Cardio), No rub (Cardio) and Peripheral pulses 2+ throughout RATE: regular rate RHYTHM: regular rhythm HEART SOUNDS: S1 normal heart sound present and S2 normal heart sound present PERIPHERAL PULSES: Peripheral pulses 2+ throughout GI: COMMON NORMALS: Normal to inspection, nondistended, normoactive bowel sounds present, Soft to palpation, non-tender, No hepatosplenomegaly present and no masses AUSCULTATION: Yes normoactive bowel sounds PALPATION: Yes Soft to palpation and Yes No hepatosplenomegaly present RECTAL EXAM: deferred Extremity: COMMON NORMALS: no clubbing, cyanosis or edema and no pedal edema Neuro: COMMON NORMALS: patient oriented x3 Urinary Catheter Management: Allen: Cath Placed During This Visit: yes Reason for Continuing Indwelling Catheter: Other Urinary Catheter Date of Insertion: 05/22/21 Urinary Catheter Time of Insertion: 17:00 Data : 05/26/21 02:51 05/26/21 02:51 A&P Assessment and plan (1) Acute and chronic respiratory failure with hypercapnia: Status: Acute (2) Cancer of right lung: Status: Acute (3) Acute exacerbation of chronic obstructive airways disease: Status: Acute (4) Hypertension: Status: Acute (5) Compression fracture of body of thoracic vertebra: Status: Acute Plan 76-year-old with past medical history of COPD, lung cancer, recent admissions for pneumonia, noncompliant with AVAPS presents with shortness of breath found to be in hypercapnia. Acute on chronic hypercapnic hypoxic respiratory failure: Likely secondary to COPD exacerbation cannot conclusively rule out possible underlying healthcare associated pneumonia. Possible underlying postradiation pneumonitis. CT chest without contrast: ? Patchy airspace opacities in the right upper lobe surrounding the mass could represent lymphangitic spread of cancer and/or postobstructive pneumonia. Consolidation and collapse of the left lower lobe most likely represents atelectasis with bronchial collapse.? Superimposed pneumonia cannot be excluded. Severe emphysema and old granulomatous disease. Lower limb Doppler negative for DVT. Procalcitonin 0.25 MRSA culture negative Urine Legionella antigen negative Bacterial antigen panel negative Blood culture:NTD Sputum Gram stain and culture: Continue imipenem and levofloxacin for now Discontinue vancomycin DuoNebs every 6 hours on budesonide twice daily. Solu-Medrol 60 I.V BID Oxygen supplementation keeping saturation over 88%. Continue BiPAP #HFpEF : Currently compensated Echocardiogram shows an EF of 71%, grade 1 diastolic dysfunction, mild biatrial enlargement. No significant change to last echocardiogram. Continue intake output monitoring Monitor Daily weight K>4, MG >2 Lasix 20 mg po daily Hypertension: Continue amlodipine and atenolol Currently lisinopril on hold Continue other chronic medications. Continue with home oral pain meds. CODE STATUS: DNR/DNI. Mechanical soft. Speech evaluation. Protonix for PUD prophylaxis. Lovenox for DVT prophylaxis. Attestations Medical Necessity Statement*: Patient is still in hospital for management of respiratory failure. Coding Level of Care Code Acute Boiler Inspector for [facility] Fwd Exam Comprehensive Diagnoses Acute and chronic respiratory failure with hypercapnia J96.22 Cancer of right lung C34.91 Acute exacerbation of chronic obstructive airways disease J44.1 Hypertension I10 Compression fracture of body of thoracic vertebra S22.000A
[2021-05-26] MEDS: guaiFENesin 600 mg Tablet 1200 MG PO ×2 (11:14→17:12)
[2021-05-26] MEDS: acetylcysteine 200 mg/mL SDV 4 mL 100 MG INHALATION ×4 (11:41→23:26)
[2021-05-26] MEDS: enoxaparin 40 mg/0.4 mL Syringe SUBCUT (17:12)
[2021-05-26] MEDS: atorvastatin 40 mg Tablet 20 MG PO (20:29)
[2021-05-26] MEDS: acetaminophen 325 mg Tablet 650 MG PO (22:37)
[2021-05-27] VITALS (10 sets, daily range): BP systolic 153–170; BP diastolic 54–81; PULSE 74–88; RESP 16–20; TEMP 36.8–37.1; O2SAT 90–94
[2021-05-27] MEDS: ipratropium-albuterol 3 mL Neb INHALATION ×3 (03:36→11:00)
[2021-05-27 04:35] LABS: Basophils % 0.1 %; Hematocrit 30.1 % (37.0-47.0); Hemoglobin 9.3 g/dL (11.5-15.3); Lymphocytes # 0.8 10^3/uL (0.8-4.8); Lymphocytes % 8.2 %; Mean Corpuscular HGB Conc 30.9 g/dL (30.0-36.0); Mean Corpuscular Volume 97.1 fl (81-99); Mean Platelet Volume 10.1 fL (7.4-10.4); Monocytes # 0.5 10^3/uL (0.2-0.9); Monocytes % 5.1 %; Neutrophils # 8.28 10^3/uL (1.8-7.7); Neutrophils % 86.4 %; Nucleated Red Blood Cells % 0 %; Platelet Count 361 10^3/cmm (130-400); Red Cell Distribution Width 14.2 % (12.1-15.1); White Blood Count 9.6 10^3/uL (4.0-10.0)
[2021-05-27 05:05] LABS: Chloride 94 mmol/L (98-107); Glucose 159 mg/dL (65-115); Sodium 138 mmol/L (136-145)
[2021-05-27] MEDS: amlodipine 5 mg Tablet PO (05:21)
[2021-05-27 05:58] LABS: Anion Gap 14.9 (5-19); Blood Urea Nitrogen 17 mg/dL (8-23); Calcium 9.4 mg/dL (8.5-10.5); Carbon Dioxide 32 mmol/L (22-29); Osmolality Calculated 291 mOsm/kg (285-295)
[2021-05-27 06:02] LABS: Potassium 2.9 mmol/L (3.5-5.1)
[2021-05-27] MEDS: morphine 10 mg/0.5 mL oral liq UD PO (06:20)
[2021-05-27] MEDS: potassium chloride premix 100 ML 25 MEQ IV (06:23)
[2021-05-27] MEDS: acetylcysteine 200 mg/mL SDV 4 mL 100 MG INHALATION ×2 (07:54→11:00)
[2021-05-27] MEDS: budesonide 0.5 mg/2 mL Neb INHALATION (07:55)
--- NOTE | 2021-05-27 08:41 | XRR_ITS ---
PROCEDURE INFORMATION: Exam: XR Chest Exam date and time: 05/27/2021 8:41 AM Age: 76 years old Clinical indication: Condition or disease; Lung condition and disease; Pneumonia; Shortness of breath; Patient HX: SOB coghing follow up, HX of lung cancer; Additional info: SOB pneumonia TECHNIQUE: Imaging protocol: XR of the chest. Views: 1 view. COMPARISON: CT chest con [id number] 05/22/2021 5:24 PM FINDINGS: Lungs: COPD, interstitial disease, chronic granulomatous disease. Pleural spaces: Worsening left basilar airspace disease and pleural effusion. Heart/Mediastinum: No cardiomegaly. Calcified lymph nodes Vasculature: Calcification of the thoracic aorta. Bones/joints: Osteopenia, compression fractures, and degenerative change. Old right humeral neck fracture. Soft tissues: Leftward rotation of the chest. XR/XR chest 1V portable [id number] IMPRESSION: 1. COPD, interstitial disease, chronic granulomatous disease. 2. Worsening left basilar airspace disease and pleural effusion. 3. Additional findings as described above.
[2021-05-27] MEDS: FUROsemide 20 mg Tablet PO (09:16)
[2021-05-27] MEDS: pantoprazole DR 40 mg Tablet PO (09:16)
[2021-05-27] MEDS: atenolol 50 mg Tablet PO (09:17)
[2021-05-27] MEDS: acetaZOLAMIDE 250 mg Tablet PO (09:17)
[2021-05-27] MEDS: guaiFENesin 600 mg Tablet 1200 MG PO (09:17)
[2021-05-27] MEDS: ferrous gluconate 324 mg Tablet PO (09:17)
--- NOTE | 2021-05-27 11:01 | PM.DCS ---
Discharge Providers Date of Admission: 05/22/21 16:19 Date of Discharge: May 27, 2021 Attending Provider at Admission: Cesar Roach MD Attending Provider at Discharge: Carlos Ashley MD Primary Care Provider: Sugey Sosa DO Diagnoses at Discharge Discharge Diagnosis (1) Acute and chronic respiratory failure with hypercapnia: Status: Acute (2) Cancer of right lung: Status: Acute (3) Acute exacerbation of chronic obstructive airways disease: Status: Acute (4) Hypertension: Status: Acute (5) Compression fracture of body of thoracic vertebra: Status: Acute Reason for Visit Reason for Visit: SOB Hospital Course Hospital Course HPI : Dr: Cesar Roach MD 76 year old female with a past medical history of COPD on 4 L, on home trilogy, home AVAPS to which she has not compliant to, hypertension, history of lung carcinoma right upper lung, status post radiation therapy February 2021,?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 She presents today via EMS with complaint of shortness of breath increasing for last few days.? In the ER she was found to be hypercapnic so placed on BiPAP.? She was given 125 of Solu-Medrol, DuoNebs and albuterol. Blood work in the ER showed a white count 12.8, hemoglobin of 9.3, chemistry showing a sodium 139, creatinine of 0.3, chloride of 94, AST/ALT 38/91, proBNP of 828, ABG showing a pH of 7.3, PCO2 of 81, PO2 of 96 on 4 L nasal cannula after which she was placed on BiPAP. Hospital course: She was managed for Acute on chronic hypercapnic hypoxic respiratory failure:?Likely secondary to COPD exacerbation healthcare associated pneumonia.? Possible underlying postradiation pneumonitis.She was kept on broad-spectrum antibiotics, steroids , duo nebs, chest PT , pulmonary toilet , BiPAP and supplemental oxygen as needed, CT chest without contrast:??Patchy airspace opacities in the right upper lobe surrounding the mass could represent lymphangitic spread of cancer and/or postobstructive pneumonia. Consolidation and collapse of the left lower lobe most likely represents atelectasis with bronchial collapse.? Superimposed pneumonia cannot be excluded. Severe emphysema and old granulomatous disease. Lower limb Doppler negative for DVT. Procalcitonin 0.25 MRSA culture negative, Urine Legionella antigen negative Bacterial antigen panel negative Blood culture:NTD, Sputum Gram stain and culture: not collected, likely patient was not able to give a sample. Chest x-ray done during the discharge, has not shown any significant improvement, but the patient was insistent on going home, as she was not comfortable staying in the hospital, she said that she is feeling better, and if she start feeling bad again she will come back to the hospital. She was advised to stay in the hospital and continue with chest physical therapy As well as IV antibiotics and others, other conservative respiratory support measures, but patient decided to go home At the time of discharge she was requiring close to 6-7 liters oxygen through nasal cannula, at home she usually around 3-4 liters oxygen, patient was continued on home inhaler, as well as nebulizers, she was continued on levofloxacin daily for another 14 days.She has also been discharged on prednisone 20 mg p.o. daily for another 7 days. For history of heart failure with preserved ejection fraction she was continued on IV diuresis, which was later switched to p.o. Lasix, with good urine output, she was discharged on Lasix p.o. 20 mg daily as well as oral potassium supplement. She was continued to be managed for her other comorbid condition. Case was briefly discussed with ancillary specialist, current plan is to follow Dr. Hunt as an outpatient in 1 week. Patient is being discharged home. She will also continue to follow the primary care physician as an outpatient Physical Exam Const: COMMON NORMALS: patient oriented x3 HENMT: COMMON NORMALS: normocephalic and atraumatic HEAD & SCALP: normocephalic and atraumatic Chest: CHEST: Yes Symmetrical chest wall rise OTHER: Diminished air entry B/L Resp: OTHER: Diminished air entry bilaterally Cardio: COMMON NORMALS: regular rate, regular rhythm, S1 normal heart sound present, S2 normal heart sound present, No gallops present (Cardio), No murmurs present (Cardio), No rub (Cardio) and Peripheral pulses 2+ throughout RATE: regular rate RHYTHM: regular rhythm HEART SOUNDS: S1 normal heart sound present and S2 normal heart sound present PERIPHERAL PULSES: Peripheral pulses 2+ throughout GI: COMMON NORMALS: Normal to inspection, nondistended, normoactive bowel sounds present, Soft to palpation, non-tender, No hepatosplenomegaly present and no masses AUSCULTATION: Yes normoactive bowel sounds PALPATION: Yes Soft to palpation and Yes No hepatosplenomegaly present RECTAL EXAM: deferred Extremity: COMMON NORMALS: no clubbing, cyanosis or edema and no pedal edema Neuro: COMMON NORMALS: patient oriented x3 Urinary Catheter Management: Allen: Cath Placed During This Visit: yes Reason for Continuing Indwelling Catheter: Hospice/Comfort/Palliative Care Urinary Catheter Date of Insertion: 05/22/21 Urinary Catheter Time of Insertion: 17:00 Discharge Data Studies Completed and Pending Completed Studies During Hospitalization Category Date Time Status CT chest wo con [id number] Stat Cat Scan 05/22/21 16:18 Completed XR chest 1V portable [id number] Routine Exams 05/27/21 08:41 Completed XR chest 1V portable [id number] Stat Exams 05/22/21 14:54 [place] [id number] Urgent Ultrasound 05/22/21 16:29 Completed CV. echo complete* [id number] Routine Ultrasound 05/22/21 16:29 Completed Pending at discharge Category Date Time Status ABG FULL [Arterial Blood Gas Full] Stat Lab 05/22/21 20:11 Results ABG FULL [Arterial Blood Gas Full] Stat Lab 05/23/21 08:39 Results Blood Culture Stat Lab 05/22/21 17:09 Results Sputum Culture and Gram Stain Stat Lab 05/22/21 16:18 Ordered Radiology Impressions Chest CT 05/22/21 16:18 IMPRESSION: 1. The spiculated mass in the perihilar right upper lobe has increased significantly in size measuring at least 6.4 cm and has a new cavitation in the anterior right upper lobe. This is consistent with patient's history of primary lung cancer. 2. Patchy airspace opacities in the right upper lobe surrounding the mass could represent lymphangitic spread of cancer and/or postobstructive pneumonia. 3. Consolidation and collapse of the left lower lobe most likely represents atelectasis with bronchial collapse. Superimposed pneumonia cannot be excluded. 4. Severe emphysema and old granulomatous disease Chest X-Ray 05/27/21 08:41 IMPRESSION: 1. COPD, interstitial disease, chronic granulomatous disease. 2. Worsening left basilar airspace disease and pleural effusion. 3. Additional findings as described above. Laboratory Results WBC 9.6 10^3/uL (4.0-10.0) 05/27/21 03:32 RBC 3.10 10^6/uL (4.1-5.3) L 05/27/21 03:32 Hgb 9.3 g/dL (11.5-15.3) L 05/27/21 03:32 Hct 30.1 % (37.0-47.0) L 05/27/21 03:32 MCV 97.1 fl (81-99) 05/27/21 03:32 MCH 30.0 pg (28.0-34.0) 05/27/21 03:32 MCHC 30.9 g/dL (30.0-36.0) 05/27/21 03:32 RDW 14.2 % (12.1-15.1) 05/27/21 03:32 Plt Count 361 10^3/cmm (130-400) 05/27/21 03:32 MPV 10.1 fL (7.4-10.4) 05/27/21 03:32 Neut % (Auto) 86.4 % 05/27/21 03:32 Lymph % (Auto) 8.2 % 05/27/21 03:32 Sunflower % (Auto) 5.1 % 05/27/21 03:32 Eos % (Auto) 0.0 % 05/27/21 03:32 Baso % (Auto) 0.1 % 05/27/21 03:32 Neut # (Auto) 8.28 10^3/uL (1.8-7.7) H 05/27/21 03:32 Lymph # (Auto) 0.8 10^3/uL (0.8-4.8) 05/27/21 03:32 Sunflower # (Auto) 0.5 10^3/uL (0.2-0.9) 05/27/21 03:32 Eos # (Auto) 0.0 10^3/uL (0.0-0.8) 05/27/21 03:32 Baso # (Auto) 0.0 10^3/uL (0.0-0.1) 05/27/21 03:32 Nucleated RBC % (auto) 0 % 05/27/21 03:32 Nucleated RBCs # 0.0 /100WBC 05/27/21 03:32 Specimen Type Arterial 05/23/21 08:39 Sample Site Brachial, right 05/23/21 08:39 ABG pH 7.41 (7.35-7.45) 05/23/21 08:39 ABG pCO2 80.1 mmHg (35-45) H* 05/22/21 20:11 ABG pO2 80.5 mmHg (80.0-100.0) 05/23/21 08:39 ABG HCO3 42.0 mmol/L (22-26) H 05/23/21 08:39 ABG O2 Saturation 96.9 05/23/21 08:39 ABG Base Excess 15.2 mmol/L (-2.0-2.0) H 05/23/21 08:39 Leonel Test Pos 05/23/21 08:39 A-a O2 Gradient 8.6 mmHg (5-10) 05/22/21 15:23 Hematocrit 26.3 % (37-47) L 05/23/21 08:39 Hgb O2 Saturation 95.1 % (95-100) 05/23/21 08:39 Carboxyhemoglobin 1.0 %THgb (0.4-20.1) 05/23/21 08:39 Methemoglobin 1.0 % (0.4-1.5) 05/23/21 08:39 Total Hemoglobin 8.6 g/dL (12-16) L 05/23/21 08:39 Sodium 138.0 mmol/L (131-143) 05/23/21 08:39 Potassium 3.8 mmol/L (3.5-5.0) 05/23/21 08:39 Glucose 104.0 mg/dL (70-115) 05/23/21 08:39 Ionized Calcium 1.2 mmol/L (1.1-1.4) 05/23/21 08:39 O2 Delivery Device Oxy mask 05/23/21 08:39 O2 Liters/Min 10.0 % 05/23/21 08:39 FiO2 36.0 % 05/22/21 15:23 Paratransit Operator ID Bds 05/23/21 08:39 Sodium 138 mmol/L (136-145) 05/27/21 03:32 Potassium 2.9 mmol/L (3.5-5.1) L 05/27/21 03:32 Chloride 94 mmol/L (98-107) L 05/27/21 03:32 Carbon Dioxide 32 mmol/L (22-29) H 05/27/21 03:32 Anion Gap 14.9 (5-19) 05/27/21 03:32 BUN 17 mg/dL (8-23) 05/27/21 03:32 Creatinine 0.3 mg/dL (0.5-0.9) L 05/27/21 03:32 GFR Calculation Not Reportable 05/27/21 03:32 Glucose 159 mg/dL (65-115) H 05/27/21 03:32 Estimat Average Glucose 91 05/23/21 04:55 Hemoglobin A1c 4.8 % (4.0-6.0) 05/23/21 04:55 Calculated Osmolality 291 mOsm/kg (285-295) 05/27/21 03:32 Calcium 9.4 mg/dL (8.5-10.5) 05/27/21 03:32 Phosphorus 3.0 mg/dL (2.5-4.5) 05/23/21 04:55 Magnesium 2.3 mg/dL (1.7-2.3) 05/23/21 04:55 Iron 29 ug/dL (37-145) L 05/22/21 15:00 TIBC 199 mcg/dl 05/22/21 15:00 % Saturation 14.5 % (20-50) L 05/22/21 15:00 Unsat Iron Binding 170 ug/dL (112-347) 05/22/21 15:00 Total Bilirubin 0.2 mg/dL (0.15-1.2) 05/24/21 02:04 AST 13 U/L (0-32) 05/24/21 02:04 ALT 50 U/L (0-33) H 05/24/21 02:04 Alkaline Phosphatase 243 IU/L (35-105) H 05/24/21 02:04 Troponin T Baseline 22 ng/L (0-10) H 05/22/21 15:00 Troponin T 120 Minute 18.69 ng/L (0-10) H 05/22/21 17:09 Delta Troponin T -3.31 ABS# (0-10) L 05/22/21 17:09 Troponin T Hi Sens 6Hr 17.60 ng/L (0-10) H 05/22/21 20:41 Troponin T Hi Sens 6Hr Delta -4.40 ng/L (0-12) L 05/22/21 20:41 NT-Pro-B Natriuret Pep 828 pg/mL (0-450) H 05/22/21 15:00 Total Protein 6.6 g/dL (6.6-8.7) 05/24/21 02:04 Albumin 3.1 g/dL (3.5-5.2) L 05/24/21 02:04 Globulin 3.5 g/dL (1.3-4.6) 05/24/21 02:04 Triglycerides 123 mg/dL (0-150) 05/23/21 04:55 Cholesterol 188 mg/dL (0-200) 05/23/21 04:55 LDL Cholesterol, Calc 84 mg/dL (50-129) 05/23/21 04:55 Total VLDL Cholesterol 25 mg/dL (0-30) 05/23/21 04:55 HDL Cholesterol 79 mg/dL (60-100) 05/23/21 04:55 Cholesterol/HDL Ratio 2.38 mg/dL (0.0-4.40) 05/23/21 04:55 Vitamin B12 > 2000 pg/mL (232-1245) H 05/22/21 15:00 Folate 19.9 ng/mL (4.8-37.3) 05/22/21 17:09 Procalcitonin 0.25 ng/mL (0-0.5) 05/24/21 02:04 TSH 0.36 uIU/mL (0.27-4.20) 05/22/21 15:00 Urine Color Yellow (Yellow) 05/22/21 16:50 Urine Appearance Clear (CLEAR) 05/22/21 16:50 Urine pH 5 (5-7) 05/22/21 16:50 Ur Specific [place] 1.020 (1.005-1.030) 05/22/21 16:50 Urine Protein Neg (Negative) 05/22/21 16:50 Urine Glucose (UA) Norm (Normal) 05/22/21 16:50 Urine Ketones 1+ (Negative) H 05/22/21 16:50 Urine Blood Neg (Negative) 05/22/21 16:50 Urine Nitrate Negative (Negative) 05/22/21 16:50 Urine Bilirubin Neg (Negative) 05/22/21 16:50 Urine Urobilinogen Norm mg/dL (Negative) 05/22/21 16:50 Ur Leukocyte Esterase Negative (Negative) 05/22/21 16:50 Coronavirus 229E (PCR) Not detected (NOT DETECT) 05/22/21 16:50 SARS-CoV-2 (PCR) Not detected (NOT DETECT) 05/22/21 16:50 Vitals Last Vital Signs Temp 98.2 F 05/27/21 07:20 Pulse 88 05/27/21 08:04 Resp 20 H 05/27/21 07:57 BP 170/81 05/27/21 07:20 Pulse Ox 92 05/27/21 07:57 Discharge Plan Discharge Patient Disposition: Home Condition: Stable Prescriptions: New Mucinex 600 mg Tablet Extended Release 12hr 1,200 mg PO BID 10 Days Qty: 40 0RF levofloxacin 750 mg tablet 750 mg PO Q24H 14 Days Qty: 14 0RF Klor-Con M20 20 mEq tablet,ER particles/crystals 20 meq PO DAILY Qty: 30 0RF Continued vitamin B complex [B Complex-Vitamin B12] Tablet 1 tab PO DAILY 0RF Breztri Aerosphere 160-9-4.8 mcg/actuation HFA aerosol inhaler 2 inh inhalation BID Qty: 10.7 3RF morphine concentrate 100 mg/5 mL (20 mg/mL) solution See Rx Instructions .ROUTE .COMPLEX 0RF Rx Instructions: 0.25 ml to 0.5 ml po every 2 hours prn pain *max of 120mg per day* cyanocobalamin (vitamin B-12) [Vitamin B-12] 1,000 mcg Tablet 1,000 mcg PO DAILY 0RF alprazolam 0.25 mg tablet 0.25 mg PO BID PRN (Reason: Anxiety) 0RF mirtazapine 15 mg tablet 15 mg PO BEDTIME PRN (Reason: Sleep) 0RF ondansetron 4 mg tablet,disintegrating 4 mg PO TID PRN (Reason: Nausea And Vomiting) 0RF pantoprazole [Protonix] 40 mg tablet,delayed release (DR/EC) 40 mg PO DAILY 0RF lisinopril 40 mg tablet 40 mg PO DAILY Qty: 0 0RF albuterol sulfate 2.5 mg /3 mL (0.083 %) solution for nebulization 2.5 mg inhalation Q4H PRN (Reason: Shortness Of Breath) Qty: 0 0RF cetirizine [Zyrtec] 10 mg Tablet 10 mg PO QAM 0RF simvastatin 10 mg tablet 10 mg PO QPM 0RF amlodipine 5 mg tablet 5 mg PO QAM 0RF albuterol sulfate [Ventolin HFA] 90 mcg/actuation HFA aerosol inhaler 2 puff INHALATION Q4H PRN (Reason: Shortness Of Breath) 0RF fluticasone propionate 50 mcg/actuation spray,suspension 2 spray INTRANASAL DAILY 0RF atenolol 50 mg tablet 50 mg PO BID 0RF cholecalciferol (vitamin D3) [Vitamin D3] 50 mcg (2,000 unit) Capsule 50 mcg PO QPM 0RF Changed prednisone 10 mg tablet 20 mg PO DAILY 7 Days Qty: 7 0RF Rx Instructions: Hold until prednisone taper completes Lasix 20 mg Tablet 20 mg PO DAILY 30 Days Qty: 30 3RF Discontinued prednisone 10 mg tablet See Rx Instructions .ROUTE .COMPLEX Qty: 53 0RF Rx Instructions: 4 tabs a day for 5 days, 3 tabs for 5, 2 tabs for 5, 1 tab for 5, 1/2 tab a day for 5 days Discharge Orders: Discharge Order (Routine); Ordered 05/27/21 Ordered By: Carlos Ashley Other Ambulatory Orders: DME: [employer] (Order) Location: None Selected Ordered By: Carlos Ashley Referrals: [facility] ([facility]) [Outside] Walker Hunt MD [Physician] - 1 week (please call for appointment with heart care) Sugey Sosa DO [Primary Care Provider] - 05/31/21 10:20 am Discharge Diet: GI Soft Discharge Activity: Increase activity as tolerated Patient Instructions: Potassium Chloride (By mouth), Antitussive/Expectorant (By mouth), Levofloxacin (By mouth), Hypertension, Lung Cancer (DC), Vertebral Compression Fracture (DC), Opioid Safety Discharge Attestations Time Spent in Discharge Care*: greater than 30 min Specific Discharge Activities: educating patient, educating and/or supporting family/caregiver, discussing with pcp/other providers, discussing with geriatric case manager/social workers/dc planners, documenting/other paperwork and evaluating patient/reviewing data Status at Discharge: Cognitive status at discharge: cognitively intact, Behavioral status at discharge: cooperative, Quality Metrics Clinical Quality Measures [ No reported AMI, CVA or VTE this stay] Coding Level of Care Code Acute Chg FW DC note Exam Detailed Diagnoses Acute and chronic respiratory failure with hypercapnia J96.22 Cancer of right lung C34.91 Acute exacerbation of chronic obstructive airways disease J44.1 Hypertension I10 Compression fracture of body of thoracic vertebra S22.000A
--- NOTE | 2021-05-27 15:30 | PC.NURSE ---
patient and daughter verbalized understanding of discharge instructions, home medications, and follow up appointments. Home meds delivered to bedside.
[2021-05-29 08:52] LABS: ABG PCO2 67.1 mmHg (35-45)
== END 2021-05-27 15:32 | disposition home health service (06) | DRG 190 ==
LOC: ER 16:40 → MEDSURG 17:39
PROVIDERS: Admitting Provider Student in an Organized Health Care Education/Training Program; Emergency Provider Family Medicine; PCP Family Medicine; Visit Provider Internal Medicine
DX: J44.1 Chronic obstructive pulmonary disease with (acute) exacerbation (principal); J96.22 Acute and chronic respiratory failure with hypercapnia; J18.9 Pneumonia, unspecified organism; J98.11 Atelectasis; I50.32 Chronic diastolic (congestive) heart failure; C34.91 Malignant neoplasm of unspecified part of right bronchus or lung; C79.51 Secondary malignant neoplasm of bone; E87.3 Alkalosis; Z99.81 Dependence on supplemental oxygen; Z92.3 Personal history of irradiation; Z79.899 Other long term (current) drug therapy; F17.210 Nicotine dependence, cigarettes, uncomplicated; Z79.52 Long term (current) use of systemic steroids; Z66 Do not resuscitate; I11.0 Hypertensive heart disease with heart failure; S22.000D Wedge compression fracture of unspecified thoracic vertebra, subsequent encounter for fracture with routine healing; X58.XXXD Exposure to other specified factors, subsequent encounter
CPT/HCPCS: 36415; 36600; 51702; 71045; 71250; 80048; 80051; 80053; 80061; 81003; 82330; 82607; 82746; 82805; 83036; 83540; 83550; 83735; 83880; 84100; 84145; 84443; 84484; 85025; 86403; 87040; 87449; 87635; 87641; 92526; 92610; 93005; 93306; 93970; 94640; 94660; 94668; 94762; 96372; 99285; J0743; J1650; J1940; J1956; J2920; J2930; J3370; J3480; J3490; J7050; J7608; J7626

== ENCOUNTER 2021-05-31 10:10 | Emergency (ER) | payer MEDICARE, MEDICAID, SELFPAY ==
[2021-05-31] VITALS (10 sets, daily range): BP systolic 70–136; BP diastolic 44–66; PULSE 45–140; RESP 12–28; TEMP 36.2; O2SAT 79–100
--- NOTE | 2021-05-31 10:16 | ECG_ITS ---
[facility] Test Date: 2021-05-31 Pat Name: Mónica Rodas Department: Room: Gender: Female [employer]: : 1945 Requested By: Porfirio Bell Order Number: [id number] Ruma MD: Gabriela Dangelo M.D. Measurements Intervals [place] Rate: 81 P: 32 ME: 134 QRS: 13 QRSD: 95 T: 43 QT: 361 QTc: 420 Interpretive Statements SINUS RHYTHM WITH OCCASIONAL SUPRAVENTRICULAR PREMATURE COMPLEXES Compared to ECG 05/22/2021 16:21:19 Early repolarization no longer present Electronically Signed On 06-02-2021 12:11:07 [employer] by Gabriela Dangelo M.D. [email or web address]
--- NOTE | 2021-05-31 10:16 | ED_ITS ---
HPI - General Adult General: Chief complaint: Altered Mental Status Stated complaint: DECREASED LOC Time Seen by Provider: 05/31/21 10:13 Source: patient Mode of arrival: EMS Limitations: altered mental status History of Present Illness: 76-year-old female presents to the emergency room with report of altered mental status. Family called stating the patient was unresponsive but breathing. On arrival there they reported she was awake and respond to verbal stimuli. She was discharged from here 4 days ago. At that time she was admitted for acute kidney injury, and acute on chronic respiratory failure with hypercapnia. She has cancer right lung and a history of COPD as well as compression fractures in thoracic vertebrae. Patient is poorly responsive now and she will respond to verbal by looking at you and attempting to answer but I cannot really understand any answers Onset (ago): day(s) Severity: severe Relieving factors: none Exacerbating factors: none Associated symptoms: Reports confusion, cough, decreased appetite, dyspnea, malaise and short of breath; Deny chest pain, diaphoresis or fevers/chills Treatments prior to arrival: none Review of Systems General: Reports: ROS unobtainable due to mental status (Limited due to altered mental status history per EMS some per patient) Const: Reports: malaise; Denies: diaphoresis Card: Denies: chest pain Resp: Reports: dyspnea Neuro: Reports: confusion PFSH ED PFSH: Medical History Acute and chronic respiratory failure with hypercapnia Acute exacerbation of chronic obstructive airways disease Anemia Arrhythmia Cancer of right lung Chronic respiratory failure with hypoxia and hypercapnia Compression fracture of body of thoracic vertebra COPD (chronic obstructive pulmonary disease) Decompensated heart failure Femur fracture, right Fracture of head of humerus GERD (gastroesophageal reflux disease) Hyperkalemia Hypertension Hyponatremia Lung nodule seen on imaging study Respiratory failure with hypoxia and hypercapnia Weight loss Surgical History S/P bronchoscopy Family History Family/Other Cancer Lung Other CAD (coronary artery disease) Hypertension Social History Smoking and tobacco status: current some day smoker cigarettes Second hand smoke exposure: Yes Smoking risk assessment/counseling performed?: No Alcohol intake: never Counseling given: No Counseling given: No Caregiver/support person: Yes Lives independently: No Household members: caregiver Housing: Longterm Marital status: Current occupational status: disabled History of recent travel: No Current gender identity: Female Physical Exam Const: GENERAL APPEARANCE: lethargic NUTRITIONAL APPEARANCE: cachectic ORIENTATION/CONSCIOUSNESS: Yes lethargic HENMT: COMMON NORMALS: normocephalic, atraumatic and hearing grossly normal bilaterally HEAD & SCALP: normocephalic and atraumatic Resp: AUSCULTATION: crackles, wheezes and diminished lung sounds Cardio: COMMON NORMALS: regular rate, regular rhythm and No murmurs present (Cardio) RATE: regular rate RHYTHM: regular rhythm GI: COMMON NORMALS: No hepatosplenomegaly present INSPECTION: Yes abdominal distension AUSCULTATION: Yes Absent bowel sounds PALPATION: Yes Tenderness to palpation present (GI), No Guarding due to palpation present (GI) and Yes No hepatosplenomegaly present Extremity: COMMON NORMALS: normal to inspection, capillary refill normal, no clubbing, cyanosis or edema, no calf tenderness and no pedal edema Neuro: SENSORIUM/ORIENTATION: Yes lethargic Skin: COMMON NORMALS: no rashes or lesions noted GENERAL SKIN EXAM: no rashes or lesions noted Course Vital Signs: Vital signs: Vital Signs Temperature 97.2 F L 05/31/21 10:10 Pulse Rate 45 L 05/31/21 18:00 Respiratory Rate 12 05/31/21 18:00 Blood Pressure 100/51 05/31/21 17:30 Pulse Oximetry 97 05/31/21 18:00 MDM - General Adult Medical Decision Making Patient presented awake was not really understand any history she gave. Later family arrived according old records patient was a no code. Patient was initial ly started on BiPAP. She became hypotensive and low-dose Levophed was started. At that point I called and confirmed with the that she is a no code as there was no family at the bedside. Also discussed with the mother treatment options including comfort cares given her history of lung cancer. Encourage the to come to the hospital or other family members. 2 daughters arrived I discussed with them they also confirmed no CODE STATUS. After some discussion and the daughters conferencing with their father by phone they decided to pursue comfort cares and stop the BiPAP and the Levophed. Both interventions were stopped. I had advised the daughters that I suspected she would deteriorate quickly once these were stopped. After they were stopped within short order patient became severely bradycardic. Patient developed asystole and respiratory effort ceased. This was confirmed by physical exam at the bedside. Family's questions were answered at the bedside. Medical Records I reviewed the patient's medical records. Lab Data I reviewed the patient's lab results. : 05/31/21 10:34 05/31/21 10:[address] 05/31/21 10:17 IMPRESSION: 1. No evidence of intracranial hemorrhage or mass effect. 2. Mild small vessel changes. Moderate parenchymal volume loss. 3. Chronic lacunar infarct RIGHT thalamus unchanged from previous. 4. Chronic infarct LEFT parietal lobe with encephalomalacia unchanged. 5. No acute intracranial findings. Abdomen/Pelvis CT 05/31/21 10:30 IMPRESSION: 1. Small LEFT pleural effusion with progressed consolidation in the LEFT lower lobe. Recommend correlation for pneumonia. 2. Previously described RIGHT upper lobe infiltrates partially visualized and appear improved. 3. Low-attenuation lesion within the LEFT hepatic lobe appears new since the prior abdominal studies. This is ill-defined and measures 3.0 x 2.0 CM. This can be further evaluated with ultrasound or contrast-enhanced CT abdomen pelvis. This may represent focal fat but Metastatic disease not excluded. 4. Gallbladder appears contracted with vicarious excretion of contrast likely due to prior PE study. 5. Tjxp-ut-bwnkamiv transverse colon constipation. No evidence of high-grade small or large bowel obstruction. 6. Urine distended bladder. 7. Mild chronic appearing compression deformities lumbar spine described above. Chest X-Ray 05/31/21 10:30 Impression: 1. Slight decrease in left basilar opacity which may indicate improvement in atelectasis, consolidation and effusion. 2. No change in bilateral interstitial opacities which probably represent chroni c lung disease. 3. Cardiomegaly and atherosclerosis. Laboratory Results WBC 11.8 10^3/uL (4.0-10.0) H 05/31/21 10:34 RBC 3.09 10^6/uL (4.1-5.3) L 05/31/21 10:34 Hgb 9.3 g/dL (11.5-15.3) L 05/31/21 10:34 Hct 33.3 % (37.0-47.0) L 05/31/21 10:34 MCV 107.8 fl (81-99) H 05/31/21 10:34 MCH 30.1 pg (28.0-34.0) 05/31/21 10:34 MCHC 27.9 g/dL (30.0-36.0) L 05/31/21 10:34 RDW 15.0 % (12.1-15.1) 05/31/21 10:34 Plt Count 277 10^3/cmm (130-400) 05/31/21 10:34 MPV 10.4 fL (7.4-10.4) 05/31/21 10:34 Neut % (Auto) 88.5 % 05/31/21 10:34 Lymph % (Auto) 6.0 % 05/31/21 10:34 Grayson % (Auto) 4.6 % 05/31/21 10:34 Eos % (Auto) 0.1 % 05/31/21 10:34 Baso % (Auto) 0.3 % 05/31/21 10:34 Neut # (Auto) 10.46 10^3/uL (1.8-7.7) H 05/31/21 10:34 Lymph # (Auto) 0.7 10^3/uL (0.8-4.8) L 05/31/21 10:34 Grayson # (Auto) 0.5 10^3/uL (0.2-0.9) 05/31/21 10:34 Eos # (Auto) 0.0 10^3/uL (0.0-0.8) 05/31/21 10:34 Baso # (Auto) 0.0 10^3/uL (0.0-0.1) 05/31/21 10:34 Nucleated RBC % (auto) 0 % 05/31/21 10:34 Nucleated RBCs # 0.0 /100WBC 05/31/21 10:34 Specimen Type Arterial 05/31/21 16:59 Sample Site Radial, left 05/31/21 16:59 ABG pH 7.13 (7.35-7.45) L* 05/31/21 16:59 ABG pCO2 88.7 mmHg (35-45) H* 05/31/21 16:59 ABG pO2 256.0 mmHg (80.0-100.0) H 05/31/21 16:59 ABG HCO3 29.3 mmol/L (22-26) H 05/31/21 16:59 ABG O2 Saturation > 100.0 05/31/21 10:53 ABG Base Excess -1.1 mmol/L (-2.0-2.0) 05/31/21 16:59 Leonel Test Pos 05/31/21 16:59 A-a O2 Gradient Not Reportable 05/31/21 10:53 Hematocrit 28.9 % (37-47) L 05/31/21 16:59 Hgb O2 Saturation 97.7 % (95-100) 05/31/21 10:53 Carboxyhemoglobin 1.0 %THgb (0.4-20.1) 05/31/21 10:53 Methemoglobin 1.4 % (0.4-1.5) 05/31/21 10:53 Total Hemoglobin 7.7 g/dL (12-16) L 05/31/21 10:53 Sodium 141.0 mmol/L (131-143) 05/31/21 10:53 Potassium 4.7 mmol/L (3.5-5.0) 05/31/21 10:53 Glucose 76.0 mg/dL (70-115) 05/31/21 10:53 Ionized Calcium 1.2 mmol/L (1.1-1.4) 05/31/21 10:53 O2 Delivery Device Bipap 05/31/21 16:59 O2 Liters/Min 12.0 % 05/31/21 10:53 FiO2 100.0 % 05/31/21 16:59 Route Aide ID Cak 05/31/21 16:59 Sodium 140 mmol/L (136-145) 05/31/21 10:34 Potassium 5.4 mmol/L (3.5-5.1) H 05/31/21 10:34 Chloride 98 mmol/L (98-107) 05/31/21 10:34 Carbon Dioxide 33 mmol/L (22-29) H 05/31/21 10:34 Anion Gap 14.4 (5-19) 05/31/21 10:34 BUN 46 mg/dL (8-23) H 05/31/21 10:34 Creatinine 1.7 mg/dL (0.5-0.9) H 05/31/21 10:34 GFR Calculation Not Reportable 05/31/21 10:34 Glucose 91 mg/dL (65-115) 05/31/21 10:34 Calculated Osmolality 301 mOsm/kg (285-295) H 05/31/21 10:34 Lactic Acid 1.0 mmol/L (0.5-2.2) 05/31/21 10:34 Calcium 7.6 mg/dL (8.5-10.5) L 05/31/21 10:34 Magnesium 2.0 mg/dL (1.7-2.3) 05/31/21 10:34 Total Bilirubin 0.2 mg/dL (0.15-1.2) 05/31/21 10:34 AST 193 U/L (0-32) H 05/31/21 10:34 ALT 172 U/L (0-33) H 05/31/21 10:34 Alkaline Phosphatase 215 IU/L (35-105) H 05/31/21 10:34 Creatine Kinase 173 U/L (26-192) 05/31/21 10:34 Troponin T Baseline 53 ng/L (0-10) H 05/31/21 10:34 Troponin T 120 Minute 59.16 ng/L (0-10) H 05/31/21 13:00 Delta Troponin T 6.16 ABS# (0-10) 05/31/21 13:00 Troponin T Hi Sens 6Hr 58.75 ng/L (0-10) H 05/31/21 16:50 Troponin T Hi Sens 6Hr Delta 5.75 ng/L (0-12) 05/31/21 16:50 Total Protein 5.8 g/dL (6.6-8.7) L 05/31/21 10:34 Albumin 3.1 g/dL (3.5-5.2) L 05/31/21 10:34 Globulin 2.7 g/dL (1.3-4.6) 05/31/21 10:34 Lipase 14 U/L (13-60) 05/31/21 10:34 Urine Color Yellow (Yellow) 05/31/21 10:50 Urine Appearance Clear (CLEAR) 05/31/21 10:50 Urine pH 5 (5-7) 05/31/21 10:50 Ur Specific [place] 1.020 (1.005-1.030) 05/31/21 10:50 Urine Protein Neg (Negative) 05/31/21 10:50 Urine Glucose (UA) Norm (Normal) 05/31/21 10:50 Urine Ketones Negative (Negative) 05/31/21 10:50 Urine Blood Neg (Negative) 05/31/21 10:50 Urine Nitrate Negative (Negative) 05/31/21 10:50 Urine Bilirubin 1+ (Negative) H 05/31/21 10:50 Urine Urobilinogen Neg mg/dL (Negative) 05/31/21 10:50 Ur Leukocyte Esterase Negative (Negative) 05/31/21 10:50 Discharge Plan Discharge Patient Disposition: Clinical Impression: Lung cancer, COPD (chronic obstructive pulmonary disease), Acute on chronic respiratory failure with hypercapnia Condition: Stable Prescriptions: No Action vitamin B complex [B Complex-Vitamin B12] Tablet 1 tab PO DAILY 0RF Breztri Aerosphere 160-9-4.8 mcg/actuation HFA aerosol inhaler 2 inh inhalation BID Qty: 10.7 3RF morphine concentrate 100 mg/5 mL (20 mg/mL) solution See Rx Instructions .ROUTE .COMPLEX 0RF Rx Instructions: 0.25 ml to 0.5 ml po every 2 hours prn pain *max of 120mg per day* cyanocobalamin (vitamin B-12) [Vitamin B-12] 1,000 mcg Tablet 1,000 mcg PO DAILY 0RF alprazolam 0.25 mg tablet 0.25 mg PO BID PRN (Reason: Anxiety) 0RF mirtazapine 15 mg tablet 15 mg PO BEDTIME PRN (Reason: Sleep) 0RF ondansetron 4 mg tablet,disintegrating 4 mg PO TID PRN (Reason: Nausea And Vomiting) 0RF pantoprazole [Protonix] 40 mg tablet,delayed release (DR/EC) 40 mg PO DAILY 0RF prednisone 10 mg tablet 20 mg PO DAILY 7 Days Qty: 7 0RF Rx Instructions: Hold until prednisone taper completes albuterol sulfate 2.5 mg /3 mL (0.083 %) solution for nebulization 2.5 mg inhalation Q4H PRN (Reason: Shortness Of Breath) Qty: 0 0RF furosemide [Lasix] 20 mg Tablet 20 mg PO DAILY 30 Days Qty: 30 3RF guaifenesin [Mucinex] 600 mg Tablet Extended Release 12hr 1,200 mg PO BID 10 Days Qty: 40 0RF levofloxacin 750 mg tablet 750 mg PO Q24H 14 Days Qty: 14 0RF Rx Instructions: for 14 days (rx filled 05/27/21) potassium chloride [Klor-Con M20] 20 mEq tablet,ER particles/crystals 20 meq PO DAILY Qty: 30 0RF Tylenol Ex Str Rapid Release 500 mg Tablet 1,000 mg PO Q6H PRN (Reason: Pain) 0RF lisinopril 40 mg tablet 40 mg PO DAILY PRN (Reason: Blood Pressure) 0RF cetirizine [Zyrtec] 10 mg Tablet 10 mg PO QAM 0RF simvastatin 10 mg tablet 10 mg PO QPM 0RF amlodipine 5 mg tablet 5 mg PO QAM PRN (Reason: Blood Pressure) 0RF albuterol sulfate [Ventolin HFA] 90 mcg/actuation HFA aerosol inhaler 2 puff INHALATION Q4H PRN (Reason: Shortness Of Breath) 0RF fluticasone propionate 50 mcg/actuation spray,suspension 2 spray INTRANASAL DAILY PRN (Reason: Allergy Symptoms) 0RF atenolol 50 mg tablet 50 mg PO BID PRN (Reason: Blood Pressure) 0RF cholecalciferol (vitamin D3) [Vitamin D3] 50 mcg (2,000 unit) Capsule 50 mcg PO QPM 0RF Referrals: Sugey Sosa DO [Primary Care Provider] - Probable Cause of Probable cause of : Cardiac arrest Coding Level of Care Code ED Visual Display Associate for [facility] Fwd Exam Detailed
--- NOTE | 2021-05-31 10:17 | CT_ITS ---
WS: [id number] CT HEAD TECHNIQUE: Noncontrast CT of the head obtained from the skullbase to the vertex. CLINICAL INFORMATION: AMS COMPARISON: August 05, 2020 DLP: 778.[address] scans at [facility] use at least one of these dose optimization techniques: automated e xposure control; mA and/or kV adjustment per patient size (includes targeted exams where dose is matc hed to clinical indication); or iterative reconstruction. FINDINGS: Images degraded by beam hardening and motion artifact. No evidence of intracranial hemorrhage or mass effect. Ventricular system and basal cisterns are gill nt. Mild small vessel changes with moderate parenchymal volume loss. Chronic lacunar infarct RIGHT th alamus. Chronic infarct LEFT parietal lobe with encephalomalacia unchanged. No extra-axial fluid david ections. No evidence of mass or mass effect. Mucosal thickening mastoid tips. Mild mucosal thickening ethmoid air cells. CT/CT head wo con* [id number] IMPRESSION: 1. No evidence of intracranial hemorrhage or mass effect. 2. Mild small vessel changes. Moderate parenchymal volume loss. 3. Chronic lacunar infarct RIGHT thalamus unchanged from previous. 4. Chronic infarct LEFT parietal lobe with encephalomalacia unchanged. 5. No acute intracranial findings.
--- NOTE | 2021-05-31 10:30 | XR_ITS ---
WS: [id number] Portable AP upright chest, 05/31/2021 Clinical Data: dyspnea/cough Comparison: Portable chest, 05/27/2021. Findings: There is diffuse bilateral interstitial opacity throughout the lungs. The left basilar opac ity has diminished slightly but is still present. The heart is slightly enlarged. The aortic arch and descending thoracic aorta show calcification and tortuosity. No nodules or masses are seen. There is a dextroscoliosis. XR/XR chest 1V portable [id number] Impression: 1. Slight decrease in left basilar opacity which may indicate improvement in at electasis, consolidation and effusion. 2. No change in bilateral interstitial opacities which probably represent chron ic lung disease. 3. Cardiomegaly and atherosclerosis.
--- NOTE | 2021-05-31 10:30 | CT_ITS ---
WS: [id number] CT ABDOMEN PELVIS TECHNIQUE: Noncontrast CT of the abdomen and pelvis with coronal and sagittal reformatted images. CLINICAL INFORMATION: abd pain COMPARISON: CT chest and abdomen February 11, [address] May 22, 2021 DLP: 849.[address] scans at [facility] use at least one of these dose optimization techniques: automated e xposure control; mA and/or kV adjustment per patient size (includes targeted exams where dose is matc hed to clinical indication); or iterative reconstruction. FINDINGS:Low-attenuation lesion in the LEFT hepatic lobe measuring 1.9 x 3.0 cm is ill-defined and ap pears new from the prior studies. This could represent focal fat however metastatic disease not exclu ded. This can be further evaluated with ultrasound or contrast-enhanced CT abdomen pelvis. Gallbladde r is contracted with vicarious excretion of contrast in the gallbladder likely due to prior PE study. Splenic granulomas. Normal GE junction. Thickening of the LEFT adrenal gland is unchanged. RIGHT adrenal glands is normal. No hydronephrosis in either kidney. Normal caliber abdominal aorta. M oderate aortic calcification. Urine distended bladder. Normal sigmoid colon. Mild to moderate constipation transverse colon. No high-grade small or large ankur wel obstruction. Atrophic uterus. No abdominal or pelvic lymphadenopathy. Small LEFT pleural effusion with consolidation LEFT lower lobe appears progressed since May 22, 2021. Recommend correlation for pneumonia. Calcified granulomas RIGHT lower lobe. Partially visualize d patchy opacities RIGHT upper lobe along the fissure appear improved since CT chest May 22 2 Chronic appearing compression of the L5 vertebral body. Mild chronic appearing compression of the inf erior endplates L2 and L3. Intramedullary oscar fixation RIGHT femur. CT/CT abdomen pelvis wo con [id number] IMPRESSION: 1. Small LEFT pleural effusion with progressed consolidation in the LEFT lower lobe. Recommend correlation for pneumonia. 2. Previously described RIGHT upper lobe infiltrates partially visualized and appear improved. 3. Low-attenuation lesion within the LEFT hepatic lobe appears new since the p rior abdominal studies. This is ill-defined and measures 3.0 x 2.0 CM. This can be further evaluated with ultrasound or contrast-enhanced CT abdomen pelvis. T his may represent focal fat but Metastatic disease not excluded. 4. Gallbladder appears contracted with vicarious excretion of contrast likely due to prior PE study. 5. Lvqk-jv-zpmddyel transverse colon constipation. No evidence of high-grade s mall or large bowel obstruction. 6. Urine distended bladder. 7. Mild chronic appearing compression deformities lumbar spine described above .
[2021-05-31 10:41] LABS: Basophils % 0.3 %; Eosinophils % 0.1 %; Hematocrit 33.3 % (37.0-47.0); Hemoglobin 9.3 g/dL (11.5-15.3); Lymphocytes # 0.7 10^3/uL (0.8-4.8); Mean Corpuscular HGB Conc 27.9 g/dL (30.0-36.0); Mean Corpuscular Hemoglobin 30.1 pg (28.0-34.0); Mean Corpuscular Volume 107.8 fl (81-99); Mean Platelet Volume 10.4 fL (7.4-10.4); Monocytes # 0.5 10^3/uL (0.2-0.9); Monocytes % 4.6 %; Neutrophils # 10.46 10^3/uL (1.8-7.7); Neutrophils % 88.5 %; Nucleated Red Blood Cells % 0 %; Platelet Count 277 10^3/cmm (130-400); Red Blood Count 3.09 10^6/uL (4.1-5.3); White Blood Count 11.8 10^3/uL (4.0-10.0)
[2021-05-31] MEDS: sodium chloride 0.9% 1,000 ML 999 ML IV ×2 (10:41→13:02)
--- NOTE | 2021-05-31 10:43 | PC.NURSE ---
pt placed on continuous spo2, nibp, cm.
[2021-05-31 11:00] LABS: Alanine Aminotransferase 172 U/L (0-33); Albumin Level 3.1 g/dL (3.5-5.2); Alkaline Phosphatase 215 IU/L (35-105); Blood Urea Nitrogen 46 mg/dL (8-23); Calcium 7.6 mg/dL (8.5-10.5); Carbon Dioxide 33 mmol/L (22-29); Chloride 98 mmol/L (98-107); Creatine Phosphokinase 173 U/L (26-192); Globulin 2.7 g/dL (1.3-4.6); Glucose 91 mg/dL (65-115); Lipase 14 U/L (13-60); Osmolality Calculated 301 mOsm/kg (285-295); Sodium 140 mmol/L (136-145); Total Bilirubin 0.2 mg/dL (0.15-1.2); Total Protein 5.8 g/dL (6.6-8.7)
[2021-05-31 11:01] LABS: Add Urine Microscopic? NO; Charge for UA Resulting for Rev
[2021-05-31 11:02] LABS: Anion Gap 14.4 (5-19); Aspartate Amino Transferase 193 U/L (0-32); Potassium 5.4 mmol/L (3.5-5.1); Troponin(5th) Baseline 53 ng/L (0-10)
--- NOTE | 2021-05-31 11:02 | PC.PHAR ---
pt unable to verify medications-pts daughter ubaldo [phone] states she takes care of the pts medications-ubaldo states she gives the pt her blood pressure medications prn-states the pt hasnt had any of her meds today or last night thinks maybe the pt last took meds on thu-notes are made in the pharmacy comments
[2021-05-31 11:04] LABS: Arterial Blood Gas Hematocrit 23.8 % (37-47); Base Excess ABG 3.9 mmol/L (-2.0-2.0); Blood Gas Allen Test Pos; Blood Gas Operator Identificat CAK; Blood Gas Sample Site Radial, left; Blood Gas Sample Type Arterial; HGB O2 Sat 97.7 % (95-100); Ionized Calcium Level - ABG 1.2 mmol/L (1.1-1.4); Methemoglobin 1.4 % (0.4-1.5); Oxygen Device NRB; Oxygen Saturation ABG > 100.0; Potassium Level - ABG 4.7 mmol/L (3.5-5.0); Total Hemoglobin 7.7 g/dL (12-16)
[2021-05-31 11:05] LABS: ABG PCO2 85.6 mmHg (35-45)
[2021-05-31 11:30] LABS: Bilirubin Urine 1+ (Negative); Blood Urine Neg (Negative); Glucose Urine UA Norm (Normal); Ketones Urine Negative (Negative); Leukocyte Esterase Urine Negative (Negative); Nitrate Urine Negative (Negative); Protein Urine Neg (Negative); Urine Appearance Clear (CLEAR); Urine Color Yellow (Yellow); Urobilinogen Urine Neg (Negative); pH Urine 5 (5-7)
--- NOTE | 2021-05-31 12:31 | ECG_ITS ---
[facility] Test Date: 2021-05-31 Pat Name: Mónica Rodas Department: Room: Gender: Female Noteman: : 1945 Requested By: Porfirio Bell Order Number: [id number] Ruma MD: Gabriela Dangelo M.D. 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 [id number]
--- NOTE | 2021-05-31 12:41 | PC.NURSE ---
NOTIFIED DR. BERGERON OF BP 70/58 VERBALIZED UNDERSTANDING NO FURTHER ORDERS.
--- NOTE | 2021-05-31 13:03 | PC.NURSE ---
DR. BERGERON AT BEDSIDE EXAMINING PT. NOTIFIED HIM OF BP OF 78/52 HE STATED TO START NS AND OBTAIN LEVOPHED. LEVOPHED ORDERED WAITING FOR IT TO BE SUPPLIED VIA PHARMACY.
[2021-05-31] MEDS: norepinephrine 8 MG in dextrose 5 % 500 ML 9.53 MG IV (13:21)
[2021-05-31 13:44] LABS: Troponin 5 2HR 59.16 ng/L (0-10); Troponin 5 2HR Delta 6.16 ABS# (0-10)
--- NOTE | 2021-05-31 14:01 | PC.NURSE ---
WHILE AT BEDSIDE PT HAS REMOVED BIPAP. PT LESS RESPONSIVE THAN EARLIER. BIPAP PLACED BACK ON PT INFORMED DR. BERGERON HE PRESENTED TO BEDSIDE. VO TO CONTINUE TO BIPAP AND INCREASE NOREPINEPHRINE.
[2021-05-31 17:10] LABS: Arterial Blood Gas Hematocrit 28.9 % (37-47); Base Excess ABG -1.1 mmol/L (-2.0-2.0); Blood Gas Allen Test Pos; Blood Gas Operator Identificat CAK; Blood Gas Sample Site Radial, left; Blood Gas Sample Type Arterial; HCO3 ABG 29.3 mmol/L (22-26); Oxygen Device BIPAP
[2021-05-31 17:11] LABS: ABG PCO2 88.7 mmHg (35-45); ABG PH Result 7.13 (7.35-7.45)
[2021-05-31 17:17] LABS: Troponin 5 6HR 58.75 ng/L (0-10)
[2021-05-31 17:19] LABS: Troponin 5 6HR Delta 5.75 ng/L (0-12)
--- NOTE | 2021-05-31 17:35 | PM.HP ---
Providers/Chief Complaint Admitting Physician: Carlos Ashley MD Primary Care Provider: Sugey Sosa DO Chief Complaint: DECREASED LOC History of Present Illness Mónica Rodas is a 76 year old female Medications/Allergies Home Medications Medication Instructions Recorded Confirmed Last Taken Type albuterol sulfate 90 mcg/actuation 2 puff INHALATION Q4H PRN 08/05/20 05/31/21 12/11/20 History aerosol inhaler (Ventolin HFA) amlodipine 5 mg tablet 5 mg PO QAM PRN 08/05/20 05/31/21 02/13/21 06:30 History atenolol 50 mg tablet 50 mg PO BID PRN 08/05/20 05/31/21 02/13/21 06:30 History cetirizine 10 mg tablet (Zyrtec) 10 mg PO QAM 08/05/20 05/31/21 12/10/20 History cholecalciferol (vitamin D3) 50 50 mcg PO QPM 08/05/20 05/31/21 08/04/20 History mcg (2,000 unit) capsule (Vitamin D3) fluticasone propionate 50 2 spray INTRANASAL DAILY PRN 08/05/20 05/31/21 12/10/20 History mcg/actuation nasal spray,suspension simvastatin 10 mg tablet 10 mg PO QPM 08/05/20 05/31/21 02/11/21 History budesonide 160 mcg-glycopyr 9 2 inh INHALATION BID #10.7 g 01/18/21 05/31/21 Unknown Rx mcg-formot 4.8 mcg/actuation HFA inhaler (Breztri Aerosphere) vitamin B complex (B 1 tab PO DAILY 01/21/21 05/31/21 Unknown History Complex-Vitamin B12) alprazolam 0.25 mg tablet 0.25 mg PO BID PRN 02/13/21 05/31/21 Unknown History cyanocobalamin (vitamin B-12) 1,000 mcg PO DAILY 02/13/21 05/31/21 Unknown History 1,000 mcg tablet (Vitamin B-12) mirtazapine 15 mg tablet 15 mg PO BEDTIME PRN 02/13/21 05/31/21 Unknown History morphine concentrate 100 mg/5 mL See Rx Instructions .ROUTE .COMPLEX 02/13/21 05/31/21 Unknown History (20 mg/mL) oral solution ondansetron 4 mg disintegrating 4 mg PO TID PRN 02/13/21 05/31/21 Unknown History tablet pantoprazole 40 mg tablet,delayed 40 mg PO DAILY 02/13/21 05/31/21 Unknown History release (Protonix) albuterol sulfate 2.5 mg (3 mL) INHALATION Q4H PRN 05/27/21 05/31/21 12/10/20 Rx #0 ml furosemide 20 mg tablet (Lasix) 20 mg PO DAILY 30 Days #30 tab 05/27/21 05/31/21 Unknown Rx guaifenesin 600 mg tablet, 1,200 mg PO BID 10 Days #40 tab 05/27/21 05/31/21 Unknown Rx extended release 12 hr (Mucinex) levofloxacin 750 mg tablet 750 mg PO Q24H 14 Days #14 tab 05/27/21 05/31/21 Unknown Rx potassium chloride 20 mEq 20 meq PO DAILY #30 tab 05/27/21 05/31/21 Unknown Rx tablet,extended release(part/cryst) (Klor-Con M) prednisone 10 mg tablet 20 mg PO DAILY 7 Days #7 tab 05/27/21 05/31/21 05/29/21 Rx acetaminophen 500 mg tablet 1,000 mg PO Q6H PRN 05/31/21 05/31/21 Unknown History lisinopril 40 mg tablet 40 mg PO DAILY PRN 05/31/21 05/31/21 Unknown History Allergies Allergy/AdvReac Type Severity Reaction Status Date / Time aspirin Allergy Unknown ADR-Gastrointestinal Unverified 05/28/21 08:57 Upset,abdominal pain hydrochlorothiazide Allergy Unknown Diarrhea Verified 05/23/21 09:56 Penicillins Allergy Unknown ADR-Gastrointestinal Unverified 05/28/21 08:57 Upset,abdominal pain tetracycline Allergy Unknown ADR-Gastrointestinal Unverified 05/28/21 08:57 Upset,abdominal pain tramadol Allergy Unknown nausea and Verified 05/23/21 09:56 vomiting oxycodone-acetominophen Allergy Unknown nausea and Uncoded 05/09/21 13:16 vomiting penicillin Allergy Unknown Uncoded 05/28/21 08:57 PFSH Acute PFSH: Medical History Acute and chronic respiratory failure with hypercapnia Acute exacerbation of chronic obstructive airways disease Anemia Arrhythmia Cancer of right lung Chronic respiratory failure with hypoxia and hypercapnia Compression fracture of body of thoracic vertebra COPD (chronic obstructive pulmonary disease) Decompensated heart failure Femur fracture, right Fracture of head of humerus GERD (gastroesophageal reflux disease) Hyperkalemia Hypertension Hyponatremia Lung nodule seen on imaging study Respiratory failure with hypoxia and hypercapnia Weight loss Surgical History S/P bronchoscopy Family History Family/Other Cancer Lung Other CAD (coronary artery disease) Hypertension Social History Smoking and tobacco status: current some day smoker cigarettes Second hand smoke exposure: Yes Smoking risk assessment/counseling performed?: No Alcohol intake: never Counseling given: No Counseling given: No Caregiver/support person: Yes Lives independently: No Household members: caregiver Housing: [facility] Marital status: Current occupational status: disabled History of recent travel: No Current gender identity: Female Vitals/I&O/Wt Last Vital Signs Temp 97.2 F L 05/31/21 10:10 Pulse 79 05/31/21 14:45 Resp 28 H 05/31/21 10:10 BP 71/44 05/31/21 10:10 Pulse Ox 79 L 05/31/21 14:45 05/31/21 05/31/21 05/31/21 06:59 14:59 22:59 Intake Total 6.671 / 6.671 Balance 6.671 / 6.671 Data : 05/31/21 10:34 05/31/21 10:34 Micro: Microbiology 05/31/21 13:00 Blood Culture - Preliminary Blood SPECIMEN COLLECTED 05/31/21 10:34 Blood Culture - Preliminary Blood SPECIMEN COLLECTED Coding Level of Care Code Acute 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
--- NOTE | 2021-05-31 18:25 | PC.NURSE ---
spoke with family deny any further needs at this time. silvano smith charge nurse assisting prosper with filing paper work.
--- NOTE | 2021-05-31 18:30 | PC.NURSE ---
DR. BERGERON AT BEDSIDE CALLED [facility] AT [phone].
--- NOTE | 2021-05-31 19:08 | PC.NURSE ---
report given to ashley smith assumed care.
== END 2021-05-31 20:38 | disposition expired ==
PROVIDERS: Emergency Provider Family Medicine; PCP Family Medicine
DX: J44.9 Chronic obstructive pulmonary disease, unspecified (principal); J96.22 Acute and chronic respiratory failure with hypercapnia; C34.90 Malignant neoplasm of unspecified part of unspecified bronchus or lung; I10 Essential (primary) hypertension; F17.210 Nicotine dependence, cigarettes, uncomplicated
CPT/HCPCS: 36600; 70450; 71045; 74176; 80051; 80053; 81003; 82330; 82550; 82803; 82805; 83605; 83690; 83735; 84484; 85025; 87040; 93005; 94660; 96365; 96366; 99291; J7030